=== PATIENT | female | born 1990 | race Hispanic/Latino ===

== ENCOUNTER 2021-11-30 12:52 | Emergency (ER) | payer OTHER ==
--- OUTSIDE RECORDS SUMMARY | 2021-11-30 13:02 | XMS REPORT | Continuity of Care Document ---
:1990 Author Organization [facility] t Address [address] [place] [address] Care Team Providers Name Role Phone Yovany Galvan Attending Clinician [phone] Tee WILKS Attending Clinician Unavailable Doctor Unassigned, Name Attending Clinician Unavailable Bright Zapata MD Attending Clinician Masoud RN Attending Clinician Unavailable Ultrasound Attending Clinician Unavailable Don JASSO Attending Clinician Abbe ADORNO, R Attending Clinician Silvano JASSO, F Attending Clinician Lab Attending Clinician Unavailable Faculty, Rmchp Mfm Attending Clinician Unavailable Garfield Elkins MD Attending Clinician Bright Zapata MD Admitting Clinician Payers Payer Name Policy Type Policy Number Effective Date Expiration Date S madelyn [facility] [id number] 2020 00:00:00 [facility] [id number] 2020 [facility] MEDICAID 00:00:00 [place]ICAID OF [place] [id number] 2020 00:00:00 MEDICAID PENDING PENDING 2020 00:00:00 Problems Condition Condition Condition Status Onset Resolution Last Treating Co mments Source Name Details Category Date Date Treatment Clinician Date Other Other Disease Active Univers general general 4-12 [place] of counseling [place] and advice and advice 00 Me dical for for Branch contracept contracept asmita asmita management management Routine Routine Disease Active Univers 3-22 [place] of [place] Anemia, Anemia, Disease Active Univers 3-01 it y of 00:00: [place] 00 [facility] Branch Disease Active Univers (spontaneo (spontaneo 2-27 it y of [place] vaginal [place] vaginal 00:[place] delivery) delivery[place] [address] [facility] Liveborn Liveborn Disease Active Unive rs infant by infant by 2-27 ity of vaginal vaginal 00:00: [place] delivery delivery 00 Medica l [place] 33 weeks 33 weeks Disease Active Unive rs gestation gestation 2-26 ity of of of 00:00: [place] [address] [facility] Obesity Obesity Disease Active Univers (BMI (BMI 2-26 ity of 30-39.9) 30-39.9) 00:00: [place] 00 [facility] Abnormal Abnormal Disease Active Overview: Un er[facility] maternal maternal 1-11 Passed ity of glucose glucose 00:00: 3hr gtt [place] tolerance, tolerance, 00 Me dical antepartum antepartum Br anch Anemia of Anemia of Disease Active Overview: Univers mother in mother in 06-10 Continue it y of , , 00:00: PO iron [place] antepartum antepartum 00 and vit c Medical Branch Supervisio Supervisio Disease Active U nivers n of n of 06-09 ity of high-risk high-risk 00:[place] [address] [facility] History of History of Disease Active U nivers 06-09 ity of induced induced 00:00: [place] hypertensi hypertensi 00 Me dical on on Branch Multiparit Multiparit Disease Active 2020-0 U nivers y y 06-09 ity of 00:00: [place] [facility] History of History of Disease Active 2019-0 U nivers pre-eclamp pre-eclamp 06-09 it y of domi domi 00:00: [place] [facility] History of History of Disease Active 2019-0 U nivers miscarriag miscarriag 06-09 it y of e e 00:00: [place] [facility] Tobacco Tobacco Disease Active Univers use in use in 06-09 [place] of 00:[place] Vaginal Vaginal Disease Active Univers delivery delivery -11 ity of 00:00: [place] [facility] Previous Previous Disease Active 2014-10 Unive rs 2-18 ity of complicate complicate 00:[place] d by d by 00 Medical - - Br anch induced induced hypertensi hypertensi on, on, antepartum antepartum , third , third trimester trimester High-risk High-risk Disease Active 2014-10 Uni vers , , 2-18 it y of third third 00:00: [place] trimester trimester 00 [facility] Branch Thrombophl Thrombophl Disease Active 2014-10 Overview : Univers ebitis, ebitis, 1-24 Will ity of superficia superficia 00:00: [place] l, l, 00 therapuet Medical antepartum antepartum ic Br anch , third , third treatment trimester trimester with Lovenox 40mg BID. Dopper Studies upon hospital admission Abnormal Abnormal Disease Active 2014-10 Unive rs weight weight 1-24 ity of loss loss 00:00: Medical Branch History of History of Disease Active 2014-10 U nivers superficia superficia -12 it y of l l 00:00: [place] thrombophl thrombophl 00 Me dical ebitis ebitis Branch History of History of Disease Active 2014-10 Overview : Univers 1-12 Due to ity of delivery, delivery, 00:00[place] PIH at 32 [place] currently currently 00 and 35wks M edical , , Bran ch third third trimester trimester High-risk High-risk Disease Active Overview: Univers 9-11 ICD10 ity of 00:00: Diagnosis [place] Term Medical [employer] Branch Utility Insufficie Insufficie Disease Active U nivers nt nt 9-11 ity of 00:00: [place] care, care, 00 Medical unspecifie unspecifie Br anch d d trimester trimester Allergies, Adverse Reactions, Alerts Allergy Allergy Status Severity Reaction(s) Onset Inactive Treating Comm ents Source Name Type Date Date Clinician No Known DA Active U 2018- [facility] 7[facility]28 [facility] s 00:00: e 00 Medical Center No Known DA Active U [facility] Allergie 3-13 [facility] s 00:00: e 00 [facility] No Known DA Active U 2014-0 [facility] Allergie 3-06 [facility] 00:00: e 00 Medical Center NO KNOWN Drug Active Univers ALLERGIE Class ity of S [facility] Social History Social Habit Start Date Stop Date Quantity Comments Source ASSERTION 2020-04-18 University of 00:00:00 [facility] Exposure to Not sure [facility] SARS-CoV-2 (event) [facility] Cigarettes smoked 2021-01-10 2021-01-10 Univers ity of current (pack per 00:00:00 00:00:00 ) - Reported Branch Cigarette 2021-01-10 2021-01-10 University of pack-years 00:00:00 00:00:00 [facility] Tobacco use and 2021-01-10 2021-01-10 Never used Universit y of exposure 00:00:00 00:00:00 [facility] Alcohol intake 2021-01-10 2021-01-10 Current University of 00:00:00 00:00:00 non-drinker of [facility] alcohol [place] (finding) Tobacco Comment 2020-06-09 2020-06-09 1/3 pack per day Uni versity of 00:00:00 00:00:00 [facility] History of tobacco 2020-05-09 Cigarette Smoker University of use 00:00:00 [facility] Sex [birth year] At [birth year] Universit y of 00:00:00 00:00:00 [facility] Smoking Status Start Date Stop Date Source Former smoker 2021-01-10 00:00:00 2021-01-10 00:00:00 [facility] [place] Medications Ordered Filled Start Stop Current Ordering Indication Dosage Frequency Signature Comments Components Source Medication Medication Date Date Medication? Clinician (SIG) Name Name medroxyPROG 2021- No [id number] 150mg Univers ESTERone 01-1014 ity of (DEPO-PROVE 15:30: 15:29 [place] RA) 00 :00 Medical injection Branch 150 mg medroxyPROG 2020-0 2021- No [id number] 150mg 150 mg, Univers ESTERone 01-1014 Intramuscu ity of (DEPO-PROVE 15:30: 15:29 lar, [place] RA) 00 :00 [id number], Medical injection 4 doses, Branch 150 mg First dose on Sun01/10/21 at 1030, Last dose on Sun09/19/21 at 1030, Routine medroxyPROG 2020-0 2021- No [id number] 150mg Univers ESTERone 01-10 ity of (DEPO-PROVE 15:30: 15:29 [place] RA) 00 :00 Medical injection Branch 150 mg medroxyPROG 2020-0 2021- No [id number] 150mg 150 mg, Univers ESTERone 01-10 Intramuscu ity of (DEPO-PROVE 15:30: 15:29 lar, [place] RA) 00 :00 [id number], Medical injection 4 doses, Branch 150 mg First dose on Sun01/10/21 at 1030, Last dose on Sun09/19/21 at 1030, Routine medroxyPROG 2020-2021- No [id number] 150mg Univers ESTERone 01-10 ity of (DEPO-PROVE 15:30: 15:29 [place] RA) 00 :00 Medical injection Branch 150 mg medroxyPROG 2020-0 2021- No [id number] 150mg Univers ESTERone 01-10 ity of (DEPO-PROVE 15:30: 15:29 [place] RA) 00 :00 Medical injection Branch 150 mg medroxyPROG 2020-0 2021- No [id number] 150mg Univers ESTERone -09 02-14 ity of (DEPO-PROVE 15:30: 15:29 [place] RA) 00 :00 Medical injection Branch 150 mg medroxyPROG 1-0 2021- No [id number] 150mg Univers ESTERone 01-10-14 ity of (DEPO-PROVE 15:30: 15:29 [place] RA) 00 :00 Medical injection Branch 150 mg ibuprofen 2021-0 Yes [id number] 600mg Take 1 Univers 600 mg 3-01 tablet by ity of tablet 00:00: mouth [place] 00 every 6 Medical (six) Branch hours as needed (Pain). Take with food or milk. ibuprofen 2021-0 Yes [id number] 600mg Take 1 Univers 600 mg 3-01 tablet by ity of tablet 00:00: mouth [place] 00 every 6 Medical (six) Branch hours as needed (Pain). Take with food or milk. ibuprofen 2021-0 Yes [id number] 600mg Take 1 Univers 600 mg 3-01 tablet by ity of tablet 00:00: mouth [place] 00 every 6 Medical (six) Branch hours as needed (Pain). Take with food or milk. ibuprofen 2021-0 Yes [id number] 600mg Take 1 Univers 600 mg 3-01 tablet by ity of tablet 00:00: mouth [place] 00 every 6 Medical (six) Branch hours as needed (Pain). Take with food or milk. ibuprofen 2021-0 Yes [id number] 600mg Take 1 Univers 600 mg 3-01 tablet by ity of tablet 00:00: mouth [place] 00 every 6 Medical (six) Branch hours as needed (Pain). Take with food or milk. ibuprofen 2021-0 Yes [id number] 600mg Take 1 Univers 600 mg 3-01 tablet by ity of tablet 00:00: mouth [place] 00 every 6 Medical (six) Branch hours as needed (Pain). Take with food or milk. ibuprofen 2021-0 Yes [id number] 600mg Take 1 Univers 600 mg 3-01 tablet by ity of tablet 00:00: mouth [place] 00 every 6 Medical (six) Branch hours as needed (Pain). Take with food or milk. ibuprofen 2021-0 Yes [id number] 600mg Take 1 Univers 600 mg 3-01 tablet by ity of tablet 00:00: mouth [place] 00 every 6 Medical (six) Branch hours as needed (Pain). Take with food or milk. ibuprofen 2021-0 Yes [id number] 600mg Take 1 Univers 600 mg 3-01 tablet by ity of tablet 00:00: mouth [place] 00 every 6 Medical (six) Branch hours as needed (Pain). Take with food or milk. ibuprofen 2021-0 Yes [id number] 600mg Take 1 Univers 600 mg 3-01 tablet by ity of tablet 00:00: mouth [place] 00 every 6 Medical (six) Branch hours as needed (Pain). Take with food or milk. rho(D) 0 Yes 300ug 300 mcg, Univer s immune 11-27 Intramuscu ity of globulin 16:00: lar, ONCE, [place] as (RHOGAM) 49 For 1 Medical syringe 300 dose, Branch mcg Conditiona l, Routine human 0 Yes .5mL 0.5 mL, Univers papillomav 11-27 Intramuscu ity of vac,9-santino(P 16:00: lar, [place] F) 47 ONCE-PRIOR Medical (GARDASIL-9 TO Branch ) syringe DISCHARGE, 0.5 mL 1 dose, Starting 11/27/20 at 1000, Until Discontinu ed, Routine, Give vaccine prior to discharge ibuprofen 0 Yes 600mg 600 mg, Univ ers (IBU) 11-27 Oral, ity of tablet 600 16:00: Q6HPRN, [place] mg 47 Starting Medical Sat Branch 11/27/20 at 1000, Until Discontinu ed, Routine, Pain (scale 4-6) acetaminoph 0 Yes 650mg 650 mg, Un erica en 11-27 Oral, ity of (TYLENOL) 16:00: Q6HPRN, [place] tablet 650 47 Starting Medic al mg Sat Branch 11/27/20 at 1000, Until Discontinu ed, Routine, Pain (scale 1-3) diphenhydrA 0 Yes 25mg 25 mg, Univ ers MINE 11-27 Oral, ity of (BENADRYL) 16:00: Q6HPRN, [place] tablet 25 47 Starting Medica l mg Sat Branch 11/27/20 at 1000, Until Discontinu ed, Routine, Sleep, Itching diphenhydrA 0 Yes 25mg 25 mg, IV U nivers MINE-0.9 % 11-27 Piggyback, ity of sod.chlr 16:00: Administer [place] as (BENADRYL) 47 over 30 Medica l 25 mg/50 mL Minutes, Bran ch piggyback Q6HPRN, 25 mg Starting 11/27/20 at 1000, Until Discontinu ed, Routine, Itching ondansetron 2020-0 Yes 4mg 4 mg, Slow Univers (ZOFRAN 11-27 IV Push, ity of (PF)) 16:00: Q8HPRN, [place] injection 4 47 Starting Medi davon mg Sat Branch 11/27/20 at 1000, Until Discontinu ed, Routine, Nausea and Vomiting (N/V) simethicone Yes 160mg 160 mg, Un erica (GAS RELIEF 11-27 Oral, ity of (SIMETHICON 16:00: PC+HSPRN, [place] E)) 47 Starting Medical chewable Sat Branch tablet 160 11/27/20 at mg 1000, Until Discontinu ed, Routine, Gas docusate Yes 240mg 240 mg, Unive rs calcium 11-27 Oral, ity of (SURFAK) 16:00: QDAILYPRN, [place] capsule 240 47 Starting Medi davon mg Sat Branch 11/27/20 at 1000, Until Discontinu ed, Routine, Constipati on magnesium Yes 30mL 30 mL, Univer s hydroxide 11-27 Oral, ity of (MILK OF 16:00: QDAILYPRN, [place] MAGNESIA) 47 Starting Medica l 400 mg/5 mL Sat Branch suspension 11/27/20 at 30 mL 1000, Until Discontinu ed, Routine, Constipati on benzocaine- Yes Topical, Un erica menthol 11-27 PRN, ity of (DERMOPLAST 16:00: Starting [place] ) 20-0.5 % 47 Sat Medical topical 11/27/20 at Branch spray 1000, Until Discontinu ed, Routine, Perineum discomfort penicillin 2020- No 510 5 Million U nivers g potassium 11-27 Units, IV it y of 5 Million 13:15: 14:38 Piggyback, [place] Units in 00 :00 ONCE, 1 Medical NaCl 0.9% dose, Sat Branc h (NS) 100 mL 11/27/20 at MINI-BAG 0730, 100 mL
Reas on for Anti-Infec tive: Documented Infection< br>Documen raffi Infection Site: Pelvic
Duration of Therapy: 7 days terbutaline 0 2021- No .25mg 0.25 mg, Univers (BRETHINE) 11-27 Subcutaneo it y of injection 11:40: 11:46 [place], ONCE, [place] 0.25 mg 00 :00 1 dose, Medical Sat Branch 11/27/20 at 0545, Routine lactated 2020- No 500mL at 999 Unive rs ringers IV 11-27 mL/hr, 500 it y of infusion 07:30: 12:45 mL, IV [place] 500 mL 00 :00 Infusion, Medical ONCE, 1 Branch dose, 11/27/20 at 0130, Routine butorphanol 2020- No 1mg 1 mg, Univ ers (STADOL) 11-27 Intravenou ity of injection 1 07:15: 07:58 s, ONCE, 1 [place] mg 00 :00 dose, Sat Medical 11/27/20 at Branch 0115, Routine sodium 2020- No 30mL 30 mL, Univers citrate-cit 11-27 Oral, ity of juan carlos acid 06:28: 12:45 PRE-PROCED [place] (BICITRA) 15 :00 URE ONCE, Medic al 500-334 1 dose, Branch mg/5 mL Starting solution 30 Sat mL 11/27/20 at 0028, Until Discontinu ed, Routine, Surgery/Pr ocedure lactated 2020- No 1000mL at 125 Univ ers ringers IV 11-27 mL/hr, ity of infusion 04:15: 16:00 1,000 mL, [place] 1,000 mL 00 :50 IV Medical Infusion, Branch CONTINUOUS , Starting 11/26/20 at 2215, Until 11/27/20 at 1000, Routine ascorbic 2019-10 Yes [id number] 500mg Take 1 U nivers acid, 1-16 tablet by ity of vitamin C, 00:00: mouth 3 [place] 500 mg 00 (three) Medical tablet times Branch daily. ferrous 2019-10 Yes [id number] 325mg Take 1 Un erica sulfate 325 1-16 tablet by ity of mg (65 mg 00:00: mouth 2 [place] iron) 00 (two) Medical tablet times Branch daily. ascorbic 2019-10 Yes [id number] 500mg Take 1 U nivers acid, 1-16 tablet by ity of vitamin C, 00:00: mouth 3 [place] 500 mg 00 (three) Medical tablet times Branch daily. ferrous 2019-10 Yes [id number] 325mg Take 1 Un erica sulfate 325 1-16 tablet by ity of mg (65 mg 00:00: mouth 2 [place] iron) 00 (two) Medical tablet times Branch daily. ascorbic 2019-10 Yes [id number] 500mg Take 1 U nivers acid, 1-16 tablet by ity of vitamin C, 00:00: mouth 3 [place] 500 mg 00 (three) Medical tablet times Branch daily. ferrous 2019-10 Yes [id number] 325mg Take 1 Un erica sulfate 325 1-16 tablet by ity of mg (65 mg 00:00: mouth 2 [place] iron) 00 (two) Medical tablet times Branch daily. ascorbic 2019-10 Yes [id number] 500mg Take 1 U nivers acid, 1-16 tablet by ity of vitamin C, 00:00: mouth 3 [place] 500 mg 00 (three) Medical tablet times Branch daily. ferrous 2019-10 Yes [id number] 325mg Take 1 Un erica sulfate 325 1-16 tablet by ity of mg (65 mg 00:00: mouth 2 [place] iron) 00 (two) Medical tablet times Branch daily. ascorbic 2019-10 Yes [id number] 500mg Take 1 U nivers acid, 1-16 tablet by ity of vitamin C, 00:00: mouth 3 [place] 500 mg 00 (three) Medical tablet times Branch daily. ferrous 2019-10 Yes [id number] 325mg Take 1 Un erica sulfate 325 1-16 tablet by ity of mg (65 mg 00:00: mouth 2 [place] iron) 00 (two) Medical tablet times Branch daily. ascorbic 2019-10 Yes [id number] 500mg Take 1 U nivers acid, 1-16 tablet by ity of vitamin C, 00:00: mouth 3 [place] 500 mg 00 (three) Medical tablet times Branch daily. ferrous 2019-10 Yes [id number] 325mg Take 1 Un erica sulfate 325 1-16 tablet by ity of mg (65 mg 00:00: mouth 2 [place] iron) 00 (two) Medical tablet times Branch daily. ascorbic 2019-10 Yes [id number] 500mg Take 1 U nivers acid, 1-16 tablet by ity of vitamin C, 00:00: mouth 3 [place] 500 mg 00 (three) Medical tablet times Branch daily. ferrous 2019-10 Yes [id number] 325mg Take 1 Un er[facility] sulfate 325 1-16 tablet by ity of mg (65 mg 00:00: mouth 2 [place] iron) 00 (two) Medical tablet times Branch daily. ascorbic 2019-10 Yes [id number] 500mg Take 1 U nivers acid, 1-16 tablet by ity of vitamin C, 00:00: mouth 3 [place] 500 mg 00 (three) Medical tablet times Branch daily. ferrous 2019-10 Yes [id number] 325mg Take 1 Un er[place] sulfate 325 1-16 tablet by ity of mg (65 mg 00:00: mouth 2 [place] iron) 00 (two) Medical tablet times Branch daily. ascorbic 2019-10 Yes [id number] 500mg Take 1 U nivers acid, 1-16 tablet by ity of vitamin C, 00:00: mouth 3 [place] 500 mg 00 (three) Medical tablet times Branch daily. ferrous 2019-10 Yes [id number] 325mg Take 1 Un er[place] sulfate 325 1-16 tablet by ity of mg (65 mg 00:00: mouth 2 [place] iron) 00 (two) Medical tablet times Branch daily. ascorbic 2019-10 Yes [id number] 500mg Take 1 U nivers acid, 1-16 tablet by ity of vitamin C, 00:00: mouth 3 [place] 500 mg 00 (three) Medical tablet times Branch daily. ferrous 2019-10 Yes [id number] 325mg Take 1 [facility] [place] sulfate 325 1-16 tablet by ity of mg (65 mg 00:00: mouth 2 [place] iron) 00 (two) Medical tablet times Branch daily. ascorbic 2019-10 Yes [id number] 500mg Take 1 U nivers acid, 1-16 tablet by ity of vitamin C, 00:00: mouth 3 [place] 500 mg 00 (three) Medical tablet times Branch daily. ferrous 2019-10 Yes [id number] 325mg Take 1 [place] er[place] sulfate 325 1-16 tablet by ity of mg (65 mg 00:00: mouth 2 [place] iron) 00 (two) Medical tablet times Branch daily. ascorbic 2019-10 Yes [id number] 500mg Take 1 U nivers acid, 1-16 tablet by ity of vitamin C, 00:00: mouth 3 [place] 500 mg 00 (three) Medical tablet times Branch daily. ferrous 2019-10 Yes [id number] 325mg Take 1 [facility] [place] sulfate 325 1-16 tablet by ity of mg (65 mg 00:00: mouth 2 [place] iron) 00 (two) Medical tablet times Branch daily. ascorbic 2020- Yes [id number] 500mg Take 1 U nivers acid, 1-16 tablet by ity of vitamin C, 00:00: mouth 3 [place] 500 mg 00 (three) Medical tablet times Branch daily. ferrous 2020- Yes [id number] 325mg Take 1 Un er[facility] sulfate 325 1-16 tablet by ity of mg (65 mg 00:00: mouth 2 [place] iron) 00 (two) Medical tablet times Branch daily. ascorbic 2019- Yes [id number] 500mg Take 1 U nivers acid, 1-16 tablet by ity of vitamin C, 00:00: mouth 3 [place] 500 mg 00 (three) Medical tablet times Branch daily. ferrous 2019-10 Yes [id number] 325mg Take 1 Un erica sulfate 325 1-16 tablet by ity of mg (65 mg 00:00: mouth 2 [place] iron) 00 (two) Medical tablet times Branch daily. ascorbic 2019-10 Yes [id number] 500mg Take 1 U nivers acid, 1-16 tablet by ity of vitamin C, 00:00: mouth 3 [place] 500 mg 00 (three) Medical tablet times Branch daily. ferrous 2019-10 Yes [id number] 325mg Take 1 Un er[facility] sulfate 325 1-16 tablet by ity of mg (65 mg 00:00: mouth 2 [place] iron) 00 (two) Medical tablet times Branch daily. ascorbic 2019- Yes [id number] 500mg Take 1 U nivers acid, 1-16 tablet by ity of vitamin C, 00:00: mouth 3 [place] 500 mg 00 (three) Medical tablet times Branch daily. ferrous 2019-10 Yes [id number] 325mg Take 1 Un [place] sulfate 325 1-16 tablet by ity of mg (65 mg 00:00: mouth 2 [place] iron) 00 (two) Medical tablet times Branch daily. ascorbic 2019- Yes [id number] 500mg Take 1 U nivers acid, 1-16 tablet by ity of vitamin C, 00:00: mouth 3 [place] 500 mg 00 (three) Medical tablet times Branch daily. ferrous 2019- Yes [id number] 325mg Take 1 Un erica sulfate 325 1-16 tablet by ity of mg (65 mg 00:00: mouth 2 [place] iron) 00 (two) Medical tablet times Branch daily. ascorbic 2019- Yes [id number] 500mg Take 1 U nivers acid, 1-16 tablet by ity of vitamin C, 00:00: mouth 3 [place] 500 mg 00 (three) Medical tablet times Branch daily. ferrous 2019- Yes [id number] 325mg Take 1 Un [place] sulfate 325 1-16 tablet by ity of mg (65 mg 00:00: mouth 2 [place] iron) 00 (two) Medical tablet times Branch daily. ascorbic 2019- Yes [id number] 500mg Take 1 U nivers acid, 1-16 tablet by ity of vitamin C, 00:00: mouth 3 [place] 500 mg 00 (three) Medical tablet times Branch daily. ferrous 2019- Yes [id number] 325mg Take 1 Un er[facility] sulfate 325 1-16 tablet by ity of mg (65 mg 00:00: mouth 2 [place] iron) 00 (two) Medical tablet times Branch daily. ascorbic 2019- Yes [id number] 500mg Take 1 U nivers acid, 1-16 tablet by ity of vitamin C, 00:00: mouth 3 [place] 500 mg 00 (three) Medical tablet times Branch daily. ferrous 2019-10 Yes [id number] 325mg Take 1 Un erica sulfate 325 1-16 tablet by ity of mg (65 mg 00:00: mouth 2 [place] iron) 00 (two) Medical tablet times Branch daily. ascorbic 2019-10 Yes [id number] 500mg Take 1 U nivers acid, 1-16 tablet by ity of vitamin C, 00:00: mouth 3 [place] 500 mg 00 (three) Medical tablet times Branch daily. ferrous 2019- Yes [id number] 325mg Take 1 Un [facility] sulfate 325 1-16 tablet by ity of mg (65 mg 00:00: mouth 2 [place] iron) 00 (two) Medical tablet times Branch daily. ascorbic 2019- Yes [id number] 500mg Take 1 U nivers acid, 1-16 tablet by ity of vitamin C, 00:00: mouth 3 [place] 500 mg 00 (three) Medical tablet times Branch daily. ferrous 2019- Yes [id number] 325mg Take 1 Un erica sulfate 325 1-16 tablet by ity of mg (65 mg 00:00: mouth 2 [place] iron) 00 (two) Medical tablet times Branch daily. ascorbic 2019- Yes [id number] 500mg Take 1 U nivers acid, 1-16 tablet by ity of vitamin C, 00:00: mouth 3 [place] 500 mg 00 (three) Medical tablet times Branch daily. ferrous 2019-10 Yes [id number] 325mg Take 1 Un erica sulfate 325 1-16 tablet by ity of mg (65 mg 00:00: mouth 2 [place] iron) 00 (two) Medical tablet times Branch daily. ascorbic 2019-10 Yes [id number] 500mg Take 1 U nivers acid, 1-16 tablet by ity of vitamin C, 00:00: mouth 3 [place] 500 mg 00 (three) Medical tablet times Branch daily. ferrous 2019-10 Yes [id number] 325mg Take 1 Un er[facility] sulfate 325 1-16 tablet by ity of mg (65 mg 00:00: mouth 2 [place] iron) 00 (two) Medical tablet times Branch daily. ascorbic 2019-10- No [id number] 500mg Take 1 Univers acid, 1-16 - tablet by ity of vitamin C, 00:00: 00:00 mouth 3 [place] 500 mg 00 :00 (three) Medical tablet times Branch daily. ferrous 2019-10- No [id number] 325mg Take 1 U nivers sulfate 325 1-16 - tablet by it y of mg (65 mg 00:00: 00:00 mouth 2 [place] iron) 00 :00 (two) Medical tablet times Branch daily. aspirin 2020-0 Yes [id number] 81mg Take 1 U nivers (ASPIRIN 9-21 9100 tablet by ity of LOW DOSE) 00:00: mouth [place] 81 mg EC 00 daily. Medical tablet Branch aspirin 2020-0 Yes [id number] 81mg Take 1 U nivers (ASPIRIN 9-21 9100 tablet by ity of LOW DOSE) 00:00: mouth [place] 81 mg EC 00 daily. Medical tablet Branch aspirin 2020-0 Yes [id number] 81mg Take 1 U nivers (ASPIRIN 9-21 9100 tablet by ity of LOW DOSE) 00:00: mouth [place] 81 mg EC 00 daily. Medical tablet Branch aspirin 2020-0 Yes [id number] 81mg Take 1 U nivers (ASPIRIN 9-21 9100 tablet by ity of LOW DOSE) 00:00: mouth [place] 81 mg EC 00 daily. Medical tablet Branch aspirin 2020-0 Yes [id number] 81mg Take 1 U nivers (ASPIRIN 9-21 9100 tablet by ity of LOW DOSE) 00:00: mouth [place] 81 mg EC 00 daily. Medical tablet Branch aspirin 2020-0 Yes [id number] 81mg Take 1 U nivers (ASPIRIN 9-21 9100 tablet by ity of LOW DOSE) 00:00: mouth [place] 81 mg EC 00 daily. Medical tablet Branch aspirin 2020-0 Yes [id number] 81mg Take 1 U nivers (ASPIRIN 9-21 9100 tablet by ity of LOW DOSE) 00:00: mouth [place] 81 mg EC 00 daily. Medical tablet Branch aspirin 2020-0 Yes [id number] 81mg Take 1 U nivers (ASPIRIN 9-21 9100 tablet by ity of LOW DOSE) 00:00: mouth [place] 81 mg EC 00 daily. Medical tablet Branch aspirin 2020-0 Yes [id number] 81mg Take 1 U nivers (ASPIRIN 9-21 9100 tablet by ity of LOW DOSE) 00:00: mouth [place] 81 mg EC 00 daily. Medical tablet Branch aspirin 2020-0 Yes [id number] 81mg Take 1 U nivers (ASPIRIN 9-21 9100 tablet by ity of LOW DOSE) 00:00: mouth [place] 81 mg EC 00 daily. Medical tablet Branch aspirin 2020-0 Yes [id number] 81mg Take 1 U nivers (ASPIRIN 9-21 9100 tablet by ity of LOW DOSE) 00:00: mouth [place] 81 mg EC 00 daily. Medical tablet Branch aspirin 2020-0 Yes [id number] 81mg Take 1 [facility] (ASPIRIN 9-21 9100 tablet by ity of LOW DOSE) 00:00: mouth [place] 81 mg EC 00 daily. Medical tablet Branch aspirin 2020-0 Yes [id number] 81mg Take 1 [facility] (ASPIRIN 9-21 9100 tablet by ity of LOW DOSE) 00:00: mouth [place] 81 mg EC 00 daily. Medical tablet Branch aspirin 2020-0 Yes [id number] 81mg Take 1 [facility] (ASPIRIN 9-21 9100 tablet by ity of LOW DOSE) 00:00: mouth [place] 81 mg EC 00 daily. Medical tablet Branch aspirin 2020-0 Yes [id number] 81mg Take 1 [facility] (ASPIRIN 9-21 9100 tablet by ity of LOW DOSE) 00:00: mouth [place] 81 mg EC 00 daily. Medical tablet Branch aspirin 2020-0 Yes [id number] 81mg Take 1 [facility] (ASPIRIN 9-21 9100 tablet by ity of LOW DOSE) 00:00: mouth [place] 81 mg EC 00 daily. Medical tablet Branch aspirin 2020-0 Yes [id number] 81mg Take 1 [facility] (ASPIRIN 9-21 9100 tablet by ity of LOW DOSE) 00:00: mouth [place] 81 mg EC 00 daily. Medical tablet Branch aspirin 2020-0 Yes [id number] 81mg Take 1 [facility] (ASPIRIN 9-21 9100 tablet by ity of LOW DOSE) 00:00: mouth [place] 81 mg EC 00 daily. Medical tablet Branch aspirin 2020-0 Yes [id number] 81mg Take 1 [facility] (ASPIRIN 9-21 9100 tablet by ity of LOW DOSE) 00:00: mouth [place] 81 mg EC 00 daily. Medical tablet Branch aspirin 2020-0 Yes [id number] 81mg Take 1 [facility] (ASPIRIN 9-21 9100 tablet by ity of LOW DOSE) 00:00: mouth [place] 81 mg EC 00 daily. Medical tablet Branch aspirin 2020-0 Yes [id number] 81mg Take 1 [facility] (ASPIRIN 9-21 9100 tablet by ity of LOW DOSE) 00:00: mouth [place] 81 mg EC 00 daily. Medical tablet Branch aspirin 2020-0 Yes [id number] 81mg Take 1 [facility] (ASPIRIN 9-21 9100 tablet by ity of LOW DOSE) 00:00: mouth [place] 81 mg EC 00 daily. Medical tablet Branch aspirin 2020-0 Yes [id number] 81mg Take 1 [facility] (ASPIRIN 9-21 9100 tablet by ity of LOW DOSE) 00:00: mouth [place] 81 mg EC 00 daily. Medical tablet Branch aspirin 2020-0 Yes [id number] 81mg Take 1 [facility] (ASPIRIN 9-21 9100 tablet by ity of LOW DOSE) 00:00: mouth [place] 81 mg EC 00 daily. Medical tablet Branch aspirin 2020-0 Yes [id number] 81mg Take 1 [facility] (ASPIRIN 9-21 9100 tablet by ity of LOW DOSE) 00:00: mouth [place] 81 mg EC 00 daily. Medical tablet Branch aspirin 2020-0 Yes [id number] 81mg Take 1 [facility] (ASPIRIN 9-21 9100 tablet by ity of LOW DOSE) 00:00: mouth [place] 81 mg EC 00 daily. Medical tablet Branch aspirin 2020-0 Yes [id number] 81mg Take 1 [facility] (ASPIRIN 9-21 9100 tablet by ity of LOW DOSE) 00:00: mouth [place] 81 mg EC 00 daily. Medical tablet Branch aspirin 2020-0 Yes [id number] 81mg Take 1 [facility] (ASPIRIN 9-21 9100 tablet by ity of LOW DOSE) 00:00: mouth [place] 81 mg EC 00 daily. Medical tablet Branch aspirin 2020-0 Yes [id number] 81mg Take 1 [facility] (ASPIRIN 9-21 9100 tablet by ity of LOW DOSE) 00:00: mouth [place] 81 mg EC 00 daily. Medical tablet Branch aspirin 2020-0 Yes [id number] 81mg Take 1 [facility] (ASPIRIN 9-21 9100 tablet by ity of LOW DOSE) 00:00: mouth [place] 81 mg EC 00 daily. Medical tablet Branch aspirin 2020-0 Yes [id number] 81mg Take 1 [facility] (ASPIRIN 9-21 9100 tablet by ity of LOW DOSE) 00:00: mouth [place] 81 mg EC 00 daily. Medical tablet Branch aspirin 2020-0 Yes [id number] 81mg Take 1 [facility] (ASPIRIN 9-21 9100 tablet by ity of LOW DOSE) 00:00: mouth [place] 81 mg EC 00 daily. Medical tablet Branch aspirin 2020-0 Yes [id number] 81mg Take 1 [facility] (ASPIRIN 9-21 9100 tablet by ity of LOW DOSE) 00:00: mouth [place] 81 mg EC 00 daily. Medical tablet Branch aspirin 2020-0 Yes [id number] 81mg Take 1 [facility] (ASPIRIN 9-21 9100 tablet by ity of LOW DOSE) 00:00: mouth [place] 81 mg EC 00 daily. Medical tablet Branch aspirin 2020-0 Yes [id number] 81mg Take 1 [facility] (ASPIRIN 9-21 9100 tablet by ity of LOW DOSE) 00:00: mouth [place] 81 mg EC 00 daily. Medical tablet Branch aspirin 2020-0 Yes [id number] 81mg Take 1 [facility] (ASPIRIN 9-21 9100 tablet by ity of LOW DOSE) 00:00: mouth [place] 81 mg EC 00 daily. Medical tablet Branch aspirin 2020-0 2021- No [id number] 81mg Take 1 [facility] (ASPIRIN 9-21 - 9100 tablet by ity o f LOW DOSE) 00:00: 00:00 mouth [place] 81 mg EC 00 :00 daily. Medical tablet Branch ferrous 2020-0 Yes [id number] 325mg Take 1 [facility] sulfate 325 9-10 tablet by it[facility] of mg (65 mg 00:00: mouth 2 [place] iron) 00 (two) Medical tablet times Branch daily. ascorbic 2020-0 Yes [id number] 500mg Take 1 [facility] acid, 9-10 tablet by [facility] of vitamin C, 00:00: mouth 3 [place] 500 mg 00 (three) Medical tablet times Branch daily. ferrous 2020-0 Yes [id number] 325mg Take 1 [facility] sulfate 325 9-10 tablet by [facility] of mg (65 mg 00:00: mouth 2 [place] iron) 00 (two) Medical tablet times Branch daily. ascorbic 2020-0 Yes [id number] 500mg Take 1 [facility] acid, 9-10 tablet by [facility] of vitamin C, 00:00: mouth 3 [place] 500 mg 00 (three) Medical tablet times Branch daily. ferrous 2020-0 Yes [id number] 325mg Take 1 [facility] sulfate 325 9-10 tablet by [facility] of mg (65 mg 00:00: mouth 2 [place] iron) 00 (two) Medical tablet times Branch daily. ascorbic 2020-0 Yes [id number] 500mg Take 1 [facility] acid, 9-10 tablet by [facility] of vitamin C, 00:00: mouth 3 [place] 500 mg 00 (three) Medical tablet times Branch daily. ferrous 2020-0 Yes [id number] 325mg Take 1 [facility] sulfate 325 9-10 tablet by [facility] of mg (65 mg 00:00: mouth 2 [place] iron) 00 (two) Medical tablet times Branch daily. ascorbic 2020-0 Yes [id number] 500mg Take 1 [facility] acid, 9-10 tablet by [facility] of vitamin C, 00:00: mouth 3 [place] 500 mg 00 (three) Medical tablet times Branch daily. ferrous 2020-0 Yes [id number] 325mg Take 1 [facility] sulfate 325 9-10 tablet by [facility] of mg (65 mg 00:00: mouth 2 [place] iron) 00 (two) Medical tablet times Branch daily. ascorbic 2020-0 Yes [id number] 500mg Take 1 [facility] acid, 9-10 tablet by [facility] of vitamin C, 00:00: mouth 3 [place] 500 mg 00 (three) Medical tablet times Branch daily. ferrous 2020-0 Yes [id number] 325mg Take 1 [facility] sulfate 325 9-10 tablet by [facility] of mg (65 mg 00:00: mouth 2 [place] iron) 00 (two) Medical tablet times Branch daily. ascorbic 2020-0 Yes [id number] 500mg Take 1 [facility] acid, 9-10 tablet by [facility] of vitamin C, 00:00: mouth 3 [place] 500 mg 00 (three) Medical tablet times Branch daily. ferrous 2020-0 Yes [id number] 325mg Take 1 [facility] sulfate 325 9-10 tablet by [facility] of mg (65 mg 00:00: mouth 2 [place] iron) 00 (two) Medical tablet times Branch daily. ascorbic 2020-0 Yes [id number] 500mg Take 1 [facility] acid, 9-10 tablet by [facility] of vitamin C, 00:00: mouth 3 [place] 500 mg 00 (three) Medical tablet times Branch daily. ferrous 2020-0 Yes [id number] 325mg Take 1 [facility] sulfate 325 9-10 tablet by [facility] of mg (65 mg 00:00: mouth 2 [place] iron) 00 (two) Medical tablet times Branch daily. ascorbic 2020-0 Yes [id number] 500mg Take 1 [facility] acid, 9-10 tablet by [facility] of vitamin C, 00:00: mouth 3 [place] 500 mg 00 (three) Medical tablet times Branch daily. ferrous 2020-0 Yes [id number] 325mg Take 1 [facility] sulfate 325 9-10 tablet by [facility] of mg (65 mg 00:00: mouth 2 [place] iron) 00 (two) Medical tablet times Branch daily. ascorbic 2020-0 Yes [id number] 500mg Take 1 [facility] acid, 9-10 tablet by [facility] of vitamin C, 00:00: mouth 3 [place] 500 mg 00 (three) Medical tablet times Branch daily. ferrous 2020-0 Yes [id number] 325mg Take 1 [facility] sulfate 325 9-10 tablet by it[facility] of mg (65 mg 00:00: mouth 2 [place] iron) 00 (two) Medical tablet times Branch daily. ascorbic 2020-0 Yes [id number] 500mg Take 1 [facility] acid, 9-10 tablet by [facility] of vitamin C, 00:00: mouth 3 [place] 500 mg 00 (three) Medical tablet times Branch daily. ferrous 2020-0 Yes [id number] 325mg Take 1 [facility] sulfate 325 9-10 tablet by it[facility] of mg (65 mg 00:00: mouth 2 [place] iron) 00 (two) Medical tablet times Branch daily. ascorbic 2020-0 Yes [id number] 500mg Take 1 [facility] acid, 9-10 tablet by [facility] of vitamin C, 00:00: mouth 3 [place] 500 mg 00 (three) Medical tablet times Branch daily. ferrous 2020-0 Yes [id number] 325mg Take 1 [facility] sulfate 325 9-10 tablet by [facility] of mg (65 mg 00:00: mouth 2 [place] iron) 00 (two) Medical tablet times Branch daily. ascorbic 2020-0 Yes [id number] 500mg Take 1 [facility] acid, 9-10 tablet by [facility] of vitamin C, 00:00: mouth 3 [place] 500 mg 00 (three) Medical tablet times Branch daily. ferrous 2020-0 Yes [id number] 325mg Take 1 [facility] sulfate 325 9-10 tablet by [facility] of mg (65 mg 00:00: mouth 2 [place] iron) 00 (two) Medical tablet times Branch daily. ascorbic 2020-0 Yes [id number] 500mg Take 1 [facility] acid, 9-10 tablet by [facility] of vitamin C, 00:00: mouth 3 [place] 500 mg 00 (three) Medical tablet times Branch daily. ferrous 2020-0 Yes [id number] 325mg Take 1 [facility] sulfate 325 9-10 tablet by [facility] of mg (65 mg 00:00: mouth 2 [place] iron) 00 (two) Medical tablet times Branch daily. ascorbic 2020-0 Yes [id number] 500mg Take 1 [facility] acid, 9-10 tablet by [facility] of vitamin C, 00:00: mouth 3 [place] 500 mg 00 (three) Medical tablet times Branch daily. ferrous 2020-0 Yes [id number] 325mg Take 1 [facility] sulfate 325 9-10 tablet by [facility] of mg (65 mg 00:00: mouth 2 [place] iron) 00 (two) Medical tablet times Branch daily. ascorbic 2020-0 Yes [id number] 500mg Take 1 [facility] acid, 9-10 tablet by [facility] of vitamin C, 00:00: mouth 3 [place] 500 mg 00 (three) Medical tablet times Branch daily. ferrous 2020-0 Yes [id number] 325mg Take 1 [facility] sulfate 325 9-10 tablet by ity of mg (65 mg 00:00: mouth 2 [place] iron) 00 (two) Medical tablet times Branch daily. ascorbic 2020-0 Yes [id number] 500mg Take 1 [facility] acid, 9-10 tablet by [facility] of vitamin C, 00:00: mouth 3 [place] 500 mg 00 (three) Medical tablet times Branch daily. ferrous 2020-0 Yes [id number] 325mg Take 1 [facility] sulfate 325 9-10 tablet by [facility] of mg (65 mg 00:00: mouth 2 [place] iron) 00 (two) Medical tablet times Branch daily. ascorbic 2020-0 Yes [id number] 500mg Take 1 [facility] acid, 9-10 tablet by [facility] of vitamin C, 00:00: mouth 3 [place] 500 mg 00 (three) Medical tablet times Branch daily. ferrous 2020-0 Yes [id number] 325mg Take 1 [facility] sulfate 325 9-10 tablet by [facility] of mg (65 mg 00:00: mouth 2 [place] iron) 00 (two) Medical tablet times Branch daily. ascorbic 2020-0 Yes [id number] 500mg Take 1 [facility] acid, 9-10 tablet by [facility] of vitamin C, 00:00: mouth 3 [place] 500 mg 00 (three) Medical tablet times Branch daily. ferrous 2020-0 Yes [id number] 325mg Take 1 [facility] sulfate 325 9-10 tablet by ity of mg (65 mg 00:00: mouth 2 [place] iron) 00 (two) Medical tablet times Branch daily. ascorbic 2020-0 Yes [id number] 500mg Take 1 [facility] acid, 9-10 tablet by [facility] of vitamin C, 00:00: mouth 3 [place] 500 mg 00 (three) Medical tablet times Branch daily. ferrous 2020-0 Yes [id number] 325mg Take 1 [facility] sulfate 325 9-10 tablet by ity of mg (65 mg 00:00: mouth 2 [place] iron) 00 (two) Medical tablet times Branch daily. ascorbic 2020-0 Yes [id number] 500mg Take 1 [facility] acid, 9-10 tablet by [facility] of vitamin C, 00:00: mouth 3 [place] 500 mg 00 (three) Medical tablet times Branch daily. ferrous 2020-0 Yes [id number] 325mg Take 1 [facility] sulfate 325 9-10 tablet by ity of mg (65 mg 00:00: mouth 2 [place] iron) 00 (two) Medical tablet times Branch daily. ascorbic 2020-0 Yes [id number] 500mg Take 1 [facility] acid, 9-10 tablet by [facility] of vitamin C, 00:00: mouth 3 [place] 500 mg 00 (three) Medical tablet times Branch daily. ferrous 2020-0 Yes [id number] 325mg Take 1 [facility] sulfate 325 9-10 tablet by ity of mg (65 mg 00:00: mouth 2 [place] iron) 00 (two) Medical tablet times Branch daily. ascorbic 2020-0 Yes [id number] 500mg Take 1 [facility] acid, 9-10 tablet by [facility] of vitamin C, 00:00: mouth 3 [place] 500 mg 00 (three) Medical tablet times Branch daily. ferrous 2020-0 Yes [id number] 325mg Take 1 [facility] sulfate 325 9-10 tablet by ity of mg (65 mg 00:00: mouth 2 [place] iron) 00 (two) Medical tablet times Branch daily. ascorbic 2020-0 Yes [id number] 500mg Take 1 [facility] acid, 9-10 tablet by [facility] of vitamin C, 00:00: mouth 3 [place] 500 mg 00 (three) Medical tablet times Branch daily. ferrous 2020-0 Yes [id number] 325mg Take 1 [facility] sulfate 325 9-10 tablet by ity of mg (65 mg 00:00: mouth 2 [place] iron) 00 (two) Medical tablet times Branch daily. ascorbic 2020-0 Yes [id number] 500mg Take 1 [facility] acid, 9-10 tablet by [facility] of vitamin C, 00:00: mouth 3 [place] 500 mg 00 (three) Medical tablet times Branch daily. ferrous 2020-0 Yes [id number] 325mg Take 1 [facility] sulfate 325 9-10 tablet by ity of mg (65 mg 00:00: mouth 2 [place] iron) 00 (two) Medical tablet times Branch daily. ascorbic 2020-0 Yes [id number] 500mg Take 1 [facility] acid, 9-10 tablet by [facility] of vitamin C, 00:00: mouth 3 [place] 500 mg 00 (three) Medical tablet times Branch daily. ferrous 2020-0 Yes [id number] 325mg Take 1 [facility] sulfate 325 9-10 tablet by ity of mg (65 mg 00:00: mouth 2 [place] iron) 00 (two) Medical tablet times Branch daily. ascorbic 2020-0 Yes [id number] 500mg Take 1 [facility] acid, 9-10 tablet by [facility] of vitamin C, 00:00: mouth 3 [place] 500 mg 00 (three) Medical tablet times Branch daily. ferrous 2020-0 Yes [id number] 325mg Take 1 [facility] sulfate 325 9-10 tablet by ity of mg (65 mg 00:00: mouth 2 [place] iron) 00 (two) Medical tablet times Branch daily. ascorbic 2020-0 Yes [id number] 500mg Take 1 [facility] acid, 9-10 tablet by [facility] of vitamin C, 00:00: mouth 3 [place] 500 mg 00 (three) Medical tablet times Branch daily. ferrous 2020-0 Yes [id number] 325mg Take 1 [facility] sulfate 325 9-10 tablet by ity of mg (65 mg 00:00: mouth 2 [place] iron) 00 (two) Medical tablet times Branch daily. ascorbic 2020-0 Yes [id number] 500mg Take 1 [facility] acid, 9-10 tablet by [facility] of vitamin C, 00:00: mouth 3 [place] 500 mg 00 (three) Medical tablet times Branch daily. ferrous 2020-0 Yes [id number] 325mg Take 1 [facility] sulfate 325 9-10 tablet by ity of mg (65 mg 00:00: mouth 2 [place] iron) 00 (two) Medical tablet times Branch daily. ascorbic 2020-0 Yes [id number] 500mg Take 1 [facility] acid, 9-10 tablet by [facility] of vitamin C, 00:00: mouth 3 [place] 500 mg 00 (three) Medical tablet times Branch daily. ferrous 2020-0 Yes [id number] 325mg Take 1 [facility] sulfate 325 9-10 tablet by ity of mg (65 mg 00:00: mouth 2 [place] iron) 00 (two) Medical tablet times Branch daily. ascorbic 2020-0 Yes [id number] 500mg Take 1 [facility] acid, 9-10 tablet by [facility] of vitamin C, 00:00: mouth 3 [place] 500 mg 00 (three) Medical tablet times Branch daily. ferrous 2020-0 Yes [id number] 325mg Take 1 [facility] sulfate 325 9-10 tablet by ity of mg (65 mg 00:00: mouth 2 [place] iron) 00 (two) Medical tablet times Branch daily. ascorbic 2020-0 Yes [id number] 500mg Take 1 [facility] acid, 9-10 tablet by [facility] of vitamin C, 00:00: mouth 3 [place] 500 mg 00 (three) Medical tablet times Branch daily. ferrous 2020-0 Yes [id number] 325mg Take 1 [facility] sulfate 325 9-10 tablet by ity of mg (65 mg 00:00: mouth 2 [place] iron) 00 (two) Medical tablet times Branch daily. ascorbic 2020-0 Yes [id number] 500mg Take 1 [facility] acid, 9-10 tablet by [facility] of vitamin C, 00:00: mouth 3 [place] 500 mg 00 (three) Medical tablet times Branch daily. ferrous 2020-0 Yes [id number] 325mg Take 1 [facility] sulfate 325 9-10 tablet by ity of mg (65 mg 00:00: mouth 2 [place] iron) 00 (two) Medical tablet times Branch daily. ascorbic 2020-0 Yes [id number] 500mg Take 1 [facility] acid, 9-10 tablet by [facility] of vitamin C, 00:00: mouth 3 [place] 500 mg 00 (three) Medical tablet times Branch daily. ferrous 2020-0 Yes [id number] 325mg Take 1 [facility] sulfate 325 9-10 tablet by ity of mg (65 mg 00:00: mouth 2 [place] iron) 00 (two) Medical tablet times Branch daily. ascorbic 2020-0 Yes [id number] 500mg Take 1 [facility] acid, 9-10 tablet by [facility] of vitamin C, 00:00: mouth 3 [place] 500 mg 00 (three) Medical tablet times Branch daily. ferrous 2020-0 Yes [id number] 325mg Take 1 [facility] sulfate 325 9-10 tablet by ity of mg (65 mg 00:00: mouth 2 [place] iron) 00 (two) Medical tablet times Branch daily. ascorbic 2020-0 Yes [id number] 500mg Take 1 [facility] acid, 9-10 tablet by [facility] of vitamin C, 00:00: mouth 3 [place] 500 mg 00 (three) Medical tablet times Branch daily. ferrous 2020-0 Yes [id number] 325mg Take 1 [facility] sulfate 325 9-10 tablet by ity of mg (65 mg 00:00: mouth 2 [place] iron) 00 (two) Medical tablet times Branch daily. ascorbic 2020-0 Yes [id number] 500mg Take 1 [facility] acid, 9-10 tablet by [facility] of vitamin C, 00:00: mouth 3 [place] 500 mg 00 (three) Medical tablet times Branch daily. ferrous 2020-0 Yes [id number] 325mg Take 1 [facility] sulfate 325 9-10 tablet by ity of mg (65 mg 00:00: mouth 2 [place] iron) 00 (two) Medical tablet times Branch daily. ascorbic 2020-0 Yes [id number] 500mg Take 1 [facility] acid, 9-10 tablet by [facility] of vitamin C, 00:00: mouth 3 [place] 500 mg 00 (three) Medical tablet times Branch daily. ferrous 2020-0 Yes [id number] 325mg Take 1 [facility] sulfate 325 9-10 tablet by ity of mg (65 mg 00:00: mouth 2 [place] iron) 00 (two) Medical tablet times Branch daily. ascorbic 2020-0 Yes [id number] 500mg Take 1 [facility] acid, 9-10 tablet by [facility] of vitamin C, 00:00: mouth 3 [place] 500 mg 00 (three) Medical tablet times Branch daily. ferrous 2020-0 Yes [id number] 325mg Take 1 [facility] sulfate 325 9-10 tablet by ity of mg (65 mg 00:00: mouth 2 [place] iron) 00 (two) Medical tablet times Branch daily. ascorbic 2020-0 Yes [id number] 500mg Take 1 [facility] acid, 9-10 tablet by [facility] of vitamin C, 00:00: mouth 3 [place] 500 mg 00 (three) Medical tablet times Branch daily. ferrous 2020-0 Yes [id number] 325mg Take 1 [facility] sulfate 325 9-10 tablet by ity of mg (65 mg 00:00: mouth 2 [place] iron) 00 (two) Medical tablet times Branch daily. ascorbic 2020-0 Yes [id number] 500mg Take 1 [facility] acid, 9-10 tablet by [facility] of vitamin C, 00:00: mouth 3 [place] 500 mg 00 (three) Medical tablet times Branch daily. ferrous 2020-0 Yes [id number] 325mg Take 1 [facility] sulfate 325 9-10 tablet by ity of mg (65 mg 00:00: mouth 2 [place] iron) 00 (two) Medical tablet times Branch daily. ascorbic 2020-0 Yes [id number] 500mg Take 1 [facility] acid, 9-10 tablet by [facility] of vitamin C, 00:00: mouth 3 [place] 500 mg 00 (three) Medical tablet times Branch daily. ferrous 2020-0 Yes [id number] 325mg Take 1 [facility] sulfate 325 9-10 tablet by ity of mg (65 mg 00:00: mouth 2 [place] iron) 00 (two) Medical tablet times Branch daily. ascorbic 2020-0 Yes [id number] 500mg Take 1 [facility] acid, 9-10 tablet by [facility] of vitamin C, 00:00: mouth 3 [place] 500 mg 00 (three) Medical tablet times Branch daily. ferrous 2020-0 Yes [id number] 325mg Take 1 [facility] sulfate 325 9-10 tablet by ity of mg (65 mg 00:00: mouth 2 [place] iron) 00 (two) Medical tablet times Branch daily. ascorbic 2020-0 Yes [id number] 500mg Take 1 [facility] acid, 9-10 tablet by [facility] of vitamin C, 00:00: mouth 3 [place] 500 mg 00 (three) Medical tablet times Branch daily. ferrous 2020-0 Yes [id number] 325mg Take 1 [facility] sulfate 325 9-10 tablet by ity of mg (65 mg 00:00: mouth 2 [place] iron) 00 (two) Medical tablet times Branch daily. ascorbic 2020-0 Yes [id number] 500mg Take 1 [facility] acid, 9-10 tablet by [facility]y of vitamin C, 00:00: mouth 3 [place] 500 mg 00 (three) Medical tablet times Branch daily. ferrous 2020-0 Yes [id number] 325mg Take 1 [facility] sulfate 325 9-10 tablet by ity of mg (65 mg 00:00: mouth 2 [place] iron) 00 (two) Medical tablet times Branch daily. ascorbic 2020-0 Yes [id number] 500mg Take 1 [facility] acid, 9-10 tablet by [facility] of vitamin C, 00:00: mouth 3 [place] 500 mg 00 (three) Medical tablet times Branch daily. ferrous 2020-0 Yes [id number] 325mg Take 1 [facility] sulfate 325 9-10 tablet by ity of mg (65 mg 00:00: mouth 2 [place] iron) 00 (two) Medical tablet times Branch daily. ascorbic 2020-0 Yes [id number] 500mg Take 1 [facility] acid, 9-10 tablet by [facility] of vitamin C, 00:00: mouth 3 [place] 500 mg 00 (three) Medical tablet times Branch daily. ferrous 2020-0 Yes [id number] 325mg Take 1 [facility] sulfate 325 9-10 tablet by ity of mg (65 mg 00:00: mouth 2 [place] iron) 00 (two) Medical tablet times Branch daily. ascorbic 2020-0 Yes [id number] 500mg Take 1 [facility] acid, 9-10 tablet by [facility] of vitamin C, 00:00: mouth 3 [place] 500 mg 00 (three) Medical tablet times Branch daily. ferrous 2020-0 Yes [id number] 325mg Take 1 [facility] sulfate 325 9-10 tablet by ity of mg (65 mg 00:00: mouth 2 [place] iron) 00 (two) Medical tablet times Branch daily. ascorbic 2020-0 Yes [id number] 500mg Take 1 [facility] acid, 9-10 tablet by [facility] of vitamin C, 00:00: mouth 3 [place] 500 mg 00 (three) Medical tablet times Branch daily. ferrous 2020-0 Yes [id number] 325mg Take 1 [facility] sulfate 325 9-10 tablet by ity of mg (65 mg 00:00: mouth 2 [place] iron) 00 (two) Medical tablet times Branch daily. ascorbic 2020-0 Yes [id number] 500mg Take 1 [facility] acid, 9-10 tablet by [facility] of vitamin C, 00:00: mouth 3 [place] 500 mg 00 (three) Medical tablet times Branch daily. ferrous 2020-0 Yes [id number] 325mg Take 1 [facility] sulfate 325 9-10 tablet by ity of mg (65 mg 00:00: mouth 2 [place] iron) 00 (two) Medical tablet times Branch daily. ascorbic 2020-0 Yes [id number] 500mg Take 1 [facility] acid, 9-10 tablet by [facility] of vitamin C, 00:00: mouth 3 [place] 500 mg 00 (three) Medical tablet times Branch daily. ibuprofen Yes 600mg Take 1 Tab [facility] (MOTRIN) 1-11 by mouth ity of 600 mg 00:00: every 6 [place] tablet 00 (six) Medical hours as Branch needed for Pain (scale 4-6) or Pain (scale 4-6) with oral narcotics. ibuprofen Yes 600mg Take 1 Tab [facility] (MOTRIN) 1-11 by mouth ity of 600 mg 00:00: every 6 [place] tablet 00 (six) Medical hours as Branch needed for Pain (scale 4-6) or Pain (scale 4-6) with oral narcotics. ibuprofen Yes 600mg Take 1 Tab [facility] (MOTRIN) 1-11 by mouth ity of 600 mg 00:00: every 6 [place] tablet 00 (six) Medical hours as Branch needed for Pain (scale 4-6) or Pain (scale 4-6) with oral narcotics. ibuprofen Yes 600mg Take 1 Tab [facility] (MOTRIN) 1-11 by mouth ity of 600 mg 00:00: every 6 [place] tablet 00 (six) Medical hours as Branch needed for Pain (scale 4-6) or Pain (scale 4-6) with oral narcotics. ibuprofen Yes 600mg Take 1 Tab [facility] (MOTRIN) 1-11 by mouth ity of 600 mg 00:00: every 6 [place] tablet 00 (six) Medical hours as Branch needed for Pain (scale 4-6) or Pain (scale 4-6) with oral narcotics. ibuprofen Yes 600mg Take 1 Tab [facility] (MOTRIN) 1-11 by mouth ity of 600 mg 00:00: every 6 [place] tablet 00 (six) Medical hours as Branch needed for Pain (scale 4-6) or Pain (scale 4-6) with oral narcotics. ibuprofen 2020- No 600mg Take 1 Tab [facility] (MOTRIN) 1-11 09-20 by mouth ity of 600 mg 00:00: 00:00 every 6 [place] tablet 00 :00 (six) Medical hours as Branch needed for Pain (scale 4-6) or Pain (scale 4-6) with oral narcotics. Yes 1{tbl} Take 1 Tab [facility] vitamin 1-10 by mouth ity of w/FA 00:00: daily. [place] (PRENATABS 00 Medical RX) tablet Branch docusate Yes 240mg Take 1 Cap [facility] calcium 1-10 by mouth ity of (SURFAK) 00:00: once daily Dayron as 240 mg 00 as needed Medical capsule for Branch Constipati on. ferrous 0 Yes 325mg Take 1 Tab [facility] sulfate 325 1-10 by mouth 2 it y of mg (65 mg 00:00: (two) [place] iron) 00 times Medical tablet daily. Branch Yes 1{tbl} Take 1 Tab [facility] vitamin 1-10 by mouth ity of w/FA 00:00: daily. [place] (PRENATABS 00 Medical RX) tablet Branch docusate Yes 240mg Take 1 Cap [facility] calcium 1-10 by mouth ity of (SURFAK) 00:00: once daily Adyron as 240 mg 00 as needed Medical capsule for Branch Constipati on. ferrous Yes 325mg Take 1 Tab [facility] sulfate 325 1-10 by mouth 2 it y of mg (65 mg 00:00: (two) [place] iron) 00 times Medical tablet daily. Branch Yes 1{tbl} Take 1 Tab [facility] vitamin 1-10 by mouth ity of w/FA 00:00: daily. [place] (PRENATABS 00 Medical RX) tablet Branch docusate Yes 240mg Take 1 Cap [facility] calcium 1-10 by mouth ity of (SURFAK) 00:00: once daily Dayron as 240 mg 00 as needed Medical capsule for Branch Constipati on. ferrous Yes 325mg Take 1 Tab [facility] sulfate 325 1-10 by mouth 2 it y of mg (65 mg 00:00: (two) [place] iron) 00 times Medical tablet daily. Branch Yes 1{tbl} Take 1 Tab [facility] vitamin 1-10 by mouth ity of w/FA 00:00: daily. [place] (PRENATABS 00 Medical RX) tablet Branch docusate Yes 240mg Take 1 Cap [facility] calcium 1-10 by mouth ity of (SURFAK) 00:00: once daily Dayron as 240 mg 00 as needed Medical capsule for Branch Constipati on. ferrous Yes 325mg Take 1 Tab [facility] sulfate 325 1-10 by mouth 2 it y of mg (65 mg 00:00: (two) [place] iron) 00 times Medical tablet daily. Branch Yes 1{tbl} Take 1 Tab [facility] vitamin 1-10 by mouth ity of w/FA 00:00: daily. [place] (PRENATABS 00 Medical RX) tablet Branch Yes 1{tbl} Take 1 Tab U nivers vitamin 1-10 by mouth ity of w/FA 00:00: daily. [place] (PRENATABS 00 Medical RX) tablet Branch docusate Yes 240mg Take 1 Cap [facility] calcium 1-10 by mouth ity of (SURFAK) 00:00: once daily [place] as 240 mg 00 as needed Medical capsule for Branch Constipati on. ferrous 2016-0 Yes 325mg Take 1 Tab Uni vers sulfate 325 1-10 by mouth 2 it y of mg (65 mg 00:00: (two) [place] iron) 00 times Medical tablet daily. Branch docusate 20160 Yes 240mg Take 1 Cap [facility] calcium 1-10 by mouth ity of (SURFAK) 00:00: once daily [place] as 240 mg 00 as needed Medical capsule for Branch Constipati on. ferrous 2016-0 Yes 325mg Take 1 Tab Uni vers sulfate 325 1-10 by mouth 2 it y of mg (65 mg 00:00: (two) [place] iron) 00 times Medical tablet daily. Branch Yes 1{tbl} Take 1 Tab U nivers vitamin 1-10 by mouth ity of w/FA 00:00: daily. [place] (PRENATABS 00 Medical RX) tablet Branch docusate Yes 240mg Take 1 Cap [facility] calcium 1-10 by mouth ity of (SURFAK) 00:00: once daily [place] as 240 mg 00 as needed Medical capsule for Branch Constipati on. ferrous 0 Yes 325mg Take 1 Tab Uni vers sulfate 325 1-10 by mouth 2 it y of mg (65 mg 00:00: (two) [place] iron) 00 times Medical tablet daily. Branch Yes 1{tbl} Take 1 Tab U nivers vitamin 1-10 by mouth ity of w/FA 00:00: daily. [place] (PRENATABS 00 Medical RX) tablet Branch docusate Yes 240mg Take 1 Cap [facility] calcium 1-10 by mouth ity of (SURFAK) 00:00: once daily [place] as 240 mg 00 as needed Medical capsule for Branch Constipati on. ferrous 0 Yes 325mg Take 1 Tab Uni vers sulfate 325 1-10 by mouth 2 it y of mg (65 mg 00:00: (two) [place] iron) 00 times Medical tablet daily. Branch Yes 1{tbl} Take 1 Tab U nivers vitamin 1-10 by mouth ity of w/FA 00:00: daily. [place] (PRENATABS 00 Medical RX) tablet Branch docusate Yes 240mg Take 1 Cap [facility] calcium 1-10 by mouth ity of (SURFAK) 00:00: once daily [place] as 240 mg 00 as needed Medical capsule for Branch Constipati on. Yes 1{tbl} Take 1 Tab U nivers vitamin 1-10 by mouth ity of w/FA 00:00: daily. [place] (PRENATABS 00 Medical RX) tablet Branch docusate Yes 240mg Take 1 Cap [facility] calcium 1-10 by mouth ity of (SURFAK) 00:00: once daily [place] as 240 mg 00 as needed Medical capsule for Branch Constipati on. Yes 1{tbl} Take 1 Tab U nivers vitamin 1-10 by mouth ity of w/FA 00:00: daily. [place] (PRENATABS 00 Medical RX) tablet Branch docusate Yes 240mg Take 1 Cap [facility] calcium 1-10 by mouth ity of (SURFAK) 00:00: once daily [place] as 240 mg 00 as needed Medical capsule for Branch Constipati on. Yes 1{tbl} Take 1 Tab U nivers vitamin 1-10 by mouth ity of w/FA 00:00: daily. [place] (PRENATABS 00 Medical RX) tablet Branch docusate Yes 240mg Take 1 [facility] calcium 1-10 by mouth ity of (SURFAK) 00:00: once daily [place] as 240 mg 00 as needed Medical capsule for Branch Constipati on. Yes 1{tbl} Take 1 Tab U nivers vitamin 1-10 by mouth ity of w/FA 00:00: daily. [place] (PRENATABS 00 Medical RX) tablet Branch docusate Yes 240mg Take 1 Cap [facility] calcium 1-10 by mouth ity of (SURFAK) 00:00: once daily [place] as 240 mg 00 as needed Medical capsule for Branch Constipati on. Yes 1{tbl} Take 1 Tab U nivers vitamin 1-10 by mouth ity of w/FA 00:00: daily. [place] (PRENATABS 00 Medical RX) tablet Branch docusate Yes 240mg Take 1 Cap [facility] calcium 1-10 by mouth ity of (SURFAK) 00:00: once daily [place] as 240 mg 00 as needed Medical capsule for Branch Constipati on. Yes 1{tbl} Take 1 Tab [facility] nivers vitamin 1-10 by mouth ity of w/FA 00:00: daily. [place] (PRENATABS 00 Medical RX) tablet Branch docusate Yes 240mg Take 1 Cap [facility] calcium 1-10 by mouth ity of (SURFAK) 00:00: once daily [place] as 240 mg 00 as needed Medical capsule for Branch Constipati on. Yes 1{tbl} Take 1 Tab U nivers vitamin 1-10 by mouth ity of w/FA 00:00: daily. [place] (PRENATABS 00 Medical RX) tablet Branch docusate Yes 240mg Take 1 [facility] calcium 1-10 by mouth ity of (SURFAK) 00:00: once daily [place] as 240 mg 00 as needed Medical capsule for Branch Constipati on. ferrous Yes 325mg Take 1 Tab Uni vers sulfate 325 1-10 by mouth 2 it y of mg (65 mg 00:00: (two) [place] iron) 00 times Medical tablet daily. Branch Yes 1{tbl} Take 1 Tab U nivers vitamin 1-10 by mouth ity of w/FA 00:00: daily. [place] (PRENATABS 00 Medical RX) tablet Branch docusate Yes 240mg Take 1 Cap [facility] calcium 1-10 by mouth ity of (SURFAK) 00:00: once daily [place] as 240 mg 00 as needed Medical capsule for Branch Constipati on. Yes 1{tbl} Take 1 Tab U nivers vitamin 1-10 by mouth ity of w/FA 00:00: daily. [place] (PRENATABS 00 Medical RX) tablet Branch docusate Yes 240mg Take 1 Cap [facility] calcium 1-10 by mouth ity of (SURFAK) 00:00: once daily [place] as 240 mg 00 as needed Medical capsule for Branch Constipati on. Yes 1{tbl} Take 1 Tab U nivers vitamin 1-10 by mouth ity of w/FA 00:00: daily. [place] (PRENATABS 00 Medical RX) tablet Branch docusate Yes 240mg Take 1 Cap [facility] calcium 1-10 by mouth ity of (SURFAK) 00:00: once daily [place] as 240 mg 00 as needed Medical capsule for Branch Constipati on. Yes 1{tbl} Take 1 Tab U nivers vitamin 1-10 by mouth ity of w/FA 00:00: daily. [place] (PRENATABS 00 Medical RX) tablet Branch docusate Yes 240mg Take 1 Cap [facility] calcium 1-10 by mouth ity of (SURFAK) 00:00: once daily [place] as 240 mg 00 as needed Medical capsule for Branch Constipati on. ferrous 20160 Yes 325mg Take 1 Tab Uni vers sulfate 325 1-10 by mouth 2 it y of mg (65 mg 00:00: (two) [place] iron) 00 times Medical tablet daily. Branch Yes 1{tbl} Take 1 Tab U nivers vitamin 1-10 by mouth ity of w/FA 00:00: daily. [place] (PRENATABS 00 Medical RX) tablet Branch docusate Yes 240mg Take 1 Cap [facility] calcium 1-10 by mouth ity of (SURFAK) 00:00: once daily [place] as 240 mg 00 as needed Medical capsule for Branch Constipati on. ferrous Yes 325mg Take 1 Tab Uni vers sulfate 325 1-10 by mouth 2 it y of mg (65 mg 00:00: (two) [place] iron) 00 times Medical tablet daily. Branch Yes 1{tbl} Take 1 Tab U nivers vitamin 1-10 by mouth ity of w/FA 00:00: daily. [place] (PRENATABS 00 Medical RX) tablet Branch docusate Yes 240mg Take 1 Cap [facility] calcium 1-10 by mouth ity of (SURFAK) 00:00: once daily [place] as 240 mg 00 as needed Medical capsule for Branch Constipati on. ferrous 0 Yes 325mg Take 1 Tab Uni vers sulfate 325 1-10 by mouth 2 it y of mg (65 mg 00:00: (two) [place] iron) 00 times Medical tablet daily. Branch Yes 1{tbl} Take 1 Tab U nivers vitamin 1-10 by mouth ity of w/FA 00:00: daily. [place] (PRENATABS 00 Medical RX) tablet Branch docusate Yes 240mg Take 1 Cap [facility] calcium 1-10 by mouth ity of (SURFAK) 00:00: once daily [place] as 240 mg 00 as needed Medical capsule for Branch Constipati on. ferrous 20160 Yes 325mg Take 1 Tab Uni vers sulfate 325 1-10 by mouth 2 it y of mg (65 mg 00:00: (two) [place] iron) 00 times Medical tablet daily. Branch Yes 1{tbl} Take 1 Tab U nivers vitamin 1-10 by mouth ity of w/FA 00:00: daily. [place] (PRENATABS 00 Medical RX) tablet Branch docusate Yes 240mg Take 1 Cap [facility] calcium 1-10 by mouth ity of (SURFAK) 00:00: once daily [place] as 240 mg 00 as needed Medical capsule for Branch Constipati on. ferrous 0 Yes 325mg Take 1 Tab Uni vers sulfate 325 1-10 by mouth 2 it y of mg (65 mg 00:00: (two) [place] iron) 00 times Medical tablet daily. Branch Yes 1{tbl} Take 1 Tab U nivers vitamin 1-10 by mouth ity of w/FA 00:00: daily. [place] (PRENATABS 00 Medical RX) tablet Branch docusate Yes 240mg Take 1 Cap [facility] calcium 1-10 by mouth ity of (SURFAK) 00:00: once daily [place] as 240 mg 00 as needed Medical capsule for Branch Constipati on. ferrous 0 Yes 325mg Take 1 Tab Uni vers sulfate 325 1-10 by mouth 2 it y of mg (65 mg 00:00: (two) [place] iron) 00 times Medical tablet daily. Branch Yes 1{tbl} Take 1 Tab U nivers vitamin 1-10 by mouth ity of w/FA 00:00: daily. [place] (PRENATABS 00 Medical RX) tablet Branch docusate Yes 240mg Take 1 Cap [facility] calcium 1-10 by mouth ity of (SURFAK) 00:00: once daily [place] as 240 mg 00 as needed Medical capsule for Branch Constipati on. ferrous 0 Yes 325mg Take 1 Tab Uni vers sulfate 325 1-10 by mouth 2 it y of mg (65 mg 00:00: (two) [place] iron) 00 times Medical tablet daily. Branch Yes 1{tbl} Take 1 Tab U nivers vitamin 1-10 by mouth ity of w/FA 00:00: daily. [place] (PRENATABS 00 Medical RX) tablet Branch docusate 2016-0 Yes 240mg Take 1 Cap [facility] calcium 1-10 by mouth ity of (SURFAK) 00:00: once daily [place] as 240 mg 00 as needed Medical capsule for Branch Constipati on. ferrous 2016-0 Yes 325mg Take 1 Tab Uni vers sulfate 325 1-10 by mouth 2 it y of mg (65 mg 00:00: (two) [place] iron) 00 times Medical tablet daily. Branch 2015-0 Yes 1{tbl} Take 1 Tab U nivers vitamin 1-10 by mouth ity of w/FA 00:00: daily. [place] (PRENATABS 00 Medical RX) tablet Branch docusate 0 Yes 240mg Take 1 Cap [facility] calcium 1-10 by mouth ity of (SURFAK) 00:00: once daily [place] as 240 mg 00 as needed Medical capsule for Branch Constipati on. ferrous 2015-0 Yes 325mg Take 1 Tab Uni vers sulfate 325 1-10 by mouth 2 it y of mg (65 mg 00:00: (two) [place] iron) 00 times Medical tablet daily. Branch 2015-0 Yes 1{tbl} Take 1 Tab U nivers vitamin 1-10 by mouth ity of w/FA 00:00: daily. [place] (PRENATABS 00 Medical RX) tablet Branch docusate 2015-0 Yes 240mg Take 1 Cap Un [facility] calcium 1-10 by mouth ity of (SURFAK) 00:00: once daily [place] as 240 mg 00 as needed Medical capsule for Branch Constipati on. ferrous 2015-0 Yes 325mg Take 1 Tab Uni vers sulfate 325 1-10 by mouth 2 it y of mg (65 mg 00:00: (two) [place] iron) 00 times Medical tablet daily. Branch 2015-0 Yes 1{tbl} Take 1 Tab U nivers vitamin 1-10 by mouth ity of w/FA 00:00: daily. [place] (PRENATABS 00 Medical RX) tablet Branch docusate 2015-0 Yes 240mg Take 1 Cap [facility] calcium 1-10 by mouth ity of (SURFAK) 00:00: once daily [place] as 240 mg 00 as needed Medical capsule for Branch Constipati on. ferrous 2016-0 Yes 325mg Take 1 Tab Uni vers sulfate 325 1-10 by mouth 2 it y of mg (65 mg 00:00: (two) [place] iron) 00 times Medical tablet daily. Branch Yes 1{tbl} Take 1 Tab U nivers vitamin 1-10 by mouth ity of w/FA 00:00: daily. [place] (PRENATABS 00 Medical RX) tablet Branch docusate Yes 240mg Take 1 Cap [facility] calcium 1-10 by mouth ity of (SURFAK) 00:00: once daily [place] as 240 mg 00 as needed Medical capsule for Branch Constipati on. ferrous Yes 325mg Take 1 Tab Uni vers sulfate 325 1-10 by mouth 2 it y of mg (65 mg 00:00: (two) [place] iron) 00 times Medical tablet daily. Branch Yes 1{tbl} Take 1 Tab U nivers vitamin 1-10 by mouth ity of w/FA 00:00: daily. [place] (PRENATABS 00 Medical RX) tablet Branch docusate Yes 240mg Take 1 Cap [facility] calcium 1-10 by mouth ity of (SURFAK) 00:00: once daily [place] as 240 mg 00 as needed Medical capsule for Branch Constipati on. ferrous Yes 325mg Take 1 Tab Uni vers sulfate 325 1-10 by mouth 2 it y of mg (65 mg 00:00: (two) [place] iron) 00 times Medical tablet daily. Branch Yes 1{tbl} Take 1 Tab U nivers vitamin 1-10 by mouth ity of w/FA 00:00: daily. [place] (PRENATABS 00 Medical RX) tablet Branch docusate Yes 240mg Take 1 Cap [facility] calcium 1-10 by mouth ity of (SURFAK) 00:00: once daily [place] as 240 mg 00 as needed Medical capsule for Branch Constipati on. ferrous 0 Yes 325mg Take 1 Tab Uni vers sulfate 325 1-10 by mouth 2 it y of mg (65 mg 00:00: (two) [place] iron) 00 times Medical tablet daily. Branch Yes 1{tbl} Take 1 Tab U nivers vitamin 1-10 by mouth ity of w/FA 00:00: daily. [place] (PRENATABS 00 Medical RX) tablet Branch docusate Yes 240mg Take 1 Cap [facility] calcium 1-10 by mouth ity of (SURFAK) 00:00: once daily [place] as 240 mg 00 as needed Medical capsule for Branch Constipati on. ferrous 2016-0 Yes 325mg Take 1 Tab Uni vers sulfate 325 1-10 by mouth 2 it y of mg (65 mg 00:00: (two) [place] iron) 00 times Medical tablet daily. Branch Yes 1{tbl} Take 1 Tab U nivers vitamin 1-10 by mouth ity of w/FA 00:00: daily. [place] (PRENATABS 00 Medical RX) tablet Branch docusate Yes 240mg Take 1 Cap [facility] calcium 1-10 by mouth ity of (SURFAK) 00:00: once daily [place] as 240 mg 00 as needed Medical capsule for Branch Constipati on. ferrous 0 Yes 325mg Take 1 Tab Uni vers sulfate 325 1-10 by mouth 2 it y of mg (65 mg 00:00: (two) [place] iron) 00 times Medical tablet daily. Branch Yes 1{tbl} Take 1 Tab U nivers vitamin 1-10 by mouth ity of w/FA 00:00: daily. [place] (PRENATABS 00 Medical RX) tablet Branch docusate Yes 240mg Take 1 Cap [facility] calcium 1-10 by mouth ity of (SURFAK) 00:00: once daily [place] as 240 mg 00 as needed Medical capsule for Branch Constipati on. ferrous 2015-0 Yes 325mg Take 1 Tab Uni vers sulfate 325 1-10 by mouth 2 it y of mg (65 mg 00:00: (two) [place] iron) 00 times Medical tablet daily. Branch Yes 1{tbl} Take 1 Tab U nivers vitamin 1-10 by mouth ity of w/FA 00:00: daily. [place] (PRENATABS 00 Medical RX) tablet Branch docusate Yes 240mg Take 1 Cap [facility] calcium 1-10 by mouth ity of (SURFAK) 00:00: once daily [place] as 240 mg 00 as needed Medical capsule for Branch Constipati on. ferrous 2015-0 Yes 325mg Take 1 Tab Uni vers sulfate 325 1-10 by mouth 2 it y of mg (65 mg 00:00: (two) [place] iron) 00 times Medical tablet daily. Branch Yes 1{tbl} Take 1 Tab U nivers vitamin 1-10 by mouth ity of w/FA 00:00: daily. [place] (PRENATABS 00 Medical RX) tablet Branch docusate Yes 240mg Take 1 Cap [facility] calcium 1-10 by mouth ity of (SURFAK) 00:00: once daily [place] as 240 mg 00 as needed Medical capsule for Branch Constipati on. ferrous Yes 325mg Take 1 Tab Uni vers sulfate 325 1-10 by mouth 2 it y of mg (65 mg 00:00: (two) [place] iron) 00 times Medical tablet daily. Branch Yes 1{tbl} Take 1 Tab U nivers vitamin 1-10 by mouth ity of w/FA 00:00: daily. [place] (PRENATABS 00 Medical RX) tablet Branch docusate Yes 240mg Take 1 Cap [facility] calcium 1-10 by mouth ity of (SURFAK) 00:00: once daily [place] as 240 mg 00 as needed Medical capsule for Branch Constipati on. ferrous Yes 325mg Take 1 Tab Uni vers sulfate 325 1-10 by mouth 2 it y of mg (65 mg 00:00: (two) [place] iron) 00 times Medical tablet daily. Branch Yes 1{tbl} Take 1 Tab U nivers vitamin 1-10 by mouth ity of w/FA 00:00: daily. [place] (PRENATABS 00 Medical RX) tablet Branch docusate Yes 240mg Take 1 Cap Un [facility] calcium 1-10 by mouth ity of (SURFAK) 00:00: once daily [place] as 240 mg 00 as needed Medical capsule for Branch Constipati on. ferrous 0 Yes 325mg Take 1 Tab Uni vers sulfate 325 1-10 by mouth 2 it y of mg (65 mg 00:00: (two) [place] iron) 00 times Medical tablet daily. Branch Yes 1{tbl} Take 1 Tab U nivers vitamin 1-10 by mouth ity of w/FA 00:00: daily. [place] (PRENATABS 00 Medical RX) tablet Branch docusate Yes 240mg Take 1 Cap [facility] calcium 1-10 by mouth ity of (SURFAK) 00:00: once daily [place] as 240 mg 00 as needed Medical capsule for Branch Constipati on. ferrous 0 Yes 325mg Take 1 Tab Uni vers sulfate 325 1-10 by mouth 2 it y of mg (65 mg 00:00: (two) [place] iron) 00 times Medical tablet daily. Branch Yes 1{tbl} Take 1 Tab U nivers vitamin 1-10 by mouth ity of w/FA 00:00: daily. [place] (PRENATABS 00 Medical RX) tablet Branch docusate Yes 240mg Take 1 Cap [facility] calcium 1-10 by mouth ity of (SURFAK) 00:00: once daily [place] as 240 mg 00 as needed Medical capsule for Branch Constipati on. ferrous Yes 325mg Take 1 Tab Uni vers sulfate 325 1-10 by mouth 2 it y of mg (65 mg 00:00: (two) [place] iron) 00 times Medical tablet daily. Branch Yes 1{tbl} Take 1 Tab U nivers vitamin 1-10 by mouth ity of w/FA 00:00: daily. [place] (PRENATABS 00 Medical RX) tablet Branch docusate Yes 240mg Take 1 Cap [facility] calcium 1-10 by mouth ity of (SURFAK) 00:00: once daily [place] as 240 mg 00 as needed Medical capsule for Branch Constipati on. ferrous Yes 325mg Take 1 Tab Uni vers sulfate 325 1-10 by mouth 2 it y of mg (65 mg 00:00: (two) [place] iron) 00 times Medical tablet daily. Branch Yes 1{tbl} Take 1 Tab U nivers vitamin 1-10 by mouth ity of w/FA 00:00: daily. [place] (PRENATABS 00 Medical RX) tablet Branch docusate Yes 240mg Take 1 Cap [facility] calcium 1-10 by mouth ity of (SURFAK) 00:00: once daily [place] as 240 mg 00 as needed Medical capsule for Branch Constipati on. ferrous Yes 325mg Take 1 Tab Uni vers sulfate 325 1-10 by mouth 2 it y of mg (65 mg 00:00: (two) [place] iron) 00 times Medical tablet daily. Branch Yes 1{tbl} Take 1 Tab U nivers vitamin 1-10 by mouth ity of w/FA 00:00: daily. [place] (PRENATABS 00 Medical RX) tablet Branch docusate 2016-0 Yes 240mg Take 1 Cap [facility] calcium 1-10 by mouth ity of (SURFAK) 00:00: once daily [place] as 240 mg 00 as needed Medical capsule for Branch Constipati on. ferrous 2016-0 Yes 325mg Take 1 Tab Uni vers sulfate 325 1-10 by mouth 2 it y of mg (65 mg 00:00: (two) [place] iron) 00 times Medical tablet daily. Branch Yes 1{tbl} Take 1 Tab U nivers vitamin 1-10 by mouth ity of w/FA 00:00: daily. [place] (PRENATABS 00 Medical RX) tablet Branch docusate Yes 240mg Take 1 Cap [facility] calcium 1-10 by mouth ity of (SURFAK) 00:00: once daily [place] as 240 mg 00 as needed Medical capsule for Branch Constipati on. ferrous 0 Yes 325mg Take 1 Tab Uni vers sulfate 325 1-10 by mouth 2 it y of mg (65 mg 00:00: (two) [place] iron) 00 times Medical tablet daily. Branch Yes 1{tbl} Take 1 Tab U nivers vitamin 1-10 by mouth ity of w/FA 00:00: daily. [place] (PRENATABS 00 Medical RX) tablet Branch docusate Yes 240mg Take 1 Cap [facility] calcium 1-10 by mouth ity of (SURFAK) 00:00: once daily [place] as 240 mg 00 as needed Medical capsule for Branch Constipati on. ferrous 0 Yes 325mg Take 1 Tab Uni vers sulfate 325 1-10 by mouth 2 it y of mg (65 mg 00:00: (two) [place] iron) 00 times Medical tablet daily. Branch 0 Yes 1{tbl} Take 1 Tab U nivers vitamin 1-10 by mouth ity of w/FA 00:00: daily. [place] (PRENATABS 00 Medical RX) tablet Branch docusate 0 Yes 240mg Take 1 Cap [facility] calcium 1-10 by mouth ity of (SURFAK) 00:00: once daily [place] as 240 mg 00 as needed Medical capsule for Branch Constipati on. ferrous 2015-0 Yes 325mg Take 1 Tab Uni vers sulfate 325 1-10 by mouth 2 it y of mg (65 mg 00:00: (two) [place] iron) 00 times Medical tablet daily. Branch Yes 1{tbl} Take 1 Tab U nivers vitamin 1-10 by mouth ity of w/FA 00:00: daily. [place] (PRENATABS 00 Medical RX) tablet Branch docusate Yes 240mg Take 1 Cap [facility] calcium 1-10 by mouth ity of (SURFAK) 00:00: once daily [place] as 240 mg 00 as needed Medical capsule for Branch Constipati on. ferrous Yes 325mg Take 1 Tab Uni vers sulfate 325 1-10 by mouth 2 it y of mg (65 mg 00:00: (two) [place] iron) 00 times Medical tablet daily. Branch Yes 1{tbl} Take 1 Tab U nivers vitamin 1-10 by mouth ity of w/FA 00:00: daily. [place] (PRENATABS 00 Medical RX) tablet Branch docusate Yes 240mg Take 1 Cap [facility] calcium 1-10 by mouth ity of (SURFAK) 00:00: once daily [place] as 240 mg 00 as needed Medical capsule for Branch Constipati on. ferrous Yes 325mg Take 1 Tab Uni vers sulfate 325 1-10 by mouth 2 it y of mg (65 mg 00:00: (two) [place] iron) 00 times Medical tablet daily. Branch Yes 1{tbl} Take 1 Tab U nivers vitamin 1-10 by mouth ity of w/FA 00:00: daily. [place] (PRENATABS 00 Medical RX) tablet Branch docusate Yes 240mg Take 1 Cap [facility] calcium 1-10 by mouth ity of (SURFAK) 00:00: once daily [place] as 240 mg 00 as needed Medical capsule for Branch Constipati on. ferrous 0 Yes 325mg Take 1 Tab Uni vers sulfate 325 1-10 by mouth 2 it y of mg (65 mg 00:00: (two) [place] iron) 00 times Medical tablet daily. Branch Yes 1{tbl} Take 1 Tab U nivers vitamin 1-10 by mouth ity of w/FA 00:00: daily. [place] (PRENATABS 00 Medical RX) tablet Branch docusate Yes 240mg Take 1 Cap [facility] calcium 1-10 by mouth ity of (SURFAK) 00:00: once daily [place] as 240 mg 00 as needed Medical capsule for Branch Constipati on. ferrous Yes 325mg Take 1 Tab Uni vers sulfate 325 1-10 by mouth 2 it y of mg (65 mg 00:00: (two) [place] iron) 00 times Medical tablet daily. Branch ferrous 2020- No 325mg Take 1 Tab Un [facility] sulfate 325 1-10 11-29 by mouth 2 i ty of mg (65 mg 00:00: 00:00 (two) [place] iron) 00 :00 times Medical tablet daily. Branch Immunizations Ordered Filled Immunization Date Status Comments [facility] e Immunization Name Name TD 2020-10-28 Completed [facility] 00:00[facility]00 [facility] TDAP 2020-10-28 Completed [facility] 00:00:00 [facility] TDAP 2020-10-28 Completed [facility] 00:00:00 [facility] TDAP 2020-10-28 Completed [facility] 00:00:00 [facility] TDAP 2020-10-28 Completed [facility] 00:00:00 [facility] TDAP 2020-10-28 Completed [facility] 00:00:00 [facility] TDAP 2020-10-28 Completed [facility] 00:00:00 [facility] TDAP 2020-10-28 Completed [facility] 00:00:00 [facility] TDAP 2020-10-28 Completed [facility] 00[facility]00:00 [facility] TDAP 2020-10-28 Completed [facility] 00:00:00 [facility] TDAP 2020-10-28 Completed [facility] 00:00:00 [facility] TDAP 2020-10-28 Completed [facility] 00:00:00 [facility] TDAP 2020-10-28 Completed [facility] 00:00:00 [facility] TDAP 2020-10-28 Completed [facility] 00:00:00 [facility] TDAP 2020-10-28 Completed [facility] 00:00:00 [facility] TDAP 2020-10-28 Completed [facility] 00:00:00 [facility] Influenza Virus 2020-07-16 Completed [facility] .5 mL 00:00:00 [facility] [place] [facility] 6+ MO [place] Influenza Virus 2020-07-16 Completed [facility] .5 mL 00:00:00 [facility] IM 6+ MO [place] Influenza Virus 2020-07-16 Completed [facility] Vacc[facility] .5 mL 00:00:00 [place] [facility] 6+ MO [facility] Influenza Virus 2020-07-16 Completed [facility] .5 mL 00:00:00 [place] [facility] IM 6+ MO Branch Influenza Virus 2020-07-16 Completed [facility] Vacc[facility] .5 mL 00:00:00 [place] [facility] IM 6+ MO Branch Influenza Virus 2020-07-16 Completed [facility] Vacc[facility] .5 mL 00:00:00 [place] [facility] IM 6+ MO Branch Influenza Virus 2020-07-16 Completed [facility] Vacc[facility] .5 mL 00:00:00 [place] [facility] IM 6+ MO Branch Influenza Virus 2020-07-16 Completed [facility] Vacc[facility] .5 mL 00:00:00 [place] [facility] IM 6+ MO Branch Influenza Virus 2020-07-16 Completed [facility] Vacc[facility] .5 mL 00:00:00 [place] [facility] IM 6+ MO Branch Influenza Virus 2020-07-16 Completed [facility] Vacc[facility] .5 mL 00:00:00 [place] [facility] IM 6+ MO Branch Influenza Virus 2020-07-16 Completed [facility] .5 mL 00:00:00 [place] [facility] IM 6+ MO Branch Influenza Virus 2020-07-16 Completed [facility] .5 mL 00:00:00 [place] [facility] IM 6+ MO Branch Influenza Virus 2020-07-16 Completed [facility] .5 mL 00:00:00 [place] [facility] IM 6+ MO Branch Influenza Virus 2020-07-16 Completed [facility] .5 mL 00:00:00 [place] [facility] IM 6+ MO Branch Influenza Virus 2020-07-16 Completed [facility] .5 mL 00:00:00 [place] [facility] IM 6+ MO Branch Influenza Virus 2020-07-16 Completed [facility] .5 mL 00:00:00 [place] [facility] IM 6+ MO Branch Influenza Virus 2020-07-16 Completed [facility] .5 mL 00:00:00 [place] [facility] IM 6+ MO Branch Influenza Virus 2020-07-16 Completed [facility] .5 mL 00:00:00 [place] [facility] IM 6+ MO Branch Influenza Virus 2020-07-16 Completed [facility] .5 mL 00:00:00 [place] [facility] IM 6+ MO Branch Influenza Virus 2020-07-16 Completed [facility] .5 mL 00:00:00 [place] [facility] IM 6+ MO Branch Influenza Virus 2020-07-16 Completed [facility] of [facility] .5 mL 00:00:00 [place] [facility] IM 6+ MO Branch Influenza Virus 2020-07-16 Completed [facility] .5 mL 00:00:00 [place] [facility] IM 6+ MO Branch Influenza Virus 2020-07-16 Completed [facility] .5 mL 00:00:00 [place] [facility] IM 6+ MO Branch Influenza Virus 2020-07-16 Completed [facility] of [facility] .5 mL 00:00:00 [place] [facility] IM 6+ MO Branch Influenza Virus 2020-07-16 Completed [facility] of [facility] .5 mL 00:00:00 [place] [facility] IM 6+ MO [facility] Influenza Virus 2020-07-16 Completed [facility] .5 mL 00:00:00 [facility] Influenza Virus 2020-07-16 Completed [facility] .5 mL 00:00:00 [facility] Influenza Virus 2020-07-16 Completed [facility] .5 mL 00:00:00 [facility] Influenza Virus 2020-07-16 Completed [facility] .5 mL 00:00:00 [facility] Influenza Virus 2020-07-16 Completed [facility] .5 mL 00:00:00 [facility] Influenza Virus 2020-07-16 Completed [facility] .5 mL 00:00:00 [facility] Influenza Virus 2020-07-16 Completed [facility] .5 mL 00:00:00 [facility] Influenza Virus 2020-07-16 Completed [facility] .5 mL 00:00:00 [facility] Influenza Virus 2020-07-16 Completed [facility] .5 mL 00:00:00 [facility] Influenza Virus 2020-07-16 Completed [facility] .5 mL 00:00:00 [facility] Influenza Virus 2020-07-16 Completed [facility] .5 mL 00:00:00 [facility] Influenza Virus 2020-07-16 Completed [facility] .5 mL 00:00:00 [facility] Influenza Virus 2020-07-16 Completed [facility] .5 mL 00:00:00 [facility] Influenza Virus 2020-07-16 Completed [facility] .5 mL 00:00:00 [facility] Influenza Virus 2020-07-16 Completed [facility] .5 mL 00:00:00 [facility] Influenza Virus 2020-07-16 Completed [facility] .5 mL 00:00:00 [facility] Influenza Virus 2020-07-16 Completed [facility] .5 mL 00:00:00 [facility] Influenza Virus 2020-07-16 Completed [facility] .5 mL 00:00:00 [facility] Influenza Virus 2020-07-16 Completed [facility] .5 mL 00:00:00 [facility] Influenza Virus 2020-07-16 Completed [facility] .5 mL 00:00:00 [facility] Influenza Virus 2015-07-28 Completed [facility] 3+ 00:00:00 [facility] TDAP 2015-07-28 Completed [facility] 00:00:00 [facility] Influenza Virus 2015-07-28 Completed [facility] 3+ 00:00:00 [facility] TDAP 2015-07-28 Completed [facility] 00:00:00 [facility] Influenza Virus 2015-07-28 Completed [facility] 3+ 00:00:00 [facility] TDAP 2015-07-28 Completed [facility] 00:00:00 [facility] Influenza Virus 2015-07-28 Completed [facility] 3+ 00:00:00 [facility] TDAP 2015-07-28 Completed [facility] 00:00:00 [facility] Influenza Virus 2015-07-28 Completed [facility] 3+ 00:00:00 [facility] TDAP 2015-07-28 Completed [facility] 00:00:00 [facility] Influenza Virus 2015-07-28 Completed [facility] 3+ 00:00:00 [facility] TDAP 2015-07-28 Completed [facility] 00:00:00 [facility] Influenza Virus 2015-07-28 Completed [facility] 3+ 00:00:00 [facility] TDAP 2015-07-28 Completed [facility] 00:00:00 [facility] Influenza Virus 2015-07-28 Completed [facility] 3+ 00:00:00 [facility] TDAP 2015-07-28 Completed [facility] 00:00:00 [facility] Influenza Virus 2015-07-28 Completed [facility] 3+ 00:00:00 [facility] TDAP 2015-07-28 Completed [facility] 00:00:00 [facility] Influenza Virus 2015-07-28 Completed [facility] 3+ 00:00:00 [facility] TDAP 2015-07-28 Completed [facility] 00:00:00 [facility] Influenza Virus 2015-07-28 Completed [facility] 3+ 00:00:00 [facility] TDAP 2015-07-28 Completed [facility] 00:00:00 [facility] Influenza Virus 2015-07-28 Completed [facility] 3+ 00:00:00 [facility] TDAP 2015-07-28 Completed [facility] 00:00:00 [facility] Influenza Virus 2015-07-28 Completed [facility] 3+ 00:00:00 [facility] TDAP 2015-07-28 Completed [facility] 00:00:00 [facility] Influenza Virus 2015-07-28 Completed [facility] 3+ 00:00:00 [facility] TDAP 2015-07-28 Completed [facility] 00:00:00 [facility] Influenza Virus 2015-07-28 Completed [facility] 3+ 00:00:00 [facility] TDAP 2015-07-28 Completed [facility] 00:00:00 [facility] Influenza Virus 2015-07-28 Completed [facility] 3+ 00:00:00 [facility] TDAP 2015-07-28 Completed [facility] 00:00:00 [facility] Influenza Virus 2015-07-28 Completed [facility] 3+ 00:00:00 [facility] TDAP 2015-07-28 Completed [facility] 00:00:00 [facility] Influenza Virus 2015-07-28 Completed [facility] 3+ 00:00:00 [facility] TDAP 2015-07-28 Completed [facility] 00:00:00 [facility] Influenza Virus 2015-07-28 Completed [facility] 3+ 00:00:00 [facility] TDAP 2015-07-28 Completed [facility] 00:00:00 [facility] Influenza Virus 2015-07-28 Completed [facility] 3+ 00:00:00 [facility] TDAP 2015-07-28 Completed [facility] 00:00:00 [facility] Influenza Virus 2015-07-28 Completed [facility] 3+ 00:00:00 [facility] TDAP 2015-07-28 Completed [facility] 00:00:00 [facility] Influenza Virus 2015-07-28 Completed [facility] 3+ 00:00:00 [facility] TDAP 2015-07-28 Completed [facility] 00:00:00 [facility] Influenza Virus 2015-07-28 Completed [facility] 3+ 00:00:00 [facility] TDAP 2015-07-28 Completed [facility] of 00:00:00 [facility] Influenza Virus 2015-07-28 Completed [facility] 3+ 00:00:00 [facility] TDAP 2015-07-28 Completed [facility] 00:00:00 [facility] Influenza Virus 2015-07-28 Completed [facility] 3+ 00:00:00 [facility] TDAP 2015-07-28 Completed [facility] 00:00:00 [facility] Influenza Virus 2015-07-28 Completed [facility] 3+ 00:00:00 [facility] TDAP 2015-07-28 Completed [facility] 00:00:00 [facility] Influenza Virus 2015-07-28 Completed [facility] 3+ 00:00:00 [facility] TDAP 2015-07-28 Completed [facility] 00:00:00 [facility] Influenza Virus 2015-07-28 Completed [facility] 3+ 00:00:00 [facility] TDAP 2015-07-28 Completed [facility] 00:00:00 [facility] Influenza Virus 2015-07-28 Completed [facility] 3+ 00:00:00 [facility] TDAP 2015-07-28 Completed [facility] 00:00:00 [facility] Influenza Virus 2015-07-28 Completed [facility] 3+ 00:00:00 [facility] TDAP 2015-07-28 Completed [facility] of 00:00: [facility] Influenza Virus 2015-07-28 Completed [facility] 3+ 00:00:00 [facility] TDAP 2015-07-28 Completed [facility] of 00:00:00 [facility] Influenza Virus 2015-07-28 Completed [facility] 3+ 00:00:00 [facility] TDAP 2015-07-28 Completed [facility] 00:00:00 [facility] Influenza Virus 2015-07-28 Completed [facility] 3+ 00:00:00 [facility] TDAP 2015-07-28 Completed [facility] of 00:00:00 [facility] Influenza Virus 2015-07-28 Completed [facility] 3+ 00:00:00 [facility] TDAP 2015-07-28 Completed [facility] of 00:00:00 [facility] Influenza Virus 2015-07-28 Completed [facility] 3+ 00:00:00 [facility] TDAP 2015-07-28 Completed [facility] of 00:00:00 [facility] Influenza Virus 2015-07-28 Completed [facility] 3+ 00:00:00 [facility] TDAP 2015-07-28 Completed [facility] of 00:00:00 [facility] Influenza Virus 2015-07-28 Completed [facility] 3+ 00:00:00 [facility] TDAP 2015-07-28 Completed [facility] of 00:00:00 [facility] Influenza Virus 2015-07-28 Completed [facility] 3+ 00:00:00 [facility] TDAP 2015-07-28 Completed [facility] 00:00:00 [facility] Influenza Virus 2015-07-28 Completed [facility] 3+ 00:00:00 [facility] TDAP 2015-07-28 Completed [facility] of 00:00:00 [facility] Influenza Virus 2015-07-28 Completed [facility] 3+ 00:00:00 [facility] TDAP 2015-07-28 Completed [facility] of 00:00:00 [facility] Influenza Virus 2015-07-28 Completed [facility] 3+ 00:00:00 [facility] TDAP 2015-07-28 Completed [facility] of 00:00:00 [facility] Influenza Virus 2015-07-28 Completed [facility] 3+ 00:00:00 [facility] TDAP 2015-07-28 Completed [facility] 00:00:00 [facility] Influenza Virus 2015-07-28 Completed [facility] 3+ 00:00:00 [facility] TDAP 2015-07-28 Completed [facility] 00:00:00 [facility] Influenza Virus 2015-07-28 Completed [facility] 3+ 00:00:00 [facility] TDAP 2015-07-28 Completed [facility] of 00:00:00 [facility] Influenza Virus 2015-07-28 Completed [facility] 3+ 00:00:00 [facility] TDAP 2015-07-28 Completed [facility] of 00:00:00 [facility] Influenza Virus 2015-07-28 Completed [facility] 3+ 00:00:00 [facility] TDAP 2015-07-28 Completed [facility] of 00:00:00 [facility] Influenza Virus 2015-07-28 Completed [facility] 3+ 00:00:00 [facility] TDAP 2015-07-28 Completed [facility] of 00:00:00 [facility] Influenza Virus 2015-07-28 Completed [facility] 3+ 00:00:00 [facility] TDAP 2015-07-28 Completed [facility] of 00:00:00 [facility] Influenza Virus 2015-07-28 Completed [facility] 3+ 00:00:00 [facility] TDAP 2015-07-28 Completed [facility] of 00:00:00 [facility] Influenza Virus 2015-07-28 Completed [facility] 3+ 00:00:00 [facility] TDAP 2015-07-28 Completed [facility] 00:00:00 [facility] Influenza Virus 2015-07-28 Completed [facility] 3+ 00:00:00 [facility] Influenza Virus 2015-07-28 Completed [facility] 3+ 00:00:00 [facility] TDAP 2015-07-28 Completed [facility] 00:00:00 [facility] TDAP 2015-07-28 Completed [facility] 00:00:00 [facility] TDAP 2014-03-28 Completed [facility] 00:00:00 [facility] TDAP 2014-03-28 Completed [facility] 00:00:00 [facility] TDAP 2014-03-28 Completed [facility] 00:00:00 [facility] TDAP 2014-03-28 Completed [facility] 00:00:00 [facility] TDAP 2014-03-28 Completed [facility] 00:00:00 [facility] TDAP 2014-03-28 Completed [facility] 00:00:00 [facility] TDAP 2014-03-28 Completed [facility] 00:00:00 [facility] TDAP 2014-03-28 Completed [facility] 00:00:00 [facility] TDAP 2014-03-28 Completed [facility] 00:00:00 [facility] TDAP 2014-03-28 Completed [facility] 00:00:00 [facility] TDAP 2014-03-28 Completed [facility] 00:00:00 [facility] TDAP 2014-03-28 Completed [facility] 00[facility]00:00 [facility] TDAP 2014-03-28 Completed [facility] 00:00:00 [facility] TDAP 2014-03-28 Completed [facility] 00:00:00 [facility] TDAP 2014-03-28 Completed [facility] 00:00:00 [facility] TDAP 2014-03-28 Completed [facility] 00:00:00 [facility] TDAP 2014-03-28 Completed [facility] 00:00:00 [facility] TDAP 2014-03-28 Completed [facility] 00:00:00 [facility] TDAP 2014-03-28 Completed [facility] 00:00:00 [facility] TDAP 2014-03-28 Completed [facility] 00:00:00 [facility] TDAP 2014-03-28 Completed [facility] 00:00:00 [facility] TDAP 2014-03-28 Completed [facility] 00:00:00 [facility] TDAP 2014-03-28 Completed [facility] 00:00:00 [facility] TDAP 2014-03-28 Completed [facility] 00:00:00 [facility] TDAP 2014-03-28 Completed [facility] 00:00:00 [facility] TDAP 2014-03-28 Completed [facility] 00:00:00 [facility] TDAP 2014-03-28 Completed [facility] 00:00:00 [facility] TDAP 2014-03-28 Completed [facility] 00:00:00 [facility] TDAP 2014-03-28 Completed [facility] 00:00:00 [facility] TDAP 2014-03-28 Completed [facility] 00:00:00 [facility] TDAP 2014-03-28 Completed [facility] 00:00:00 [facility] TDAP 2014-03-28 Completed [facility] 00:00:00 [facility] TDAP 2014-03-28 Completed [facility] 00:00:00 [facility] TDAP 2014-03-28 Completed [facility] 00:00:00 [facility] TDAP 2014-03-28 Completed [facility] 00:00:00 [facility] TDAP 2014-03-28 Completed [facility] 00:00:00 [facility] TDAP 2014-03-28 Completed [facility] 00:00:00 [facility] TDAP 2014-03-28 Completed [facility] 00:00:00 [facility] TDAP 2014-03-28 Completed [facility] 00:00:00 [facility] TDAP 2014-03-28 Completed [facility] 00:00:00 [facility] TDAP 2014-03-28 Completed [facility] 00:00:00 [facility] TDAP 2014-03-28 Completed [facility] 00:00:00 [facility] TDAP 2014-03-28 Completed [facility] 00:00:00 [facility] TDAP 2014-03-28 Completed [facility] 00:00:00 [facility] TDAP 2014-03-28 Completed [facility] 00:00:00 [facility] TDAP 2014-03-28 Completed [facility] 00:00:00 [facility] TDAP 2014-03-28 Completed [facility] 00:00:00 [facility] TDAP 2014-03-28 Completed [facility] 00:00:00 [facility] TDAP 2014-03-28 Completed [facility] 00:00:00 [facility] TDAP 2014-03-28 Completed [facility] 00:00:00 [facility] TDAP 2014-03-28 Completed [facility] 00:00:00 [facility] TDAP 2014-03-28 Completed [facility] of 00:00:00 [facility] Vital Signs Vital Name Observation Time Observation Value Comments Source Systolic blood 2021-01-10 15:05:00 116 mm[Hg] [facility]iver [facility] of pressure [facility] Diastolic blood 2021-01-10 15:05:00 76 mm[Hg] Unive rsity of pressure [facility] Heart rate 2021-01-10 15:05:00 71 /min [facility] Body temperature 2021-01-10 15:05:00 36.39 January [facility] Respiratory rate 2021-01-10 15:05:00 16 /min [facility] Body height 2021-01-10 15:05:00 149.9 cm [facility] Body weight 2021-01-10 15:05:00 69.003 kg [facility] BMI 2021-01-10 15:05:00 30.73 kg/m2 [facility] Systolic blood 2020-12-20 16:07:00 116 mm[Hg] [facility] of pressure [facility] Diastolic blood 2020-12-20 16:07:00 79 mm[Hg] Unive rsity of pressure [facility] Heart rate 2020-12-20 16:07:00 76 /min [facility] Body temperature 2020-12-20 16:07:00 36.5 January [facility] Respiratory rate 2020-12-20 16:07:00 16 /min [facility] Body height 2020-12-20 16:07:00 149.9 cm [facility] Body weight 2020-12-20 16:07:00 71.243 kg [facility] BMI 2020-12-20 16:07:00 31.72 kg/m2 [facility] Systolic blood 2020-11-29 15:00:00 129 mm[Hg] [facility] of pressure [facility] Diastolic blood 2020-11-29 15:00:00 88 mm[Hg] Unive rsity of pressure [facility] Heart rate 2020-11-29 15:00:00 75 /min [facility] Body temperature 2020-11-29 15:00:00 36.11 January [facility] Respiratory rate 2020-11-29 15:00:00 20 /min [facility] Oxygen saturation in 2020-11-29 15:00:00 98 /min [facility] of Arterial blood by [facility] Pulse oximetry [place] Body height 2020-11-27 03:00:00 149.9 cm [facility] Body weight 2020-11-27 03:00:00 74.844 kg [facility] BMI 2020-11-27 03:00:00 33.31 kg/m2 [facility] Systolic blood 2020-11-25 14:32:00 129 mm[Hg] Univer sity of pressure [facility] Diastolic blood 2020-11-25 14:32:00 77 mm[Hg] Unive rsity of pressure [facility] Heart rate 2020-11-25 14:32:00 97 /min [facility] Body temperature 2020-11-25 14:32:00 36.67 January [facility] ers[facility] of [facility] Respiratory rate 2020-11-25 14:32:00 16 /min [facility] Body height 2020-11-25 14:32:00 149.9 cm [facility] Body weight 2020-11-25 14:32:00 74.532 kg [facility] BMI 2020-11-25 14:32:00 33.19 kg/m2 [facility] Systolic blood 2020-11-11 15:45:00 120 mm[Hg] Univer [facility]ity of pressure [facility] Diastolic blood 2020-11-11 15:45:00 78 mm[Hg] Unive rsity of pressure [facility] Heart rate 2020-11-11 15:45:00 90 /min [facility] Body temperature 2020-11-11 15:45:00 36.33 January [facility] Respiratory rate 2020-11-11 15:45:00 16 /min [facility] Body height 2020-11-11 15:45:00 149.9 cm [facility] Body weight 2020-11-11 15:45:00 75.524 kg [facility] BMI 2020-11-11 15:45:00 33.63 kg/m2 [facility] Systolic blood 2020-10-28 13:58:00 127 mm[Hg] [facility] of pressure [facility] Diastolic blood 2020-10-28 13:58:00 80 mm[Hg] Unive rsity of pressure [facility] Heart rate 2020-10-28 13:58:00 107 /min [facility] Body temperature 2020-10-28 13:58:00 36.22 January [facility] Respiratory rate 2020-10-28 13:58:00 16 /min [facility] Body height 2020-10-28 13:58:00 149.9 cm [facility] Body weight 2020-10-28 13:58:00 73.029 kg [facility] BMI 2020-10-28 13:58:00 32.52 kg/m2 [facility] Systolic blood 2020-10-08 15:37:00 120 mm[Hg] [facility] of pressure [facility] Diastolic blood 2020-10-08 15:37:00 75 mm[Hg] Unive rsity of pressure [facility] Heart rate 2020-10-08 15:37:00 80 /min [facility] Body temperature 2020-10-08 15:37:00 36.61 January [facility] Respiratory rate 2020-10-08 15:37:00 16 /min [facility] Body height 2020-10-08 15:37:00 149.9 cm [facility] Body weight 2020-10-08 15:37:00 70.449 kg [facility] BMI 2020-10-08 15:37:00 31.37 kg/m2 [facility] Systolic blood 2020-09-10 15:18:00 117 mm[Hg] [facility] of pressure [facility] Diastolic blood 2020-09-10 15:18:00 74 mm[Hg] Unive rsity of pressure [facility] Heart rate 2020-09-10 15:18:00 103 /min [facility] Body temperature 2020-09-10 15:18:00 36.28 January [facility] Respiratory rate 2020-09-10 15:18:00 16 /min [facility] Body height 2020-09-10 15:18:00 149.9 cm [facility] Body weight 2020-09-10 15:18:00 67.614 kg [facility] BMI 2020-09-10 15:18:00 30.11 kg/m2 [facility] Systolic blood 2020-08-13 15:26:00 114 mm[Hg] [facility] of pressure [facility] Diastolic blood 2020-08-13 15:26:00 72 mm[Hg] Unive rsity of pressure [facility] Heart rate 2020-08-13 15:26:00 86 /min [facility] Body temperature 2020-08-13 15:26:00 36.94 January [facility] Respiratory rate 2020-08-13 15:26:00 16 /min [facility] Body height 2020-08-13 15:26:00 149.9 cm [facility] Body weight 2020-08-13 15:26:00 65.635 kg [facility] BMI 2020-08-13 15:26:00 29.23 kg/m2 [facility] Systolic blood 2020-07-16 21:12:00 116 mm[Hg] [facility] of pressure [facility] Diastolic blood 2020-07-16 21:12:00 74 mm[Hg] Unive rsity of pressure [facility] Heart rate 2020-07-16 21:12:00 75 /min [facility] Body temperature 2020-07-16 21:12:00 36.28 January [facility] Respiratory rate 2020-07-16 21:12:00 16 /min [facility] Body height 2020-07-16 21:12:00 149.9 cm [facility] Body weight 2020-07-16 21:12:00 63.05 kg [facility] BMI 2020-07-16 21:12:00 28.07 kg/m2 [facility] Systolic blood 2020-06-09 15:25:00 114 mm[Hg] [facility] of pressure [facility] Diastolic blood 2020-06-09 15:25:00 77 mm[Hg] Unive rsity of pressure [facility] Heart rate 2020-06-09 15:25:00 86 /min [facility] Body temperature 2020-06-09 15:25:00 36.33 January [facility] Respiratory rate 2020-06-09 15:25:00 16 /min [facility] Body height 2020-06-09 15:25:00 149.9 cm [facility] Body weight 2020-06-09 15:25:00 55.594 kg [facility] BMI 2020-06-09 15:25:00 24.75 kg/m2 [facility] Procedures Procedure Date / Time Performing Clinician Source Performed POCT TEST 2021-01-10 15:06:00 Yovany Wilks [facility] ASSIGNMENT OF BENEFITS 2021-01-10 14:55:00 Doctor Unassigned, [facility] EXTERNAL PROVIDER RECORDS 2020-12-05 06:01:00 Doctor Unassigned, [facility] CBC WITH DIFF 2020-11-28 11:36:00 Adelaide Villagran [facility] VENOUS CORD GAS 2020-11-27 15:10:00 Philipp Almaguer [facility] URINALYSIS 2020-11-27 08:33:00 [facility] 2020-11-27 08:33:00 Nikoleffejose alberto, [facility] HB ABO GROUPING 2020-11-27 05:22:00 [facility] RHO (D) IMMUNE GLOBULIN 2020-11-27 05:22:00 Adelaide [facility] CBC WITH DIFF 2020-11-27 05:21[facility]00 [facility]FACE 2020-11-27 05:21:00 Aleisha Barr [facility] HIV 1/2 AG-AB WITH REFLEX 2020-11-27 05:21:00 Degraffejose alberto, [facility] GALV ONLY - SYPHILIS 2020-11-27 05:21:00 Nikoleffejose alberto [facility] IGG/IGM [facility] GROUP B STREPTOCOCCUS BY 2020-11-27 04:14:00 Frances, [facility] PCR [facility] COVID-19 (ID NOW RAPID 2020-11-27 02:42:00 Arianna Zapata [facility] TESTING) [facility] LAB ONLY COVID 2020-11-27 02:42:00 Jodi [facility] [place] INTERPRETATION [facility] HOSPITAL ADMISSION 2020-11-26 06:01:00 Doctor Unassigned, [facility] POCT URINALYSIS 2020-11-25 14:33:00 Yovany Wilks [facility] POCT URINALYSIS 2020-11-11 15:48:00 Yovany Wilks [facility] TDAP VACCINE, >11 YRS, IM 2020-10-28 14:13:05 Yovany Wilks [facility] POCT URINALYSIS 2020-10-28 13:59:00 Yovany Wilks [facility] POCT URINALYSIS 2020-10-08 15:41:00 Yovany Wilks [facility] POCT URINALYSIS 2020-09-10 15:30:00 Yovany Wilks [facility] POCT URINALYSIS 2020-08-13 00:00:00 Yovany Wilks [facility] FLU VACC ([id number]), 6+ 2020-07-16 21:27:44 Yovany Wilks [facility] MONTHS, IM, [facility] PROTEIN QUANT U/24H 2020-07-16 21:21:00 [facility] 2020-07-16 00:00:00 Yovany Wilks [facility] POCT TEST 2020-06-09 15:19:00 Yovany Wilks [facility] POCT URINALYSIS W/O 2020-06-09 15:19:00 Yovayn Wilks versity [facility] SPECIFIC GRAV[facility] ASSIGNMENT OF BENEFITS 2020-06-09 14:24:13 Doctor Unassigned, [facility] [place] [facility] Encounters Start End Encounter Admission Attending Care Care Encounter Source Date/Time Date/Time Type Type Clinicians Facility Department ID 2021-07-31 Outpatient P [facility] OPHELIA [id number] Univers 01:47:15 ity of [facility] 2021-04-04 2021-04-04 Outpatient R [facility] [id number] Univers 09:00:00 09:00:00 [id number] ity of [facility] 2021-04-04 2021-04-04 Outpatient R [facility] [id number] Univers 09:00:00 09:00:00 ity [facility] 2021-01-11 2021-01-11 [facility] 1.2.840.114 [id number] Univers 00:00:00 00:00:00 Yovany Oliveira CORPORATE STRATEGY ANALYST 350.1.13.10 ity of [facility] 4.2.7.2.686 Dayron as MATERNAL [phone] Med ical & CHILD [address] [place] [address] 2021-01-10 2021-01-10 Office [facility] 1.2.344.032 [id number] Univers 09:58:42 10:41:46 Visit Yovany Oliveira CORPORATE STRATEGY ANALYST 350.1.13.10 ity of [facility] 4.2.7.2.686 Dayron as MATERNAL [phone] [facility] & CHILD [address] [place] [address] 2021-01-10 2021-01-10 [facility] [id number] Univers 09:45:00 09:45:00 YOVANY [id number] barryy o f [facility] 2021-01-10 2021-01-10 [facility] [id number] Univers 09:45:00 09:45:00 YOVANY reddyy o f [facility] 2021-01-10 2021-01-10 Orders Doctor RODRÍGUEZ 1.2.840.114 [id number] Univers 00:00:00 00:00:00 Only Unassigned, RICARDO 350.1.13.10 ity of [place] [facility] 4.2.7.2.686 Dayron as [phone] [facility] [address] 2020-12-20 2020-12-20 Routine Akinsipe, [facility] 1.2.868.649 [id number] Univers 10:33:07 11:36:30 Yovany Oliveira CORPORATE STRATEGY ANALYST 350.1.13.10 ity of Visit [facility] 4.2.7.2.686 Dayron as MATERNAL [phone] Med ical & CHILD [address] [place] [address] 2020-12-20 2020-12-20 Outpatient R [facility] [id number] Univers 10:30:00 10:30:00 YOVANY weeks o [facility] 2020-12-09 2020-12-09 Outpatient R [facility], [facility] [id number] Univers 09:30:00 09:30:00 YOVANY [id number] ity o [facility] 2020-12-09 2020-12-09 [facility] [id number] Univers 09:30:00 09:30:00 YOVANY weeks o [facility] 2020-12-05 2020-12-05 Orders Doctor ANNE 1.2.840.114 [id number] Univers 00:00:00 00:00:00 Only Unassigned, RICARDO 350.1.13.10 ity of [place] [facility] 4.2.7.2.686 Dayron as [phone] [facility] [address] 2020-11-26 2020-11-29 Hospital ANNE Zapata 1.2.840.114 [id number] Univers 20:27:00 15:15:00 Encounter Chasey RICARDO 350.1.13.10 ity of [facility] 4.2.7.2.686 [place] [phone] [facility] [address] Branch 2020-11-26 2020-11-26 Nurse Kitty Meredith 1.2.840.114 [id number] Univers 00:00:00 00:00:00 Triage RICARDO 350.1.13.10 it y of HOSPITAL 4.2.7.2.686 Dayron as [phone] [address] 2020-11-25 2020-11-25 Routine Akinsipe, [facility] 1.2.596.025 [id number] Univers 08:16:45 08:31:45 Yovany C CORPORATE STRATEGY ANALYST 350.1.13.10 ity of Visit REGIONAL 4.2.7.2.686 Dayron as MATERNAL [phone] [facility] CHILD [address] [place] [address] 2020-11-25 2020-11-25 Outpatient R AKINSIPE, [facility] [id number] Univers 08:15:00 08:15:00 YOVANY [id number] ity o [facility] 2020-11-25 2020-11-25 Outpatient R AKINS[place], [facility] [id number] Univers 08:15:00 08:15:00 YOVANY ity o [facility] 2020-11-11 2020-11-11 Routine Akinsipe, [facility] 1.2.393.384 [id number] Univers 09:33:26 10:00:23 Yovany C CORPORATE STRATEGY ANALYST 350.1.13.10 ity of Visit REGIONAL 4.2.7.2.686 Dayron as MATERNAL [phone] [address] 2020-11-11 2020-11-11 Outpatient R AKINSIPE, [facility] [id number] Univers 09:30:00 09:30:00 YOVANY [id number] ity o [facility] 2020-11-11 2020-11-11 Outpatient R AKINS[place], [facility] [id number] Univers 09:30:00 09:30:00 YOVANY ity o [facility] 2020-10-28 2020-10-28 Routine Akinsipe, [facility] 1.2.412.096 [id number] Univers 07:48:19 08:42:53 Yovany C CORPORATE STRATEGY ANALYST 350.1.13.10 ity of Visit REGIONAL 4.2.7.2.686 Dayron as MATERNAL [phone] Med ical & CHILD [address] [place] [address] 2020-10-28 2020-10-28 Outpatient R AKINSIPE, [facility] [id number] Univers 08:00:00 08:00:00 YOVANY [id number] ity o f [facility] 2020-10-28 2020-10-28 Outpatient R AKINSIPE, [facility] [id number] Univers 08:00:00 08:00:00 YOVANY ity o f [facility] 2020-10-22 2020-10-22 Outpatient R AKINSIPE, [facility] [id number] Univers 10:30:00 10:30:00 YOVANY [id number] ity o f [facility] 2020-10-22 2020-10-22 Outpatient R AKINSIPE, [facility] [id number] Univers 10:30:00 10:30:00 YOVANY ity o [facility] 2020-10-14 2020-10-14 Telephone [facility] 1.2.840.114 [id number] Univers 00:00:00 00:00:00 Yovany C CORPORATE STRATEGY ANALYST 350.1.13.10 ity of REGIONAL 4.2.7.2.686 Dayron as MATERNAL [phone] [facility] & [address] 2020-10-13 2020-10-13 Outpatient R [facility] [id number] Univers 08:30:00 08:30:00 [id number] ity of [facility] 2020-10-11 2020-10-11 Telephone [facility] 1.2.840.114 [id number] Univers 00:00:00 00:00:00 Yovany C CORPORATE STRATEGY ANALYST 350.1.13.10 ity of REGIONAL 4.2.7.2.686 Dayron as MATERNAL [phone] [facility] & [address] 2020-10-08 2020-10-08 Routine [facility] [id number] Univers 09:26:04 10:09:17 Yovany C CORPORATE STRATEGY ANALYST 350.1.13.10 ity of Visit REGIONAL 4.2.7.2.686 Dayron as MATERNAL [phone] Med ical & CHILD 107 [facility] 2020-10-08 2020-10-08 Outpatient R AKINSIPE, [facility] [id number] Univers 09:15:00 09:15:00 YOVANY [id number] itmere o [facility] 2020-10-08 2020-10-08 Outpatient R AKINSIPE, [facility] [id number] Univers 09:15:00 09:15:00 YOVANY weeks o [facility] 2020-09-10 2020-09-10 Routine Akinsipe, [facility] 1.2.686.904 [id number] Univers 09:05:32 09:51:31 Yovany Oliveira CORPORATE STRATEGY ANALYST 350.1.13.10 ity of Visit REGIONAL 4.2.7.2.686 Dayron as MATERNAL [phone] [facility] CHILD [address] [place] [address] 2020-09-10 2020-09-10 Outpatient R AKINSIPE, [facility] [id number] Univers 09:15:00 09:15:00 YOVANY [id number] ity o [facility] 2020-09-10 2020-09-10 Outpatient R AKINS[place], [facility] [id number] Univers 09:15:00 09:15:[address] [facility] 2020-09-10 2020-09-10 Abstract Akinsipe, [facility] 1.2.840.114 [id number] Univers 00:00:00 00:00:00 Yovany Oliveira CORPORATE STRATEGY ANALYST 350.1.13.10 ity of REGIONAL 4.2.7.2.686 Dayron as MATERNAL [phone] [facility] ical & CHILD [address] [place] [address] 2020-09-08 2020-09-08 Paper Cleaner Ultrasound, [facility] 1.2 .840.114 [id number] Univers 09:37:17 10:22:17 Visit Amara Ochoa CORPORATE STRATEGY ANALYST 350.1.13.10 ity of REGIONAL 4.2.7.2.686 Dayron as MATERNAL [phone] [facility] ical & CHILD 369 [facility] 2020-09-08 2020-09-08 Outpatient R [facility] [id number] Univers 09:15:00 09:15:00 [id number] ity of [facility] 2020-09-08 2020-09-08 Outpatient P [facility] [id number] Univers 09:15:00 09:15:00 ity of [facility] 2020-08-16 2020-08-16 Telephone Abbe [facility] 1.2.050.003 [id number] Univers 00:00:00 00:00:00 Ward R CORPORATE STRATEGY ANALYST 350.1.13.10 ity of REGIONAL 4.2.7.2.686 Dayron as MATERNAL [phone] Med ical & CHILD [address] [place] [address] 2020-08-13 2020-08-13 Routine [facility] 1.2.629.010 [id number] Univers 09:08:10 09:23:10 Yovany Oliveira CORPORATE STRATEGY ANALYST 350.1.13.10 ity of Visit REGIONAL 4.2.7.2.686 Dayron as MATERNAL [phone] Med ical & CHILD [address] [place] [address] 2020-08-13 2020-08-13 [facility] [id number] Univers 09:00:00 09:00:00 YOVANY [id number] ity o f [facility] 2020-08-13 2020-08-13 Outpatient R GARYYASSINE, [facility] [id number] Univers 09:00:00 09:00:00 YOVANY ity o f [facility] 2020-08-04 2020-08-04 Telephone [facility] 1.2.840.114 [id number] Univers 00:00:00 00:00:00 Yovany Oliveira CORPORATE STRATEGY ANALYST 350.1.13.10 ity of REGIONAL 4.2.7.2.686 Dayron as MATERNAL [phone] [facility] ical & CHILD [address] [place] [address] 2020-08-03 2020-08-03 Paper Cleaner Ultrasound, [facility] 1.2 .840.114 [id number] Univers 09:56:55 10:56:55 Visit Dong Schaefer CORPORATE STRATEGY ANALYST 350.1.13.10 ity of REGIONAL 4.2.7.2.686 Dayron as MATERNAL [phone] Med ical & CHILD 369 [facility] 2020-08-03 2020-08-03 Outpatient R [facility] [id number] Univers 09:45:00 09:45:00 ity of [facility] 2020-08-03 2020-08-03 Outpatient P [facility] [id number] Univers 09:45:00 09:45:00 ity of [facility] 2020-08-03 2020-08-03 Telephone [facility] 1.2.840.114 [id number] Univers 00:00:00 00:00:00 Yovany C CORPORATE STRATEGY ANALYST 350.1.13.10 ity of REGIONAL 4.2.7.2.686 Dayron as MATERNAL [phone] [facility] ical & CHILD [address] [place] [address] 2020-08-03 2020-08-03 Abstract [facility] 1.2.840.114 [id number] Univers 00:00:00 00:00:00 Yovany C CORPORATE STRATEGY ANALYST 350.1.13.10 ity of REGIONAL 4.2.7.2.686 Dayron as MATERNAL [phone] [facility] ical & CHILD [address] [place] [address] 2020-07-19 2020-07-19 Paper Cleaner Lab, [facility] 1.2.840. 114 [id number] Univers 10:33:25 10:56:57 Visit Yovany Wilks C CORPORATE STRATEGY ANALYST 350.1.13. 10 ity of REGIONAL 4.2.7.2.686 Dayron as MATERNAL [phone] [facility] [address] [place] [address] 2020-07-16 2020-07-19 Routine [facility] 1.2.321.295 [id number] Univers 16:04:34 10:50:13 Yovany C CORPORATE STRATEGY ANALYST 350.1.13.10 ity of Visit REGIONAL 4.2.7.2.686 Dayron as MATERNAL [phone] [facility] [address] [place] [address] 2020-07-19 2020-07-19 Outpatient R [facility] [id number] Univers 10:30:00 10:30:00 [id number] ity of [facility] 2020-07-19 2020-07-19 Outpatient R [facility] [id number] Univers 10:30:00 10:30:00 ity [facility] 2020-07-16 2020-07-16 Outpatient R AKINSIPE, [facility] [id number] Univers 16:00:00 16:00:00 YOVANY [id number] ity o f [facility] 2020-07-16 2020-07-16 Outpatient R AKINSIPE, [facility] [id number] Univers 16:00:00 16:00:00 YOVANY reddyy o f [facility] 2020-07-06 2020-07-06 Outpatient R AKINSIPE, [facility] [id number] Univers 13:30:00 13:30:00 YOVANY ity o f [facility] 2020-07-06 2020-07-06 Outpatient R AKINSIPE, [facility] [id number] Univers 13:30:00 13:30:00 YOVANY ity o f [facility] 2020-07-05 2020-07-05 Outpatient R AKINSIPE, [facility] [id number] Univers 15:00:00 15:00:00 YOVANY ity o f [facility] 2020-07-05 2020-07-05 Outpatient R AKINSIPE, [facility] [id number] Univers 15:00:00 15:00:00 YOVANY reddyy o [facility] 2020-07-02 2020-07-02 Outpatient P [facility] [id number] Univers 15:30:00 15:30:00 ity [facility] 2020-07-02 2020-07-02 Outpatient P [facility] [id number] Univers 15:30:00 15:30:00 ity [facility] 2020-07-01 2020-07-01 Outpatient P [facility] [id number] Univers 08:00:00 08:00:00 ity [facility] 2020-06-30 2020-06-30 Outpatient [facility] [id number] Univers 15:15:00 15:15:00 ity [facility] 2020-06-30 2020-06-30 Outpatient P [facility] [id number] Univers 15:15:00 15:15:00 ity [facility] 2020-06-21 2020-06-21 Outpatient [facility] [id number] Univers 09:00:00 09:00:00 [id number] ity of [facility] 2020-06-21 2020-06-21 Outpatient R [facility] [id number] Univers 09:00:00 09:00:00 ity of [facility] 2020-06-21 2020-06-21 Telemedici Faculty, Marlon [facility] 1.2.840.114 [id number] Univers 08:13:13 08:43:13 ne Visit Garfield HoustonAlbina merchant CORPORATE STRATEGY ANALYST 350.1 .13.10 ity of REGIONAL 4.2.7.2.686 Dayron as MATERNAL [phone] [facility] ical & CHILD [address] [place] [address] 2020-06-14 2020-06-14 Telephone [facility] 1.2.840.114 [id number] Univers 00:00:00 00:00:00 Yovany C CORPORATE STRATEGY ANALYST 350.1.13.10 ity of REGIONAL 4.2.7.2.686 Dayron as MATERNAL [phone] Med ical & CHILD [address] [place] [address] 2020-06-10 2020-06-10 Telephone [facility] 1.2.840.114 [id number] Univers 00:00:00 00:00:00 Yovany C CORPORATE STRATEGY ANALYST 350.1.13.10 ity of REGIONAL 4.2.7.2.686 Dayron as MATERNAL [phone] [facility] & CHILD [address] [place] [address] 2020-06-09 2020-06-09 Initial [facility] 1.2.774.433 [id number] Univers 10:11:08 11:24:06 Yovany C CORPORATE STRATEGY ANALYST 350.1.13.10 ity of Visit REGIONAL 4.2.7.2.686 Dayron as MATERNAL [phone] [facility] & CHILD [address] [place] [address] 2020-06-09 2020-06-09 Outpatient R LASHAUN [facility] [id number] Univers 10:00:00 10:00:00 YOVANY ity o f [facility] 2020-06-09 2020-06-09 Orders Doctor ANNE 1.2.840.114 [id number] Univers 00:00:00 00:00:00 Only Unassigned, RICARDO 350.1.13.10 ity of [place] [facility] 4.2.7.2.686 Dayron as [phone] [address] Results Test Description Test Time Test Comments Results Result Comments Source POCT TEST 2021-01-10 15:06:00 Test Item Value Reference Range Interpretation Comme nts POCT PREG (test code = 1605) Negative On board controls acceptable with C Line (test code = 3574) Yes POCT PREG LOT # (test code = 3575) POCT PREG TEST DATE (test code = 3576) [facility] [id number] 15:06:00 Test Item Value Reference Range Interpretation Comments POCT PREG (test code = 1605) Negative On board controls acceptable with C Yes Line (test code = 3574) POCT PREG LOT # (test code = 3575) POCT PREG TEST DATE (test code = 3576) [facility] Streptococcus by [id number] 18:00:00 Test Item Value Reference Range Interpretation Comments Group B Streptococcus by PCR (test Negative Negative code = 25007-4) Lab Interpretation (test code = Normal 80135-9) [facility] Center[facility]rine [id number] 14:40:00 Test Item Value Reference Range Interpretation Comments URINE CULTURE (test No aerobic growth (< code = 630-4) 1000 CFU/mL) [facility] B SURFACE [id number] 14:33:00 Test Item Value Reference Range Interpretation Comments HBsAg Semi-Quantitative (test code = Negative Negative 5195-3) [facility] with [id number] 11:52:00 Test Item Value Reference Range Interpretation Comments WBC (test code = See_Comment H [Automated 5090-2) message] The sy stem which generated this result transmitted reference range : 4.30 - 11.10 10*3/?L. The reference range was not used to interpret this result as normal/abnormal . RBC (test code = See_Comment L [Automated 989-8) message] The sy stem which generated this result transmitted reference range : 3.93 - 5.25 10*6/?L. The reference range was not used to interpret this result as normal/abnormal . HGB (test code = 7.3 g/dL 11.6-15 L 718-7) HCT (test code = 25.9 % 35.7-45.2 L 4544-3) MCV (test code = 68.5 fL 80.6-95.5 L 787-2) MCH (test code = 19.3 pg 25.9-32.8 L 785-6) MCHC (test code = 28.2 g/dL 31.6-35.1 L 786-4) RDW-SD (test code = 45.0 fL 39-49.9 27790-2) RDW-CV (test code = 18.6 % 12-15.5 H 788-0) PLT (test code = See_Comment H [Automated 777-3) message] The sy stem which generated this result transmitted reference range : 166 - 358 10*3/ ?L. The reference r yessi was not used to interpret this result as normal/abnormal . MPV (test code = 11.2 fL 9.5-12.9 28228-0) NRBC/100 WBC (test See_Comment [Automat ed code = 0167800813) message] The system which generated this result transmitted reference range : 0.0 - 10.0 /100 WBCs. The refer ence range was not u sed to interpret th is result as normal/abnormal . NRBC x10^3 (test code See_Comment [Auto mated = 1251625836) message] The s ystem which generated this result transmitted reference range : 10*3/?L. The reference range was not used to interpret this result as normal/abnormal . GRAN MAT (NEUT) % 70.4 % (test code = 770-8) IMM GRAN % (test code 0.80 % = 1714976105) LYMPH % (test code = 23.4 % 736-9) MONO % (test code = 4.6 % 5905-5) EOS % (test code = 0.5 % 713-8) BASO % (test code = 0.3 % 706-2) GRAN MAT x10^3(ANC) 8.42 10*3/uL 1.88-7.09 H (test code = 6083403142) IMM GRAN x10^3 (test 0.09 10*3/uL 0-0.06 H code = 0583090589) LYMPH x10^3 (test code 2.80 10*3/uL 1.32-3.29 = 731-0) MONO x10^3 (test code 0.55 10*3/uL 0.33-0.92 = 742-7) EOS x10^3 (test code = 0.06 10*3/uL 0.03-0.39 711-2) BASO x10^3 (test code 0.03 10*3/uL 0.01-0.07 = 704-7) Lab Interpretation Abnormal (test code = 02477-6) [facility] COVID [id number] 00:40:00COVID DMT InterpretationInterpretation/Recommendation: Molecular NAAT Tests for Active Infection with the SARS-CoV-2 Virus: The patient has currently tested negative for the SARS-CoV-2 virus that causes COVID-19 illness. This most likely indicates that the patient does not have an active infection with the SARS-CoV-2 virus. However, infection is not completely ruled out as the false negative rate for molecular NAAT testing using a nasopharyngeal sample can be up to 30%, mostly dependent on the timing of sample collection in relation to illness onset and any deficiencies in sampling techniques. Ifthe patient has symptoms concerning for COVID-19 illness, a repeat NAAT test (PCR, Rapid ID Now, etc.) should be performed, at which time the SARS-CoV-2 virus - if present - may have reached a detectable viral load (usually peaking by the end of the first week of symptoms). Tests for IgM and/or IgG Antibodies to the SARS-CoV-2 Virus: The patient has tested negative for SARS-CoV-2 IgG antibodies. In the context of a negative molecular NAAT test (PCR, Rapid ID Now, etc.), this most likely indicatesthat the patient has not been infected with the SARS-CoV-2 virus. If the patient develops COVID-19 illness in the future, testing for IgG antibodies approximately 3 weeks after illness onset will likely indicate whether the patient has produced antibodies to the SARS-CoV-2 virus. However, some patients may take longer to develop detectable antibodies, while some patients who were infected with SARS-CoV-2 may never develop antibodies. While IgG antibodies to SARS-CoV-2 may provide some degree of immunity, at this time the strength and duration of the antibody response is unknown. Interpretation Result Comments:These interpretation comments are based upon all COVID-19 testing the patient has had at [facility], including molecularNAAT testing (more commonly known as PCR testing and Rapid ID Now testing) and antibody testing. It does not take into account any testing that a patient has had outside of the [facility] medical record. [facility] LABORATORY SERVICESCOVID ZyjxyraFLTV-XrQ-6 Rapid ID NOW (no units) ? ? Date ? Value ? 11/26/2020 ? Not Detected ? CoV-2 IgG (no units) ? ? Date ? Value ? 06/09/2020 ? Negative ? ? ? [facility] LABORATORY SERVICESUnBaylor Scott [facility] CentennialRHO (D) IMMUNE [id number] 16:09:08 Test Item Value Reference Range Interpretation Comments RHIG CANDIDATE? No- see comment Patient i s not a (test code = candidate for R [facility]- 5055) Patient is Rh Positive.Perfor med at [facility] Laboratory Services - [facility] Blood [address] [place] [address] 28[address]Svtc Free: [phone] A No. [id number] [facility] CenterGALV ONLY - Syphilis [id number] 15:47:00 Test Item Value Reference Range Interpretation Comments Syphilis IgG/IgM (test Non-reactive Non-reactive code = 69679-2) BLANCO (test code = BLANCO) Non-reactive - No serologic evidence of T. pallidum infection. Cannot exclude incubating or early syphilis. Submit a second specimen in 2-4 weeks if syphilis is clinically suspected. Equivocal - Further testing to follow. Reactive - Further testing to follow. Lab Interpretation (test Normal code = 16039-7) [facility] [id number] 15:25:00 Test Item Value Reference Range Interpretation Comments VENOUS BASE EXCESS, mEq/L CORD (test code = 6740076717) VENOUS PH, CORD (test 7.25-7.45 code = 1889568589) VENOUS PC02, CORD See_Comment [Automate d message] The (test code = system which ge nerated 1247917412) this result tra nsmitted reference range : 27 - 49 mmHg. The refer ence range was not used to interpret this result as normal/abnormal . VENOUS PO2, CORD (test See_Comment [Aut omated message] The code = 6484451697) system [facility] [facility] generated this result tra nsmitted reference range : 17 - 41 mmHg. The refer ence range was not used to interpret this result as normal/abnormal . VENOUS BICARBONATE, See_Comment [Automa raffi message] The CORD (test code = system [facility] generated 8618766112) this result tra nsmitted reference range : 12 - 29 mEq/L. The refe rence range was not used to interpret this result as normal/abnormal . [facility] [id number] 15:24:00 Test Item Value Reference Range Interpretation Comments BASE EXCESS, CORD (test mEq/L code = 1624830931) AC PH, CORD (BEAKER) 7.18-7.38 L (test code = 1505081681) PC02, CORD (test code = See_Comment [Au tomated message] 0188829706) The system [employer] generated this result transmitted ref erence range: 32 - 66 mmHg. The reference r yessi was not used to interpret this result as normal/abnor mal. PO2, CORD (test code = See_Comment [Aut omated message] 6801389027) The system [employer] generated this result transmitted ref erence range: 10 - 30 mmHg. The reference r yessi was not used to interpret this result as normal/abnor mal. BICARBONATE, CORD (test See_Comment [Au tomated message] code = 1258132194) The syste [employer] which generated this result transmitted ref erence range: 17 - 27 mEq/L. The reference r yessi was not used to interpret this result as normal/abnor mal. Lab Interpretation (test Abnormal code = 90039-1) [facility] Center[facility]inalysis[facility]21-[facility] 09:10:00 Test Item Value Reference Range Interpretation Comments APPEARANCE (test code = Clear Clear 7967674575) COLOR (test code = Yellow Yellow 2809975020) PH (test code = 4.8-8.0 3598877586) SP GRAVITY (test code = 1.003-1.030 4943353983) GLU U QUAL (test code = Normal Normal 5565656392) BLOOD (test code = 3+ Negative A 4013761663) KETONES (test code = 20 mg/dL Negative A 0570481853) PROTEIN (test code = Negative Negative 2887-8) UROBILIN (test code = Normal Normal 7371623552) BILIRUBIN (test code = Negative Negative 6758099447) NITRITE (test code = Negative Negative 3071914501) LEUK SUSAN (test code = 25/uL Negative A 6488114412) RBC/HPF (test code = >182 See_Comment H [Autom ated message] 3611266794) The system [employer] generated this result transmitted ref erence range: 0 - 3 HP F. The reference range was not used to int erpret this result as normal/abnormal . WBC/HPF (test code = See_Comment H [Autom ated message] 9006637012) The system [employer] generated this result transmitted ref erence range: 0 - 5 HP F. The reference range was not used to int erpret this result as normal/abnormal . BACTERIA (test code = Negative Negative 2140935046) MUCOUS (test code = Slight Negative LPF A 3172866653) SQ EPITH (test code = See_Comment H [Auto mated message] 7442191621) The system [employer] generated this result transmitted ref erence range: <=2 HPF. The reference range was not used to int erpret this result as normal/abnormal . FADUMO EPITH (test code = HPF 1405715568) Lab Interpretation (test Abnormal code = 56546-2) [facility] CenterHIV [facility]/2 AG-AB with [id number] 07:38:00 Test Item Value Reference Range Interpretation Comments HIV Negative Negative Semi-quantitative (test code = 44625-2) BLANCO (test code = Non-reactive for HIV-1 BLANCO) antigen and HIV-1/HIV-2 antibodies. ?No laboratory evidence of HIV infection. ?Repeat in 2-4 weeks if acute HIV infection is suspected. [facility] CenterType and Screen - ONCE [id number] 07:05:16 Test Item Value Reference Range Interpretation Comments ABO & RH (test code O POSITIVE Performe d at [facility] = 20) Laboratory Serv [facility] [address] [facility] [place] [id number] Free: [phone] A No. [id number] IAT (test code = Negative Performed a t [facility] 1185) Laboratory [facility] [address] [facility] [place] [id number] Free: [phone] A No. [id number] [facility] CenterCBC with [id number] 06:54:00 Test Item Value Reference Range Interpretation Comments WBC (test code = See_Comment [Automated 1490-2) message] The sy stem which generated this result transmitted reference range : 4.30 - 11.10 10*3/?L. The reference range was not used to interpret this result as normal/abnormal . RBC (test code = See_Comment [Automated 059-8) message] The sy stem which generated this result transmitted reference range : 3.93 - 5.25 10*6/?L. The reference range was not used to interpret this result as normal/abnormal . HGB (test code = 8.7 g/dL 11.6-15 L 718-7) HCT (test code = 30.0 % 35.7-45.2 L 4544-3) MCV (test code = 67.1 fL 80.6-95.5 L 787-2) MCH (test code = 19.5 pg 25.9-32.8 L 785-6) MCHC (test code = 29.0 g/dL 31.6-35.1 L 786-4) RDW-SD (test code = 44.1 fL 39-49.9 86151-6) RDW-CV (test code = 18.6 % 12-15.5 H 788-0) PLT (test code = See_Comment H [Automated 777-3) message] The sy stem which generated this result transmitted reference range : 166 - 358 10*3/ ?L. The reference r yessi was not used to interpret this result as normal/abnormal . MPV (test code = 11.4 fL 9.5-12.9 07157-6) IPF % (test code = 3.9 % 1.3-7.7 Platelet count [id number]) measured by fluorescence method. NRBC/100 WBC (test See_Comment [Automat ed code = 0665545618) message] The system which generated this result transmitted reference range : 0.0 - 10.0 /100 WBCs. The refer ence range was not u sed to interpret th is result as normal/abnormal . NRBC x10^3 (test code <0.01 See_Comment [Auto mated = 3819371986) message] The s ystem which generated this result transmitted reference range : 10*3/?L. The reference range was not used to interpret this result as normal/abnormal . GRAN MAT (NEUT) % 86.6 % (test code = 770-8) IMM GRAN % (test code 1.10 % = 1637634753) LYMPH % (test code = 11.0 % 736-9) MONO % (test code = 1.1 % 5905-5) EOS % (test code = 0.1 % 713-8) BASO % (test code = 0.1 % 706-2) GRAN MAT x10^3(ANC) 9.39 10*3/uL 1.88-7.09 H (test code = 1071604934) IMM GRAN x10^3 (test 0.12 10*3/uL 0-0.06 H code = 4372901740) LYMPH x10^3 (test code 1.19 10*3/uL 1.32-3.29 L = 731-0) MONO x10^3 (test code 0.12 10*3/uL 0.33-0.92 L = 742-7) EOS x10^3 (test code = <0.03 0.03-0.39 L 711-2) BASO x10^3 (test code <0.03 0.01-0.07 = 704-7) Lab Interpretation Abnormal (test code = 75562-5) [facility] CenterCOVID-19 (ID NOW RAPID TESTING)2020-11-27 03:14:00 Test Item Value Reference Range Interpretation Comments SARS-CoV-2 Rapid ID NOW Not Detected Not Detected (test code = 99783-7) BLANCO (test code = BLANCO) ID NOW COVID-19 Assay is an isothermal nucleic acid amplification test intended for the qualitative detection of nucleic acid from SARS-CoV-2 viral RNA in nasopharyngeal (SENIOR SECURITY ANALYST) specimens. It is used under Emergency Use Authorization (EUA) by FDA. The limit of detection (LOD) of the assay is 125 Genome Equivalents/mL. A positive result is indicative of the presence of SARS-CoV-2 RNA. ?Clinical correlation with patient history and other diagnostic information is necessary to determine patient infection status. A negative (Not Detected) result does not preclude SARS-CoV-2 infection. In patients with clinical symptoms and other tests that are consistent with SARS-CoV-2 infection, negative results should be treated as presumptive negative and a new specimen should be tested with alternative PCR molecular test. Invalid: Please collect a new specimen for repeat patient testing if clinically indicated. Lab Interpretation Normal (test code = 45196-8) [facility] URINALYSIS W SPECIFIC [id number] 14:33:00 Test Item Value Reference Range Interpretation Comments POCT U SP GRAV (test code = 3255) . 1.005-1.025 POCT PH U (test code = 3254) . 5-8 POCT U LEUK EST (test code = 3263) . Negative - Negative POCT U NIT (test code = 3262) . Negative - Negative POCT U PROT (test code = 3259) Trace Negative - Negative POCT U GLU (test code = 3256) Neg Negative - Negative POCT U KETONE (test code = 3258) . Negative - Negative POCT U UROBILI (test code = 3260) . 0.2-1 POCT U BILI (test code = 3261) . Negative - Negative POCT U BLD (test code = 3257) . Negative - Negative POCT U COLOR (test code = 3266) POCT U APPEAR (test code = 3267) [facility] URINALYSIS W SPECIFIC [id number] 15:48:00 Test Item Value Reference Range Interpretation Comments POCT U SP GRAV (test code = 3255) . 1.005-1.025 POCT PH U (test code = 3254) . 5-8 POCT U LEUK EST (test code = 3263) . Negative - Negative POCT U NIT (test code = 3262) . Negative - Negative POCT U PROT (test code = 3259) Trace Negative - Negative POCT U GLU (test code = 3256) Neg Negative - Negative POCT U KETONE (test code = 3258) . Negative - Negative POCT U UROBILI (test code = 3260) . 0.2-1 POCT U BILI (test code = 3261) . Negative - Negative POCT U BLD (test code = 3257) . Negative - Negative POCT U COLOR (test code = 3266) POCT U APPEAR (test code = 3267) [facility] URINALYSIS W SPECIFIC [id number] 14:00:00 Test Item Value Reference Range Interpretation Comments POCT U SP GRAV (test code = 3255) . 1.005-1.025 POCT PH U (test code = 3254) . 5-8 POCT U LEUK EST (test code = 3263) . Negative - Negative POCT U NIT (test code = 3262) . Negative - Negative POCT U PROT (test code = 3259) trace Negative - Negative POCT U GLU (test code = 3256) neg Negative - Negative POCT U KETONE (test code = 3258) . Negative - Negative POCT U UROBILI (test code = 3260) . 0.2-1 POCT U BILI (test code = 3261) . Negative - Negative POCT U BLD (test code = 3257) . Negative - Negative POCT U COLOR (test code = 3266) POCT U APPEAR (test code = 3267) [facility] URINALYSIS W SPECIFIC [id number] 14:00:00 Test Item Value Reference Range Interpretation Comments POCT U SP GRAV (test code = 3255) . 1.005-1.025 POCT PH U (test code = 3254) . 5-8 POCT U LEUK EST (test code = 3263) . Negative - Negative POCT U NIT (test code = 3262) . Negative - Negative POCT U PROT (test code = 3259) trace Negative - Negative POCT U GLU (test code = 3256) neg Negative - Negative POCT U KETONE (test code = 3258) . Negative - Negative POCT U UROBILI (test code = 3260) . 0.2-1 POCT U BILI (test code = 3261) . Negative - Negative POCT U BLD (test code = 3257) . Negative - Negative POCT U COLOR (test code = 3266) POCT U APPEAR (test code = 3267) [facility] URINALYSIS W SPECIFIC [id number] 14:00:00 Test Item Value Reference Range Interpretation Comments POCT U SP GRAV (test code = 3255) . 1.005-1.025 POCT PH U (test code = 3254) . 5-8 POCT U LEUK EST (test code = 3263) . Negative - Negative POCT U NIT (test code = 3262) . Negative - Negative POCT U PROT (test code = 3259) trace Negative - Negative POCT U GLU (test code = 3256) neg Negative - Negative POCT U KETONE (test code = 3258) . Negative - Negative POCT U UROBILI (test code = 3260) . 0.2-1 POCT U BILI (test code = 3261) . Negative - Negative POCT U BLD (test code = 3257) . Negative - Negative POCT U COLOR (test code = 3266) POCT U APPEAR (test code = 3267) [facility] URINALYSIS W SPECIFIC [id number] 15:41:00 Test Item Value Reference Range Interpretation Comments POCT U SP GRAV (test code = 3255) . 1.005-1.025 POCT PH U (test code = 3254) . 5-8 POCT U LEUK EST (test code = 3263) . Negative - Negative POCT U NIT (test code = 3262) . Negative - Negative POCT U PROT (test code = 3259) Trace Negative - Negative POCT U GLU (test code = 3256) Neg Negative - Negative POCT U KETONE (test code = 3258) . Negative - Negative POCT U UROBILI (test code = 3260) . 0.2-1 POCT U BILI (test code = 3261) . Negative - Negative POCT U BLD (test code = 3257) . Negative - Negative POCT U COLOR (test code = 3266) POCT U APPEAR (test code = 3267) [facility] URINALYSIS W SPECIFIC [id number] 15:41:00 Test Item Value Reference Range Interpretation Comments POCT U SP GRAV (test code = 3255) . 1.005-1.025 POCT PH U (test code = 3254) . 5-8 POCT U LEUK EST (test code = 3263) . Negative - Negative POCT U NIT (test code = 3262) . Negative - Negative POCT U PROT (test code = 3259) Trace Negative - Negative POCT U GLU (test code = 3256) Neg Negative - Negative POCT U KETONE (test code = 3258) . Negative - Negative POCT U UROBILI (test code = 3260) . 0.2-1 POCT U BILI (test code = 3261) . Negative - Negative POCT U BLD (test code = 3257) . Negative - Negative POCT U COLOR (test code = 3266) POCT U APPEAR (test code = 3267) [facility] URINALYSIS W SPECIFIC [id number] 15:41:00 Test Item Value Reference Range Interpretation Comments POCT U SP GRAV (test code = 3255) . 1.005-1.025 POCT PH U (test code = 3254) . 5-8 POCT U LEUK EST (test code = 3263) . Negative - Negative POCT U NIT (test code = 3262) . Negative - Negative POCT U PROT (test code = 3259) Trace Negative - Negative POCT U GLU (test code = 3256) Neg Negative - Negative POCT U KETONE (test code = 3258) . Negative - Negative POCT U UROBILI (test code = 3260) . 0.2-1 POCT U BILI (test code = 3261) . Negative - Negative POCT U BLD (test code = 3257) . Negative - Negative POCT U COLOR (test code = 3266) POCT U APPEAR (test code = 3267) [facility] URINALYSIS W SPECIFIC [id number] 15:41:00 Test Item Value Reference Range Interpretation Comments POCT U SP GRAV (test code = 3255) . 1.005-1.025 POCT PH U (test code = 3254) . 5-8 POCT U LEUK EST (test code = 3263) . Negative - Negative POCT U NIT (test code = 3262) . Negative - Negative POCT U PROT (test code = 3259) Trace Negative - Negative POCT U GLU (test code = 3256) Neg Negative - Negative POCT U KETONE (test code = 3258) . Negative - Negative POCT U UROBILI (test code = 3260) . 0.2-1 POCT U BILI (test code = 3261) . Negative - Negative POCT U BLD (test code = 3257) . Negative - Negative POCT U COLOR (test code = 3266) POCT U APPEAR (test code = 3267) [facility] URINALYSIS W SPECIFIC [id number] 15:41:00 Test Item Value Reference Range Interpretation Comments POCT U SP GRAV (test code = 3255) . 1.005-1.025 POCT PH U (test code = 3254) . 5-8 POCT U LEUK EST (test code = 3263) . Negative - Negative POCT U NIT (test code = 3262) . Negative - Negative POCT U PROT (test code = 3259) Trace Negative - Negative POCT U GLU (test code = 3256) Neg Negative - Negative POCT U KETONE (test code = 3258) . Negative - Negative POCT U UROBILI (test code = 3260) . 0.2-1 POCT U BILI (test code = 3261) . Negative - Negative POCT U BLD (test code = 3257) . Negative - Negative POCT U COLOR (test code = 3266) POCT U APPEAR (test code = 3267) [facility] URINALYSIS W SPECIFIC [id number] 15:41:00 Test Item Value Reference Range Interpretation Comments POCT U SP GRAV (test code = 3255) . 1.005-1.025 POCT PH U (test code = 3254) . 5-8 POCT U LEUK EST (test code = 3263) . Negative - Negative POCT U NIT (test code = 3262) . Negative - Negative POCT U PROT (test code = 3259) Trace Negative - Negative POCT U GLU (test code = 3256) Neg Negative - Negative POCT U KETONE (test code = 3258) . Negative - Negative POCT U UROBILI (test code = 3260) . 0.2-1 POCT U BILI (test code = 3261) . Negative - Negative POCT U BLD (test code = 3257) . Negative - Negative POCT U COLOR (test code = 3266) POCT U APPEAR (test code = 3267) [facility] URINALYSIS W SPECIFIC [id number] 15:30:00 Test Item Value Reference Range Interpretation Comments POCT U SP GRAV (test code = 3255) . 1.005-1.025 POCT PH U (test code = 3254) . 5-8 POCT U LEUK EST (test code = 3263) . Negative - Negative POCT U NIT (test code = 3262) . Negative - Negative POCT U PROT (test code = 3259) Trace Negative - Negative POCT U GLU (test code = 3256) Neg Negative - Negative POCT U KETONE (test code = 3258) . Negative - Negative POCT U UROBILI (test code = 3260) . 0.2-1 POCT U BILI (test code = 3261) . Negative - Negative POCT U BLD (test code = 3257) . Negative - Negative POCT U COLOR (test code = 3266) POCT U APPEAR (test code = 3267) [facility] URINALYSIS W SPECIFIC [id number] 15:30:00 Test Item Value Reference Range Interpretation Comments POCT U SP GRAV (test code = 3255) . 1.005-1.025 POCT PH U (test code = 3254) . 5-8 POCT U LEUK EST (test code = 3263) . Negative - Negative POCT U NIT (test code = 3262) . Negative - Negative POCT U PROT (test code = 3259) Trace Negative - Negative POCT U GLU (test code = 3256) Neg Negative - Negative POCT U KETONE (test code = 3258) . Negative - Negative POCT U UROBILI (test code = 3260) . 0.2-1 POCT U BILI (test code = 3261) . Negative - Negative POCT U BLD (test code = 3257) . Negative - Negative POCT U COLOR (test code = 3266) POCT U APPEAR (test code = 3267) [facility] [id number] 15:27:00 Test Item Value Reference Range Interpretation Comments POCT U SP GRAV (test code = 3255) . 1.005-1.025 POCT PH U (test code = 3254) . 5-8 POCT U LEUK EST (test code = 3263) . Negative - Negative POCT U NIT (test code = 3262) . Negative - Negative POCT U PROT (test code = 3259) TRACE Negative - Negative POCT U GLU (test code = 3256) neg Negative - Negative POCT U KETONE (test code = 3258) . Negative - Negative POCT U UROBILI (test code = 3260) . 0.2-1 POCT U BILI (test code = 3261) . Negative - Negative POCT U BLD (test code = 3257) . Negative - Negative POCT U COLOR (test code = 3266) POCT U APPEAR (test code = 3267) [facility]IFIC [id number] 15:27:00 Test Item Value Reference Range Interpretation Comments POCT U SP GRAV (test code = 3255) . 1.005-1.025 POCT PH U (test code = 3254) . 5-8 POCT U LEUK EST (test code = 3263) . Negative - Negative POCT U NIT (test code = 3262) . Negative - Negative POCT U PROT (test code = 3259) TRACE Negative - Negative POCT U GLU (test code = 3256) neg Negative - Negative POCT U KETONE (test code = 3258) . Negative - Negative POCT U UROBILI (test code = 3260) . 0.2-1 POCT U BILI (test code = 3261) . Negative - Negative POCT U BLD (test code = 3257) . Negative - Negative POCT U COLOR (test code = 3266) POCT U APPEAR (test code = 3267) [facility]PR[facility] QUANT [id number] 04:29:00 Test Item Value Reference Range Interpretation Comments T. VOL U (test code = 1400 mL 6955051132) HR COLLECT (test code Hours = 3270434940) T. PROT U (test code 10 mg/dL = 2888-6) PRO U/24HR (test code See_Comment [Auto mated message] The = 1300633251) system which g enerated this result tra nsmitted reference range : <150 mg/24h. The ref erence range was not u sed to interpret this result as normal/abnormal . [facility] [id number] 04:10:00 Test Item Value Reference Range Interpretation Comments T. VOL U (test code = 1400 mL 7166965321) HR COLLECT (test code = Hours 7370897038) T. PROT U (test code = 11 mg/dL 2888-6) PRO U/24HR (test code = See_Comment H [Au tomated message] 2292621090) The system [employer] h generated this result transmitted ref erence range: <150 mg/ 24h. The reference r yessi was not used to interpret this result as normal/abnor mal. Lab Interpretation (test Abnormal code = 80585-7) [facility] URINALYSIS W SPECIFIC [id number] 21:14:00 Test Item Value Reference Range Interpretation Comments POCT U SP GRAV (test code = 3255) . 1.005-1.025 POCT PH U (test code = 3254) . 5-8 POCT U LEUK EST (test code = 3263) . Negative - Negative POCT U NIT (test code = 3262) . Negative - Negative POCT U PROT (test code = 3259) trace Negative - Negative POCT U GLU (test code = 3256) neg Negative - Negative POCT U KETONE (test code = 3258) . Negative - Negative POCT U UROBILI (test code = 3260) . 0.2-1 POCT U BILI (test code = 3261) . Negative - Negative POCT U BLD (test code = 3257) . Negative - Negative POCT U COLOR (test code = 3266) POCT U APPEAR (test code = 3267) [facility] URINALYSIS W SPECIFIC [id number] 21:14:00 Test Item Value Reference Range Interpretation Comments POCT U SP GRAV (test code = 3255) . 1.005-1.025 POCT PH U (test code = 3254) . 5-8 POCT U LEUK EST (test code = 3263) . Negative - Negative POCT U NIT (test code = 3262) . Negative - Negative POCT U PROT (test code = 3259) trace Negative - Negative POCT U GLU (test code = 3256) neg Negative - Negative POCT U KETONE (test code = 3258) . Negative - Negative POCT U UROBILI (test code = 3260) . 0.2-1 POCT U BILI (test code = 3261) . Negative - Negative POCT U BLD (test code = 3257) . Negative - Negative POCT U COLOR (test code = 3266) POCT U APPEAR (test code = 3267) [facility] [id number] 15:19:00 Test Item Value Reference Range Interpretation Comments POCT PREG (test code = 1605) Positive On board controls acceptable with C Yes Line (test code = 3574) POCT PREG LOT # (test code = 3575) POCT PREG TEST DATE (test code = 3576) [facility] URINALYSIS W/O SPECIFIC [id number] 15:19:00 Test Item Value Reference Range Interpretation Comments POCT PH U (test code = 3254) 5 mg/dl 5-8 POCT U LEUK EST (test code = Neg Negative - Negative 3263) POCT U NIT (test code = 3262) Neg Negative - Negative POCT U PROT (test code = 3259) Trace Negative - Negative POCT U GLU (test code = 3256) Neg Negative - Negative POCT U KETONE (test code = 3258) None Negative - Negative POCT U BLD (test code = 3257) Neg Negative - Negative [id number]07[facility]00 RUN DATE: 05/06/19 [facility] PAGE 1 RUN TIME: 907 Specimen Inquiry RUN USER: INTERFACE PATIENT: RAFAEL STAFFORD [facility] [id number] AGE/SX: 28/F ROOM: [facility] RE04/29/19REG DR: Johanna Sanders : 86 BED: A DIS: 05/02/19 STATUS: DIS IN TLOC: SPEC #: [id number] RECD: 04/30/19 STATUS: BRYAN ASHRAF #: [id number] MUNA: 04/29/19- SUBM DR: Johanna Sanders MD ENTERED: 04/30/19 SP TYPE: PLACENTA OTHR DR: ORDERED: GROSS PROCEDURES: GROSS (05/05/19-114) TISSUES: PLACENTA, NOS CLINICAL HISTORY COLLECTION DATE: 04/29/19 FINAL DIAGNOSIS Placenta, vaginal delivery: 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 The placenta measures 15.0 x 13.0 x up to 3.5 cm and has a trimmed weight of 385.6 grams. A segment of vogt trivascular umbilical cord inserts paracentrally. The segment measures 42 cm in length with diameter up to 1.0 cm. No knots are present in the cord. The membranes are chen-vogt to vogt-pink, thin, wrinkled and insert marginally. The surface isblue-chen with unremarkable appearing vasculature. The maternal surface is red-brown, spongy and appears to be intact. Sectioning through the placenta shows no focal lesions. Project Planner sections through the tissue shows no focal lesions. Project Planner portions of tissue are submitted for histologic evaluation (1A- 1C). GROSS PERFORMED AT [facility] CONTINUED ON NEXT PAGE RUN DATE: 05/06/19 [facility] PAGE 2 RUN TIME: 907 Specimen Inquiry RUN USER: INTERFACE S PEC #: [id number] PATIENT: RAFAEL STAFFORD Kenton #[id number] (Continued) MACROSCOPIC ([facility]) [facility] [address] [facility] [place] [address] ()[phone] MICROSCOPIC All of the stains, including any controls performed, stain appropriately. MICROSCOPIC PERFORMED AT [facility] [address] [place] [address] [phone] PERFORMING SITE Diagnosis performed at: [facility] [address] [facility] [place] [address] Signed SIGNATURE ON FILE Salvatore Pascal MD 05/06/19 0907 END OF REPORT COMPREHENSIVE METABOLIC [id number] 10:33:00 Test Item Value Reference Range Interpretation Comments SODIUM (test code = 142 mmol/L 136-145 N NA) POTASSIUM (test code = 4.1 mmol/L 3.5-5.1 N K) CHLORIDE (test code = 112.0 mmol/L 98-107 H CL) CARBON DIOXIDE (test 27.0 mmol/L 21-32 N code = CO2) ANION GAP (test code = 7.1 10-20 L GAP) GLUCOSE (test code = 65 mg/dL 74-106 L GLU) BLOOD UREA NITROGEN 7 mg/dL 7-18 N (test code = BUN) GLOMERULAR FILTRATION > 60 mL/min >=60 Estima raffi GFR by RATE (test code = GFR) using Modified MDRD formula.Chronic kidney disease is defined as [facility] kidney damageor GFR <60 mL/min/1.73 m2 for >3 months. CREATININE (test code 0.60 mg/dL 0.55-1.02 N Note change in = CREAT) reference range due to change in reagent. BUN/CREATININE RATIO 11.0 10-20 N (test code = BUN/CREA) TOTAL PROTEIN (test 5.2 gram/dL 6.4-8.2 L code = PROT) ALBUMIN (test code = 2.0 g/dL 3.4-5.0 L ALB) GLOBULIN (test code = 3.2 gram/dL 2.7-4.2 N GLOB) ALBUMIN/GLOBULIN RATIO 0.6 0.75-1.50 L (test code = A/G) CALCIUM (test code = 7.4 mg/dL 8.5-10.1 L CA) BILIRUBIN TOTAL (test 0.20 mg/dL 0.0-1.0 N code = BILT) SGOT/AST (test code = 25 IUnit/L 15-37 N AST) SGPT/ALT (test code = 21 IUnit/L 12-78 N ALT) ALKALINE PHOSPHATASE 215 IUnit/L 45-117 H Note change in TOTAL (test code = reference range due ALKP) to change in reagent. COMPREHENSIVE METABOLIC [id number] 10:27:00 Test Item Value Reference Range Interpretation Comments SODIUM (test code = NA) 142 mmol/L 136-145 N POTASSIUM (test code = K) 4.1 mmol/L 3.5-5.1 N CHLORIDE (test code = CL) 112.0 mmol/L 98-107 H CARBON DIOXIDE (test code = CO2) mmol/L 21-32 ANION GAP (test code = GAP) 10-20 GLUCOSE (test code = GLU) mg/dL 74-106 BLOOD UREA NITROGEN (test code = mg/dL 7-18 BUN) GLOMERULAR FILTRATION RATE (test mL/min >=60 code = GFR) CREATININE (test code = CREAT) mg/dL 0.55-1.02 BUN/CREATININE RATIO (test code 10-20 = BUN/CREA) TOTAL PROTEIN (test code = PROT) gram/dL 6.4-8.2 ALBUMIN (test code = ALB) g/dL 3.4-5.0 GLOBULIN (test code = GLOB) gram/dL 2.7-4.2 ALBUMIN/GLOBULIN RATIO (test 0.75-1.50 code = A/G) CALCIUM (test code = CA) mg/dL 8.5-10.1 BILIRUBIN TOTAL (test code = mg/dL 0.0-1.0 BILT) SGOT/AST (test code = AST) IUnit/L 15-37 SGPT/ALT (test code = ALT) IUnit/L 12-78 ALKALINE PHOSPHATASE TOTAL (test IUnit/L 45-117 code = ALKP) CBC W/AUTO [id number] 13:30:00 Test Item Value Reference Range Interpretation Comments WHITE BLOOD CELL (test 10.8 K/mm3 4.5-12.5 N code = WBC) RED BLOOD CELL (test code 3.87 mill/mm3 3.7-5.2 N = RBC) HEMOGLOBIN (test code = 7.6 gram/dL 11.5-15.5 L HGB) HEMATOCRIT (test code = 26.1 % 36.0-46.0 L HCT) MEAN CELL VOLUME (test 67.4 fL 80-98 L code = MCV) MEAN CELL HGB (test code 19.6 picogram 27.0-33.0 L = MCH) MEAN CELL HGB 29.1 gram/dL 33.0-36.0 L CONCETRATION (test code = MCHC) RED CELL DISTRIBUTION 18.1 % 11.6-16.2 H WIDTH (test code = RDW) RED CELL DISTRIBUTION 42.6 fL 37.0-51.0 N WIDTH SD (test code = RDW-SD) PLATELET COUNT (test code 282 K/mm3 150-450 N = PLT) MEAN PLATELET VOLUME 11.6 fL 6.7-11.0 H (test code = MPV) NEUTROPHIL % (test code = 80.5 % 39.0-69.0 H NT%) IMMATURE GRANULOCYTE % 0.4 % 0.0-5.0 N (test code = IG%) LYMPHOCYTE % (test code = 14.8 % 25.0-55.0 L LY%) MONOCYTE % (test code = 3.0 % 0.0-10.0 N MO%) EOSINOPHIL % (test code = 1.2 % 0.0-5.0 N EO%) BASOPHIL % (test code = 0.1 % 0.0-1.0 N BA%) NUCLEATED RBC % (test 0.0 % 0-0 N code = NRBC%) NEUTROPHIL # (test code = 8.72 K/mm3 1.8-7.7 H NT#) IMMATURE GRANULOCYTE # 0.04 x10 3/uL 0-0.03 H (test code = IG#) LYMPHOCYTE # (test code = 1.60 K/mm3 1.0-5.0 N LY#) MONOCYTE # (test code = 0.32 K/mm3 0-0.8 N MO#) EOSINOPHIL # (test code = 0.13 K/mm3 0.0-0.5 N EO#) BASOPHIL # (test code = 0.01 K/mm3 0.0-0.2 N BA#) NUCLEATED RBC # (test 0.00 K/mm3 0.0-0.1 N code = NRBC#) MANUAL DIFF REQUIRED NO, ONLY SCAN NEEDED (test code = MDIFF) SPECIMEN COMMENTS: day 1DIFFERENTIAL [id number] 13:30:00 Test Item Value Reference Range Interpretation Comments STAIN ACCEPTABILITY (test STAIN ACCEPTABLE code = STN ACCEPTABLE) POIKILOCYTOSIS (test code = 2+ POIK) ANISOCYTOSIS (test code = 1+ ANISO) MICROCYTOSIS (test code = 1+ MICR) ELLIPTOCYTES (test code = 1+ ELL) SUNDAY CELLS (test code = 1+ NONE SUNDAY) PLATELET ESTIMATE (test code ADEQUATE = PLTEST) PLATELET MORPHOLOGY (test NORMAL code = PLTMORPH) SPECIMEN COMMENTS: day 1COMPREHENSIVE METABOLIC [id number] 13:08:00 Test Item Value Reference Range Interpretation Comments SODIUM (test code = 138 mmol/L 136-145 N NA) POTASSIUM (test code = 3.1 mmol/L 3.5-5.1 L K) CHLORIDE (test code = 108.0 mmol/L 98-107 H CL) CARBON DIOXIDE (test 22.0 mmol/L 21-32 N code = CO2) ANION GAP (test code = 11.1 10-20 N GAP) GLUCOSE (test code = 108 mg/dL 74-106 H GLU) BLOOD UREA NITROGEN 6 mg/dL 7-18 L (test code = BUN) GLOMERULAR FILTRATION > 60 mL/min >=60 Estima raffi GFR by RATE (test code = GFR) using Modified MDRD formula.Chronic kidney disease is defined as [facility] er kidney damageor GFR <60 mL/min/1.73 m2 for >3 months. CREATININE (test code 0.50 mg/dL 0.55-1.02 L Note change in = CREAT) reference range due to change in reagent. BUN/CREATININE RATIO 11.7 10-20 N (test code = BUN/CREA) TOTAL PROTEIN (test 5.4 gram/dL 6.4-8.2 L code = PROT) ALBUMIN (test code = 2.0 g/dL 3.4-5.0 L ALB) GLOBULIN (test code = 3.4 gram/dL 2.7-4.2 N GLOB) ALBUMIN/GLOBULIN RATIO 0.6 0.75-1.50 L (test code = A/G) CALCIUM (test code = 6.2 mg/dL 8.5-10.1 LL Results called to CA) [id number] by YOUSUF 04/30 1308Critical results verifie d and read back b y Nurse? Y BILIRUBIN TOTAL (test 0.30 mg/dL 0.0-1.0 N code = BILT) SGOT/AST (test code = 33 IUnit/L 15-37 N AST) SGPT/ALT (test code = 23 IUnit/L 12-78 N ALT) ALKALINE PHOSPHATASE 220 IUnit/L 45-117 H Note change in TOTAL (test code = reference range due ALKP) to change in reagent. [id number] 13:08:00 Test Item Value Reference Range Interpretation Comments MAGNESIUM (test code = MAG) 6.6 mg/dL 1.8-2.4 H CBC W/AUTO [id number] 12:58:00 Test Item Value Reference Range Interpretation Comments WHITE BLOOD CELL (test 10.8 K/mm3 4.5-12.5 N code = WBC) RED BLOOD CELL (test code 3.87 mill/mm3 3.7-5.2 N = RBC) HEMOGLOBIN (test code = 7.6 gram/dL 11.5-15.5 L HGB) HEMATOCRIT (test code = 26.1 % 36.0-46.0 L HCT) MEAN CELL VOLUME (test 67.4 fL 80-98 L code = MCV) MEAN CELL HGB (test code 19.6 picogram 27.0-33.0 L = MCH) MEAN CELL HGB 29.1 gram/dL 33.0-36.0 L CONCETRATION (test code = MCHC) RED CELL DISTRIBUTION 18.1 % 11.6-16.2 H WIDTH (test code = RDW) RED CELL DISTRIBUTION 42.6 fL 37.0-51.0 N WIDTH SD (test code = RDW-SD) PLATELET COUNT (test code 282 K/mm3 150-450 N = PLT) MEAN PLATELET VOLUME 11.6 fL 6.7-11.0 H (test code = MPV) NEUTROPHIL % (test code = 80.5 % 39.0-69.0 H NT%) IMMATURE GRANULOCYTE % 0.4 % 0.0-5.0 N (test code = IG%) LYMPHOCYTE % (test code = 14.8 % 25.0-55.0 L LY%) MONOCYTE % (test code = 3.0 % 0.0-10.0 N MO%) EOSINOPHIL % (test code = 1.2 % 0.0-5.0 N EO%) BASOPHIL % (test code = 0.1 % 0.0-1.0 N BA%) NUCLEATED RBC % (test 0.0 % 0-0 N code = NRBC%) NEUTROPHIL # (test code = 8.72 K/mm3 1.8-7.7 H NT#) IMMATURE GRANULOCYTE # 0.04 x10 3/uL 0-0.03 H (test code = IG#) LYMPHOCYTE # (test code = 1.60 K/mm3 1.0-5.0 N LY#) MONOCYTE # (test code = 0.32 K/mm3 0-0.8 N MO#) EOSINOPHIL # (test code = 0.13 K/mm3 0.0-0.5 N EO#) BASOPHIL # (test code = 0.01 K/mm3 0.0-0.2 N BA#) NUCLEATED RBC # (test 0.00 K/mm3 0.0-0.1 N code = NRBC#) MANUAL DIFF REQUIRED NO, ONLY SCAN NEEDED (test code = MDIFF) SPECIMEN COMMENTS: day 1DIFFERENTIAL [id number] 12:58:00 Test Item Value Reference Range Interpretation Comments STAIN ACCEPTABILITY (test code = STN ACCEPTABLE) CABOT RINGS (test code = CAB) MORPHOLOGY COMMENT (test code = MOC) PLATELET ESTIMATE (test code = PLTEST) PLATELET MORPHOLOGY (test code = PLTMORPH) SPECIMEN COMMENTS: day 1CBC W/AUTO [id number] 12:58:00 Test Item Value Reference Range Interpretation Comments WHITE BLOOD CELL (test 10.8 K/mm3 4.5-12.5 N code = WBC) RED BLOOD CELL (test code 3.87 mill/mm3 3.7-5.2 N = RBC) HEMOGLOBIN (test code = 7.6 gram/dL 11.5-15.5 L HGB) HEMATOCRIT (test code = 26.1 % 36.0-46.0 L HCT) MEAN CELL VOLUME (test 67.4 fL 80-98 L code = MCV) MEAN CELL HGB (test code 19.6 picogram 27.0-33.0 L = MCH) MEAN CELL HGB 29.1 gram/dL 33.0-36.0 L CONCETRATION (test code = MCHC) RED CELL DISTRIBUTION 18.1 % 11.6-16.2 H WIDTH (test code = RDW) RED CELL DISTRIBUTION 42.6 fL 37.0-51.0 N WIDTH SD (test code = RDW-SD) PLATELET COUNT (test code 282 K/mm3 150-450 N = PLT) MEAN PLATELET VOLUME 11.6 fL 6.7-11.0 H (test code = MPV) NEUTROPHIL % (test code = 80.5 % 39.0-69.0 H NT%) IMMATURE GRANULOCYTE % 0.4 % 0.0-5.0 N (test code = IG%) LYMPHOCYTE % (test code = 14.8 % 25.0-55.0 L LY%) MONOCYTE % (test code = 3.0 % 0.0-10.0 N MO%) EOSINOPHIL % (test code = 1.2 % 0.0-5.0 N EO%) BASOPHIL % (test code = 0.1 % 0.0-1.0 N BA%) NUCLEATED RBC % (test 0.0 % 0-0 N code = NRBC%) NEUTROPHIL # (test code = 8.72 K/mm3 1.8-7.7 H NT#) IMMATURE GRANULOCYTE # 0.04 x10 3/uL 0-0.03 H (test code = IG#) LYMPHOCYTE # (test code = 1.60 K/mm3 1.0-5.0 N LY#) MONOCYTE # (test code = 0.32 K/mm3 0-0.8 N MO#) EOSINOPHIL # (test code = 0.13 K/mm3 0.0-0.5 N EO#) BASOPHIL # (test code = 0.01 K/mm3 0.0-0.2 N BA#) NUCLEATED RBC # (test 0.00 K/mm3 0.0-0.1 N code = NRBC#) MANUAL DIFF REQUIRED NO, ONLY SCAN NEEDED (test code = MDIFF) SPECIMEN COMMENTS: day 1DIFFERENTIAL [id number] 12:58:00 Test Item Value Reference Range Interpretation Comments STAIN ACCEPTABILITY (test code = STN ACCEPTABLE) MORPHOLOGY COMMENT (test code = MOC) PLATELET ESTIMATE (test code = PLTEST) PLATELET MORPHOLOGY (test code = PLTMORPH) SPECIMEN COMMENTS: day 1CBC W/AUTO [id number] 12:58:00 Test Item Value Reference Range Interpretation Comments WHITE BLOOD CELL (test 10.8 K/mm3 4.5-12.5 N code = WBC) RED BLOOD CELL (test code 3.87 mill/mm3 3.7-5.2 N = RBC) HEMOGLOBIN (test code = 7.6 gram/dL 11.5-15.5 L HGB) HEMATOCRIT (test code = 26.1 % 36.0-46.0 L HCT) MEAN CELL VOLUME (test 67.4 fL 80-98 L code = MCV) MEAN CELL HGB (test code 19.6 picogram 27.0-33.0 L = MCH) MEAN CELL HGB 29.1 gram/dL 33.0-36.0 L CONCETRATION (test code = MCHC) RED CELL DISTRIBUTION 18.1 % 11.6-16.2 H WIDTH (test code = RDW) RED CELL DISTRIBUTION 42.6 fL 37.0-51.0 N WIDTH SD (test code = RDW-SD) PLATELET COUNT (test code 282 K/mm3 150-450 N = PLT) MEAN PLATELET VOLUME 11.6 fL 6.7-11.0 H (test code = MPV) NEUTROPHIL % (test code = 80.5 % 39.0-69.0 H NT%) IMMATURE GRANULOCYTE % 0.4 % 0.0-5.0 N (test code = IG%) LYMPHOCYTE % (test code = 14.8 % 25.0-55.0 L LY%) MONOCYTE % (test code = 3.0 % 0.0-10.0 N MO%) EOSINOPHIL % (test code = 1.2 % 0.0-5.0 N EO%) BASOPHIL % (test code = 0.1 % 0.0-1.0 N BA%) NUCLEATED RBC % (test 0.0 % 0-0 N code = NRBC%) NEUTROPHIL # (test code = 8.72 K/mm3 1.8-7.7 H NT#) IMMATURE GRANULOCYTE # 0.04 x10 3/uL 0-0.03 H (test code = IG#) LYMPHOCYTE # (test code = 1.60 K/mm3 1.0-5.0 N LY#) MONOCYTE # (test code = 0.32 K/mm3 0-0.8 N MO#) EOSINOPHIL # (test code = 0.13 K/mm3 0.0-0.5 N EO#) BASOPHIL # (test code = 0.01 K/mm3 0.0-0.2 N BA#) NUCLEATED RBC # (test 0.00 K/mm3 0.0-0.1 N code = NRBC#) MANUAL DIFF REQUIRED NO, ONLY SCAN NEEDED (test code = MDIFF) SPECIMEN COMMENTS: day 1DIFFERENTIAL [id number] 12:58:00 Test Item Value Reference Range Interpretation Comments STAIN ACCEPTABILITY (test code = STN ACCEPTABLE) MORPHOLOGY COMMENT (test code = MOC) PLATELET ESTIMATE (test code = PLTEST) PLATELET MORPHOLOGY (test code = PLTMORPH) SPECIMEN COMMENTS: day 1CBC W/AUTO [id number] 12:58:00 Test Item Value Reference Range Interpretation Comments WHITE BLOOD CELL (test 10.8 K/mm3 4.5-12.5 N code = WBC) RED BLOOD CELL (test code 3.87 mill/mm3 3.7-5.2 N = RBC) HEMOGLOBIN (test code = 7.6 gram/dL 11.5-15.5 L HGB) HEMATOCRIT (test code = 26.1 % 36.0-46.0 L HCT) MEAN CELL VOLUME (test 67.4 fL 80-98 L code = MCV) MEAN CELL HGB (test code 19.6 picogram 27.0-33.0 L = MCH) MEAN CELL HGB 29.1 gram/dL 33.0-36.0 L CONCETRATION (test code = MCHC) RED CELL DISTRIBUTION 18.1 % 11.6-16.2 H WIDTH (test code = RDW) RED CELL DISTRIBUTION 42.6 fL 37.0-51.0 N WIDTH SD (test code = RDW-SD) PLATELET COUNT (test code 282 K/mm3 150-450 N = PLT) MEAN PLATELET VOLUME 11.6 fL 6.7-11.0 H (test code = MPV) NEUTROPHIL % (test code = 80.5 % 39.0-69.0 H NT%) IMMATURE GRANULOCYTE % 0.4 % 0.0-5.0 N (test code = IG%) LYMPHOCYTE % (test code = 14.8 % 25.0-55.0 L LY%) MONOCYTE % (test code = 3.0 % 0.0-10.0 N MO%) EOSINOPHIL % (test code = 1.2 % 0.0-5.0 N EO%) BASOPHIL % (test code = 0.1 % 0.0-1.0 N BA%) NUCLEATED RBC % (test 0.0 % 0-0 N code = NRBC%) NEUTROPHIL # (test code = 8.72 K/mm3 1.8-7.7 H NT#) IMMATURE GRANULOCYTE # 0.04 x10 3/uL 0-0.03 H (test code = IG#) LYMPHOCYTE # (test code = 1.60 K/mm3 1.0-5.0 N LY#) MONOCYTE # (test code = 0.32 K/mm3 0-0.8 N MO#) EOSINOPHIL # (test code = 0.13 K/mm3 0.0-0.5 N EO#) BASOPHIL # (test code = 0.01 K/mm3 0.0-0.2 N BA#) NUCLEATED RBC # (test 0.00 K/mm3 0.0-0.1 N code = NRBC#) MANUAL DIFF REQUIRED NO, ONLY SCAN NEEDED (test code = MDIFF) SPECIMEN COMMENTS: day 1DIFFERENTIAL [id number] 12:58:00 Test Item Value Reference Range Interpretation Comments STAIN ACCEPTABILITY (test code = STN ACCEPTABLE) CABOT RINGS (test code = CAB) MORPHOLOGY COMMENT (test code = MOC) PLATELET ESTIMATE (test code = PLTEST) PLATELET MORPHOLOGY (test code = PLTMORPH) SPECIMEN COMMENTS: day 1COMPREHENSIVE METABOLIC [id number] 12:50:00 Test Item Value Reference Range Interpretation Comments SODIUM (test code = NA) 138 mmol/L 136-145 N POTASSIUM (test code = K) 3.1 mmol/L 3.5-5.1 L CHLORIDE (test code = CL) 108.0 mmol/L 98-107 H CARBON DIOXIDE (test code = CO2) mmol/L 21-32 ANION GAP (test code = GAP) 10-20 GLUCOSE (test code = GLU) mg/dL 74-106 BLOOD UREA NITROGEN (test code = mg/dL 7-18 BUN) GLOMERULAR FILTRATION RATE (test mL/min >=60 code = GFR) CREATININE (test code = CREAT) mg/dL 0.55-1.02 BUN/CREATININE RATIO (test code 10-20 = BUN/CREA) TOTAL PROTEIN (test code = PROT) gram/dL 6.4-8.2 ALBUMIN (test code = ALB) g/dL 3.4-5.0 GLOBULIN (test code = GLOB) gram/dL 2.7-4.2 ALBUMIN/GLOBULIN RATIO (test 0.75-1.50 code = A/G) CALCIUM (test code = CA) mg/dL 8.5-10.1 BILIRUBIN TOTAL (test code = mg/dL 0.0-1.0 BILT) SGOT/AST (test code = AST) IUnit/L 15-37 SGPT/ALT (test code = ALT) IUnit/L 12-78 ALKALINE PHOSPHATASE TOTAL (test IUnit/L 45-117 code = ALKP) [id number] 12:50:00 Test Item Value Reference Range Interpretation Comments MAGNESIUM (test code = MAG) mg/dL 1.8-2.4 [id number] 22:22:00 Test Item Value Reference Range Interpretation Comments MAGNESIUM (test code = MAG) 5.6 mg/dL 1.8-2.4 H HIV 1 2 COMBO AG/AB [id number] 14:02:00 Test Item Value Reference Range Interpretation Comments HIV 1 2 COMBO AB/AG NON NONREACTIVE NONREACTIV E HIV AG/AB SCREEN REACTIVE P24 ANTIGEN (test code = NONREACTIVE [id number]) NONREACTIVE HIV 1&2 ANTIBODY NONREACTIVE THE HIV-1 P24 TEST HELPS DISTINGUISH ACU TE HIV-1INFECTIONF ROM ESTABLISHED HIV -1 INFECTION WHEN THE SPECIMEN ISPOSI TIVE FOR HIV-1 P24 A NTIGEN. HIV-1 P24 ANTIG EN IS HIGHEST IN THE FIRST FEW WEEKS AFTERINFECTION DRUGS OF ABUSE SCREEN [id number] 13:55:00 Test Item Value Reference Range Interpretation Comments UA PH DIPSTICK (test 6.0 5.0-8.0 code = NICOLASA) URN COCAINE (test NEGATIVE <300 ng/mL code = COCAURN) URN CANNABINOIDS POSITIVE <50 ng/mL A This test p rovides only a (test code = preliminary ramone t result. CANNABURN) A morespecific alternate chemical method must be used in order t oobtain a confirmed yuliya tical result. Gas chromatography/ mass spectrometry (G C/MS) is thepreferred co nfirmatory method. Other chemical confirmationmet hods are available. Cli nical consideration a nd professional ju dgment should be appli ed to any drug of abusete st result, particularly wh en preliminary pos itive resultsare used.Unconfirme d screening resul ts must not be used fornon-medical purposes (e.g., employme nt testing, legalt esting). URN AMPHETAMINE (test POSITIVE <1000 ng/mL A This t est provides only a code = AMPHETURN) preliminar y test result. A morespecific alternate chemical method must be used in order t oobtain a confirmed yuliya tical result. Gas chromatography/ mass spectrometry (G C/MS) is thepreferred co nfirmatory method. Other chemical confirmationmet hods are available. Cli nical consideration a nd professional ju dgment should be appli ed to any drug of abusete st result, particularly wh en preliminary pos itive resultsare used.Unconfirme d screening resul ts must not be used fornon-medical purposes (e.g., employme nt testing, legalt esting). URN BARBITURATE (test NEGATIVE <200 ng/mL code = BARBITURN) URN BENZODIAZEPINE NEGATIVE <200 ng/mL (test code = BENZOURN) URN OPIATES (test NEGATIVE <300 ng/mL code = OPIATURN) URN PHENCYCLIDINE NEGATIVE <25 ng/mL (PCP) (test code = PHENCURN) URN METHADONE (test NEGATIVE <300 ng/mL code = METHAURN) CBC W/AUTO [id number] 13:51:00 Test Item Value Reference Range Interpretation Comments WHITE BLOOD CELL (test 10.1 K/mm3 4.5-12.5 N code = WBC) RED BLOOD CELL (test code 4.30 mill/mm3 3.7-5.2 N = RBC) HEMOGLOBIN (test code = 8.7 gram/dL 11.5-15.5 L HGB) HEMATOCRIT (test code = 29.8 % 36.0-46.0 L HCT) MEAN CELL VOLUME (test 69.3 fL 80-98 L code = MCV) MEAN CELL HGB (test code 20.2 picogram 27.0-33.0 L = MCH) MEAN CELL HGB 29.2 gram/dL 33.0-36.0 L CONCETRATION (test code = MCHC) RED CELL DISTRIBUTION 18.4 % 11.6-16.2 H WIDTH (test code = RDW) RED CELL DISTRIBUTION 43.3 fL 37.0-51.0 N WIDTH SD (test code = RDW-SD) PLATELET COUNT (test code 331 K/mm3 150-450 N = PLT) MEAN PLATELET VOLUME 11.2 fL 6.7-11.0 H (test code = MPV) NEUTROPHIL % (test code = 60.8 % 39.0-69.0 N NT%) IMMATURE GRANULOCYTE % 0.6 % 0.0-5.0 N (test code = IG%) LYMPHOCYTE % (test code = 32.5 % 25.0-55.0 N LY%) MONOCYTE % (test code = 4.0 % 0.0-10.0 N MO%) EOSINOPHIL % (test code = 1.7 % 0.0-5.0 N EO%) BASOPHIL % (test code = 0.4 % 0.0-1.0 N BA%) NUCLEATED RBC % (test 0.0 % 0-0 N code = NRBC%) NEUTROPHIL # (test code = 6.15 K/mm3 1.8-7.7 N NT#) IMMATURE GRANULOCYTE # 0.06 x10 3/uL 0-0.03 H (test code = IG#) LYMPHOCYTE # (test code = 3.28 K/mm3 1.0-5.0 N LY#) MONOCYTE # (test code = 0.40 K/mm3 0-0.8 N MO#) EOSINOPHIL # (test code = 0.17 K/mm3 0.0-0.5 N EO#) BASOPHIL # (test code = 0.04 K/mm3 0.0-0.2 N BA#) NUCLEATED RBC # (test 0.00 K/mm3 0.0-0.1 N code = NRBC#) MANUAL DIFF REQUIRED NO, ONLY SCAN NEEDED (test code = MDIFF) DIFFERENTIAL [id number] 13:51:00 Test Item Value Reference Range Interpretation Comments STAIN ACCEPTABILITY (test STAIN ACCEPTABLE code = STN ACCEPTABLE) POIKILOCYTOSIS (test code = 3+ POIK) ANISOCYTOSIS (test code = 2+ ANISO) MICROCYTOSIS (test code = 2+ MICR) TEAR DROP CELLS (test code = 1+ TEAR) ELLIPTOCYTES (test code = 1+ ELL) CRENATED CELLS (test code = 1+ CREN) PLATELET ESTIMATE (test code ADEQUATE = PLTEST) PLATELET MORPHOLOGY (test NORMAL code = PLTMORPH) CBC W/AUTO [id number] 13:32:00 Test Item Value Reference Range Interpretation Comments WHITE BLOOD CELL (test 10.1 K/mm3 4.5-12.5 N code = WBC) RED BLOOD CELL (test code 4.30 mill/mm3 3.7-5.2 N = RBC) HEMOGLOBIN (test code = 8.7 gram/dL 11.5-15.5 L HGB) HEMATOCRIT (test code = 29.8 % 36.0-46.0 L HCT) MEAN CELL VOLUME (test 69.3 fL 80-98 L code = MCV) MEAN CELL HGB (test code 20.2 picogram 27.0-33.0 L = MCH) MEAN CELL HGB 29.2 gram/dL 33.0-36.0 L CONCETRATION (test code = MCHC) RED CELL DISTRIBUTION 18.4 % 11.6-16.2 H WIDTH (test code = RDW) RED CELL DISTRIBUTION 43.3 fL 37.0-51.0 N WIDTH SD (test code = RDW-SD) PLATELET COUNT (test code 331 K/mm3 150-450 N = PLT) MEAN PLATELET VOLUME 11.2 fL 6.7-11.0 H (test code = MPV) NEUTROPHIL % (test code = 60.8 % 39.0-69.0 N NT%) IMMATURE GRANULOCYTE % 0.6 % 0.0-5.0 N (test code = IG%) LYMPHOCYTE % (test code = 32.5 % 25.0-55.0 N LY%) MONOCYTE % (test code = 4.0 % 0.0-10.0 N MO%) EOSINOPHIL % (test code = 1.7 % 0.0-5.0 N EO%) BASOPHIL % (test code = 0.4 % 0.0-1.0 N BA%) NUCLEATED RBC % (test 0.0 % 0-0 N code = NRBC%) NEUTROPHIL # (test code = 6.15 K/mm3 1.8-7.7 N NT#) IMMATURE GRANULOCYTE # 0.06 x10 3/uL 0-0.03 H (test code = IG#) LYMPHOCYTE # (test code = 3.28 K/mm3 1.0-5.0 N LY#) MONOCYTE # (test code = 0.40 K/mm3 0-0.8 N MO#) EOSINOPHIL # (test code = 0.17 K/mm3 0.0-0.5 N EO#) BASOPHIL # (test code = 0.04 K/mm3 0.0-0.2 N BA#) NUCLEATED RBC # (test 0.00 K/mm3 0.0-0.1 N code = NRBC#) MANUAL DIFF REQUIRED NO, ONLY SCAN NEEDED (test code = MDIFF) DIFFERENTIAL [id number] 13:32:00 Test Item Value Reference Range Interpretation Comments STAIN ACCEPTABILITY (test STAIN ACCEPTABLE code = STN ACCEPTABLE) POIKILOCYTOSIS (test code = 3+ POIK) ANISOCYTOSIS (test code = 2+ ANISO) MICROCYTOSIS (test code = 2+ MICR) TEAR DROP CELLS (test code = 1+ TEAR) ELLIPTOCYTES (test code = 1+ ELL) CRENATED CELLS (test code = 1+ CREN) MORPHOLOGY COMMENT (test code = MOC) PLATELET ESTIMATE (test code ADEQUATE = PLTEST) PLATELET MORPHOLOGY (test NORMAL code = PLTMORPH) CBC W/AUTO [id number] 13:31:00 Test Item Value Reference Range Interpretation Comments WHITE BLOOD CELL (test 10.1 K/mm3 4.5-12.5 N code = WBC) RED BLOOD CELL (test code 4.30 mill/mm3 3.7-5.2 N = RBC) HEMOGLOBIN (test code = 8.7 gram/dL 11.5-15.5 L HGB) HEMATOCRIT (test code = 29.8 % 36.0-46.0 L HCT) MEAN CELL VOLUME (test 69.3 fL 80-98 L code = MCV) MEAN CELL HGB (test code 20.2 picogram 27.0-33.0 L = MCH) MEAN CELL HGB 29.2 gram/dL 33.0-36.0 L CONCETRATION (test code = MCHC) RED CELL DISTRIBUTION 18.4 % 11.6-16.2 H WIDTH (test code = RDW) RED CELL DISTRIBUTION 43.3 fL 37.0-51.0 N WIDTH SD (test code = RDW-SD) PLATELET COUNT (test code 331 K/mm3 150-450 N = PLT) MEAN PLATELET VOLUME 11.2 fL 6.7-11.0 H (test code = MPV) NEUTROPHIL % (test code = 60.8 % 39.0-69.0 N NT%) IMMATURE GRANULOCYTE % 0.6 % 0.0-5.0 N (test code = IG%) LYMPHOCYTE % (test code = 32.5 % 25.0-55.0 N LY%) MONOCYTE % (test code = 4.0 % 0.0-10.0 N MO%) EOSINOPHIL % (test code = 1.7 % 0.0-5.0 N EO%) BASOPHIL % (test code = 0.4 % 0.0-1.0 N BA%) NUCLEATED RBC % (test 0.0 % 0-0 N code = NRBC%) NEUTROPHIL # (test code = 6.15 K/mm3 1.8-7.7 N NT#) IMMATURE GRANULOCYTE # 0.06 x10 3/uL 0-0.03 H (test code = IG#) LYMPHOCYTE # (test code = 3.28 K/mm3 1.0-5.0 N LY#) MONOCYTE # (test code = 0.40 K/mm3 0-0.8 N MO#) EOSINOPHIL # (test code = 0.17 K/mm3 0.0-0.5 N EO#) BASOPHIL # (test code = 0.04 K/mm3 0.0-0.2 N BA#) NUCLEATED RBC # (test 0.00 K/mm3 0.0-0.1 N code = NRBC#) MANUAL DIFF REQUIRED NO, ONLY SCAN NEEDED (test code = MDIFF) DIFFERENTIAL [id number] 13:31:00 Test Item Value Reference Range Interpretation Comments STAIN ACCEPTABILITY (test code = STN ACCEPTABLE) CABOT RINGS (test code = CAB) MORPHOLOGY COMMENT (test code = MOC) PLATELET ESTIMATE (test code = PLTEST) PLATELET MORPHOLOGY (test code = PLTMORPH) CBC W/AUTO [id number] 13:31:00 Test Item Value Reference Range Interpretation Comments WHITE BLOOD CELL (test 10.1 K/mm3 4.5-12.5 N code = WBC) RED BLOOD CELL (test code 4.30 mill/mm3 3.7-5.2 N = RBC) HEMOGLOBIN (test code = 8.7 gram/dL 11.5-15.5 L HGB) HEMATOCRIT (test code = 29.8 % 36.0-46.0 L HCT) MEAN CELL VOLUME (test 69.3 fL 80-98 L code = MCV) MEAN CELL HGB (test code 20.2 picogram 27.0-33.0 L = MCH) MEAN CELL HGB 29.2 gram/dL 33.0-36.0 L CONCETRATION (test code = MCHC) RED CELL DISTRIBUTION 18.4 % 11.6-16.2 H WIDTH (test code = RDW) RED CELL DISTRIBUTION 43.3 fL 37.0-51.0 N WIDTH SD (test code = RDW-SD) PLATELET COUNT (test code 331 K/mm3 150-450 N = PLT) MEAN PLATELET VOLUME 11.2 fL 6.7-11.0 H (test code = MPV) NEUTROPHIL % (test code = 60.8 % 39.0-69.0 N NT%) IMMATURE GRANULOCYTE % 0.6 % 0.0-5.0 N (test code = IG%) LYMPHOCYTE % (test code = 32.5 % 25.0-55.0 N LY%) MONOCYTE % (test code = 4.0 % 0.0-10.0 N MO%) EOSINOPHIL % (test code = 1.7 % 0.0-5.0 N EO%) BASOPHIL % (test code = 0.4 % 0.0-1.0 N BA%) NUCLEATED RBC % (test 0.0 % 0-0 N code = NRBC%) NEUTROPHIL # (test code = 6.15 K/mm3 1.8-7.7 N NT#) IMMATURE GRANULOCYTE # 0.06 x10 3/uL 0-0.03 H (test code = IG#) LYMPHOCYTE # (test code = 3.28 K/mm3 1.0-5.0 N LY#) MONOCYTE # (test code = 0.40 K/mm3 0-0.8 N MO#) EOSINOPHIL # (test code = 0.17 K/mm3 0.0-0.5 N EO#) BASOPHIL # (test code = 0.04 K/mm3 0.0-0.2 N BA#) NUCLEATED RBC # (test 0.00 K/mm3 0.0-0.1 N code = NRBC#) MANUAL DIFF REQUIRED NO, ONLY SCAN NEEDED (test code = MDIFF) DIFFERENTIAL [id number] 13:31:00 Test Item Value Reference Range Interpretation Comments STAIN ACCEPTABILITY (test code = STN ACCEPTABLE) CABOT RINGS (test code = CAB) MORPHOLOGY COMMENT (test code = MOC) PLATELET ESTIMATE (test code = PLTEST) PLATELET MORPHOLOGY (test code = PLTMORPH) CBC W/AUTO [id number] 13:31:00 Test Item Value Reference Range Interpretation Comments WHITE BLOOD CELL (test 10.1 K/mm3 4.5-12.5 N code = WBC) RED BLOOD CELL (test code 4.30 mill/mm3 3.7-5.2 N = RBC) HEMOGLOBIN (test code = 8.7 gram/dL 11.5-15.5 L HGB) HEMATOCRIT (test code = 29.8 % 36.0-46.0 L HCT) MEAN CELL VOLUME (test 69.3 fL 80-98 L code = MCV) MEAN CELL HGB (test code 20.2 picogram 27.0-33.0 L = MCH) MEAN CELL HGB 29.2 gram/dL 33.0-36.0 L CONCETRATION (test code = MCHC) RED CELL DISTRIBUTION 18.4 % 11.6-16.2 H WIDTH (test code = RDW) RED CELL DISTRIBUTION 43.3 fL 37.0-51.0 N WIDTH SD (test code = RDW-SD) PLATELET COUNT (test code 331 K/mm3 150-450 N = PLT) MEAN PLATELET VOLUME 11.2 fL 6.7-11.0 H (test code = MPV) NEUTROPHIL % (test code = 60.8 % 39.0-69.0 N NT%) IMMATURE GRANULOCYTE % 0.6 % 0.0-5.0 N (test code = IG%) LYMPHOCYTE % (test code = 32.5 % 25.0-55.0 N LY%) MONOCYTE % (test code = 4.0 % 0.0-10.0 N MO%) EOSINOPHIL % (test code = 1.7 % 0.0-5.0 N EO%) BASOPHIL % (test code = 0.4 % 0.0-1.0 N BA%) NUCLEATED RBC % (test 0.0 % 0-0 N code = NRBC%) NEUTROPHIL # (test code = 6.15 K/mm3 1.8-7.7 N NT#) IMMATURE GRANULOCYTE # 0.06 x10 3/uL 0-0.03 H (test code = IG#) LYMPHOCYTE # (test code = 3.28 K/mm3 1.0-5.0 N LY#) MONOCYTE # (test code = 0.40 K/mm3 0-0.8 N MO#) EOSINOPHIL # (test code = 0.17 K/mm3 0.0-0.5 N EO#) BASOPHIL # (test code = 0.04 K/mm3 0.0-0.2 N BA#) NUCLEATED RBC # (test 0.00 K/mm3 0.0-0.1 N code = NRBC#) MANUAL DIFF REQUIRED NO, ONLY SCAN NEEDED (test code = MDIFF) DIFFERENTIAL [id number] 13:31:00 Test Item Value Reference Range Interpretation Comments STAIN ACCEPTABILITY (test code = STN ACCEPTABLE) MORPHOLOGY COMMENT (test code = MOC) PLATELET ESTIMATE (test code = PLTEST) PLATELET MORPHOLOGY (test code = PLTMORPH) CBC W/AUTO [id number] 13:31:00 Test Item Value Reference Range Interpretation Comments WHITE BLOOD CELL (test 10.1 K/mm3 4.5-12.5 N code = WBC) RED BLOOD CELL (test code 4.30 mill/mm3 3.7-5.2 N = RBC) HEMOGLOBIN (test code = 8.7 gram/dL 11.5-15.5 L HGB) HEMATOCRIT (test code = 29.8 % 36.0-46.0 L HCT) MEAN CELL VOLUME (test 69.3 fL 80-98 L code = MCV) MEAN CELL HGB (test code 20.2 picogram 27.0-33.0 L = MCH) MEAN CELL HGB 29.2 gram/dL 33.0-36.0 L CONCETRATION (test code = MCHC) RED CELL DISTRIBUTION 18.4 % 11.6-16.2 H WIDTH (test code = RDW) RED CELL DISTRIBUTION 43.3 fL 37.0-51.0 N WIDTH SD (test code = RDW-SD) PLATELET COUNT (test code 331 K/mm3 150-450 N = PLT) MEAN PLATELET VOLUME 11.2 fL 6.7-11.0 H (test code = MPV) NEUTROPHIL % (test code = 60.8 % 39.0-69.0 N NT%) IMMATURE GRANULOCYTE % 0.6 % 0.0-5.0 N (test code = IG%) LYMPHOCYTE % (test code = 32.5 % 25.0-55.0 N LY%) MONOCYTE % (test code = 4.0 % 0.0-10.0 N MO%) EOSINOPHIL % (test code = 1.7 % 0.0-5.0 N EO%) BASOPHIL % (test code = 0.4 % 0.0-1.0 N BA%) NUCLEATED RBC % (test 0.0 % 0-0 N code = NRBC%) NEUTROPHIL # (test code = 6.15 K/mm3 1.8-7.7 N NT#) IMMATURE GRANULOCYTE # 0.06 x10 3/uL 0-0.03 H (test code = IG#) LYMPHOCYTE # (test code = 3.28 K/mm3 1.0-5.0 N LY#) MONOCYTE # (test code = 0.40 K/mm3 0-0.8 N MO#) EOSINOPHIL # (test code = 0.17 K/mm3 0.0-0.5 N EO#) BASOPHIL # (test code = 0.04 K/mm3 0.0-0.2 N BA#) NUCLEATED RBC # (test 0.00 K/mm3 0.0-0.1 N code = NRBC#) MANUAL DIFF REQUIRED NO, ONLY SCAN NEEDED (test code = MDIFF) DIFFERENTIAL [id number] 13:31:00 Test Item Value Reference Range Interpretation Comments STAIN ACCEPTABILITY (test code = STN ACCEPTABLE) CABOT RINGS (test code = CAB) MORPHOLOGY COMMENT (test code = MOC) PLATELET ESTIMATE (test code = PLTEST) PLATELET MORPHOLOGY (test code = PLTMORPH) DRUGS OF ABUSE SCREEN [id number] 13:10:00 Test Item Value Reference Range Interpretation Comments UA PH DIPSTICK (test 5.0-8.0 code = NICOLASA) URN COCAINE (test NEGATIVE <300 ng/mL code = COCAURN) URN CANNABINOIDS POSITIVE <50 ng/mL A This test p rovides only a (test code = preliminary ramone t result. CANNABURN) A morespecific alternate chemical method must be used in order t oobtain a confirmed yuliya tical result. Gas chromatography/ mass spectrometry (G C/MS) is thepreferred co nfirmatory method. Other chemical confirmationmet hods are available. Cli nical consideration a nd professional ju dgment should be appli ed to any drug of abusete st result, particularly wh en preliminary pos itive resultsare used.Unconfirme d screening resul ts must not be used fornon-medical purposes (e.g., employme nt testing, legalt esting). URN AMPHETAMINE (test POSITIVE <1000 ng/mL A This t est provides only a code = AMPHETURN) preliminar y test result. A morespecific alternate chemical method must be used in order t oobtain a confirmed yuliya tical result. Gas chromatography/ mass spectrometry (G C/MS) is thepreferred co nfirmatory method. Other chemical confirmationmet hods are available. Cli nical consideration a nd professional ju dgment should be appli ed to any drug of abusete st result, particularly wh en preliminary pos itive resultsare used.Unconfirme d screening resul ts must not be used fornon-medical purposes (e.g., employme nt testing, legalt esting). URN BARBITURATE (test NEGATIVE <200 ng/mL code = BARBITURN) URN BENZODIAZEPINE NEGATIVE <200 ng/mL (test code = BENZOURN) URN OPIATES (test NEGATIVE <300 ng/mL code = OPIATURN) URN PHENCYCLIDINE NEGATIVE <25 ng/mL (PCP) (test code = PHENCURN) URN METHADONE (test NEGATIVE <300 ng/mL code = METHAURN) AG HEPAT B [id number] 13:05:00 Test Item Value Reference Range Interpretation Comments AG HEPAT B SURF (test code Nonreactive Index Nonreactive = HBSAG) AB RUBELLA [id number] 13:05:00 Test Item Value Reference Range Interpretation Comments AB RUBELLA IGG Positive <5.0=Neg IU/ML (test code = IUnit/mL INTERPRETATION OF RUBGAB) SERUM RUBELLA-I GG AB --------- ------- ---< 5.0 N EGATIVE - NO RUBELLA IG G ANTIBODY DETECTED5.0-9.9 EQUIVOCAL>= 10 .0 POSITIVE - R UBELLA IGG ANTIBODY DE TECTED AB [id number] 13:05:00 Test Item Value Reference Range Interpretation Comments AB TREPONEMA (test code = Nonreactive Index NonReactive TREPAB) URINALYSIS [id number] 12:57:00 Test Item Value Reference Range Interpretation Comments UA COLOR (test code = COLU) YELLOW YELLOW UA APPEARANCE (test code = Cloudy CLEAR A APPU) UA GLUCOSE DIPSTICK (test NEGATIVE mg/dL NEGATIVE code = DGLUU) UA BILIRUBIN DIPSTICK (test NEGATIVE mg/dL NEGATIVE code = BILU) UA KETONE DIPSTICK (test code NEGATIVE mg/dL NEGATIVE = KETU) UA SPECIFIC GRAVITY (test 1.032 1.001-1.035 code = SGU) UA BLOOD DIPSTICK (test code >1.0 mg/dL NEGATIVE = RADHA) UA PH DIPSTICK (test code = 6.0 5.0-8.0 NICOLASA) UA PROTEIN DIPSTICK (test 300 (3+) mg/dL NEGATIVE A code = PROU) UA UROBILINIOGEN DIPSTICK 3.0 (1+) mg/dL NEGATIVE A (test code = URO) UA NITRITE DIPSTICK (test NEGATIVE NEGATIVE code = CIRILO) UA LEUKOCYTE ESTERASE W NEGATIVE Apollo/uL NEGATIVE REFLEX (test code = LEUUR) UA WBC (test code = WBCU) 0-5 per HPF 0-5 UA RBC (test code = RBCU) >200 #/HPF 0-5 UA EPITHELIAL CELLS (test FEW per HPF FEW code = EPIU) UA BACTERIA (test code = FEW #/HPF NONE A BACU) UA HYALINE CAST (test code = 11-20 #/LPF 0-5 A HYALU) UA MUCUS (test code = MUCU) MODERATE #/LPF FEW A Urine Source? CatheterCOMPREHENSIVE METABOLIC [id number] 12:27:00 Test Item Value Reference Range Interpretation Comments SODIUM (test code = 139 mmol/L 136-145 N NA) POTASSIUM (test code = 3.4 mmol/L 3.5-5.1 L K) CHLORIDE (test code = 111.0 mmol/L 98-107 H CL) CARBON DIOXIDE (test 15.0 mmol/L 21-32 L code = CO2) ANION GAP (test code = 16.4 10-20 N GAP) GLUCOSE (test code = 96 mg/dL 74-106 N GLU) BLOOD UREA NITROGEN 12 mg/dL 7-18 N (test code = BUN) GLOMERULAR FILTRATION > 60 mL/min >=60 Estima raffi GFR by RATE (test code = GFR) using Modified MDRD formula.Chronic kidney disease is defined as [facility] kidney damageor GFR <60 mL/min/1.73 m2 for >3 months. CREATININE (test code 0.90 mg/dL 0.55-1.02 N Note change in = CREAT) reference range due to change in reagent. BUN/CREATININE RATIO 13.5 10-20 N (test code = BUN/CREA) TOTAL PROTEIN (test 7.3 gram/dL 6.4-8.2 N code = PROT) ALBUMIN (test code = 2.7 g/dL 3.4-5.0 L ALB) GLOBULIN (test code = 4.6 gram/dL 2.7-4.2 H GLOB) ALBUMIN/GLOBULIN RATIO 0.6 0.75-1.50 L (test code = A/G) CALCIUM (test code = 9.1 mg/dL 8.5-10.1 N CA) BILIRUBIN TOTAL (test 0.50 mg/dL 0.0-1.0 N code = BILT) SGOT/AST (test code = 53 IUnit/L 15-37 H AST) SGPT/ALT (test code = 31 IUnit/L 12-78 N ALT) ALKALINE PHOSPHATASE 327 IUnit/L 45-117 H Note change in TOTAL (test code = reference range due ALKP) to change in reagent. COMPREHENSIVE METABOLIC [id number] 12:22:00 Test Item Value Reference Range Interpretation Comments SODIUM (test code = NA) 139 mmol/L 136-145 N POTASSIUM (test code = K) 3.4 mmol/L 3.5-5.1 L CHLORIDE (test code = CL) 111.0 mmol/L 98-107 H CARBON DIOXIDE (test code = CO2) mmol/L 21-32 ANION GAP (test code = GAP) 10-20 GLUCOSE (test code = GLU) mg/dL 74-106 BLOOD UREA NITROGEN (test code = mg/dL 7-18 BUN) GLOMERULAR FILTRATION RATE (test mL/min >=60 code = GFR) CREATININE (test code = CREAT) mg/dL 0.55-1.02 BUN/CREATININE RATIO (test code 10-20 = BUN/CREA) TOTAL PROTEIN (test code = PROT) gram/dL 6.4-8.2 ALBUMIN (test code = ALB) g/dL 3.4-5.0 GLOBULIN (test code = GLOB) gram/dL 2.7-4.2 ALBUMIN/GLOBULIN RATIO (test 0.75-1.50 code = A/G) CALCIUM (test code = CA) mg/dL 8.5-10.1 BILIRUBIN TOTAL (test code = mg/dL 0.0-1.0 BILT) SGOT/AST (test code = AST) IUnit/L 15-37 SGPT/ALT (test code = ALT) IUnit/L 12-78 ALKALINE PHOSPHATASE TOTAL (test IUnit/L 45-117 code = ALKP) CBC W/AUTO [id number] 12:17:00 Test Item Value Reference Range Interpretation Comments WHITE BLOOD CELL (test code = 10.1 K/mm3 4.5-12.5 N WBC) RED BLOOD CELL (test code = 4.30 mill/mm3 3.7-5.2 N RBC) HEMOGLOBIN (test code = HGB) 8.7 gram/dL 11.5-15.5 L HEMATOCRIT (test code = HCT) 29.8 % 36.0-46.0 L MEAN CELL VOLUME (test code = 69.3 fL 80-98 L MCV) MEAN CELL HGB (test code = MCH) 20.2 picogram 27.0-33.0 L MEAN CELL HGB CONCETRATION 29.2 gram/dL 33.0-36.0 L (test code = MCHC) RED CELL DISTRIBUTION WIDTH 18.4 % 11.6-16.2 H (test code = RDW) RED CELL DISTRIBUTION WIDTH SD 43.3 fL 37.0-51.0 N (test code = RDW-SD) PLATELET COUNT (test code = 331 K/mm3 150-450 N PLT) MEAN PLATELET VOLUME (test code 11.2 fL 6.7-11.0 H = MPV) NEUTROPHIL % (test code = NT%) 60.8 % 39.0-69.0 N IMMATURE GRANULOCYTE % (test 0.6 % 0.0-5.0 N code = IG%) LYMPHOCYTE % (test code = LY%) 32.5 % 25.0-55.0 N MONOCYTE % (test code = MO%) 4.0 % 0.0-10.0 N EOSINOPHIL % (test code = EO%) 1.7 % 0.0-5.0 N BASOPHIL % (test code = BA%) 0.4 % 0.0-1.0 N NUCLEATED RBC % (test code = 0.0 % 0-0 N NRBC%) NEUTROPHIL # (test code = NT#) 6.15 K/mm3 1.8-7.7 N IMMATURE GRANULOCYTE # (test 0.06 x10 3/uL 0-0.03 H code = IG#) LYMPHOCYTE # (test code = LY#) 3.28 K/mm3 1.0-5.0 N MONOCYTE # (test code = MO#) 0.40 K/mm3 0-0.8 N EOSINOPHIL # (test code = EO#) 0.17 K/mm3 0.0-0.5 N BASOPHIL # (test code = BA#) 0.04 K/mm3 0.0-0.2 N NUCLEATED RBC # (test code = 0.00 K/mm3 0.0-0.1 N NRBC#) DRUGS OF ABUSE SCREEN [id number] 14:29:00 Test Item Value Reference Range Interpretation Comments UA PH DIPSTICK (test 5.5 5.0-8.0 code = NICOLASA) URN COCAINE (test NEGATIVE <300 ng/mL code = COCAURN) URN CANNABINOIDS POSITIVE <50 ng/mL A This test p rovides only a (test code = preliminary ramone t result. CANNABURN) A morespecific alternate chemical method must be used in order t oobtain a confirmed yuliya tical result. Gas chromatography/ mass spectrometry (G C/MS) is thepreferred co nfirmatory method. Other chemical confirmationmet hods are available. Cli nical consideration a nd professional ju dgment should be appli ed to any drug of abusete st result, particularly wh en preliminary pos itive resultsare used.Unconfirme d screening resul ts must not be used fornon-medical purposes (e.g., employme nt testing, legalt esting). URN AMPHETAMINE (test POSITIVE <1000 ng/mL A This t est provides only a code = AMPHETURN) preliminar y test result. A morespecific alternate chemical method must be used in order t oobtain a confirmed yuliya tical result. Gas chromatography/ mass spectrometry (G C/MS) is thepreferred co nfirmatory method. Other chemical confirmationmet hods are available. Cli nical consideration a nd professional ju dgment should be appli ed to any drug of abusete st result, particularly wh en preliminary pos itive resultsare used.Unconfirme d screening resul ts must not be used fornon-medical purposes (e.g., employme nt testing, legalt esting). URN BARBITURATE (test NEGATIVE <200 ng/mL code = BARBITURN) URN BENZODIAZEPINE NEGATIVE <200 ng/mL (test code = BENZOURN) URN OPIATES (test NEGATIVE <300 ng/mL code = OPIATURN) URN PHENCYCLIDINE NEGATIVE <25 ng/mL (PCP) (test code = PHENCURN) URN METHADONE (test NEGATIVE <300 ng/mL code = METHAURN) URINALYSIS [id number] 14:15:00 Test Item Value Reference Range Interpretation Comments UA COLOR (test code = YELLOW YELLOW COLU) UA APPEARANCE (test code CLEAR CLEAR = APPU) UA GLUCOSE DIPSTICK (test NEGATIVE mg/dL NEGATIVE code = DGLUU) UA BILIRUBIN DIPSTICK NEGATIVE mg/dL NEGATIVE (test code = BILU) UA KETONE DIPSTICK (test NEGATIVE mg/dL NEGATIVE code = KETU) UA SPECIFIC GRAVITY (test 1.005 1.001-1.035 code = SGU) UA BLOOD DIPSTICK (test 0.06 mg/dL (1+) NEGATIVE A code = RADHA) mg/dL UA PH DIPSTICK (test code 5.5 5.0-8.0 = NICOLASA) UA PROTEIN DIPSTICK (test NEGATIVE mg/dL NEGATIVE code = PROU) UA UROBILINIOGEN DIPSTICK 2.0 (1+) mg/dL NEGATIVE A (test code = URO) UA NITRITE DIPSTICK (test NEGATIVE NEGATIVE code = CIRILO) UA LEUKOCYTE ESTERASE W 75 Apollo/uL (1+) NEGATIVE A REFLEX (test code = Apollo/uL LEUUR) UA WBC (test code = WBCU) 0-5 per HPF 0-5 UA RBC (test code = RBCU) 0-2 #/HPF 0-5 UA EPITHELIAL CELLS (test FEW per HPF FEW code = EPIU) UA BACTERIA (test code = FEW #/HPF NONE A BACU) UA MUCUS (test code = FEW #/LPF FEW MUCU) Urine Source? Clean CatchDRUGS OF ABUSE SCREEN [id number] 14:07:00 Test Item Value Reference Range Interpretation Comments UA PH DIPSTICK (test code = NICOLASA) 5.5 5.0-8.0 URN COCAINE (test code = COCAURN) <300 ng/mL URN CANNABINOIDS (test code = <50 ng/mL CANNABURN) URN AMPHETAMINE (test code = AMPHETURN) <1000 ng/mL URN BARBITURATE (test code = BARBITURN) <200 ng/mL URN BENZODIAZEPINE (test code = <200 ng/mL BENZOURN) URN OPIATES (test code = OPIATURN) <300 ng/mL URN PHENCYCLIDINE (PCP) (test code = <25 ng/mL PHENCURN) URN METHADONE (test code = METHAURN) <300 ng/mL URINALYSIS [id number] 14:05:00 Test Item Value Reference Range Interpretation Comments UA COLOR (test code = YELLOW YELLOW COLU) UA APPEARANCE (test code CLEAR CLEAR = APPU) UA GLUCOSE DIPSTICK (test NEGATIVE mg/dL NEGATIVE code = DGLUU) UA BILIRUBIN DIPSTICK NEGATIVE mg/dL NEGATIVE (test code = BILU) UA KETONE DIPSTICK (test NEGATIVE mg/dL NEGATIVE code = KETU) UA SPECIFIC GRAVITY (test 1.005 1.001-1.035 code = SGU) UA BLOOD DIPSTICK (test 0.06 mg/dL (1+) NEGATIVE A code = RADHA) mg/dL UA PH DIPSTICK (test code 5.5 5.0-8.0 = NICOLASA) UA PROTEIN DIPSTICK (test NEGATIVE mg/dL NEGATIVE code = PROU) UA UROBILINIOGEN DIPSTICK 2.0 (1+) mg/dL NEGATIVE A (test code = URO) UA NITRITE DIPSTICK (test NEGATIVE NEGATIVE code = CIRILO) UA LEUKOCYTE ESTERASE W 75 Apollo/uL (1+) NEGATIVE A REFLEX (test code = Apollo/uL LEUUR) UA WBC (test code = WBCU) per HPF 0-5 UA RBC (test code = RBCU) per HPF 0-5 UA EPITHELIAL CELLS (test per HPF Few code = EPIU) UA BACTERIA (test code = per HPF NONE BACU) Urine Source? Clean Catch- US PREG AFTER [id number] 20:34:00 Name: RAFAEL STAFFORD [facility] : 1990 Age/S: 28 / F [address] [facility] Unit #: [id number] Loc: [place] [address] Phys: Anselmo Barber NP Acct: [id number] Dis Date: Status: REG ER PHONE #: [phone] Exam Date: 12/11/2018 1809 FAX #: [phone] Reason: PELVIC PAIN EXAMS: CPTCODE: [id number] US PREG AFTER [id number] EXAM: Pregna ncy ultrasound after first trimester; INFORMATION: Pelvic pain; TECHNIQUE AND FINDINGS: Transabdominal grayscale imaging was combined with color Doppler sonography and spectral analysis. There is a single, viable intrauterine with a sonographic gestational age of 19 weeks and 1 day. This is based on a biparietal diameter of 4.3 cm, head circumference of 16.3 cm, an abdominal circumference of 14.3 cm and a femur length of 2.8 cm. The estimated weight is 279 g. The fetus is in breech position. The heart rate is 159 beats per minutes. Posterior placenta; Adequate amount of amniotic fluid; STEFFEN is 15.9 cm. The ovaries are of normal size and shape and with normal flow pattern on Doppler exam. The right ovary measures 2.5 x 1.4 x 1.4 cm. The left ovary measures 2.5x 1.2 x 1.9 cm. It contains a 1.2 cm cyst. IMPRESSION: 1. Single, viable intrauterine with a gestational age of 19 weeks and 1 day. 2. ANNEMARIE by ultrasound is 05/06/2019. 3. Small left ovarian cyst. 4. Fetus in breech position. at 2033 Reported and signed by: Aldo Mccauley M.D. CC:Anselmo Barber NP Technologist: Beatriz Dowell RDMS [facility] Date/Time: 12/11/2018 (2033) Bon Orig Print D/T: S: 12/11/2018 (2036) Probe: PAGE 1 Signed ReportURINALYSIS [id number] 19:40:00 Test Item Value Reference Range Interpretation Comments UA COLOR (test code = COLU) YELLOW YELLOW UA APPEARANCE (test code = SLIGHTLY CLOUDY CLEAR A APPU) UA GLUCOSE DIPSTICK (test NEGATIVE mg/dL NEGATIVE code = DGLUU) UA BILIRUBIN DIPSTICK (test NEGATIVE mg/dL NEGATIVE code = BILU) UA KETONE DIPSTICK (test code Negative mg/dL NEGATIVE = KETU) UA SPECIFIC GRAVITY (test 1.024 1.001-1.035 code = SGU) UA BLOOD DIPSTICK (test code Negative NEGATIVE = RADHA) UA PH DIPSTICK (test code = 5.0 5.0-8.0 NICOLASA) UA PROTEIN DIPSTICK (test Negative mg/dL NEGATIVE code = PROU) UA UROBILINIOGEN DIPSTICK NEGATIVE mg/dL NEGATIVE (test code = URO) UA NITRITE DIPSTICK (test NEGATIVE NEGATIVE code = CIRILO) UA LEUKOCYTE ESTERASE W NEGATIVE NEGATIVE REFLEX (test code = LEUUR) UA WBC (test code = WBCU) 0-5 #/HPF 0-5 UA RBC (test code = RBCU) 0-2 #/HPF 0-5 UA EPITHELIAL CELLS (test FEW per HPF FEW code = EPIU) UA BACTERIA (test code = FEW #/HPF NONE A BACU) UA MUCUS (test code = MUCU) FEW #/LPF FEW Urine Source? Clean CatchDRUGS OF ABUSE SCREEN [id number] 19:40:00 Test Item Value Reference Range Interpretation Comments URN COCAINE (test NEGATIVE <300 ng/mL code = COCAURN) URN CANNABINOIDS POSITIVE <50 ng/mL A This test p rovides only a (test code = preliminary ramone t result. CANNABURN) A morespecific alternate chemical method must be used in order t oobtain a confirmed yuliya tical result. Gas chromatography/ mass spectrometry (G C/MS) is thepreferred co nfirmatory method. Other chemical confirmationmet hods are available. Cli nical consideration a nd professional ju dgment should be appli ed to any drug of abusete st result, particularly wh en preliminary pos itive resultsare used.Unconfirme d screening resul ts must not be used fornon-medical purposes (e.g., employme nt testing, legalt esting). URN AMPHETAMINE (test NEGATIVE <1000 ng/mL code = AMPHETURN) URN BARBITURATE (test NEGATIVE <200 ng/mL code = BARBITURN) URN BENZODIAZEPINE NEGATIVE <200 ng/mL (test code = BENZOURN) URN OPIATES (test NEGATIVE <300 ng/mL code = OPIATURN) URN PHENCYCLIDINE NEGATIVE <25 ng/mL (PCP) (test code = PHENCURN) URN METHADONE (test NEGATIVE <300 ng/mL code = METHAURN) Urine Source? Clean CatchURINALYSIS [id number] 18:38:00 Test Item Value Reference Range Interpretation Comments UA COLOR (test code = COLU) YELLOW YELLOW UA APPEARANCE (test code = SLIGHTLY CLOUDY CLEAR A APPU) UA GLUCOSE DIPSTICK (test NEGATIVE mg/dL NEGATIVE code = DGLUU) UA BILIRUBIN DIPSTICK (test NEGATIVE mg/dL NEGATIVE code = BILU) UA KETONE DIPSTICK (test code Negative mg/dL NEGATIVE = KETU) UA SPECIFIC GRAVITY (test 1.024 1.001-1.035 code = SGU) UA BLOOD DIPSTICK (test code Negative NEGATIVE = RADHA) UA PH DIPSTICK (test code = 5.0 5.0-8.0 NICOLASA) UA PROTEIN DIPSTICK (test Negative mg/dL NEGATIVE code = PROU) UA UROBILINIOGEN DIPSTICK NEGATIVE mg/dL NEGATIVE (test code = URO) UA NITRITE DIPSTICK (test NEGATIVE NEGATIVE code = CIRILO) UA LEUKOCYTE ESTERASE W NEGATIVE NEGATIVE REFLEX (test code = LEUUR) UA WBC (test code = WBCU) 0-5 #/HPF 0-5 UA RBC (test code = RBCU) 0-2 #/HPF 0-5 UA EPITHELIAL CELLS (test FEW per HPF FEW code = EPIU) UA BACTERIA (test code = FEW #/HPF NONE A BACU) UA MUCUS (test code = MUCU) FEW #/LPF FEW Urine Source? Clean CatchDRUGS OF ABUSE SCREEN [id number] 18:38:00 Test Item Value Reference Range Interpretation Comments URN COCAINE (test code = COCAURN) <300 ng/mL URN CANNABINOIDS (test code = <50 ng/mL CANNABURN) URN AMPHETAMINE (test code = AMPHETURN) <1000 ng/mL URN BARBITURATE (test code = BARBITURN) <200 ng/mL URN BENZODIAZEPINE (test code = <200 ng/mL BENZOURN) URN OPIATES (test code = OPIATURN) <300 ng/mL URN PHENCYCLIDINE (PCP) (test code = <25 ng/mL PHENCURN) URN METHADONE (test code = METHAURN) <300 ng/mL Urine Source? Clean CatchURINALYSIS [id number] 18:35:00 Test Item Value Reference Range Interpretation Comments UA COLOR (test code = COLU) YELLOW YELLOW UA APPEARANCE (test code = SLIGHTLY CLOUDY CLEAR A APPU) UA GLUCOSE DIPSTICK (test NEGATIVE mg/dL NEGATIVE code = DGLUU) UA BILIRUBIN DIPSTICK (test NEGATIVE mg/dL NEGATIVE code = BILU) UA KETONE DIPSTICK (test code Negative mg/dL NEGATIVE = KETU) UA SPECIFIC GRAVITY (test 1.024 1.001-1.035 code = SGU) UA BLOOD DIPSTICK (test code Negative NEGATIVE = RADHA) UA PH DIPSTICK (test code = 5.0 5.0-8.0 NICOLASA) UA PROTEIN DIPSTICK (test Negative mg/dL NEGATIVE code = PROU) UA UROBILINIOGEN DIPSTICK NEGATIVE mg/dL NEGATIVE (test code = URO) UA NITRITE DIPSTICK (test NEGATIVE NEGATIVE code = CIRILO) UA LEUKOCYTE ESTERASE W NEGATIVE NEGATIVE REFLEX (test code = LEUUR) UA WBC (test code = WBCU) per HPF 0-5 Urine Source? Clean CatchDRUGS OF ABUSE SCREEN [id number] 18:35:00 Test Item Value Reference Range Interpretation Comments URN COCAINE (test code = COCAURN) <300 ng/mL URN CANNABINOIDS (test code = <50 ng/mL CANNABURN) URN AMPHETAMINE (test code = AMPHETURN) <1000 ng/mL URN BARBITURATE (test code = BARBITURN) <200 ng/mL URN BENZODIAZEPINE (test code = <200 ng/mL BENZOURN) URN OPIATES (test code = OPIATURN) <300 ng/mL URN PHENCYCLIDINE (PCP) (test code = <25 ng/mL PHENCURN) URN METHADONE (test code = METHAURN) <300 ng/mL Urine Source? Clean Catch
--- NOTE | 2021-11-30 14:11 | ER ---
Nurse's Notes [facility] Name: Fifi Grimm Age: 31 yrs Sex: Female : 1990 Arrival Date: 11/30/2021 Time: 12:56 Bed 11 Private MD: Diagnosis: Otitis media, unspecified, left ear Presentation: 11/30 13:10 Chief complaint: Patient states: left ear pain for 1 month that has gotten worse in the jg9 last week 04/09, feels like there is fluid in there and when I lay down it really hurts. Coronavirus screen: Vaccine status: Patient reports receiving the 2nd dose of the covid vaccine. Ebola Screen: Patient negative for fever greater than or equal to 101.5 degrees Fahrenheit, and additional compatible Ebola Virus Disease symptoms Patient denies exposure to infectious person. Patient denies travel to an Ebola-affected area in the 21 days before illness onset. Initial Sepsis Screen: Does the patient have a suspected source of infection? No. Patient's initial sepsis screen is negative. Risk Assessment: Do you want to hurt yourself or someone else? Patient reports no desire to harm self or others. 13:10 Method Of Arrival: Ambulatory [facility] [place] 13:10 Acuity: WOO 5 [facility] [place] 13:21 Initial Sepsis Screen: Does the patient meet any 2 criteria? No. Patient's initial 9 sepsis screen is negative. 13:21 Onset of symptoms is unknown. 9 Triage Assessment: 13:20 General: Appears in no apparent distress. Behavior is calm. Pain: Complains of pain in g9 left ear. EENT: No deficits noted. 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 - Social history:: Smoking status: Patient reports the use of cigarette tobacco products, denies chronic smoking, but will smoke occasionally. Screenin:20 Abuse screen: Denies threats or abuse. Denies injuries from another. Nutritional j9 screening: No deficits noted. Tuberculosis screening: No symptoms or risk factors identified. Fall Risk None identified. Assessment: 13:47 Reassessment: No changes from previously documented assessment. jg9 Vital Signs: 13:10 BP 146 / 72; Pulse 66; Resp 18 S; Temp 98.1; Pulse Ox 95% on R/A; Weight 70.31 kg (R); jg9 Height 4 ft. 11 in. (149.86 cm) (R); 14:09 BP 144 / 77; Pulse 65; Resp 14 S; Pulse Ox 100% on R/A; jg9 13:10 Body Mass Index 31.31 (70.31 kg, 149.86 cm) jg9 ED Course: 12:56 Patient arrived in ED. mr 13:12 James Armstrong NP is PHCP. pm1 13:12 Roland Fisher MD is Attending Physician. pm1 13:19 Triage completed. jg9 13:20 Noemi Buenrostro RN is Primary Nurse. jl7 13:20 Arm band placed on right wrist. jg9 13:47 Patient has correct armband on for positive identification. jg9 14:00 Patient requests pain medication. jg9 14:18 No provider procedures requiring assistance completed. jg9 14:19 Patient did not have IV access during this emergency room visit. jg9 Administered Medications: 14:12 Drug: [place] (HYDROcodone-acetaminophen) 5 mg-325 mg 1 tabs {Note: RASS-0.} Route: PO; jg9 14:19 Follow up: Response: No adverse reaction; Medication administered at discharge. jg9 Outcome: 14:11 Discharge ordered by . pm1 14:18 Discharged to home ambulatory, with family. jg9 14:18 Condition: stable 14:18 Discharge instructions given to patient, Instructed on discharge instructions, follow up and referral plans. Demonstrated understanding of instructions, follow-up care, medications, Prescriptions given X 3. 14:19 Patient left the ED. jg9 Signatures: Ritika Holguin mr James Armstrong, COUNSELOR EDUCATION PROFESSOR COUNSELOR EDUCATION PROFESSOR pm1 Noemi Buenrostro, RN RN jl7 Heydi Hernandez RN RN jg9
--- NOTE | 2021-11-30 14:11 | EDPHYS ---
Physician Documentation [facility] Name: Fifi Grimm Age: 31 yrs Sex: Female : 1990 Arrival Date: 11/30/2021 Time: 12:56 Bed 11 Private MD: ED Physician Roland Fisher HPI: 11/30 14:07 This 31 yrs old Female presents to ER via Ambulatory with complaints of Ear pm1 Pain. 14:07 The patient presents with pain. The complaints affect the left ear. Onset: The pm1 symptoms/episode began/occurred 4 week(s) ago, and became worse 1 week(s) ago. Modifying factors: The symptoms are alleviated by nothing, the symptoms are aggravated by blowing nose. Associated signs and symptoms: Pertinent positives: nasal congestion, Pertinent negatives: fever, sore throat, dental pain. Severity of symptoms: in the emergency department the symptoms are worse. The patient has not experienced similar symptoms in the past. The patient has not recently seen a physician. 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 - Social history:: Smoking status: Patient reports the use of cigarette tobacco products, denies chronic smoking, but will smoke occasionally. ROS: 14:07 Constitutional: Negative for fever, chills, and weight loss. pm1 14:07 Cardiovascular: Negative for chest pain, palpitations, and edema, Respiratory: Negative for shortness of breath, cough, wheezing, and pleuritic chest pain, Abdomen/GI: Negative for abdominal pain, nausea, vomiting, diarrhea, and constipation, MS/Extremity: Negative for injury and deformity, Skin: Negative for injury, rash, and discoloration, Neuro: Negative for headache, weakness, numbness, tingling, and seizure. 14:07 ENT: Positive for ear pain, nasal discharge, Negative for drainage from ear(s). 14:07 All other systems are negative. Exam: 14:07 Constitutional: This is a well developed, well nourished patient who is awake, alert, pm1 and in no acute distress. Head/Face: Normocephalic, atraumatic. 14:07 Skin: Warm, dry with normal turgor. Normal color with no rashes, no lesions, and no evidence of cellulitis. MS/ Extremity: Pulses equal, no cyanosis. Neurovascular intact. Full, normal range of motion. 14:07 ENT: External ear(s): no acute changes, Ear canal(s): no acute changes, TM's: bulging, on the left, erythema, that is mild, on the left, Examination of the other ear shows no obvious abnormality. 14:07 Cardiovascular: Exam negative for acute changes, Rate: normal, Rhythm: regular, Pulses: no pulse deficits are appreciated. 14:07 Respiratory: Exam negative for acute changes, respiratory distress, shortness of breath. 14:07 Neuro: Exam negative for acute changes, Orientation: is normal, Mentation: is normal, Motor: is normal, moves all fours. Vital Signs: 13:10 BP 146 / 72; Pulse 66; Resp 18 S; Temp 98.1; Pulse Ox 95% on R/A; Weight 70.31 kg (R); jg9 Height 4 ft. 11 in. (149.86 cm) (R); 14:09 BP 144 / 77; Pulse 65; Resp 14 S; Pulse Ox 100% on R/A; jg9 13:10 Body Mass Index 31.31 (70.31 kg, 149.86 cm) jg9 MDM: 13:26 Patient medically screened. pm1 14:07 Data reviewed: vital signs. Data interpreted: Pulse oximetry: on room air is 95 %. pm1 Interpretation: normal. Counseling: I had a detailed discussion with the patient and/or guardian regarding: the historical points, exam findings, and any diagnostic results supporting the discharge/admit diagnosis, the need for outpatient follow up, to return to the emergency department if symptoms worsen or persist or if there are any questions or concerns that arise at home. 14:13 ED course: [place] reviewed. pm1 Administered Medications: 14:12 Drug: [place] (HYDROcodone-acetaminophen) 5 mg-325 mg 1 tabs {Note: RASS-0.} Route: PO; jg9 14:19 Follow up: Response: No adverse reaction; Medication administered at discharge. jg9 Disposition Summary: 11/30/21 14:11 Discharge Ordered Location: Home pm1 Problem: new pm1 Symptoms: have improved pm1 Condition: Stable pm1 Diagnosis - Otitis media, unspecified, left ear pm1 Followup: pm1 - With: Emergency Department - When: As needed - Reason: Worsening of condition Followup: pm1 - With: Private Physician - When: 2 - 3 days - Reason: Recheck today's complaints, Continuance of care, Re-evaluation by your physician Discharge Instructions: - Discharge Summary Sheet pm1 - Otitis Media, Adult pm1 Forms: - Medication Reconciliation Form pm1 - Thank You Letter pm1 - Antibiotic Education pm1 - Prescription Opioid Use pm1 Prescriptions: - Amoxicillin 500 mg Oral Capsule - take 1 capsule by ORAL route every 8 hours for 10 days; 30 tablet; Refills: 0, pm1 Product Selection Permitted - Zyrtec-D 5-120 mg Oral Tablet Sustained Release 12 hr - take 1 tablet by ORAL route every 12 hours As needed; 20 tablet; Refills: 0, pm1 Product Selection Permitted - Tramadol 50 mg Oral Tablet - take 1 tablet by ORAL route every 8 hours As needed as needed; 12 tablet; pm1 Refills: 0, Product Selection Permitted Signatures: James Armstrong NP CUSHION MAKER HAND pm1 Heydi Hernandez, RN RN jg9
[2021-11-30] MEDS ORDERED: HYDROCODONE/APAP 5/325 MG TAB ONE (14:13)
[2021-11-30 14:32] VITALS: TEMP 98.1
[2021-11-30 14:33] VITALS: BP 144/77; O2SAT 100
== END 2021-11-30 14:19 | disposition home or self-care (01) ==
LOC: ER 12:52
DX: H66.92 Otitis media, unspecified, left ear (principal); F17.210 Nicotine dependence, cigarettes, uncomplicated
CPT/HCPCS: 99283

== ENCOUNTER 2023-07-22 18:59 | Emergency (ER) | payer OTHER, SELFPAY ==
--- OUTSIDE RECORDS SUMMARY | 2023-07-22 19:05 | XMS REPORT | Continuity of Care Document ---
:1990 Author Organization [facility] t Address [address] [place] [address] Care Team Providers Name Role Phone YOVANY WILKS Primary Care Physician Unavailable JOHN MARQUEZ Attending Clinician Unavailable JOHN MARQUEZ Attending Clinician Unavailable YOVANY WILKS Attending Clinician Unavailable Lashaun Yovany ARRIOLA Attending Clinician [phone] ANNE JOSHUA Attending Clinician Unavailable FRANCHESCA HUERTAS Attending Clinician Unavailable ARNOLDO RAJPUT Attending Clinician Unavailable Nolvia Elkins MD, Arnoldo Attending Clinician [phone] Jani Stoner DO Attending Clinician Justice Wong MD Attending Clinician Provider, Marlon-Kobi Tempamela Attending Clinician Unavailable Franchesca Huertas CNM Attending Clinician Ward Weiss Attending Clinician WARD CODY Attending Clinician Unavailable Doctor Unassigned, [place] Attending Clinician Unavailable JJ AU Attending Clinician Unavailable JJ AU Attending Clinician Unavailable Ultrasound, Ang-Mfm Attending Clinician Unavailable Arianna Villeda MD Attending Clinician [phone] ARIANNA VILLEDA Attending Clinician Unavailable JJ FLORENCE Attending Clinician Unavailable Lab, [facility] Attending Clinician Unavailable Naman ADORNO, Jj Fung Attending Clinician 1, [facility] Us Room Attending Clinician Unavailable Faculty, Marlon Quinnchpamela Collazo Attending Clinician Unavailable Lab, [facility] Attending Clinician Unavailable Masoud RN, Kitty Attending Clinician Unavailable Don JASSO, Amara Attending Clinician Dong Schaefer MD Attending Clinician ARNOLDO RAJPUT Admitting Clinician Unavailable Nolvia Elkins MD, Arnoldo Admitting Clinician [phone] Arianna Villeda MD Admitting Clinician [phone] Payers Payer Name Policy Type Policy Number Effective Date Expiration Date S madelyn [facility] [id number] 2020 00:00:00 [facility] [id number] 2020 CHOICE MEDICAID 00:00:00 MEDICAID OF [place] [id number] 2020 00:00:00 MEDICAID PENDING PENDING 2020 00:00:00 Problems Condition Condition Condition Status Onset Resolution Last Treating Co mments Source Name Details Category Date Date Treatment Clinician Date Routine Routine Disease Active 2021-10 Univers 2-23 it y of follow-up follow-up 00:00: Cassie nettles Medical Branch Tubal Tubal Disease Active 2021-10 Univers ligation ligation - ity of status status 00:00: [place] 00 Medical Branch Elevated Elevated Disease Active 2021-10 Unive rs blood blood - ity of pressure pressure 00:00: [place] affecting affecting 00 Medi davon Bran ch in third in third trimester, trimester, antepartum antepartum Vaginal Vaginal Disease Active Univers irritation irritation 9-28 it y of 00:00: [place] 00 Medical Branch BMI BMI Disease Active 2021-0 Univers 30.0-30.9, 30.0-30.9, 9-16 it y of adult adult 00:00: [place] 00 Medical Branch BMI BMI Disease Active 2021-0 Univers 29.0-29.9, 29.0-29.9, 7-21 it y of adult adult 00:00: [place] 00 Medical Branch BMI BMI Disease Active 2021- Univers 29.0-29.9, 29.0-29.9, 7-21 it y of adult adult 00:00: [place] 00 Medical Branch Anemia of Anemia of Disease Active Uni vers mother in mother in 01-25 ity of , , 00:[place] antepartum antepartum 00 Me dical Branch Supervisio Supervisio Disease Active U nivers n of n of 01-24 ity of high-risk high-risk 00:[place] 00 [place] Branch History of History of Disease Active Overview : Univers - Formattin ity o f delivery delivery 00:00: g of this [place] 00 note Medical might be Branch different from the original. Baby 1 and 2 due to PIHBaby 5 SROM pt reports at about 33 weeks see chart review desires 17p History of History of Disease Active U nivers - ity of induced induced 00:00: [place] hypertensi hypertensi 00 Me dical on on Branch History of History of Disease Active U nivers pre-eclamp pre-eclamp - it y of domi domi 00:00: [place] 00 Medical Branch History of History of Disease Active Overview : Univers 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 During 1st pregnacy reports was on lovenox Multiparit Multiparit Disease Active U nivers y y 4- ity of 00:00: [place] 00 Medical Branch Obesity in Obesity in Disease Active U nivers 2-26 ity of 00:00: [place] 00 Medical Branch Obesity Obesity Disease Active Univers (BMI (BMI 2-26 ity of 30-39.9) 30-39.9) 00:00: [place] 00 [facility] Tobacco Tobacco Disease Active Overview: Univ ers use use 06-09 Formattin ity of disorder disorder 00:00: g of this [place] 00 note Medical might be Branch different from the original. Reports quit While ago Tobacco Tobacco Disease Active Overview: Univ ers use in use in 06-09 Formattin ity of 00:00: g of this [place] 00 note Medical might be Branch different from the original. Reports quit While ago History of History of Disease Active 2014-10 U nivers superficia superficia 1-12 it y of l l 00:00: [place] thrombophl thrombophl 00 Me dical ebitis ebitis Branch Insufficie Insufficie Disease Active U nivers nt nt 9-11 ity of 00:00: [place] care in care in 00 Medical second second Branch trimester trimester Allergies, Adverse Reactions, Alerts Allergy Allergy Status Severity Reaction(s) Onset Inactive Treating Comm ents Source Name Type Date Date Clinician No Known DA Active [facility] 7-28 [place] 00:[facility]: e 00 [facility] No Known DA Active U [facility] Allergie 3-13 [place] 00:00: e 00 [facility] No Known DA Active U [facility] Allergie 3-06 [place] 00:00: e 00 [facility] NO KNOWN Drug Active Univers ALLERGIE Class ity of S [facility] Social History Social Habit Start Date Stop Date Quantity Comments Source ASSERTION 2021-12-24 University of 00:00:00 [facility] Exposure to 2022-09-12 2022-09-22 Not sure [facility] SARS-CoV-2 (event) 00:00:00 09:28:00 [facility] Alcohol intake 2022-08-30 2022-08-30 0 /d University of 00:00:00 00:00:00 [facility] Cigarettes smoked 2022-05-01 2022-05-01 Univers ity of current (pack per 00:00:00 00:00:00 Yes[place] ) - Reported Branch Cigarette 2022-05-01 2022-05-01 University of pack-years 00:00:00 00:00:00 [facility] Tobacco use and 2022-05-01 2022-05-01 Smokeless Universit y of exposure 00:00:00 00:00:00 tobacco non-user [facility] Tobacco Comment 2022-05-01 2022-05-01 1/3 pack per day Uni versity of 00:00:00 00:00:00 [facility] History of tobacco 2020-05-09 Cigarette Smoker University of use 00:00:00 [facility] Sex [birth year] At [birth year] Universit y of 00:00:00 00:00:00 [facility] Smoking Status Start Date Stop Date Source Ex-smoker 2022-05-01 00:00:00 2022-05-01 00:00:00 [facility] [place] [facility] Medications Ordered Filled Start Stop Current Ordering Indication Dosage Frequency Signature Comments Components Source Medication Medication Date Date Medication? Clinician (SIG) Name Name NIFEdipine 2021-10- No [id number] 30mg Take 1 Univers ER 30 mg 11-03 tablet by ity o f tablet 00:00: 05:59 mouth in [place] 00 :00 [facility] for 30 days. NIFEdipine 2021-10- No [id number] 30mg Take 1 Univers ER 30 mg 11-03 tablet by ity o f tablet 00:00: 05:59 mouth in [place] 00 :00 the [facility] for 30 days. benzocaine- 2021-10 Yes 1{lozen 1 Lozenge, Univers menthoL 2-02 ge} Oral, ity of (CEPACOL 14:52: Q4HPRN, [place] SORE THROAT 40 Starting Medi davon (ALEXIA-MEN)) on Fri Branch lozenge 1 09/01/22 at Lozenge 0852, Until Discontinu ed, Routine, Sore throat dextrometho 2021-10 Yes 5mL 5 mL, Unive rs rphan-guaif 2-02 Oral, ity of enesin 14:52: Q6HPRN, [place] (ROBITUSSIN 23 Starting Medi davon DM) 10-100 on Sun Branch mg/5 mL 09/01/22 at solution 5 0852, mL Until Discontinu ed, Routine, Cough proCHLORper 2021-10- No 10mg 10 mg, Uni vers azine 2- 12-02 Oral, ONCE ity of (COMPAZINE) 03:53: 04:05 NOW, 1 [place] tablet 10 00 :00 dose, On Medica l mg [place]i Branch 08/31/22 at 2200, Routine docusate 2021-10 Yes [id number] 200mg Take 2 U nivers 100 mg 2-02 capsules ity of capsule 00:00: by mouth [place] 00 once daily Medical as needed Branch for Constipati on. ibuprofen 2021-10 Yes [id number] 600mg Take 1 Univers 600 mg 2-02 tablet by ity of tablet 00:00: mouth [place] 00 every 6 Medical (six) Branch hours as needed (Pain). Take with food or milk. ferrous 2021-10 Yes [id number] 325mg Take 1 Un erica sulfate 325 2-02 tablet by ity of mg (65 mg 00:00: mouth [place] iron) 00 every Medical tablet other day. Branch docusate 2021-10 Yes [id number] 200mg Take 2 U nivers 100 mg 2-02 capsules ity of capsule 00:00: by mouth [place] 00 once daily Medical as needed Branch for Constipati on. ibuprofen 2021-10 Yes [id number] 600mg Take 1 Univers 600 mg 2-02 tablet by ity of tablet 00:00: mouth [place] 00 every 6 Medical (six) Branch hours as needed (Pain). Take with food or milk. ferrous 2021-10 Yes [id number] 325mg Take 1 Un erica sulfate 325 2-02 tablet by ity of mg (65 mg 00:00: mouth [place] iron) 00 every Medical tablet other day. Branch foLIC acid 2021-10- No [id number] 1mg Take 1 Univers 1 mg tablet 11-02- tablet by it y of 00:00: 05:59 mouth in [place] 00 :00 the Medical morning Branch for 90 days. foLIC acid 2021-10- No [id number] 1mg Take 1 Univers 1 mg tablet 11-02- tablet by it y of 00:00: 05:59 mouth in [place] 00 :00 the Medical morning Branch for 90 days. NIFEdipine 2021-10 Yes 30mg 30 mg, Unive rs ER tablet 11-01 Oral, ity of 30 mg 18:45: DAILY, [place] 00 First dose Medical on [facility] 08/31/22 at 1245, Until Discontinu ed, Routine polyethylen 2021-10 Yes 17g 17 g, Unive rs e glycol 2 Oral, ity of 3350 powder 15:00: DAILY, [place] 17 g 00 First dose Medical on [facility] 08/31/22 at 0900, Until Discontinu ed, Routine hydroCHLORO 2021-10- No 50mg 50 mg, Uni vers thiazide 208-31 Oral, ity of (ESIDRIX) 14:00: 18:37 DAILY, [place] tablet 50 00 :50 First dose Medi davon mg on [facility] 08/31/22 at 0800, Until Discontinu ed, Routine rho(D) 2021-10 Yes 300ug 300 mcg, Univer s immune 11-01 Intramuscu ity of globulin 09:00: lar, ONCE, [place] (RHOGAM) 20 For 1 Medical syringe 300 dose, Branch mcg Conditiona l, Routine diphenhydrA 2021-10 Yes 25mg 25 mg, Univ ers MINE 11-01 Oral, ity of (BENADRYL) 09:00: Q6HPRN, [place] tablet 25 15 Starting Medica l mg on [facility] 08/31/22 at 0300, Until Discontinu ed, Routine, Sleep, Itching ondansetron 2021-10 Yes 4mg 4 mg, Slow Univers (ZOFRAN 2 IV Push, ity of (PF)) 09:00: Q8HPRN, [place] injection 4 15 Starting Medi davon mg on [facility] 08/31/22 at 0300, Until Discontinu ed, Routine, Nausea and Vomiting (N/V) simethicone 2021-10 Yes 160mg 160 mg, Un erica (GAS RELIEF 11-01 Oral, ity of (SIMETHICON 09:00: PC+HSPRN, [place] E)) 15 Starting Medical chewable on [facility] tablet 160 08/31/22 at mg 0300, Until Discontinu ed, Routine, Gas docusate 2021-10 Yes 200mg 200 mg, Unive rs (COLACE) 2 Oral, ity of capsule 200 09:00: QDAILYPRN, [place] mg 15 Starting Medical on [facility] 08/31/22 at 0300, Until Discontinu ed, Routine, Constipati on magnesium 2021-10 Yes 30mL 30 mL, Univer s hydroxide 2-01 Oral, ity of (MILK OF 09:00: QDAILYPRN, [place] MAGNESIA) 15 Starting Medica l 400 mg/5 mL on [place] Branch suspension 08/31/22 at 30 mL 0300, Until Discontinu ed, Routine, Constipati on benzocaine- 2021-10 Yes Topical, Un erica menthol 2-01 PRN, ity of (DERMOPLAST 09:00: [place] ) 20-0.5 % 15 on Sun Medical topical 08/31/22 at Branch spray 0300, Until Discontinu ed, Routine, Perineum discomfort simethicone 2021-10 Yes 80mg 80 mg, Univ ers (GAS RELIEF -30 Oral, ity of (SIMETHICON 19:00: PC+HS, [place] E)) 00 First dose Medical chewable on Sun tablet 80 08/30/22 mg at 1300, Until Discontinu ed, Routine ibuprofen 2021-10 Yes 600mg 600 mg, Univ ers (IBU) 1-30 Oral, ity of tablet 600 10:52: Q6HPRN, [place] mg 33 Starting Medical on Sun Branch 08/30/22 at 0452, Until Discontinu ed, Routine, Pain (scale 4-6) acetaminoph 2021-10 Yes 650mg 650 mg, Un erica en 1-30 Oral, ity of (TYLENOL) 10:52: Q6HPRN, [place] tablet 650 33 Starting Medic al mg on Sun Branch 08/30/22 at 0452, Until Discontinu ed, Routine, Pain (scale 1-3) ondansetron 2021-10- No 4mg 4 mg, Slow Univers (ZOFRAN 10-30 IV Push, ity of (PF)) 09:45: 08:52 ONCE, On [place] injection 4 00 :00 [facility] Medical mg 08/30/22 Branch at 0345, For 1 dose
Do ses of ondansetro n 16 mg and above need to be administer ed via IV piggyback. For Dose >=24mg ECG monitoring is advisable.
terbutaline 2021-10- No .25mg 0.25 mg, Univers (BRETHINE) 10-30 Intravenou it y of injection 03:30: 02:08 s, ONCE, 1 [place] 0.25 mg 00 :00 dose, On Medical e Branch 08/29/22 at 2130, Routine acetaminoph 2021-10- No 650mg 650 mg, U nivers en 10-30 Oral, ity of (TYLENOL) 02:28: 02:38 ONCE, 1 [place] tablet 650 00 :00 dose, On Medic al mg e Branch 08/29/22 at 2030, Routine guaiFENesin 2021-10- No 200mg 200 mg, U nivers 100 mg/5 mL 10-30 Oral, ity of solution 00:22: 00:46 ONCE, 1 [place] 200 mg 00 :00 dose, On Medical [facility] Branch 08/29/22 at 1830, Routine ropivacaine 2021-10 Yes Epidural, U nivers 0.2 % 10-29 CONTINUOUS ity of (NAROPIN 23:40: PRN, [place] ()) 00 Starting Medical epidural on Tue Branch infusion 08/29/22 at 1740, Until Discontinu ed, Routine, Intra-op ropivacaine 2021-10- No Epidural, Univers 0.2 % 10-29 CONTINUOUS ity of (NAROPIN 23:40: 13:09 PRN, [place] ()) 00 :39 Starting Medical epidural on Tue Branch infusion 08/29/22 at 1740, Until Discontinu ed, Routine, Intra-op lidocaine-e 2021-10 Yes Epidural, U nivers pinephrine 10-29 ONCE INTRA ity of (XYLOCAINE 23:31: PROCEDURE, [place] W/EPINEPHRI 00 Starting Medi davon NE) 1.5 on e Branch %-1:200,000 08/29/22 injection at 1731, Until Discontinu ed, Routine, Intra-op lidocaine-e 2021-10- No Epidural, Univers pinephrine 10-29 ONCE INTRA it y of (XYLOCAINE 23:31: 13:09 PROCEDURE, [place] W/EPINEPHRI 00 :39 Starting Medi davon NE) 1.5 on e Branch %-1:200,000 08/29/22 injection at 1731, Until Discontinu ed, Routine, Intra-op lactated 2021-10- No 500mL at 999 Unive rs ringers IV 10-29 mL/hr, 500 it y of infusion 23:15: 23:50 mL, IV [place] 500 mL 00 :59 Infusion, Medical ONCE, 1 Branch dose, On Sun08/29/22 at 1715, Routine oxytocin 2021-10- No 2mU/min at 2-40 Un erica (PITOCIN) 10-29 12-01 mL/hr, IV ity of 30 units in 22:39: 09:00 Infusion, [place] NS 500 mL 25 :18 TITRATE, Medica l IV infusion Starting Bran ch on Sun08/29/22 at 1639, Until Mandi 08/31/22 at 0300, KAREN sodium 2021-10- No 30mL 30 mL, Univers citrate-cit 10-29 Oral, ity of juan carlos acid 22:24: 23:22 PRE-PROCED [place] (BICITRA) 35 :00 URE ONCE, Medic al 500-334 1 dose, Branch mg/5 mL Starting solution 30 on Sun mL 08/29/22 at 1624, Until Sun08/29/22 at 1722, Routine, Surgery/Pr ocedure metoclopram 2021-10- No 10mg 10 mg, Uni vers dee HCl 10-29 Oral, ONCE ity o f (REGLAN) 22:15: 21:54 NOW, 1 [place] tablet 10 00 :00 dose, On Medica l mg Branch 08/29/22 at 1615, Routine diphenhydrA 2021-10- No 25mg 25 mg, Uni vers MINE 10-29 Oral, ONCE ity of (BENADRYL) 21:18: 21:54 NOW, 1 [place] tablet 25 00 :00 dose, On Medica l mg [facility] Branch 08/29/22 at 1530, Routine labetaloL 2021-10- No 20mg 20 mg, Unive rs (NORMODYNE) 10-29 Slow IV ity of injection 20:15: 22:28 Push, [place] 20 mg 00 :00 ONCE, 1 Medical dose, On Branch Sun08/29/22 at 1415, Routine D5W 0.45% 2021-10- No 1000mL at 75 Univ ers NaCl 10-29 mL/hr, ity of (1/2NS) IV 19:30: 09:00 1,000 mL, [place] infusion 00 :18 IV Medical 1,000 mL Infusion, Branch CONTINUOUS , Starting on Sun08/29/22 at 1330, Until Mandi 08/31/22 at 0300, KAREN magnesium 2021-10- No 2g/h 2 g/hr (50 U nivers sulfate in 10-29 mL/hr), IV it y of water for 19:30: 09:00 Infusion, [place] injection 00 :18 CONTINUOUS Medi davon 20 gram/500 , Starting Br anch mL (4 %) IV on Sun infusion 08/29/22 at 1330, Until Mandi 08/31/22 at 0300, KAREN terconazole Yes [id number] 1{appli Insert 1 Univers 0.8 % 29 cator} Applicator ity of vaginal 00:00: into [place] cream 00 vagina at Medical bedtime. Branch terconazole Yes [id number] 1{appli Insert 1 Univers 0.8 % 9-29 cator} Applicator ity of vaginal 00:00: into [place] cream 00 vagina at Medical bedtime. Branch terconazole Yes [id number] 1{appli Insert 1 Univers 0.8 % 9-29 cator} Applicator ity of vaginal 00:00: into [place] cream 00 vagina at Medical bedtime. Branch terconazole Yes [id number] 1{appli Insert 1 Univers 0.8 % 9-29 cator} Applicator ity of vaginal 00:00: into [place] cream 00 vagina at Medical bedtime. Branch terconazole 2021- No [id number] 1{appli Insert 1 Univers 0.8 % 9-29 10-11 cator} Applicator ity o f vaginal 00:00: 00:00 into [place] cream 00 :00 vagina at Medical bedtime. Branch terconazole 2021- No [id number] 1{appli Insert 1 Univers 0.8 % 9-29 10-11 cator} Applicator ity o f vaginal 00:00: 00:00 into [place] cream 00 :00 vagina at Medical bedtime. Branch aspirin 2-0 Yes [id number] 81mg Take 1 U nivers (ASPIRIN 6-22 9100 tablet by ity of LOW DOSE) 00:00: mouth [place] 81 mg EC 00 daily. Medical tablet Branch calcium 2-0 Yes [id number] 500mg Take 1 Un erica carbonate 6-22 tablet by ity o f 500 mg-2.5 00:00: mouth 2 [place] mcg (100 00 (two) Medical unit) times Branch chewable daily. tablet aspirin 2022-0 Yes [id number] 81mg Take 1 U nivers (ASPIRIN 6-22 9100 tablet by ity of LOW DOSE) 00:00: mouth [place] 81 mg EC 00 daily. Medical tablet Branch calcium 2-0 Yes [id number] 500mg Take 1 Un erica carbonate 6-22 tablet by ity o f 500 mg-2.5 00:00: mouth 2 [place] mcg (100 00 (two) Medical unit) times Branch chewable daily. tablet aspirin 2-0 Yes [id number] 81mg Take 1 U nivers (ASPIRIN 6-22 9100 tablet by ity of LOW DOSE) 00:00: mouth [place] 81 mg EC 00 daily. Medical tablet Branch calcium 2-0 Yes [id number] 500mg Take 1 Un erica carbonate 6-22 tablet by ity o f 500 mg-2.5 00:00: mouth 2 [place] mcg (100 00 (two) Medical unit) times Branch chewable daily. tablet aspirin 2022-0 Yes [id number] 81mg Take 1 U nivers (ASPIRIN 6-22 9100 tablet by ity of LOW DOSE) 00:00: mouth [place] 81 mg EC 00 daily. Medical tablet Branch calcium 2-0 Yes [id number] 500mg Take 1 Un erica carbonate 6-22 tablet by ity o f 500 mg-2.5 00:00: mouth 2 [place] mcg (100 00 (two) Medical unit) times Branch chewable daily. tablet aspirin 2022-0 Yes [id number] 81mg Take 1 U nivers (ASPIRIN 6-22 9100 tablet by ity of LOW DOSE) 00:00: mouth [place] 81 mg EC 00 daily. Medical tablet Branch calcium 2022-0 Yes [id number] 500mg Take 1 Un erica carbonate 6-22 tablet by ity o f 500 mg-2.5 00:00: mouth 2 [place] mcg (100 00 (two) Medical unit) times Branch chewable daily. tablet aspirin 2-0 Yes [id number] 81mg Take 1 U nivers (ASPIRIN 6-22 9100 tablet by ity of LOW DOSE) 00:00: mouth [place] 81 mg EC 00 daily. Medical tablet Branch calcium 2021-0 Yes [id number] 500mg Take 1 Un erica carbonate 6-22 tablet by ity o f 500 mg-2.5 00:00: mouth 2 [place] mcg (100 00 (two) Medical unit) times Branch chewable daily. tablet aspirin 2021-0 Yes [id number] 81mg Take 1 U nivers (ASPIRIN 6-22 9100 tablet by ity of LOW DOSE) 00:00: mouth [place] 81 mg EC 00 daily. Medical tablet Branch calcium 2021-0 Yes [id number] 500mg Take 1 Un erica carbonate 6-22 tablet by ity o f 500 mg-2.5 00:00: mouth 2 [place] mcg (100 00 (two) Medical unit) times Branch chewable daily. tablet aspirin 2021-0 Yes [id number] 81mg Take 1 U nivers (ASPIRIN 6-22 9100 tablet by ity of LOW DOSE) 00:00: mouth [place] 81 mg EC 00 daily. Medical tablet Branch calcium 2021-0 Yes [id number] 500mg Take 1 Un erica carbonate 6-22 tablet by ity o f 500 mg-2.5 00:00: mouth 2 [place] mcg (100 00 (two) Medical unit) times Branch chewable daily. tablet aspirin 2-0 Yes [id number] 81mg Take 1 U nivers (ASPIRIN 6-22 9100 tablet by ity of LOW DOSE) 00:00: mouth [place] 81 mg EC 00 daily. Medical tablet Branch calcium 2021-0 Yes [id number] 500mg Take 1 Un erica carbonate 6-22 tablet by ity o f 500 mg-2.5 00:00: mouth 2 [place] mcg (100 00 (two) Medical unit) times Branch chewable daily. tablet aspirin 2-0 Yes [id number] 81mg Take 1 U nivers (ASPIRIN 6-22 9100 tablet by ity of LOW DOSE) 00:00: mouth [place] 81 mg EC 00 daily. Medical tablet Branch calcium 2021-0 Yes [id number] 500mg Take 1 Un erica carbonate 6-22 tablet by ity o f 500 mg-2.5 00:00: mouth 2 [place] mcg (100 00 (two) Medical unit) times Branch chewable daily. tablet aspirin 2-0 Yes [id number] 81mg Take 1 U nivers (ASPIRIN 6-22 9100 tablet by ity of LOW DOSE) 00:00: mouth [place] 81 mg EC 00 daily. Medical tablet Branch calcium 2021-0 Yes [id number] 500mg Take 1 Un erica carbonate 6-22 tablet by ity o f 500 mg-2.5 00:00: mouth 2 [place] mcg (100 00 (two) Medical unit) times Branch chewable daily. tablet aspirin 2-0 Yes [id number] 81mg Take 1 U nivers (ASPIRIN 6-22 9100 tablet by ity of LOW DOSE) 00:00: mouth [place] 81 mg EC 00 daily. Medical tablet Branch calcium 2021-0 Yes [id number] 500mg Take 1 Un erica carbonate 6-22 tablet by ity o f 500 mg-2.5 00:00: mouth 2 [place] mcg (100 00 (two) Medical unit) times Branch chewable daily. tablet aspirin 2-0 Yes [id number] 81mg Take 1 U nivers (ASPIRIN 6-22 9100 tablet by ity of LOW DOSE) 00:00: mouth [place] 81 mg EC 00 daily. Medical tablet Branch calcium 2021-0 Yes [id number] 500mg Take 1 Un erica carbonate 6-22 tablet by ity o f 500 mg-2.5 00:00: mouth 2 [place] mcg (100 00 (two) Medical unit) times Branch chewable daily. tablet aspirin 2-0 Yes [id number] 81mg Take 1 U nivers (ASPIRIN 6-22 9100 tablet by ity of LOW DOSE) 00:00: mouth [place] 81 mg EC 00 daily. Medical tablet Branch calcium 2-0 Yes [id number] 500mg Take 1 Un erica carbonate 6-22 tablet by ity o f 500 mg-2.5 00:00: mouth 2 [place] mcg (100 00 (two) Medical unit) times Branch chewable daily. tablet aspirin 2-0 Yes [id number] 81mg Take 1 U nivers (ASPIRIN 6-22 9100 tablet by ity of LOW DOSE) 00:00: mouth [place] 81 mg EC 00 daily. Medical tablet Branch calcium 2-0 Yes [id number] 500mg Take 1 Un erica carbonate 6-22 tablet by ity o f 500 mg-2.5 00:00: mouth 2 [place] mcg (100 00 (two) Medical unit) times Branch chewable daily. tablet aspirin 2-0 Yes [id number] 81mg Take 1 U nivers (ASPIRIN 6-22 9100 tablet by ity of LOW DOSE) 00:00: mouth [place] 81 mg EC 00 daily. Medical tablet Branch calcium 2021-0 Yes [id number] 500mg Take 1 Un erica carbonate 6-22 tablet by ity o f 500 mg-2.5 00:00: mouth 2 [place] mcg (100 00 (two) Medical unit) times Branch chewable daily. tablet aspirin 2-0 Yes [id number] 81mg Take 1 U nivers (ASPIRIN 6-22 9100 tablet by ity of LOW DOSE) 00:00: mouth [place] 81 mg EC 00 daily. Medical tablet Branch calcium 2021-0 Yes [id number] 500mg Take 1 Un erica carbonate 6-22 tablet by ity o f 500 mg-2.5 00:00: mouth 2 [place] mcg (100 00 (two) Medical unit) times Branch chewable daily. tablet aspirin 2-0 Yes [id number] 81mg Take 1 U nivers (ASPIRIN 6-22 9100 tablet by ity of LOW DOSE) 00:00: mouth [place] 81 mg EC 00 daily. Medical tablet Branch calcium 2021-0 Yes [id number] 500mg Take 1 Un erica carbonate 6-22 tablet by ity o f 500 mg-2.5 00:00: mouth 2 [place] mcg (100 00 (two) Medical unit) times Branch chewable daily. tablet ferrous 2-0 Yes [id number] 325mg Take 1 Un erica sulfate 325 4-27 tablet by ity of mg (65 mg 00:00: mouth 2 [place] iron) 00 (two) Medical tablet times Branch daily. ascorbic 2022-0 Yes [id number] 500mg Take 1 U nivers acid, 4-27 tablet by ity of vitamin C, 00:00: mouth 3 [place] 500 mg 00 (three) Medical tablet times Branch daily. ferrous Yes [id number] 325mg Take 1 Un erica sulfate 325 4-27 tablet by ity of mg (65 mg 00:00: mouth 2 [place] iron) 00 (two) Medical tablet times Branch daily. ascorbic Yes [id number] 500mg Take 1 U nivers acid, 4-27 tablet by it[place] of vitamin [place], 00:[place] 3 [place] 500 mg 00 (three) Medical tablet times Branch daily. ferrous Yes [id number] 325mg Take 1 Un erica sulfate 325 4-27 tablet by ity of mg (65 mg 00:00: mouth 2 [place] iron) 00 (two) Medical tablet times Branch daily. ascorbic Yes [id number] 500mg Take 1 U nivers acid, 4-27 tablet by ity of vitamin C, 00:00: mouth 3 [place] 500 mg 00 (three) Medical tablet times Branch daily. ferrous Yes [id number] 325mg Take 1 Un erica sulfate 325 4-27 tablet by ity of mg (65 mg 00:00: mouth 2 [place] iron) 00 (two) Medical tablet times Branch daily. ascorbic Yes [id number] 500mg Take 1 U nivers acid, 4-27 tablet by ity of vitamin C, 00:00: mouth 3 [place] 500 mg 00 (three) Medical tablet times Branch daily. ferrous Yes [id number] 325mg Take 1 Un erica sulfate 325 4-27 tablet by ity of mg (65 mg 00:00: mouth 2 [place] iron) 00 (two) Medical tablet times Branch daily. ascorbic Yes [id number] 500mg Take 1 U nivers acid, 4-27 tablet by ity of vitamin C, 00:00: mouth 3 [place] 500 mg 00 (three) Medical tablet times Branch daily. ferrous 0 Yes [id number] 325mg Take 1 Un erica sulfate 325 4-27 tablet by ity of mg (65 mg 00:00: mouth 2 [place] iron) 00 (two) Medical tablet times Branch daily. ascorbic Yes [id number] 500mg Take 1 U nivers acid, 4-27 tablet by ity of vitamin C, 00:00: mouth 3 [place] 500 mg 00 (three) Medical tablet times Branch daily. ferrous Yes [id number] 325mg Take 1 Un erica sulfate 325 4-27 tablet by ity of mg (65 mg 00:00: mouth 2 [place] iron) 00 (two) Medical tablet times Branch daily. ascorbic Yes [id number] 500mg Take 1 U nivers acid, 4-27 tablet by ity of vitamin C, 00:00: mouth 3 [place] 500 mg 00 (three) Medical tablet times Branch daily. ferrous Yes [id number] 325mg Take 1 Un erica sulfate 325 4-27 tablet by ity of mg (65 mg 00:00: mouth 2 [place] iron) 00 (two) Medical tablet times Branch daily. ascorbic Yes [id number] 500mg Take 1 U nivers acid, 4-27 tablet by ity of vitamin C, 00:00: mouth 3 [place] 500 mg 00 (three) Medical tablet times Branch daily. ferrous Yes [id number] 325mg Take 1 Un erica sulfate 325 4-27 tablet by ity of mg (65 mg 00:00: mouth 2 [place] iron) 00 (two) Medical tablet times Branch daily. ascorbic Yes [id number] 500mg Take 1 U nivers acid, 4-27 tablet by ity of vitamin C, 00:00: mouth 3 [place] 500 mg 00 (three) Medical tablet times Branch daily. ferrous Yes [id number] 325mg Take 1 Un erica sulfate 325 4-27 tablet by ity of mg (65 mg 00:00: mouth 2 [place] iron) 00 (two) Medical tablet times Branch daily. ascorbic Yes [id number] 500mg Take 1 U nivers acid, 4-27 tablet by ity of vitamin C, 00:00: mouth 3 [place] 500 mg 00 (three) Medical tablet times Branch daily. ferrous Yes [id number] 325mg Take 1 Un erica sulfate 325 4-27 tablet by ity of mg (65 mg 00:00: mouth 2 [place] iron) 00 (two) Medical tablet times Branch daily. ascorbic Yes [id number] 500mg Take 1 U nivers acid, 4-27 tablet by ity of vitamin C, 00:00: mouth 3 [place] 500 mg 00 (three) Medical tablet times Branch daily. ferrous Yes [id number] 325mg Take 1 Un erica sulfate 325 4-27 tablet by ity of mg (65 mg 00:00: mouth 2 [place] iron) 00 (two) Medical tablet times Branch daily. ascorbic Yes [id number] 500mg Take 1 U nivers acid, 4-27 tablet by ity of vitamin C, 00:00: mouth 3 [place] 500 mg 00 (three) Medical tablet times Branch daily. ferrous Yes [id number] 325mg Take 1 Un erica sulfate 325 4-27 tablet by ity of mg (65 mg 00:00: mouth 2 [place] iron) 00 (two) Medical tablet times Branch daily. ascorbic Yes [id number] 500mg Take 1 U nivers acid, 4-27 tablet by ity of vitamin C, 00:00: mouth 3 [place] 500 mg 00 (three) Medical tablet times Branch daily. ferrous Yes [id number] 325mg Take 1 Un erica sulfate 325 4-27 tablet by ity of mg (65 mg 00:00: mouth 2 [place] iron) 00 (two) Medical tablet times Branch daily. ascorbic Yes [id number] 500mg Take 1 U nivers acid, 4-27 tablet by ity of vitamin C, 00:00: mouth 3 [place] 500 mg 00 (three) Medical tablet times Branch daily. ferrous Yes [id number] 325mg Take 1 Un erica sulfate 325 4-27 tablet by ity of mg (65 mg 00:00: mouth 2 [place] iron) 00 (two) Medical tablet times Branch daily. ascorbic 0 Yes [id number] 500mg Take 1 U nivers acid, 4-27 tablet by ity of vitamin C, 00:00: mouth 3 [place] 500 mg 00 (three) Medical tablet times Branch daily. ferrous Yes [id number] 325mg Take 1 Un erica sulfate 325 4-27 tablet by ity of mg (65 mg 00:00: mouth 2 [place] iron) 00 (two) Medical tablet times Branch daily. ascorbic Yes [id number] 500mg Take 1 U nivers acid, 4-27 tablet by ity of vitamin C, 00:00: mouth 3 [place] 500 mg 00 (three) Medical tablet times [place] daily. ferrous 2021- No [id number] 325mg Take 1 U nivers sulfate 325 01-25 tablet by it y of mg (65 mg 00:00: 00:00 mouth 2 [place] iron) 00 :00 (two) Medical tablet times [place] daily. ascorbic 2021- No [id number] 500mg Take 1 Univers acid, 01-25 tablet by ity of vitamin C, 00:00: 00:00 mouth 3 [place] 500 mg 00 :00 (three) Medical tablet times [place] daily. Vital Signs Vital Name Observation Time Observation Value Comments Source Body temperature 2022-09-22 15:29:00 36.5 January [facility] Respiratory rate 2022-09-22 15:29:00 17 /min [facility] Body height 2022-09-22 15:29:00 149.9 cm [facility] Body weight 2022-09-22 15:29:00 67.541 kg [facility] BMI 2022-09-22 15:29:00 30.07 kg/m2 [facility] Systolic blood 2022-09-01 17:14:00 143 mm[facility]Hg[facility]astolic blood 2022-09-01 17:14:00 83 mm[Hg] Unive [facility] Heart rate 2022-09-01 17:14:00 94 /min [facility] Body temperature 2022-09-01 17:14:00 36.94 January [facility] Respiratory rate 2022-09-01 17:14:00 20 /min [facility] Oxygen saturation in 2022-09-01 17:14:00 98 /min [facility] Arterial blood by [facility] Pulse oximetry Branch Systolic blood 2022-08-29 14:57:00 131 mm[Hg] Univer sity [facility] Diastolic blood 2022-08-29 14:57:00 81 mm[Hg] Unive [facility] Heart rate 2022-08-29 14:57:00 66 /min [facility] Body temperature 2022-08-29 14:57:00 36.61 January [facility] Respiratory rate 2022-08-29 14:57:00 17 /min [facility] Body height 2022-08-29 14:57:00 149.9 cm [facility] Body weight 2022-08-29 14:57:00 81.647 kg [facility] [place] [facility] BMI 2022-08-29 14:57:00 36.36 kg/m2 [facility] [place] [facility] Systolic blood 2022-08-11 16:15:00 119 mm[Hg] Univer sity of [facility] Diastolic blood 2022-08-11 16:15:00 84 mm[Hg] Unive rsity of pressure [place] [facility] Heart rate 2022-08-11 16:15:00 92 /min [facility] [place] [facility] Body temperature 2022-08-11 16:15:00 36.44 January [facility] Respiratory rate 2022-08-11 16:15:00 18 /min [facility] Body height 2022-08-11 16:15:00 149.9 cm [facility] [place] [facility] Body weight 2022-08-11 16:15:00 73.256 kg [facility] [place] [facility] BMI 2022-08-11 16:15:00 32.62 kg/m2 [facility] Systolic blood 2022-07-28 16:08:00 122 mm[Hg] Univer sity of [facility] Diastolic blood 2022-07-28 16:08:00 75 mm[Hg] Unive rsity of pressure [place] [facility] Heart rate 2022-07-28 16:08:00 98 /min [facility] [place] [facility] Body temperature 2022-07-28 16:08:00 36.39 January [facility] [place] [facility] Respiratory rate 2022-07-28 16:08:00 18 /min [facility] [place] [facility] Body height 2022-07-28 16:08:00 149.9 cm [facility] [place] [facility] Body weight 2022-07-28 16:08:00 72.802 kg [facility] [place] [facility] BMI 2022-07-28 16:08:00 32.42 kg/m2 Universi ty of [facility] Systolic blood 2022-07-11 14:03:00 118 mm[Hg] Univer sity of pressure [facility] Diastolic blood 2022-07-11 14:03:00 81 mm[Hg] Unive rsity of pressure [facility] Heart rate 2022-07-11 14:03:00 93 /min Universi ty of [facility] Body temperature 2022-07-11 14:03:00 36.11 January [facility] Respiratory rate 2022-07-11 14:03:00 16 /min [facility] Body height 2022-07-11 14:03:00 149.9 cm Universi ty of [facility] Body weight 2022-07-11 14:03:00 70.625 kg Universi ty of [facility] BMI 2022-07-11 14:03:00 31.45 kg/m2 Universi [facility] Oxygen saturation in 2022-07-11 14:03:00 99 /min [facility] Arterial blood by [facility] Pulse oximetry Branch Systolic blood 2022-06-28 13:29:00 124 mm[Hg] Univer sity of pressure [facility] Diastolic blood 2022-06-28 13:29:00 86 mm[Hg] Unive rsity of pressure [facility] Heart rate 2022-06-28 13:29:00 98 /min Universi ty of [facility] Body temperature 2022-06-28 13:29:00 35.61 January [facility] Res[facility] rate 2022-06-28 13:29:00 18 /min [facility] Body weight 2022-06-28 13:29:00 68.992 kg Universi ty [facility] BMI 2022-06-28 13:29:00 30.72 [facility] Procedure Date / Time Performing Clinician Source Performed CBC WITH DIFF 2022-08-31 09:44:00 Aleisha Barr [facility] MAGNESIUM 2022-08-31 03:24:00 J Carlos Menjivar [facility] VENOUS CORD GAS 2022-08-30 09:33:00 Nava Camilo Gruver o f [facility] CENTRAL NEURAXIAL BLOCK 2022-08-29 23:40:31 Yoanna Gallardo [facility] US LOWER EXTREMITY VEIN 2022-08-29 23:11:00 Denita Odell [facility] WITH COMPRESSION Medical Branch BILATERAL (ONLY FOR RULE OUT DVT) URINALYSIS 2022-08-29 23:09:00 [facility] URINE CULTURE 2022-08-29 23:09:00 [facility] GALV ONLY - INFLUENZA A B 2022-08-29 20:58:00 Essence Lariosshua [facility] RSV PCR [facility] SGOT (ASPARTATE AMINO 2022-08-29 19:41:00 [facility] TRANSFER) [facility] CREATININE 2022-08-29 19:41:00 [facility] ALANINE AMINO 2022-08-29 19:41:00 [facility] TRANSFERASE(SGPT Medical Branch LACTATE DEHYDROGENASE 2022-08-29 19:41:00 [facility] URIC ACID 2022-08-29 19:41:00 [facility] CBC WITH DIFF 2022-08-29 19:41:00 [facility] 2022-08-29 19:41:00 [facility] HEPATITIS B SURFACE 2022-08-29 19:41:00 [facility] ANTIGEN [facility] PROTEIN CREAT RATIO URINE 2022-08-29 19:41:00 Nava Camilo [facility] RANDOM [facility] HIV 1/2 AG-AB WITH REFLEX 2022-08-29 19:41:00 Nava Camilo [facility] GALV ONLY - SYPHILIS 2022-08-29 19:41:00 [place] [facility] IGG/IGM [facility] COVID-19 (ID NOW RAPID 2022-08-29 19:41:00 Kiana Rajput [facility] TESTING) [facility] LAB ONLY COVID 2022-08-29 19:41:00 Nolvia Elkins [facility] INTERPRETATION [facility] HB ABO GROUPING 2022-08-29 19:29:00 [facility] o f [facility] RHO (D) IMMUNE GLOBULIN 2022-08-29 19:29:00 Aleisha Barr [facility] POCT URINALYSIS 2022-08-29 00:00:00 Yovany Wilks [facility] POCT URINALYSIS 2022-08-11 16:15:00 Yovany Wilks [facility] POCT URINALYSIS 2022-07-28 16:09:00 Yovany Wilks [facility] FLU VACC (), 6 2022-07-11 14:47:18 Ward Cody [facility] MO-62 YRS, .5ML, IM, QUAD Medica l Branch (FLUCELVAX) POCT URINALYSIS 2022-07-11 00:00:00 Yovany Wilks [facility] POCT URINALYSIS 2022-06-28 13:42:00 Yovany Wilks [facility] TDAP VACCINE, >11 YRS, IM 2022-06-28 13:38:54 Ward Cody [facility] STERILIZATION CONSENT 2022-06-28 05:01:00 Doctor Unassigned, [facility] FORM [place] [facility] Encounters Start End Encounter Admission Attending Care Care Encounter Source Date/Time Date/Time Type Type Clinicians Facility Department ID 2021-07-31 Outpatient P RUST OPHELIA [id number] Univers 01:47:15 [facility] 2023-01-16 2023-01-16 Outpatient R JOHN MARQUEZ [facility] [id number] Univers 12:15:00 12:15:00 JOHN MARQUEZ [facility] 2022-12-27 2022-12-27 Outpatient R JOHN MARQUEZ [facility] [id number] Univers 07:45:00 07:45:00 JOHN MARQUEZ ity [facility] 2022-10-18 2022-10-18 Outpatient R AKINSIPE, [facility] [id number] Univers 10:00:00 10:00:00 YOVANY ity o f [facility] 2022-09-22 2022-09-22 Outpatient R AKINSIPE, [facility] [id number] Univers 09:00:00 09:57:38 YOVANY ity o f [facility] 2022-09-22 2022-09-22 Routine Akinsipe, RUST 1.2.017.740 [id number] Univers 09:00:00 09:57:38 Yovany Oliveira EDM OPERATOR 350.1.13.10 ity of [facility] 4.2.7.2.686 [place] as MATERNAL [id number] Med ical & CHILD [address] [place] [address] 2022-09-06 2022-09-06 Outpatient Ethan HUERTAS [facility] [id number] Univers 09:45:00 09:45:00 FRANCHESCA ity [facility] 2022-08-29 2022-09-01 Inpatient P NOLVIA RUST OPHELIA [id number] Univers 12:27:00 14:12:00 MAGALIS it y of S, [facility] 2022-08-29 2022-09-01 [facility] Nolvia ANNE 1.2.840.114 [id number] Univers 12:27:00 14:12:00 Encounter Magalis SILVA 350.1.13.10 ity of [facility] 4.2.7.2.686 [place] as [id number] [facility] 135 Branch 2022-08-29 2022-08-30 Anesthesia Jani Stoner 1.2.84 0.114 [id number] Univers 16:31:00 07:09:00 Event Justice Wong 350.1.13.10 ity [facility] 4.2.7.2.686 [place] as [id number] [facility] 132 Branch 2022-08-29 2022-08-29 Outpatient Ethan HUERTAS [facility] [id number] Univers 08:45:00 09:17:42 FRANCHESCA mere [facility] 2022-08-29 2022-08-29 Routine Provider, Ang-Rmchp Temp RUST 1 .2.840.114 [id number] Univers 08:45:00 09:17:42 Rinkubigg Franchesca Zheng EDM OPERATOR 350.1.13. 10 ity of Visit REGIONAL 4.2.7.2.686 [place] as MATERNAL [id number] [facility] & [address] 2022-08-15 2022-08-15 Outpatient R ALEKSANDAR, [facility] [id number] Univers 08:45:00 08:45:00 [facility] 2022-08-11 2022-08-11 Outpatient R LASHAUN, [facility] [id number] Univers 10:00:00 10:33:40 YOVANY weeks o [facility] 2022-08-11 2022-08-11 Routine Yovany Wilks RUST 1.2.8 40.114 [id number] Univers 10:00:00 10:33:40 Ward Cody EDM OPERATOR 350.1.13.1 0 ity of Visit REGIONAL 4.2.7.2.686 [place] as MATERNAL [id number] [address] 2022-07-28 2022-07-28 Outpatient R LASHAUN, [facility] [id number] Univers 10:45:00 11:18:01 YOVANY weeks o [facility] 2022-07-28 2022-07-28 Routine Lashaun, RUST 1.2.926.216 [id number] Univers 10:45:00 11:00:00 Yovany Oliveira EDM OPERATOR 350.1.13.10 ity of Visit REGIONAL 4.2.7.2.686 [place] as MATERNAL [id number] [facility] & [address] 2022-07-25 2022-07-25 Outpatient Ethan CODY [facility] [id number] Univers 10:45:00 10:45:00 WARD reddyy o [facility] 2022-07-112022-07-11 Routine [facility] 1.2.840.114 [id number] Univers 08:45:00 09:00:00 Roshunda R EDM OPERATOR 350.1.13.10 ity of Visit REGIONAL 4.2.7.2.686 [place] as MATERNAL [id number] [facility] & CHILD [address] [place] [address] 2022-07-11 2022-07-11 [facility] [id number] Univers 08:45:00 08:45:00 ROSHUNDA ity o f [facility] 2022-06-29 2022-06-29 Telephone [facility] 1.2.419.996 [id number] Univers 00:00:00 00:00:00 Roshunda R EDM OPERATOR 350.1.13.10 ity of REGIONAL 4.2.7.2.686 [place] as MATERNAL [id number] [address] 2022-06-28 2022-06-28 [facility] [id number] Univers 08:45:00 09:23:26 ROSHUNDA ity o f [facility] 2022-06-28 2022-06-28 Routine [facility] 1.2.840.114 [id number] Univers 08:45:00 09:23:26 Roshunda R EDM OPERATOR 350.1.13.10 ity of Visit REGIONAL 4.2.7.2.686 [place] as MATERNAL [id number] [address] 2022-06-28 2022-06-28 Orders Doctor ANNE 1.2.840.114 [id number] Univers 00:00:00 00:00:00 Only Unassigned, RICARDO 350.1.13.10 ity of [place] [facility] 4.2.7.2.686 [place] as [id number] [address] 2022-06-19 2022-06-19 [facility] 1.2.910.505 [id number] Univers 00:00:00 00:00:00 Roshunda R EDM OPERATOR 350.1.13.10 ity of REGIONAL 4.2.7.2.686 [place] as MATERNAL [id number] [facility] & CHILD [address] [place] [address] 2022-06-16 2022-06-16 Outpatient R ESCOBAR [facility] [id number] Univers 08:00:00 08:29:29 ROSHUNDA ity o f [facility] 2022-06-16 2022-06-16 Routine EscobarRUST 1.2.840.114 [id number] Univers 08:00:00 08:29:29 Roshunda R EDM OPERATOR 350.1.13.10 ity of Visit REGIONAL 4.2.7.2.686 [place] as MATERNAL [id number] [address] 2022-06-08 2022-06-08 Outpatient R ROE JJ [facility] [id number] Univers 10:30:00 10:30:00 JJ AU [facility] 2022-05-29 2022-05-29 Outpatient R AKINSIPE, [facility] [id number] Univers 14:00:00 14:00:00 YOVANY ity o [facility] 2022-05-29 2022-05-29 Outpatient R AKINSIPE, [facility] [id number] Univers 14:00:00 14:00:00 YOVANY ity o f [facility] 2022-05-29 2022-05-29 Outpatient R AKINSIPE, [facility] [id number] Univers 14:00:00 14:00:00 YOVANY ity o f [facility] 2022-05-18 2022-05-18 Outpatient R AKINSIPE, [facility] [id number] Univers 14:45:00 14:45:00 YOVANY ity o f [facility] 2022-05-01 2022-05-01 Routine MohamudyassineRUST 1.2.310.939 [id number] Univers 15:30:00 15:30:00 Yovany C EDM OPERATOR 350.1.13.10 ity of Visit REGIONAL 4.2.7.2.686 [place] as MATERNAL [id number] [facility] & CHILD [address] [place] [address] 2022-05-01 2022-05-01 Outpatient R LASHAUN, [facility] [id number] Univers 15:30:00 14:35:03 YOVANY weeks o [facility] 2022-05-01 2022-05-01 Outpatient R LASHAUN, [facility] [id number] Univers 15:30:00 14:35:03 YOVANY ity o [facility] 2022-05-01 2022-05-01 Silk Opener [facility] 1.2 .840.114 [id number] Univers 13:00:00 13:51:32 Visit Arianna Villeda Bright EDM OPERATOR 350.1. 13.10 ity of REGIONAL 4.2.7.2.686 [place] as MATERNAL [id number] Med ical & CHILD [address] [facility] [place] [place] 2022-05-01 2022-05-01 Outpatient P RONAL [facility] [id number] Univers 13:00:00 13:51:32 CHASEMere ity [facility] 2022-05-01 2022-05-01 Abstract JorgeyassineRUST 1.2.840.114 [id number] Univers 00:00:00 00:00:00 Yovany Oliveira EDM OPERATOR 350.1.13.10 ity of REGIONAL 4.2.7.2.686 [place] as MATERNAL [id number] Med ical & CHILD [address] [facility] [place] [place] 2022-04-21 2022-04-21 Outpatient R ESCOBAR [facility] [id number] Univers 10:30:00 10:30:00 ROSHUNDA ity o [facility] 2022-04-20 2022-04-20 Outpatient R ESCOBAR [facility] [id number] Univers 14:15:00 15:10:07 ROSHUNDA ity o [facility] 2022-04-20 2022-04-20 Routine EscobarRUST 1.2.840.114 [id number] Univers 14:15:00 15:10:07 Roshunda R EDM OPERATOR 350.1.13.10 ity of Visit REGIONAL 4.2.7.2.686 [place] as MATERNAL [id number] Med ical & CHILD [address] [facility] 2022-04-14 2022-04-14 Outpatient R AKINSIPE, [facility] [id number] Univers 09:45:00 09:45:00 YOVANY ity o f [facility] 2022-03-22 2022-03-22 Outpatient R AKINSIPE, [facility] [id number] Univers 08:30:00 08:54:59 YOVANY ity o f [facility] 2022-03-22 2022-03-22 Routine Akinsipe, RUST 1.2.727.062 [id number] Univers 08:30:00 08:54:59 Yovany C EDM OPERATOR 350.1.13.10 ity of Visit REGIONAL 4.2.7.2.686 [place] as MATERNAL [id number] [facility] & CHILD [address] [place] [address] 2022-03-09 2022-03-09 Abstract MohamudyassineRUST 1.2.840.114 [id number] Univers 00:00:00 00:00:00 Yovany C EDM OPERATOR 350.1.13.10 ity of REGIONAL 4.2.7.2.686 [place] as MATERNAL [id number] [facility] & CHILD [address] [place] [address] 2022-03-06 2022-03-06 Outpatient P [facility] [id number] Univers 11:00:00 11:00:00 ity [facility] 2022-03-06 2022-03-06 Outpatient P NAMAN [facility] [id number] Univers 11:00:00 11:00:00 JJ weeks [facility] 2022-03-06 2022-03-06 Silk Opener Lab, [facility] 1.2.840. 114 [id number] Univers 11:00:00 11:00:00 Visit Jj Florence EDM OPERATOR 350.1.13.10 ity of REGIONAL 4.2.7.2.686 [place] as MATERNAL [id number] [facility] ical & CHILD [address] [place] [address] 2022-03-06 2022-03-06 Silk Opener 1, [facility] Room RUST 1.2. 840.114 [id number] Univers 10:00:00 10:45:00 Visit NamanJj Kenton EDM OPERATOR 350.1.13.10 ity of [facility] 4.2.7.2.686 [place] as MATERNAL [id number] [facility] & CHILD [address] [facility] 2022-03-06 2022-03-06 Outpatient P [facility] [id number] Univers 10:00:00 10:00:00 ity [facility] 2022-02-21 2022-02-21 Outpatient R LASHAUN [facility] [id number] Univers 09:00:00 09:00:00 YOVANY duron f [facility] 2022-01-30 2022-01-30 Telemedici Faculty, Marlon [facility] 1.2.840.114 [id number] [facility] 11:30:00 12:00:00 ne Visit IraAdrian sernamere Novoa EDM OPERATOR 350.1 .13.10 ity of [facility] 4.2.7.2.686 [place] as MATERNAL [id number] [facility] & [address] 2022-01-30 2022-01-30 Outpatient R RONAL [facility] [id number] Univers 11:30:00 11:30:00 ARIANNA [facility] 2022-01-26 2022-01-26 [facility] 1.2.840. 114 [id number] Univers 13:00:00 13:16:28 Visit Yovany Wilks EDM OPERATOR 350.1.13. 10 ity of [facility] 4.2.7.2.686 [place] as MATERNAL [id number] [facility] & CHILD [address] [place] [address] 2022-01-26 2022-01-26 Outpatient R LASHAUN [facility] [id number] Univers 13:00:00 13:00:00 YOVANY culp [facility] 2022-01-25 2022-01-25 Telephone LashaunRUST 1.2.840.114 [id number] Univers 00:00:00 00:00:00 Yovany Oliveira EDM OPERATOR 350.1.13.10 ity of [facility] 4.2.7.2.686 Dayron as MATERNAL [phone] [facility] & CHILD [address] [place] [address] 2022-01-24 2022-01-24 [facility] [id number] Univers 08:30:00 10:06:18 YOVANY ity o f [facility] 2022-01-24 2022-01-24 Initial LashaunRUST 1.2.332.615 [id number] Univers 08:30:00 10:06:18 Yovany C EDM OPERATOR 350.1.13.10 ity of Visit [facility] 4.2.7.2.686 Dayron as MATERNAL [phone] [facility] & CHILD [address] [place] [address] 2022-01-24 2022-01-24 Orders Doctor ANNE 1.2.840.114 [id number] Univers 00:00:00 00:00:00 Only Unassigned, RICARDO 350.1.13.10 ity of [place] [facility] 4.2.7.2.686 Dayron as [phone] [address] 2021-04-04 2021-04-04 Outpatient R [facility] [id number] Univers 09:00:00 09:00:00 ity of [facility] 2021-01-11 2021-01-11 Telephone LashaunRUST 1.2.840.114 [id number] Univers 00:00:00 00:00:00 Yovany C EDM OPERATOR 350.1.13.10 ity of [facility] 4.2.7.2.686 Dayron as MATERNAL [phone] [facility] & CHILD [address] [place] [address] 2021-01-10 2021-01-10 Office MohamudyassineRUST 1.2.189.212 [id number] Univers 09:58:42 10:41:46 Visit Yovany C EDM OPERATOR 350.1.13.10 ity of [facility] 4.2.7.2.686 Dayron as MATERNAL [phone] [facility] & CHILD [address] [place] [address] 2021-01-10 2021-01-10 [facility] [id number] Univers 09:45:00 09:45:00 YOVANY ity o f [facility] 2021-01-10 2021-01-10 Orders Doctor ANNE 1.2.840.114 [id number] Univers 00:00:00 00:00:00 Only Unassigned, RICARDO 350.1.13.10 ity of [place] [facility] 4.2.7.2.686 Dayron as [phone] [facility] [address] 2020-12-20 2020-12-20 Routine Akinsipe, RUST 1.2.264.538 [id number] Univers 10:33:07 11:36:30 Yovany C EDM OPERATOR 350.1.13.10 ity of Visit [facility] 4.2.7.2.686 Dayron as MATERNAL [phone] [facility] & CHILD [address] [place] [address] 2020-12-20 2020-12-20 [facility] [id number] Univers 10:30:00 10:30:00 YOVANY ity o f [facility] 2020-12-09 2020-12-09 Outpatient R AKINSIPE, [facility] [id number] Univers 09:30:00 09:30:00 YOVANY ity o f [facility] 2020-12-05 2020-12-05 Orders Doctor ANNE 1.2.840.114 [id number] Univers 00:00:00 00:00:00 Only Unassigned, RICARDO 350.1.13.10 ity of [place] [facility] 4.2.7.2.686 Dayron as [phone] [facility] [address] 2020-11-26 2020-11-29 Hospital ANNE Villeda 1.2.840.114 [id number] Univers 20:27:00 15:15:00 Encounter Chasey RICARDO 350.1.13.10 ity of [facility] 4.2.7.2.686 [place] [phone] [facility] [address] 2020-11-26 2020-11-26 Nurse Kitty Meredith 1.2.840.114 [id number] Univers 00:00:00 00:00:00 Triage RICARDO 350.1.13.10 it y of HOSPITAL 4.2.7.2.686 Dayron as [id number] [address] 2020-11-25 2020-11-25 Routine Akinsipe, RUST 1.2.419.992 [id number] Univers 08:16:45 08:31:45 Yovany C EDM OPERATOR 350.1.13.10 ity of Visit REGIONAL 4.2.7.2.686 Dayron as MATERNAL [id number] [facility] & CHILD [address] [place] [address] 2020-11-25 2020-11-25 Outpatient R AKINSIPE, [facility] [id number] Univers 08:15:00 08:15:00 YOVANY ity o [facility] 2020-11-11 2020-11-11 [facility] 1.2.034.252 [id number] Univers 09:33:26 10:00:23 Yovany C EDM OPERATOR 350.1.13.10 ity of Visit [facility] 4.2.7.2.686 Dayron as MATERNAL [phone] [address] 2020-11-11 2020-11-11 Outpatient R AKINSIPE, [facility] [id number] Univers 09:30:00 09:30:00 YOVANY ity o [facility] 2020-10-28 2020-10-28 Routine Akinsipe, [facility] 1.2.344.436 [id number] Univers 07:48:19 08:42:53 Yovany C EDM OPERATOR 350.1.13.10 ity of Visit REGIONAL 4.2.7.2.686 Dayron as MATERNAL [phone] [facility] & CHILD [address] [place] [address] 2020-10-28 2020-10-28 Outpatient R AKINSIPE, [facility] [id number] Univers 08:00:00 08:00:00 YOVANY ity o [facility] 2020-10-22 2020-10-22 Outpatient R AKINSIPE, [facility] [id number] Univers 10:30:00 10:30:00 YOVANY ity o [facility] 2020-10-14 2020-10-14 Telephone Akinsipe, RUST 1.2.840.114 [id number] Univers 00:00:00 00:00:00 Yovany C EDM OPERATOR 350.1.13.10 ity of [facility] 4.2.7.2.686 Dayron as MATERNAL [phone] [facility] & CHILD [address] [place] [address] 2020-10-11 2020-10-11 Telephone [facility] 1.2.840.114 [id number] Univers 00:00:00 00:00:00 Yovany C EDM OPERATOR 350.1.13.10 ity of [facility] 4.2.7.2.686 Dayron as MATERNAL [phone] [facility] & CHILD [address] [place] [address] 2020-10-08 2020-10-08 Routine [facility] 1.2.292.623 [id number] Univers 09:26:04 10:09:17 Yovany C EDM OPERATOR 350.1.13.10 ity of Visit REGIONAL 4.2.7.2.686 Dayron as MATERNAL [phone] [facility] & CHILD [address] [place] [address] 2020-10-08 2020-10-08 [facility] [id number] Univers 09:15:00 09:15:00 YOVANY ity o f [facility] 2020-09-10 2020-09-10 Routine [facility] 1.2.381.746 [id number] Univers 09:05:32 09:51:31 Yovany C EDM OPERATOR 350.1.13.10 ity of Visit [facility] 4.2.7.2.686 Dayron as MATERNAL [phone] [facility] & CHILD [address] [place] [address] 2020-09-10 2020-09-10 [facility] [id number] Univers 09:15:00 09:15:00 YOVANY ity o f [facility] 2020-09-10 2020-09-10 Abstract [facility] 1.2.840.114 [id number] Univers 00:00:00 00:00:00 Yovany C EDM OPERATOR 350.1.13.10 ity of [facility] 4.2.7.2.686 Dayron as MATERNAL [phone] [facility] & CHILD [address] [place] [address] 2020-09-08 2020-09-08 Silk Opener Ultrasound, Apolinaryesenia [facility] 1.2 .840.114 [id number] Univers 09:37:17 10:22:17 Visit Amara Ochoa EDM OPERATOR 350.1.13.10 ity of [facility] 4.2.7.2.686 Dayron as MATERNAL [phone] [facility] & CHILD [address] [facility] [place] [place] 2020-09-08 2020-09-08 Outpatient P [facility] [id number] Univers 09:15:00 09:15:00 ity of [facility] 2020-08-16 2020-08-16 Telephone EscobarRUST 1.2.359.603 [id number] Univers 00:00:00 00:00:00 Ward R EDM OPERATOR 350.1.13.10 ity of [facility] 4.2.7.2.686 Dayron as MATERNAL [phone] [facility] & CHILD [address] [place] [address] 2020-08-13 2020-08-13 Routine [facility] 1.2.741.858 [id number] Univers 09:08:10 09:23:10 Yovany C EDM OPERATOR 350.1.13.10 ity of Visit [facility] 4.2.7.2.686 Dayron as MATERNAL [phone] [facility] & CHILD [address] [place] [address] 2020-08-13 2020-08-13 Outpatient R [facility] [id number] Univers 09:00:00 09:00:00 YOVANY ity o f [facility] 2020-08-04 2020-08-04 Telephone [facility] 1.2.840.114 [id number] Univers 00:00:00 00:00:00 Yovany C EDM OPERATOR 350.1.13.10 ity of [facility] 4.2.7.2.686 Dayron as MATERNAL [phone] [facility] & CHILD [address] [place] [address] 2020-08-03 2020-08-03 Silk [facility]er [facility] 1.2 .840.114 [id number] Univers 09:56:55 10:56:55 Visit Dong Schaefer EDM OPERATOR 350.1.13.10 ity of [facility] 4.2.7.2.686 Dayron as MATERNAL [phone] [facility] & CHILD [address] [facility] [place] [place] 2020-08-03 2020-08-03 Outpatient P [facility] [id number] Univers 09:45:00 09:45:00 ity of [facility] 2020-08-03 2020-08-03 Telephone [facility] 1.2.840.114 [id number] Univers 00:00:00 00:00:00 Yovany C EDM OPERATOR 350.1.13.10 ity of [facility] 4.2.7.2.686 Dayron as MATERNAL [phone] [facility] & CHILD [address] [place] [address] 2020-08-03 2020-08-03 Abstract [facility] 1.2.840.114 [id number] Univers 00:00:00 00:00:00 Yovany C EDM OPERATOR 350.1.13.10 ity of [facility] 4.2.7.2.686 Dayron as MATERNAL [phone] [facility] & CHILD [address] [place] [address] 2020-07-19 2020-07-19 Silk Opener Lab, [facility] 1.2.840. 114 [id number] Univers 10:33:25 10:56:57 Visit Yovany Wilks EDM OPERATOR 350.1.13. 10 ity of [facility] 4.2.7.2.686 Dayron as MATERNAL [id number] [facility] & CHILD [address] [place] [address] 2020-07-16 2020-07-19 Routine [facility] 1.2.413.972 [id number] Univers 16:04:34 10:50:13 Yovany C EDM OPERATOR 350.1.13.10 ity of Visit REG[facility] 4.2.7.2.686 Dayron as MATERNAL [id number] [facility] & CHILD [address] [place] [address] 2020-07-19 2020-07-19 Outpatient R [facility] [id number] Univers 10:30:00 10:30:00 ity of [facility] 2020-07-16 2020-07-16 Outpatient R LASHAUN, [facility] [id number] Univers 16:00:00 16:00:00 YOVANY ity o f [facility] 2020-07-06 2020-07-06 Outpatient R LASHAUN, [facility] [id number] Univers 13:30:00 13:30:00 YOVANY ity o f [facility] 2020-07-05 2020-07-05 Outpatient R LASHAUN, [facility] [id number] Univers 15:00:00 15:00:00 YOVANY ity o f [facility] 2020-07-02 2020-07-02 Outpatient P [facility] [id number] Univers 15:30:00 15:30:00 ity of [facility] 2020-06-30 2020-06-30 Outpatient P [facility] [id number] Univers 15:15:00 15:15:00 ity of [facility] 2020-06-21 2020-06-21 Outpatient R [facility] [id number] Univers 09:00:00 09:00:00 ity [facility] 2020-06-21 2020-06-21 Telemedici Faculty, [facility] 1.2.840.114 [id number] Univers 08:13:13 08:43:13 ne Visit Arnoldo Rajput EDM OPERATOR 350.1 .13.10 ity of [facility] 4.2.7.2.686 Dayron as MATERNAL [phone] [facility] [address] [place] [address] 2020-06-14 2020-06-14 Telephone [facility] 1.2.840.114 [id number] Univers 00:00:00 00:00:00 Yovany C EDM OPERATOR 350.1.13.10 ity of [facility] 4.2.7.2.686 Dayron as MATERNAL [phone] [facility] & CHILD [address] [place] [address] 2020-06-10 2020-06-10 Telephone [facility] 1.2.840.114 [id number] Univers 00:00:00 00:00:00 Yovany C EDM OPERATOR 350.1.13.10 ity of [facility] 4.2.7.2.686 Dayron as MATERNAL [phone] [facility] [address] [place] [address] 2020-06-09 2020-06-09 Initial [facility] 1.2.415.920 [id number] Univers 10:11:08 11:24:06 Yovany Oliveira EDM OPERATOR 350.1.13.10 ity of Visit [facility] 4.2.7.2.686 Dayron as MATERNAL [phone] [facility] & CHILD [address] [place] [address] 2020-06-09 2020-06-09 [facility] [id number] Univers 10:00:00 10:00:00 YOVANY reddyy o f [facility] 2020-06-09 2020-06-09 Orders Doctor ANNE 1.2.840.114 [id number] Univers 00:00:00 00:00:00 Only Unassigned, RICARDO 350.1.13.10 ity of [place] [address].2.7.2.686 Dayron as [phone] [address] Results Test Description Test Time Test Comments Results Result Comments Source RHO (D) IMMUNE GLOBULIN 2022-08-31 09:23:22 Test Item Value Reference Range Interpretation Comme nts RHIG CANDIDATE? (test code = No- see comment Patient is not a candidate for RhIg- 5055) Patient is Rh P ositive.Performed at [facility] Blood [address] [place] [address]Pied Free: [phone] A No. [id number] [facility] ONLY - SYPHILIS [id number] 16:49:39 Test Item Value Reference Range Interpretation Comments Syphilis IgG/IgM (test Non-reactive Non-reactive code = 67452-6) BLANCO (test code = BLANCO) Non-reactive - No serologic evidence of T. pallidum infection. Cannot exclude incubating or early syphilis. Submit a second specimen in 2-4 weeks if syphilis is clinically suspected. Equivocal - Further testing to follow. Reactive - Further testing to follow. Lab Interpretation (test Normal code = 19878-3) [facility] CenterVENOUS CORD [id number] 09:48:03 Test Item Value Reference Range Interpretation Comments VENOUS BASE EXCESS, mEq/L CORD (test code = 7070528579) VENOUS PH, CORD (test 7.25-7.45 code = 6915022535) VENOUS PC02, CORD See_Comment [Automate d message] The (test code = system which ge nerated 1452591507) this result tra nsmitted reference range : 27 - 49 mmHg. The refer ence range was not used to interpret this result as normal/abnormal . VENOUS PO2, CORD (test See_Comment [Aut omated message] The code = 4580927859) system wh ich generated this result tra nsmitted reference range : 17 - 41 mmHg. The refer ence range was not used to interpret this result as normal/abnormal . VENOUS BICARBONATE, See_Comment QUES [Au tomated message] CORD (test code = The system which generated 5171326941) this result tra nsmitted reference range : 12 - 29 mEq/L. The refe rence range was not used to interpret this result as normal/abnormal . [facility] CenterARTERIAL CORD [id number] 09:47:43 Test Item Value Reference Range Interpretation Comments BASE EXCESS, CORD mEq/L QUES (test code = 7562541768) AC PH, CORD (BEAKER) 7.18-7.38 (test code = 3489059798) PC02, CORD (test code See_Comment [Auto mated message] The = 3812862830) system which g enerated this result transmit raffi reference range : 32 - 66 mmHg. The refer ence range was not used to interpret this result as normal/abnormal . PO2, CORD (test code See_Comment [Autom ated message] The = 7890800996) system which g enerated this result transmit raffi reference range : 10 - 30 mmHg. The refer ence range was not used to interpret this result as normal/abnormal . BICARBONATE, CORD See_Comment [Automate d message] The (test code = system which ge nerated this 4481849082) result transmit raffi reference range : 17 - 27 mEq/L. The refe rence range was not used to interpret this result as normal/abnormal . [facility] CenterHIV 1/2 AG-AB WITH [id number] 23:38:33 Test Item Value Reference Range Interpretation Comments HIV Negative Negative Semi-quantitative (test code = 62657-5) BLANCO (test code = Non-reactive for HIV-1 BLANCO) antigen and HIV-1/HIV-2 antibodies. ?No laboratory evidence of HIV infection. ?Repeat in 2-4 weeks if acute HIV infection is suspected. [facility] CenterHepatitis B Surface [id number] 20:57:17 Test Item Value Reference Range Interpretation Comments HBsAg Semi-Quantitative (test code = Negative Negative 5195-3) [facility] CenterType and Screen - ONCE [id number] 20:35:19 Test Item Value Reference Range Interpretation Comments ABO & RH (test code O POSITIVE Performe d at [facility] = 20) [facility] Blood [facility]3 [address] [facility] s [address]Fjnp Free: [phone] A No. [id number] IAT (test code = Negative Performed a t [facility] 1185) [facility] Blood [facility]3 [address] [facility] s [address]Flzq Free: [phone] A No. [id number] [facility] CenterCBC with [id number] 20:28:52 Test Item Value Reference Range Interpretation Comments WBC (test code = See_Comment H [Automated 6690-2) message] The sy stem which generated this result transmitted reference range : 4.30 - 11.10 10*3/?L. The reference range was not used to interpret this result as normal/abnormal . RBC (test code = See_Comment [Automated 489-8) message] The sy stem which generated this result transmitted reference range : 3.93 - 5.25 10*6/?L. The reference range was not used to interpret this result as normal/abnormal . HGB (test code = 7.2 g/dL 11.6-15.0 L 718-7) HCT (test code = 26.1 % 35.7-45.2 L 4544-3) MCV (test code = 65.3 fL 80.6-95.5 L 787-2) MCH (test code = 18.0 pg 25.9-32.8 L 785-6) MCHC (test code = 27.6 g/dL 31.6-35.1 L 786-4) RDW-SD (test code = 45.3 fL 39.0-49.9 25870-5) RDW-CV (test code = 19.9 % 12.0-15.5 H 788-0) PLT (test code = See_Comment H [Automated 777-3) message] The sy stem which generated this result transmitted reference range : 166 - 358 10*3/ ?L. The reference r yessi was not used to interpret this result as normal/abnormal . MPV (test code = 10.7 fL 9.5-12.9 08861-8) IPF % (test code = 5.4 % 1.3-7.7 Platelet count 6100752021) measured by fluorescence method. NRBC/100 WBC (test See_Comment [Automat ed code = 8306692459) message] The system which generated this result transmitted reference range : 0.0 - 10.0 /100 WBCs. The refer ence range was not u sed to interpret th is result as normal/abnormal . NRBC x10^3 (test code See_Comment [Auto mated = 0007665066) message] The s ystem which generated this result transmitted reference range : 10*3/?L. The reference range was not used to interpret this result as normal/abnormal . GRAN MAT (NEUT) % 78.6 % (test code = 770-8) IMM GRAN % (test code 1.00 % = 5505390826) LYMPH % (test code = 14.9 % 736-9) MONO % (test code = 4.0 % 5905-5) EOS % (test code = 1.3 % 713-8) BASO % (test code = 0.2 % 706-2) GRAN MAT x10^3(ANC) 9.89 10*3/uL 1.88-7.09 H (test code = 5566621233) IMM GRAN x10^3 (test 0.13 10*3/uL 0.00-0.06 H code = 5581714161) LYMPH x10^3 (test code 1.88 10*3/uL 1.32-3.29 = 731-0) MONO x10^3 (test code 0.50 10*3/uL 0.33-0.92 = 742-7) EOS x10^3 (test code = 0.17 10*3/uL 0.03-0.39 711-2) BASO x10^3 (test code 0.03 10*3/uL 0.01-0.07 = 704-7) Lab Interpretation Abnormal (test code = 18470-9) [facility] CenterUric Acid [id number] 20:23:31 Test Item Value Reference Range Interpretation Comments URIC ACID (test code = 2129979672) 5.2 mg/dL 2.9-6.0 Lab Interpretation (test code = Normal 10869-0) [facility] CenterSerum [id number] 20:23:31 Test Item Value Reference Range Interpretation Comments CREATININE (test code 0.56 mg/dL 0.50-1.04 = 7874382189) eGFR (test code = mL/min/1.73m2 0061634583) BLANCO (test code = BLANCO) Association of Glomerular Filtration Rate (GFR) and Staging of Kidney Disease* + + +- +| GFR (mL/min/1.73 m2) ?| With Kidney Damage ?| ?Without Kidney Damage+ ------+ ----+ ------+| ?>90 ?| ?Stage one ?| ? Normal ?+ -+ + -+| ?60-89 ?| ?Stage two ?| ? Decreased GFR ? + + +- +| ?30-59 ?| ?Stage three ?| ? Stage three ? + + +- +| ?15-29 ?| ?Stage four ? | ? Stage four ?+ -+ + -+| ?<15 (or dialysis) ? ?| ?Stage five ? | ? Stage five ?+ -+ + -+ *Each stage assumes the associated GFR level has been in effect for at least three months. ?Stages 1 to 5, with or without kidney disease, indicate chronic kidney disease. Notes: Determination of stages one and two (with eGFR >59mL/min/1.73 m2) requires estimation of kidney damage for at least three months as defined by structural or functional abnormalities of the kidney, manifested by either:Pathological abnormalities or Markers of kidney damage (including abnormalities in the composition of the blood or urine or abnormalities in imaging tests). [facility] (Asparate Amino Transfer)2022-08-29 20:23:31 Test Item Value Reference Range Interpretation Comments AST(SGOT) (test code = 6229988656) 24 U/L 13-40 Lab Interpretation (test code = Normal 17971-5) [facility] CenterAlanine Amino Transferase (SGPT)2022-08-29 20:23:31 Test Item Value Reference Range Interpretation Comments ALTv (test code = 1742-6) 13 U/L 5-35 Lab Interpretation (test code = Normal 29483-1) [facility] CenterLactate [id number] 20:22:30 Test Item Value Reference Range Interpretation Comments LDH (test code = 1170405920) 184 U/L 120-246 Lab Interpretation (test code = Normal 90896-3) [facility] URINALYSIS W SPECIFIC [id number] 14:56:00 Test Item Value Reference Range Interpretation Comments POCT U SP GRAV (test code = 3255) . 1.005-1.025 POCT PH U (test code = 3254) . 5-8 POCT U LEUK EST (test code = 3263) . Negative - Negative POCT U NIT (test code = 3262) . Negative - Negative POCT U PROT (test code = 3259) 2+ Negative - Negative POCT U GLU (test code = 3256) normal Negative - Negative POCT U KETONE (test code = 3258) . Negative - Negative POCT U UROBILI (test code = 3260) . 0.2-1 POCT U BILI (test code = 3261) . Negative - Negative POCT U BLD (test code = 3257) . Negative - Negative POCT U COLOR (test code = 3266) . POCT U APPEAR (test code = 3267) . [facility] URINALYSIS W SPECIFIC [id number] 14:56:00 Test Item Value Reference Range Interpretation Comments POCT U SP GRAV (test code = 3255) . 1.005-1.025 POCT PH U (test code = 3254) . 5-8 POCT U LEUK EST (test code = 3263) . Negative - Negative POCT U NIT (test code = 3262) . Negative - Negative POCT U PROT (test code = 3259) 2+ Negative - Negative POCT U GLU (test code = 3256) normal Negative - Negative POCT U KETONE (test code = 3258) . Negative - Negative POCT U UROBILI (test code = 3260) . 0.2-1 POCT U BILI (test code = 3261) . Negative - Negative POCT U BLD (test code = 3257) . Negative - Negative POCT U COLOR (test code = 3266) . POCT U APPEAR (test code = 3267) . [facility] URINALYSIS W SPECIFIC [id number] 16:15:00 Test Item Value Reference Range Interpretation Comments [...] POCT U APPEAR (test code = 3267) [facility] URINALYSIS W SPECIFIC [id number] 16:15:00 Test Item Value Reference Range Interpretation Comments [...] POCT U APPEAR (test code = 3267) [facility] URINALYSIS W SPECIFIC [id number] 16:09:00 Test Item Value Reference Range Interpretation Comments [...] POCT U COLOR (test code = 3266) . POCT U APPEAR (test code = 3267) . [facility] URINALYSIS W SPECIFIC [id number] 14:10:00 Test Item Value Reference Range Interpretation Comments [...] POCT U GLU (test code = 3256) normal Negative - Negative POCT U KETONE (test code = 3258) . Negative - Negative POCT U UROBILI (test code = 3260) . 0.2-1 POCT U BILI (test code = 3261) . Negative - Negative POCT U BLD (test code = 3257) . Negative - Negative POCT U COLOR (test code = 3266) lauren POCT U APPEAR (test code = 3267) clear [facility] URINALYSIS W SPECIFIC [id number] 14:10:00 Test Item Value Reference Range Interpretation Comments [...] POCT U GLU (test code = 3256) normal Negative - Negative POCT U KETONE (test code = 3258) . Negative - Negative POCT U UROBILI (test code = 3260) . 0.2-1 POCT U BILI (test code = 3261) . Negative - Negative POCT U BLD (test code = 3257) . Negative - Negative POCT U COLOR (test code = 3266) lauren POCT U APPEAR (test code = 3267) clear [facility] URINALYSIS W SPECIFIC [id number] 13:42:00 Test Item Value Reference Range Interpretation Comments POCT U SP GRAV (test code = * 1.005-1.025 3255) POCT PH U (test code = 3254) 5 mg/dl 5-8 POCT U LEUK EST (test code = negative Negative - Negative 3263) POCT U NIT (test code = 3262) negative Negative - Negative POCT U PROT (test code = 3259) trace Negative - Negative POCT U GLU (test code = 3256) negative Negative - Negative POCT U KETONE (test code = 3258) negative Negative - Negative POCT U UROBILI (test code = * 0.2-1 3260) POCT U BILI (test code = 3261) * Negative - Negative POCT U BLD (test code = 3257) negative Negative - Negative POCT U COLOR (test code = 3266) POCT U APPEAR (test code = 3267) [facility] 09:07:00 RUN DATE: 05/06/19 [facility] PAGE 1 RUN TIME: 907 Specimen Inquiry RUN USER: INTERFACE ANTONIETTA ENT: RAFAEL STAFFORD Kenton LOC: [facility] U #: [id number] AGE/SX: ROOM: 2004 RE04/29/19REG DR: Johanna Sanders : 86 BED: A DIS: 05/02/19 STATUS: DIS IN TLOC: SPEC #: [id number] RECD: 04/30/19 STATUS: BRYAN RELee Ann #: [id number] MUNA: 04/29/19- [facility] DR: Johanna Sanders MD ENTERED: 04/30/19 SP TYPE: PLACENTA OTHR DR: ORDERED: GROSS PROCEDURES: GROSS (05/05/19-1147) TISSUES: PLACENTA, NOS CLINICAL HISTORY COLLECTION DATE: 04/29/19 FINAL DIAGNOSIS Placenta, vaginal delivery: TERM APPEARING PLACENTA WITH SUBCHORIONIC AND PERIVILLOUS FIBRINOID DEPOSITION NO VILLITIS OR INFARCTIONIDENTIFIED TRIVASCULAR UMBILICAL CORD FREE OF INFLAMMATION MEMBRANES FREE OF INFLAMMATION NEGATIVE FOR MALIGNANCY RRB/sm D 12588 MACROSCOPIC The specimen is received without fixative in a container labeled with the patient's name, and identified as "placenta". 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 The placenta measures 15.0 x 13.0 x up to 3.5 cm and has a trimmed weight of 385.6 grams. A segment of vogt trivascular umbilical cord inserts paracentrally. The s egment measures 42 cm in length with diameter up to 1.0 cm. No knots are present in the cord. The membranes are chen-vogt to vogt-pink, thin, wrinkled and insert marginally. The surface is blue-chen with unremarkable appearing vasculature. The maternal surface is red-brown, spongy and appears to be intact. Sectioning through the placenta shows no focal lesions. [facility] sections through the tissue shows no focal lesions. [facility] portions of tissue are submitted for histologic evaluation (1A-1C). GROSS PERFORMED AT [facility] CONTINUED ON NEXT PAGE RUN DATE: 05/06/19 [facility] PAGE 2 RUN TIME: 907 Specimen Inquiry RUN USER: INTERFACE SPEC #: [id number] PATIENT: RAFAEL STAFFORD Kenton #[id number] (Continued) MACROSCOPIC (Continued) [facility] [address], [place] [address] (p)[phone] MICROSCOPIC All of the stains, including any controls performed, stain appropriately. MICROSCOPIC PERFORMED AT [facility] [address] [place] [address] [phone])[phone] PERFORMING SITE Diagnosis performed at: [facility] [address] [place] [address] Signed SIGNATURE ON FILE Salvatore Pascal MD 05/06/19 0907 END OF REPORT COMPREHENSIVE METABOLIC [id number] 10:33:00 Test Item Value Reference Range Interpretation [...] ALKP) to change in reagent. COMPREHENSIVE METABOLIC [id number] 10:27:00 Test Item Value Reference Range Interpretation [...] IUnit/L 45-117 code = ALKP) CBC W/AUTO [id number] 13:30:00 Test Item Value Reference Range Interpretation [...] code = MDIFF) SPECIMEN COMMENTS: day 1DIFFERENTIAL [id number] 13:30:00 Test Item Value Reference Range Interpretation [...] = PLTMORPH) SPECIMEN COMMENTS: day 1COMPREHENSIVE METABOLIC [id number] 13:08:00 Test Item Value Reference Range Interpretation [...] mg/dL 8.5-10.1 LL Results called to CA) [id number] by YOUSUF 04/30 1308Critical results verifie d and read back b y Nurse? Y BILIRUBIN TOTAL (test 0.30 mg/dL 0.0-1.0 N code = BILT) SGOT/AST (test code = 33 IUnit/L 15-37 N AST) SGPT/ALT (test code = 23 IUnit/L 12-78 N ALT) ALKALINE PHOSPHATASE 220 IUnit/L 45-117 H Note change in TOTAL (test code = reference range due ALKP) to change in reagent. [id number] 13:08:00 Test Item Value Reference Range Interpretation Comments MAGNESIUM (test code = MAG) 6.6 mg/dL 1.8-2.4 H CBC W/AUTO [id number] 12:58:00 Test Item Value Reference Range Interpretation [...] code = MDIFF) SPECIMEN COMMENTS: day 1DIFFERENTIAL [id number] 12:58:00 Test Item Value Reference Range Interpretation Comments STAIN ACCEPTABILITY (test code = STN ACCEPTABLE) CABOT RINGS (test code = CAB) MORPHOLOGY COMMENT (test code = MOC) PLATELET ESTIMATE (test code = PLTEST) PLATELET MORPHOLOGY (test code = PLTMORPH) SPECIMEN COMMENTS: day 1CBC W/AUTO [id number] 12:58:00 Test Item Value Reference Range Interpretation [...] code = MDIFF) SPECIMEN COMMENTS: day 1DIFFERENTIAL [id number] 12:58:00 Test Item Value Reference Range Interpretation Comments STAIN ACCEPTABILITY (test code = STN ACCEPTABLE) MORPHOLOGY COMMENT (test code = MOC) PLATELET ESTIMATE (test code = PLTEST) PLATELET MORPHOLOGY (test code = PLTMORPH) SPECIMEN COMMENTS: day 1CBC W/AUTO [id number] 12:58:00 Test Item Value Reference Range Interpretation [...] code = MDIFF) SPECIMEN COMMENTS: day 1DIFFERENTIAL [id number] 12:58:00 Test Item Value Reference Range Interpretation Comments STAIN ACCEPTABILITY (test code = STN ACCEPTABLE) MORPHOLOGY COMMENT (test code = MOC) PLATELET ESTIMATE (test code = PLTEST) PLATELET MORPHOLOGY (test code = PLTMORPH) SPECIMEN COMMENTS: day 1CBC W/AUTO [id number] 12:58:00 Test Item Value Reference Range Interpretation [...] code = MDIFF) SPECIMEN COMMENTS: day 1DIFFERENTIAL [id number] 12:58:00 Test Item Value Reference Range Interpretation Comments STAIN ACCEPTABILITY (test code = STN ACCEPTABLE) CABOT RINGS (test code = CAB) MORPHOLOGY COMMENT (test code = MOC) PLATELET ESTIMATE (test code = PLTEST) PLATELET MORPHOLOGY (test code = PLTMORPH) SPECIMEN COMMENTS: day 1COMPREHENSIVE METABOLIC [id number] 12:50:00 Test Item Value Reference Range Interpretation [...] TOTAL (test IUnit/L 45-117 code = ALKP) [id number] 12:50:00 Test Item Value Reference Range Interpretation Comments MAGNESIUM (test code = MAG) mg/dL 1.8-2.4 [id number] 22:22:00 Test Item Value Reference Range Interpretation Comments MAGNESIUM (test code = MAG) 5.6 mg/dL 1.8-2.4 H HIV 1 2 COMBO AG/AB [id number] 14:02:00 Test Item Value Reference Range Interpretation Comments HIV 1 2 COMBO AB/AG NON NONREACTIVE NONREACTIVE H IV P24 AG/AB SCREEN REACTIVE ANTIGEN NONREAC TIVE (test code = NONREACTIVE HIV 1&2 [id number]) ANTIBODY NONREA CTIVE THE HIV-1 P24 T EST HELPS DISTINGUI SH ACUTE HIV-1INFECTIONF ROM ESTABLISHED HIV -1 INFECTION WHEN THE SPECIMEN ISPOSI TIVE FOR HIV-1 P24 A NTIGEN. HIV-1 P24 ANTIG EN IS HIGHEST IN THE FIRST FEW WEEKS AFTERINFECTION DRUGS OF ABUSE SCREEN [id number] 13:55:00 Test Item Value Reference Range Interpretation [...] C/MS) is thepreferred co nfirmatory method. Other c hemical confirmationmet hods are available. Clin ical consideration a nd professional ju dgment should [...] C/MS) is thepreferred co nfirmatory method. Other c hemical confirmationmet hods are available. Clin ical consideration a nd professional ju dgment should [...] <300 ng/mL code = METHAURN) CBC W/AUTO [id number] 13:51:00 Test Item Value Reference Range Interpretation [...] SCAN NEEDED (test code = MDIFF) DIFFERENTIAL [id number] 13:51:00 Test Item Value Reference Range Interpretation [...] (test NORMAL code = PLTMORPH) CBC W/AUTO [id number] 13:32:00 Test Item Value Reference Range Interpretation [...] SCAN NEEDED (test code = MDIFF) DIFFERENTIAL [id number] 13:32:00 Test Item Value Reference Range Interpretation [...] (test NORMAL code = PLTMORPH) CBC W/AUTO [id number] 13:31:00 Test Item Value Reference Range Interpretation [...] SCAN NEEDED (test code = MDIFF) DIFFERENTIAL [id number] 13:31:00 Test Item Value Reference Range Interpretation Comments STAIN ACCEPTABILITY (test code = STN ACCEPTABLE) CABOT RINGS (test code = CAB) MORPHOLOGY COMMENT (test code = MOC) PLATELET ESTIMATE (test code = PLTEST) PLATELET MORPHOLOGY (test code = PLTMORPH) CBC W/AUTO [id number] 13:31:00 Test Item Value Reference Range Interpretation [...] SCAN NEEDED (test code = MDIFF) DIFFERENTIAL [id number] 13:31:00 Test Item Value Reference Range Interpretation Comments STAIN ACCEPTABILITY (test code = STN ACCEPTABLE) CABOT RINGS (test code = CAB) MORPHOLOGY COMMENT (test code = MOC) PLATELET ESTIMATE (test code = PLTEST) PLATELET MORPHOLOGY (test code = PLTMORPH) CBC W/AUTO [id number] 13:31:00 Test Item Value Reference Range Interpretation [...] SCAN NEEDED (test code = MDIFF) DIFFERENTIAL [id number] 13:31:00 Test Item Value Reference Range Interpretation Comments STAIN ACCEPTABILITY (test code = STN ACCEPTABLE) MORPHOLOGY COMMENT (test code = MOC) PLATELET ESTIMATE (test code = PLTEST) PLATELET MORPHOLOGY (test code = PLTMORPH) CBC W/AUTO [id number] 13:31:00 Test Item Value Reference Range Interpretation [...] SCAN NEEDED (test code = MDIFF) DIFFERENTIAL [id number] 13:31:00 Test Item Value Reference Range Interpretation Comments STAIN ACCEPTABILITY (test code = STN ACCEPTABLE) CABOT RINGS (test code = CAB) MORPHOLOGY COMMENT (test code = MOC) PLATELET ESTIMATE (test code = PLTEST) PLATELET MORPHOLOGY (test code = PLTMORPH) DRUGS OF ABUSE SCREEN [id number] 13:10:00 Test Item Value Reference Range Interpretation [...] C/MS) is thepreferred co nfirmatory method. Other c hemical confirmationmet hods are available. Clin ical consideration a nd professional ju dgment should [...] C/MS) is thepreferred co nfirmatory method. Other c hemical confirmationmet hods are available. Clin ical consideration a nd professional ju dgment should [...] ng/mL code = METHAURN) AG HEPAT B [id number] 13:05:00 Test Item Value Reference Range Interpretation Comments AG HEPAT B SURF (test code Nonreactive Index Nonreactive = HBSAG) AB RUBELLA [id number] 13:05:00 Test Item Value Reference Range Interpretation Comments AB RUBELLA IGG Positive <5.0=Neg IU/ML INTERP RETATION (test code = IUnit/mL OF SERUM RUBELL A-IGG RUBGAB) AB --------- ------- ---< 5.0 NEGATIVE - NO RUBELLA IGG ANT IBODY DETECTED5.0-9.9 EQUIVOCAL>= 10. 0 POSITIVE - RUBE LLA IGG ANTIBODY DETECT ED AB [id number] 13:05:00 Test Item Value Reference Range Interpretation Comments AB TREPONEMA (test code = Nonreactive Index NonReactive TREPAB) URINALYSIS [id number] 12:57:00 Test Item Value Reference Range Interpretation [...] #/LPF FEW A Urine Source? CatheterCOMPREHENSIVE METABOLIC [id number] 12:27:00 Test Item Value Reference Range Interpretation [...] MDRD formula.Chronic kidney disease is defined as [facility] er kidney damageor GFR <60 mL/min/1.73 m2 [...] ALKP) to change in reagent. COMPREHENSIVE METABOLIC [id number] 12:22:00 Test Item Value Reference Range Interpretation [...] IUnit/L 45-117 code = ALKP) CBC W/AUTO [id number] 12:17:00 Test Item Value Reference Range Interpretation [...] 0.0-0.1 N NRBC#) DRUGS OF ABUSE SCREEN [id number] 14:29:00 Test Item Value Reference Range Interpretation [...] C/MS) is thepreferred co nfirmatory method. Other c hemical confirmationmet hods are available. Clin ical consideration a nd professional ju dgment should [...] C/MS) is thepreferred co nfirmatory method. Other c hemical confirmationmet hods are available. Clin ical consideration a nd professional ju dgment should [...] NEGATIVE <300 ng/mL code = METHAURN) URINALYSIS [id number] 14:15:00 Test Item Value Reference Range Interpretation [...] Urine Source? Clean CatchDRUGS OF ABUSE SCREEN [id number] 14:07:00 Test Item Value Reference Range Interpretation [...] (test code = METHAURN) <300 ng/mL URINALYSIS [id number] 14:05:00 Test Item Value Reference Range Interpretation [...] Urine Source? Clean Catch- US PREG AFTER [id number] 20:34:00 Name: RAFAEL STAFFORD [facility] : 1990 Age/S: 28 / F [address] Unit #: [id number] Loc: [place] [address] Phys: Anselmo Barber NP Acct: [id number] Dis Date: Status: REG ANDERHONE #: [phone] Exam Date: 12/11/20181803 FAX #: [phone] Reason: PELVIC PAIN EXAMS: CPT CODE: [id number] US PREG AFTER TRI [id number] EXAM: ultrasound after first trimester; INFORMA TION: Pelvic pain; TECHNIQUE AND FINDINGS: Transabdominal grayscale [...] STEFFEN is 15.9 cm. The ovaries are ofnormal size and shape and with normal flow pattern on Doppler exam. The right ovary measures 2.5 x 1.4 x 1.4 cm. The left ovary measures 2.5 x 1.2 x 1.9 cm. It contains a 1.2 cm cyst. IMPRESSION: 1. Single, viable intrauterine with a gestational age of 19 weeks and 1 day. 2. ANNEMARIE by ultrasound is 05/06/2019. 3. Small left ovarian cyst. 4. Fetus in breech position. at 2033 Reported and signed by: Aldo Mccauley M.D. CC: Anselmo Barber NP Technologist: Beatriz Dowell RDMS [facility] Date/Time: 12/11/2018 (2033)Bon Orig Print D/T: S: 12/11/2018 (2036) Probe: PAGE 1 Signed ReportURINALYSIS [id number] 19:40:00 Test Item Value Reference Range Interpretation [...] Urine Source? Clean CatchDRUGS OF ABUSE SCREEN [id number] 19:40:00 Test Item Value Reference Range Interpretation [...] C/MS) is thepreferred co nfirmatory method. Other c hemical confirmationmet hods are available. Clin ical consideration a nd professional ju dgment should [...] code = METHAURN) Urine Source? Clean CatchURINALYSIS [id number] 18:38:00 Test Item Value Reference Range Interpretation [...] Urine Source? Clean CatchDRUGS OF ABUSE SCREEN [id number] 18:38:00 Test Item Value Reference Range Interpretation [...] METHAURN) <300 ng/mL Urine Source? Clean CatchURINALYSIS [id number] 18:35:00 Test Item Value Reference Range Interpretation [...] Urine Source? Clean CatchDRUGS OF ABUSE SCREEN [id number] 18:35:00 Test Item Value Reference Range Interpretation [...]
[2023-07-22] MEDS ORDERED: FAMOTIDINE 20 MG/2 ML VIAL IV ONE (19:56)
[2023-07-22] MEDS ORDERED: NA CHLORIDE 0.9% 1,000 ML ONE (19:56)
[2023-07-22] MEDS ORDERED: MORPHINE 4 MG/ML SYR ONE (19:56)
[2023-07-22 20:01] LABS: Absolute Lymphocytes (CBC) 2.5 K/uL (0.7-4.9); Hematocrit 27.3 % (36.0-45.0); Lymphocytes % 34.9 % (15.3-44.8); MPV 8.9 fL (7.6-11.3); Platelets 329 thou/uL (152-406); RBC Red Blood Cell Count 4.08 M/uL (3.86-4.86)
[2023-07-22 20:06] LABS: Urine Bilirubin NEGATIVE (Negative); Urine Clarity Clear (Clear); Urine Color Light-Yellow (Yellow); Urine Glucose NEGATIVE (Negative)
[2023-07-22 20:07] LABS: Urine Bacteria None Seen /HPF (<20); Urine Blood Negative (Negative); Urine Mucus Slight /HPF (None Seen); Urine Protein TRACE (Negative); Urine RBC <5 /HPF (None Seen); Urine Urobilinogen 1+ (Normal); Urine pH 5.5 (5.0-7.0)
[2023-07-22 20:18] LABS: Albumin 3.1 g/dL (3.4-5.0); Bilirubin Total 0.2 mg/dL (0.2-1.0); Potassium 3.8 mEq/L (3.5-5.1); Protein, Total 6.7 g/dL (6.4-8.2)
[2023-07-22 20:24] LABS: Platelet Estimate ADEQ; White Blood Cell Scan OK (OK)
[2023-07-22 20:25] LABS: Blood Morphology Comment NOT SEEN (NOT SEEN)
--- NOTE | 2023-07-22 21:20 | RAD REPORT ---
EXAM DESCRIPTION: CTAbdomen Pelvis W Contrast - 07/22/2023 9:04 pm CLINICAL HISTORY: ABD PAIN COMPARISON: No comparisons TECHNIQUE: CT of the abdomen and pelvis was performed. All CT scans are performed using dose optimization technique as appropriate and may include automated exposure control or mA/KV adjustment according to patient size. FINDINGS: Lower chest: No acute abnormality. Liver: No acute abnormality or suspicious lesions. Biliary: No biliary ductal dilatation. Stomach: No significant focal abnormality. Duodenum: No significant focal abnormality. Pancreas: No significant abnormality. Spleen: No significant abnormality. Adrenal: No suspicious lesions. Kidney/ureter: No hydronephrosis. No renal calculi. Retroperitoneum: No retroperitoneal adenopathy. Vascular: No aneurysm. Bowel: No bowel obstruction. Fluid-filled distal small bowel with multiple air-fluid levels noted.. T here is also fluid distension of the ascending colon. Peritoneum: Trace pelvic free fluid. Moderate fat containing umbilical hernia. Some of the fat within the hernia does some mild stranding. Bladder: Grossly unremarkable. Reproductive: No adnexal masses. Question arcuate uterus. Bones: No acute fracture. Other: n/a IMPRESSION: Fluid-filled distal small bowel and proximal colon likely reflecting the presence of a m ild enterocolitis. No bowel obstruction. Normal appendix. Fat containing periumbilical hernia with some edema of the herniated fat which could indicate incarce ration or strangulation in the appropriate clinical setting.
--- NOTE | 2023-07-22 22:16 | ER ---
Nurse's Notes [facility] Name: Fifi Grimm Age: 33 yrs Sex: Female : 1990 Arrival Date: 07/22/2023 Time: 18:59 Bed 5 Private MD: Diagnosis: Nausea with vomiting, unspecified;Diarrhea, unspecified;Abdominal pain, Generalized Presentation: 07/22 19:12 Chief complaint: Patient states: she started having left sided abdominal pain yesterday ap3 with nausea and diarrhea. patient also reports blood in stool that started today. patient states that her pain is currently a 9/10 on the pain scale. Coronavirus screen: At this time, the client does not indicate any symptoms associated with coronavirus-19. Ebola Screen: No symptoms or risks identified at this time. Initial Sepsis Screen: Does the patient meet any 2 criteria? No. Patient's initial sepsis screen is negative. Does the patient have a suspected source of infection? Yes: Acute abdominal pain. Risk Assessment: Do you want to hurt yourself or someone else? Patient reports no desire to harm self or others. Onset of symptoms was July 21, 2023. 19:12 Method Of Arrival: Ambulatory ap3 19:12 Acuity: WOO 3 ap3 Triage Assessment: 19:14 General: Appears uncomfortable, Behavior is calm, cooperative, appropriate for age. ap3 Pain: Complains of pain in left upper quadrant and left lower quadrant Pain currently is 9 out of 10 on a pain scale. Pain began 1 day ago. Alleviated by heat application, Aggravated by increased activity. Neuro: Level of Consciousness is awake, alert, obeys commands, Oriented to person, place, time, situation. Cardiovascular: Patient's skin is warm and dry. Respiratory: Airway is patent Respiratory effort is even, unlabored, Respiratory pattern is regular, symmetrical. GI: Reports lower abdominal pain, upper abdominal pain, diarrhea, rectal bleeding, nausea, vomiting. 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 - Social history:: Smoking status: Patient denies any tobacco usage or history of. Screenin:14 Abuse screen: Denies threats or abuse. Nutritional screening: No deficits noted. ap3 Tuberculosis screening: No symptoms or risk factors identified. 19:55 [facility] ED Fall Risk Assessment (Adult) History of falling in the last 3 months, cp4 including since admission No falls in past 3 months (0 pts) Confusion or Disorientation No (0 pts) Intoxicated or Sedated No (0 pts) Impaired Gait No (0 pts) Mobility Assist Device Used No (0 pt) Altered Elimination No (0 pt) Score/Fall Risk Level 0 - 2 = Low Risk Oriented to surroundings, Maintained a safe environment, Educated pt \T\ family on fall prevention, incl call for assistance when getting out of bed, Hourly rounding (assess needs \T\ fall precautionary measures) done. Assessment: 19:55 General: Appears in no apparent distress. Behavior is calm, cooperative, appropriate cp4 for age. Pain: Complains of pain in left lower quadrant Pain currently is 9 out of 10 on a pain scale. GI: Bowel sounds present X 4 quads. Abd is soft and non tender X 4 quads. 22:24 Reassessment: Pt noted with vomiting episode and MD notified. Verbal order of zofran nw1 and PO challenge made. 22:40 Reassessment: Pt states nausea is not resolved. Will return to assess nausea in 10 mn. nw1 23:00 General: Pt given water and crackers for PO challenge. No further emesis noted or la4 reported by patient. Ok to DC to home per plan of care w/ medications. Dr. Villela notified of outcome of PO challenge.. Vital Signs: 19:12 BP 135 / 99; Pulse 65; Resp 18; Temp 98.8; Pulse Ox 100% ; Weight 63.5 kg; Height 4 ft. ap3 11 in. ; Pain 9/10; 22:25 BP 134 / 81; Pulse 71; Pulse Ox 100% ; nw1 22:56 BP 134 / 88; Pulse 62; Resp 20; Pulse Ox 100% on R/A; la4 23:11 BP 137 / 89; Pulse 65; Resp 18; Temp 97.8; Pulse Ox 98% on R/A; la4 19:12 Body Mass Index 28.28 (63.50 kg, 149.86 cm) ap3 19:12 Pain Scale: Adult ap3 Vitals: 22:56 Cardiac Rhythm Assessment Regular Sinus ida. Cardiac Rhythm Assessment. la4 23:11 Cardiac Rhythm Assessment Regular Sinus ida. la4 Pamela Coma Score: 22:56 Eye Response: spontaneous(4). Motor Response: obeys commands(6). Verbal Response: la4 oriented(5). Total: 15. 23:11 Eye Response: spontaneous(4). Motor Response: obeys commands(6). Verbal Response: la4 oriented(5). Total: 15. ED Course: 19:04 Patient arrived in ED. ts1 19:09 Cedric Villela DO is Attending Physician. ms3 19:13 Triage completed. ap3 19:15 Arm band placed on left wrist. ap3 19:29 Maggie Mclean is Primary Nurse. cp4 19:54 CBC with Diff Sent. cp4 19:54 CMP Sent. cp4 19:54 Lipase Sent. cp4 19:54 Test, Urine Sent. cp4 19:54 Urinalysis w/ reflexes Sent. cp4 19:55 Bed in low position. Call light in reach. Side rails up X 1. cp4 19:55 No provider procedures requiring assistance completed. Inserted saline lock: 20 gauge cp4 in right antecubital area, using aseptic technique. Blood collected. 21:06 CT Abd/Pelvis - IV Contrast Only In Process Unspecified. EDMS 22:16 Eleuterio Martinez DO is Referral Physician. ms3 23:13 Provided Education on: discharge instructions and need for follow up. la4 23:13 intact, bleeding controlled, No redness/swelling at site. Pressure dressing applied. la4 Administered Medications: 19:53 Drug: Famotidine IVP 20 mg IVP once; dilute with 10 mL 0.9% NaCl; give over 2 minutes cp4 Route: IVP; Site: right antecubital; 19:54 Drug: NS 0.9% IV 1000 ml IV at 1 bolus Per protocol; 1000 mL bolus Route: IV; Rate: 1 cp4 bolus; Site: right antecubital; 19:54 Drug: morphine IVP or IV 4 mg IVP once over 4 mins Route: IVP; Infused Over: 4 mins; cp4 Site: right antecubital; 22:23 Drug: Ondansetron PO 4 mg PO once Route: PO; nw1 22:48 Follow up: Response: No adverse reaction; Nausea unchanged nw1 22:58 Follow up: Response: Nausea is decreased la4 Medication: 19:55 VIS not applicable for this client. cp4 Outcome: 22:16 Discharge ordered by . ms3 23:12 Discharged to home ambulatory, with friend, malachi 23:12 Condition: improved 23:12 Discharge instructions given to patient, Instructed on discharge instructions, follow up and referral plans. no drinking with medication, medication usage, Demonstrated understanding of instructions, follow-up care, medications, Prescriptions given X 2, 23:14 Patient left the ED. la4 Signatures: Dispatcher [employer] EDMS Sammi Cohen RN RN ap3 Cedric Villela, DO ms3 Eloisa Salgado, JORDAN PAS ts1 Maggie Mclean cp4 Marek Wood RN RN la4 Shweta Modi RN RN nw1
--- NOTE | 2023-07-22 22:16 | EDPHYS ---
Physician Documentation [facility] Name: Fifi Grimm Age: 33 yrs Sex: Female : 1990 Arrival Date: 07/22/2023 Time: 18:59 Bed 5 Private MD: ED Physician Cedric Villela HPI: 07/22 20:19 This 33 yrs old Female presents to ER via Ambulatory with complaints of ms3 Abdominal Pain, Back Pain, Nausea/Vomiting. 20:19 33-year-old female with no past medical history presents to the emergency department ms3 for nausea, vomiting, diarrhea, back pain that began yesterday. Patient states at 5 PM she noted blood in her stool. Patient states she is having generalized abdominal pain that she rates an 8/10. Patient states applying heat to her abdomen helps her discomfort. Patient states caring her son makes the pain worse. Patient endorses chills. Patient denies fevers, chest pain, shortness of breath. 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 - Social history:: Smoking status: Patient denies any tobacco usage or history of. ROS: 20:19 Constitutional: Negative for fever, and chills. Neck: Negative for injury, pain, and ms3 swelling, Cardiovascular: Negative for chest pain, and palpitations. Respiratory: Negative for shortness of breath, cough, wheezing, and pleuritic chest pain, 20:19 MS/Extremity: Negative for injury and deformity, Skin: Negative for injury, rash, and discoloration, 20:19 Abdomen/GI: Positive for abdominal pain, nausea, vomiting, and diarrhea, 20:19 All other systems are negative, Exam: 20:19 Constitutional: This is a well developed, well nourished patient who is awake, alert, ms3 and in no acute distress. Head/Face: Normocephalic, atraumatic. Neck: Trachea midline, no cervical lymphadenopathy. Supple, full range of motion without nuchal rigidity, or vertebral point tenderness. No Meningismus. Chest/axilla: Normal chest wall appearance and motion. Nontender with no deformity. Cardiovascular: Regular rate and rhythm with a normal S1 and S2. No gallops, murmurs, or rubs. Normal PMI, no JVD. No pulse deficits. Respiratory: Lungs have equal breath sounds bilaterally, clear to auscultation and percussion. No rales, rhonchi or wheezes noted. No increased work of breathing, no retractions or nasal flaring. 20:19 Skin: Warm, dry with normal turgor. Normal color with no rashes, no lesions, and no evidence of cellulitis. MS/ Extremity: Pulses equal, no cyanosis. Neurovascular intact. Full, normal range of motion. 20:19 Abdomen/GI: Inspection: abdomen appears normal, Bowel sounds: normal, Palpation: mild abdominal tenderness, in the umbilical area, 20:19 Abdomen/GI: Rectal exam: rectal tone normal, Stool: brown, the exam is chaperoned by ms3 the nurse, Vital Signs: 19:12 BP 135 / 99; Pulse 65; Resp 18; Temp 98.8; Pulse Ox 100% ; Weight 63.5 kg; Height 4 ft. ap3 11 in. ; Pain 9/10; 22:25 BP 134 / 81; Pulse 71; Pulse Ox 100% ; nw1 22:56 BP 134 / 88; Pulse 62; Resp 20; Pulse Ox 100% on R/A; la4 23:11 BP 137 / 89; Pulse 65; Resp 18; Temp 97.8; Pulse Ox 98% on R/A; la4 19:12 Body Mass Index 28.28 (63.50 kg, 149.86 cm) ap3 19:12 Pain Scale: Adult ap3 Pamela Coma Score: 22:56 Eye Response: spontaneous(4). Motor Response: obeys commands(6). Verbal Response: la4 oriented(5). Total: 15. 23:11 Eye Response: spontaneous(4). Motor Response: obeys commands(6). Verbal Response: la4 oriented(5). Total: 15. MDM: 19:21 Patient medically screened. ms3 20:23 Differential diagnosis: appendicitis, diverticulitis, non-specific abd pain. ms3 21:02 Independent interpretation of the following test(s) in the Emergency Department CT ms3 Scan: My interpretation is CT abdomen/pelvis images reviewed by me shows bowel obstruction. 22:30 Data reviewed: vital signs, nurses notes, and as a result, I will discharge patient. I ms3 considered the following discharge prescriptions or medication management in the emergency department Medications were administered in the Emergency Department. See MAR. Care significantly affected by the following Social Determinants of Health: Poor access to healthcare and/or lack of insurance. Counseling: I had a detailed discussion with the patient and/or guardian regarding the historical points, exam findings, and any diagnostic results supporting the discharge/admit diagnosis, lab results, radiology results, the need for outpatient follow up, to return to the emergency department if symptoms worsen or persist or if there are any questions or concerns that arise at home. Special discussion: I discussed with the patient/guardian in detail that at this point there is no indication for admission to the hospital. It is understood, however, that if the symptoms persist or worsen the patient needs to return immediately for re-evaluation. ED course: Discussed CT final read, labs with patient. Patient to follow-up with primary care physician in 2 to 3 days. Patient understands and agrees with plan. All questions were answered. Return precautions discussed include worsening symptoms, or any other concerns. On reevaluation patient is alert and orient x4, no apparent distress, nontoxic-appearing, ambulatory in the emergency department, speaking full sentences, abdominal exam benign. 07/22 19:22 Order name: CBC with Diff; Complete Time: 20:37 ms3 07/22 19:22 Order name: CMP; Complete Time: 20:37 ms3 07/22 19:22 Order name: Lipase; Complete Time: 20:37 ms3 07/22 19:22 Order name: Test, Urine; Complete Time: 20:37 ms3 07/22 19:22 Order name: Urinalysis w/ reflexes; Complete Time: 20:37 ms3 07/22 20:07 Order name: CBC Smear Scan; Complete Time: 20:37 EDMS 07/22 19:22 Order name: CT Abd/Pelvis - IV Contrast Only; Complete Time: 21:22 ms3 07/22 19:22 Order name: IV Saline Lock; Complete Time: 19:54 ms3 07/22 19:22 Order name: Labs collected and sent; Complete Time: 19:54 ms3 07/22 22:21 Order name: PO challenge; Complete Time: 23:00 la4 Administered Medications: 19:53 Drug: Famotidine IVP 20 mg IVP once; dilute with 10 mL 0.9% NaCl; give over 2 minutes cp4 Route: IVP; Site: right antecubital; 19:54 Drug: NS 0.9% IV 1000 ml IV at 1 bolus Per protocol; 1000 mL bolus Route: IV; Rate: 1 cp4 bolus; Site: right antecubital; 19:54 Drug: morphine IVP or IV 4 mg IVP once over 4 mins Route: IVP; Infused Over: 4 mins; cp4 Site: right antecubital; 22:23 Drug: Ondansetron PO 4 mg PO once Route: PO; nw1 22:48 Follow up: Response: No adverse reaction; Nausea unchanged nw1 22:58 Follow up: Response: Nausea is decreased la4 Disposition Summary: 07/22/23 22:16 Discharge Ordered Notes: Location: Home ms3 Condition: Stable ms3 Diagnosis - Nausea with vomiting, unspecified ms3 - Diarrhea, unspecified ms3 - Abdominal pain, Generalized ms3 Followup: ms3 - With: Eleuterio Martinez DO - When: 2 - 3 days - Reason: Recheck today's complaints Discharge Instructions: - Discharge Summary Sheet ms3 - Abdominal Pain, Adult ms3 - Diarrhea, Adult ms3 - Nausea and Vomiting, Adult ms3 Forms: - Medication Reconciliation Form ms3 - Thank You Letter ms3 - Antibiotic Education ms3 - Prescription Opioid Use ms3 - Patient Portal Instructions ms3 - Leadership Thank You Letter ms3 Prescriptions: - ondansetron 4 mg Oral Tablet,disintegrating - take 1 tablet ORAL route every 8 hours; 15 tablet; Refills: 0, Product ms3 Selection Permitted - Pepcid 20 mg Oral Tablet - take 1 tablet ORAL route every 12 hours for 5 days; 10 tablet; Refills: 0, ms3 Product Selection Permitted Signatures: Dispatcher [employer] Sammi Prieto RN RN basia3 Cedric Villela DO DO ms3 Maggie Mclean cp4 Marek Wood RN RN la4 Shweta Modi RN RN nw1 Corrections: (The following items were deleted from the chart) 20:22 20:19 Abdomen/GI: Rectal exam: rectal tone normal, Stool: brown, ms3 ms3
[2023-07-22] MEDS ORDERED: ONDANSETRON 4 MG (ODT) TAB ONE (22:35)
== END 2023-07-22 23:14 | disposition home or self-care (01) ==
LOC: ER 18:59
DX: R10.84 Generalized abdominal pain (principal); R11.2 Nausea with vomiting, unspecified; R19.7 Diarrhea, unspecified
CPT/HCPCS: 36415; 74177; 80053; 81001; 81025; 83690; 85025; 96374; 96375; 99284; J7030; Q0162; Q9967

== ENCOUNTER 2023-07-28 08:29 | Observation (INO) | payer SELFPAY ==
--- OUTSIDE RECORDS SUMMARY | 2023-07-28 08:36 | XMS REPORT | Continuity of Care Document ---
:1990 Author Organization [facility] t Address [address] [place] [address]. [address] [place] [address] Care Team Providers Name Role Phone YOVANY WILKS Primary Care Physician Unavailable JOHN MARQUEZ Attending Clinician Unavailable JOHN MARQUEZ Attending Clinician Unavailable YOVANY WILKS Attending Clinician Unavailable Lashaun Yovany ARRIOLA Attending Clinician [phone] TRES, ANNE Attending Clinician Unavailable FRANCHESCA HUERTAS Attending Clinician Unavailable ARNOLDO RAJPUT Attending Clinician Unavailable Nolvia Elkins MD, Arnoldo Attending Clinician [phone] Jani Stoner DO Attending Clinician Justice Wong MD Attending Clinician Provider, Marlon-Rmdomingo Temp Attending Clinician Unavailable Franchesca Huertas CNM Attending Clinician Ward Wiess Attending Clinician WARD CODY Attending Clinician Unavailable Doctor Unassigned, [place] Attending Clinician Unavailable JJ AU Attending Clinician Unavailable JJ AU Attending Clinician Unavailable Ultrasound, Ang-Mfm Attending Clinician Unavailable Arianna Villeda MD Attending Clinician [phone] ARIANNA VILLEDA Attending Clinician Unavailable JJ FLORENCE Attending Clinician Unavailable Lab, Pea-Rmchp Attending Clinician Unavailable Naman ADORNO, Jj Fung Attending Clinician 1, [facility] Us Room Attending Clinician Unavailable Faculty, Marlon Quinnchpamela Mfyesenia Attending Clinician Unavailable Lab, Ang-Rmchp Attending Clinician Unavailable Masoud VARNER, Kitty Attending Clinician Unavailable Don JASSO, Amara Attending Clinician Dong Schaefer MD Attending Clinician ARNOLDO RAJPUT Admitting Clinician Unavailable Nolvia Elkins MD, Arnoldo Admitting Clinician [phone] Ronal JASSO, Arianna Novoa Admitting Clinician [phone] Payers Payer Name Policy Type Policy Number Effective Date Expiration Date S madelyn [facility] [id number] 2020 00:00:00 FOR[facility]LY [facility] [id number] 2020 CHOICE MEDICAID 00:00:00 [place]ICAID OF [place] [id number] 2020 00:00:00 MEDICAID PENDING PENDING 2020 00:00:00 Problems Condition Condition Condition Status Onset Resolution Last Treating Co mments Source Name Details Category Date Date Treatment Clinician Date Routine Routine Disease Active 2021-10 Univers 2-23 it y of follow-up follow-up 00:00: Cassie nettles 00 Medical Branch Tubal Tubal Disease Active 2021-10 Univers ligation ligation 10-29 ity of status status 00:00: [place] 00 Medical Branch Elevated Elevated Disease Active 2021-10 Unive rs blood blood 10-29 ity of pressure pressure 00:00: [place] affecting affecting 00 Medi davon Bran ch in third in third trimester, trimester, antepartum antepartum Vaginal Vaginal Disease Active Univers irritation irritation 9-28 it y of 00:00: [place] 00 Medical Branch BMI BMI Disease Active 2021-0 Univers 30.0-30.9, 30.0-30.9, 9-16 it y of adult adult 00:00: [place] 00 Medical Branch BMI BMI Disease Active 2021-0 Univers 29.0-29.9, 29.0-29.9, 7-21 it y of adult adult 00:00: [place] 00 Medical Branch BMI BMI Disease Active 2021- Univers 29.0-29.9, 29.0-29.9, 7-21 it y of adult adult 00:00: [place] 00 Medical Branch Anemia of Anemia of [...] nivers - ity of induced induced 00:00: [place] hypertensi hypertensi 00 De dical on on Branch History of History of Disease Active U nivers pre-eclamp pre-eclamp - it y of domi domi 00:00: [place] 00 Medical Branch History of History of [...] Active U nivers 2-26 ity of 00:00: [place] 00 [facility] Obesity Obesity Disease Active Univers (BMI (BMI 2-26 ity of 30-39.9) 30-39.9) 00:00: [place] 00 [facility] Tobacco Tobacco Disease Active Overview: Univ ers [...] 1-12 it y of l l 00:00: [place] thrombophl thrombophl 00 Me dical ebitis ebitis Branch Insufficie Insufficie Disease Active U nivers nt nt 9-11 ity of 00:00: [place] care in care in 00 Medical second second Branch trimester trimester Allergies, Adverse Reactions, Alerts Allergy Allergy Status Severity Reaction(s) Onset Inactive Treating Comm ents Source Name Type Date Date Clinician No Known DA Active [facility] 7[facility]28 [place] 00:[facility] e 00 [facility] No Known DA Active U [facility] 3-13 [place] 00:[facility]: e 00 [facility] No Known DA Active U [facility]ie 3-06 [place] 00:00: e 00 [facility] NO KNOWN Drug Active [facility] ALLERGIE Class ity of S [facility] Social History Social Habit Start Date Stop Date Quantity Comments Source ASSERTION 2021-12-24 [facility] 00:00:00 [facility] Exposure to 2022-09-12 2022-09-22 Not sure [facility] SARS-CoV-2 (event) 00:00:00 09:28:00 [facility] Alcohol intake 2022-08-30 2022-08-30 0 /d University 00:00:00 00:00:00 [facility] Cigarettes smoked 2022-05-01 2022-05-01 Univers ity of current (pack per 00:00:00 00:00:00 ) - Reported Branch Cigarette 2022-05-01 2022-05-01 University of pack-years 00:00:00 00:00:00 [facility] Tobacco use and 2022-05-01 2022-05-01 Smokeless Universit y of exposure 00:00:00 00:00:00 tobacco non-user [facility] Tobacco Comment 2022-05-01 2022-05-01 1/3 pack per day Uni versity of 00:00:00 00:00:00 [facility] History of tobacco 2020-05-09 Cigarette Smoker University of use 00:00:00 [facility] Sex [birth year] Universit y of 00:00:00 00:00:00 [facility] Smoking Status Start Date Stop Date Source Ex-smoker 2022-05-01 00:00:00 2022-05-01 00:00:00 [facility] Medications Ordered Filled Start Stop Current Ordering Indication Dosage Frequency Signature Comments Components Source Medication Medication Date Date Medication? Clinician (SIG) Name Name NIFEdipine 2021-10- No [id number] 30mg Take 1 Univers ER 30 mg 11-03 tablet by ity o f tablet 00:00: 05:59 mouth in [place] 00 :00 the [facility] for 30 days. NIFEdipine 2021-10- No [id number] 30mg Take 1 Univers ER 30 mg 11-03 tablet by ity o f tablet 00:00: 05:59 mouth in [place] 00 :00 the [facility] for 30 days. benzocaine- 2021-10 Yes 1{lozen 1 Lozenge, Univers menthoL 2 ge} Oral, ity of (CEPACOL 14:52: Q4HPRN, [place] SORE THROAT 40 Starting Medi davon (ALEXIA-MEN)) on Fri Branch lozenge 1 09/01/22 at Lozenge 0852, Until Discontinu ed, Routine, Sore throat dextrometho 2021-10 Yes 5mL 5 mL, Unive rs rphan-guaif 2 Oral, ity of enesin 14:52: Q6HPRNFort [place], [place] (ROBITUSSIN 23 Starting Medi davon DM) 10-100 on Sun Branch mg/5 mL 09/01/22 at solution 5 0852, mL Until Discontinu ed, Routine, Cough proCHLORper 2021-10- No 10mg 10 mg, Uni vers azine -11 12- Oral, ONCE ity of (COMPAZINE) 03:53: 04:05 NOW, 1 [place] as tablet 10 00 :00 dose, On Medica l mg [place] Branch 08/31/22 at 2200, Routine docusate 2021-10 Yes [id number] 200mg Take 2 U nivers 100 mg 2-02 capsules ity of capsule 00:00: by mouth [place] 00 once daily Medical as needed Branch for Constipati on. ibuprofen 2021-10 Yes [id number] 600mg Take 1 Univers 600 mg 2-02 tablet by ity of tablet 00:00: mouth [place] 00 every 6 Medical (six) Branch hours as needed (Pain). Take with food or milk. ferrous 2021-10 Yes [id number] 325mg Take 1 Un erica sulfate 325 2-02 tablet by ity of mg (65 mg 00:00: mouth [place] iron) 00 every Medical tablet other day. Branch docusate 2021-10 Yes [id number] 200mg Take 2 U nivers 100 mg 2-02 capsules ity of capsule 00:00: by mouth [place] 00 once daily Medical as needed Branch for Constipati on. ibuprofen 2021-10 Yes [id number] 600mg Take 1 Univers 600 mg 2-02 tablet by ity of tablet 00:00: mouth [place] 00 every 6 Medical (six) Branch hours as needed (Pain). Take with food or milk. ferrous 2021-10 Yes [id number] 325mg Take 1 Un erica sulfate 325 2-02 tablet by ity of mg (65 mg 00:00: mouth [place] iron) 00 every Medical tablet other day. Branch foLIC acid 2021-10- No [id number] 1mg Take 1 Univers 1 mg tablet 11-02- tablet by it y of 00:00: 05:59 mouth in [place] 00 :00 the Medical morning Branch for 90 days. foLIC acid 2021-10- No [id number] 1mg Take 1 Univers 1 mg tablet 11-02- tablet by it y of 00:00: 05:59 mouth in [place] 00 :00 the Medical morning Branch for 90 days. NIFEdipine 2021-10 Yes 30mg 30 mg, Unive rs ER tablet 2- Oral, ity of 30 mg 18:45: DAILY, [place] 00 First dose Medical on [facility] 08/31/22 at 1245, Until Discontinu ed, Routine polyethylen 2021-10 Yes 17g 17 g, Unive rs e glycol 11-01 Oral, ity of 3350 powder 15:00: DAILY, [place] 17 g 00 First dose Medical on [facility] 08/31/22 at 0900, Until Discontinu ed, Routine hydroCHLORO 2021-10- No 50mg 50 mg, Uni vers thiazide 11-01 Oral, ity of (ESIDRIX) 14:00: 18:37 DAILY, [place] tablet 50 00 :50 First dose Medi davon mg on [facility] 08/31/22 at 0800, Until Discontinu ed, Routine [...] 25 15 Starting Medica l mg on [facility] 08/31/22 at 0300, Until Discontinu ed, Routine, Sleep, Itching ondansetron 2021-10 Yes 4mg 4 mg, Slow Univers (ZOFRAN 2 IV Push, ity of (PF)) 09:00: Q8HPRN, [place] injection 4 15 Starting Medi davon mg on [facility] 08/31/22 at 0300, Until Discontinu ed, Routine, Nausea and Vomiting (N/V) simethicone 2021-10 Yes 160mg 160 mg, Un erica (GAS RELIEF 11-01 Oral, ity of (SIMETHICON 09:00: PC+HSPRN, [place] E)) 15 Starting Medical chewable on [facility] tablet 160 08/31/22 at mg 0300, Until Discontinu ed, Routine, Gas docusate 2021-10 Yes 200mg 200 mg, Unive rs (COLACE) 2 Oral, ity of capsule 200 09:00: QDAILYPRN, [place] mg 15 Starting Medical on [facility] 08/31/22 at 0300, Until Discontinu ed, Routine, [...] [place] 20-0.5 % 15 on [facility] Medical topical 08/31/22 at Branch spray 0300, Until Discontinu ed, Routine, Perineum discomfort simethicone 2021-10 Yes 80mg 80 mg, Univ ers (GAS RELIEF 1-30 Oral, ity of (SIMETHICON 19:00: PC+HS, [place] [...] Discontinu ed, Routine, Pain (scale 1-3) ondansetron 2021-10 No 4mg 4 mg, Slow Univers (ZOFRAN 10-30 IV Push, ity of (PF)) 09:45: 08:52 ONCE, On [place] injection 4 00 :00 [facility] Medical mg 08/30/22 Branch at 0345, For 1 dose
Do ses of ondansetro n 16 mg and above need to be administer ed via IV piggyback. For Dose >=24mg ECG monitoring is advisable.
terbutaline 2022-1 2022- No .25mg 0.25 mg, Univers (BRETHINE) 10-30 Intravenou it y of injection 03:30: 02:08 s, ONCE, 1 [place] 0.25 mg 00 :00 dose, On Medical [facility] Branch 08/29/22 at 2130, Routine acetaminoph 2021-10- No 650mg 650 mg, U nivers en 10-30 Oral, ity of (TYLENOL) 02:28: 02:38 ONCE, 1 [place] tablet 650 00 :00 dose, On Medic al mg [facility] Branch 08/29/22 at 2030, Routine guaiFENesin 2021-10- No 200mg 200 mg, U nivers 100 mg/5 mL 10-30 Oral, ity of solution 00:22: 00:46 ONCE, 1 [place] 200 mg 00 :00 dose, On Medical [facility] 08/29/22 at 1830, Routine ropivacaine 2021-10 Yes Epidural, U nivers 0.2 % 10-29 CONTINUOUS ity of (NAROPIN 23:40: PRN, [place] ()) 00 Starting Medical epidural on e Branch infusion 08/29/22 at 1740, Until Discontinu ed, Routine, Intra-op ropivacaine 2021-10- No Epidural, Univers 0.2 % 10-29 CONTINUOUS ity of (NAROPIN 23:40: 13:09 PRN, [place] ()) 00 :39 Starting Medical epidural on e Branch infusion 08/29/22 at 1740, Until Discontinu ed, Routine, Intra-op lidocaine-e 2021-10 Yes Epidural, U nivers pinephrine 10-29 ONCE INTRA ity of (XYLOCAINE 23:31: PROCEDURE, [place] W/EPINEPHRI 00 Starting Medi davon NE) 1.5 on [facility] Branch %-1:200,000 08/29/22 injection at 1731, Until [...] 00 :00 dose, On Medica l mg [facility] Branch 08/29/22 at 1615, Routine diphenhydrA 2021-10- No 25mg 25 mg, Uni vers MINE 10-29 Oral, ONCE ity of (BENADRYL) 21:18: 21:54 NOW, 1 [place] tablet 25 00 :00 dose, On Medica l mg [facility] Branch 08/29/22 at 1530, Routine labetaloL 2021-10- [...] Until Mandi 08/31/22 at 0300, KAREN terconazole 0 Yes [id number] 1{appli Insert 1 Univers 0.8 % -29 cator} Applicator ity of vaginal 00:00: into [place] cream 00 vagina at Medical bedtime. Branch terconazole Yes [id number] 1{appli Insert 1 Univers 0.8 % 9-29 cator} Applicator ity of vaginal 00:00: into [place] cream 00 vagina at Medical bedtime. Branch terconazole Yes [id number] 1{appli Insert 1 Univers 0.8 % 9-29 cator} Applicator ity of vaginal 00:00: into [place] cream 00 vagina at Medical bedtime. Branch terconazole Yes [id number] 1{appli Insert 1 Univers 0.8 % 9-29 cator} Applicator ity of vaginal 00:00: into [place] cream 00 vagina at Medical bedtime. Branch terconazole 2021- No [id number] 1{appli Insert 1 Univers 0.8 % 9-29 10-11 cator} Applicator ity o f vaginal 00:00: 00:00 into [place] cream 00 :00 vagina at Medical bedtime. Branch terconazole 2021- No [id number] 1{appli Insert 1 Univers 0.8 % 9-29 10-11 cator} Applicator ity o f vaginal 00:00: 00:00 into [place] cream 00 :00 vagina at Medical bedtime. Branch aspirin 2-0 Yes [id number] 81mg Take 1 U nivers (ASPIRIN 6-22 9100 tablet by ity of LOW DOSE) 00:00: mouth [place] 81 mg EC 00 daily. Medical tablet Branch calcium 2021-0 Yes [id number] 500mg Take 1 Un erica carbonate 6-22 tablet by ity o f 500 mg-2.5 00:00: mouth 2 [place] mcg (100 00 (two) Medical unit) times Branch chewable daily. tablet aspirin 2-0 Yes [id number] 81mg Take 1 U nivers (ASPIRIN 6-22 9100 tablet by ity of LOW DOSE) 00:00: mouth [place] 81 mg EC 00 daily. Medical tablet Branch calcium 2021-0 Yes [id number] 500mg Take 1 Un erica carbonate 6-22 tablet by ity o f 500 mg-2.5 00:00: mouth 2 [place] mcg (100 00 (two) Medical unit) times Branch chewable daily. tablet aspirin 2-0 Yes [id number] 81mg Take 1 U nivers (ASPIRIN 6-22 9100 tablet by ity of LOW DOSE) 00:00: mouth [place] 81 mg EC 00 daily. Medical tablet Branch calcium 2021-0 Yes [id number] 500mg Take 1 Un erica carbonate 6-22 tablet by ity o f 500 mg-2.5 00:00: mouth 2 [place] mcg (100 00 (two) Medical unit) times Branch chewable daily. tablet aspirin 2-0 Yes [id number] 81mg Take 1 U nivers (ASPIRIN 6-22 9100 tablet by ity of LOW DOSE) 00:00: mouth [place] 81 mg EC 00 daily. Medical tablet Branch calcium 2-0 Yes [id number] 500mg Take 1 Un erica carbonate 6-22 tablet by ity o f 500 mg-2.5 00:00: mouth 2 [place] mcg (100 00 (two) Medical unit) times Branch chewable daily. tablet aspirin 2-0 Yes [id number] 81mg Take 1 U nivers (ASPIRIN 6-22 9100 tablet by ity of LOW DOSE) 00:00: mouth [place] 81 mg EC 00 daily. Medical tablet Branch calcium 2021-0 Yes [id number] 500mg Take 1 Un erica carbonate 6-22 tablet by ity o f 500 mg-2.5 00:00: mouth 2 [place] mcg (100 00 (two) Medical unit) times Branch chewable daily. tablet aspirin 2-0 Yes [id number] 81mg Take 1 U nivers (ASPIRIN 6-22 9100 tablet by ity of LOW DOSE) 00:00: mouth [place] 81 mg EC 00 daily. Medical tablet Branch calcium 2021-0 Yes [id number] 500mg Take 1 Un erica carbonate 6-22 tablet by ity o f 500 mg-2.5 00:00: mouth 2 [place] mcg (100 00 (two) Medical unit) times Branch chewable daily. tablet aspirin 2021-0 Yes [id number] 81mg Take 1 U nivers (ASPIRIN 6-22 9100 tablet by ity of LOW DOSE) 00:00: mouth [place] 81 mg EC 00 daily. Medical tablet Branch calcium 2021-0 Yes [id number] 500mg Take 1 Un eirca carbonate 6-22 tablet by ity o f 500 mg-2.5 00:00: mouth 2 [place] mcg (100 00 (two) Medical unit) times Branch chewable daily. tablet aspirin 2021-0 Yes [id number] 81mg Take 1 U nivers (ASPIRIN 6-22 9100 tablet by ity of LOW DOSE) 00:00: mouth [place] 81 mg EC 00 daily. Medical tablet Branch calcium 2021-0 Yes [id number] 500mg Take 1 Un erica carbonate 6-22 tablet by ity o f 500 mg-2.5 00:00: mouth 2 [place] mcg (100 00 (two) Medical unit) times Branch chewable daily. tablet aspirin 2-0 Yes [id number] 81mg Take 1 U nivers (ASPIRIN 6-22 9100 tablet by ity of LOW DOSE) 00:00: mouth [place] 81 mg EC 00 daily. Medical tablet Branch calcium 2021-0 Yes [id number] 500mg Take 1 Un erica carbonate 6-22 tablet by ity o f 500 mg-2.5 00:00: mouth 2 [place] mcg (100 00 (two) Medical unit) times Branch chewable daily. tablet aspirin 2-0 Yes [id number] 81mg Take 1 U nivers (ASPIRIN 6-22 9100 tablet by ity of LOW DOSE) 00:00: mouth [place] 81 mg EC 00 daily. Medical tablet Branch calcium 2-0 Yes [id number] 500mg Take 1 Un erica carbonate 6-22 tablet by ity o f 500 mg-2.5 00:00: mouth 2 [place] mcg (100 00 (two) Medical unit) times Branch chewable daily. tablet aspirin 2-0 Yes [id number] 81mg Take 1 U nivers (ASPIRIN 6-22 9100 tablet by ity of LOW DOSE) 00:00: mouth [place] 81 mg EC 00 daily. Medical tablet Branch calcium 2-0 Yes [id number] 500mg Take 1 Un erica carbonate 6-22 tablet by ity o f 500 mg-2.5 00:00: mouth 2 [place] mcg (100 00 (two) Medical unit) times Branch chewable daily. tablet aspirin 2-0 Yes [id number] 81mg Take 1 U nivers (ASPIRIN 6-22 9100 tablet by ity of LOW DOSE) 00:00: mouth [place] 81 mg EC 00 daily. Medical tablet Branch calcium 2-0 Yes [id number] 500mg Take 1 Un erica carbonate 6-22 tablet by ity o f 500 mg-2.5 00:00: mouth 2 [place] mcg (100 00 (two) Medical unit) times Branch chewable daily. tablet aspirin 2-0 Yes [id number] 81mg Take 1 U nivers (ASPIRIN 6-22 9100 tablet by ity of LOW DOSE) 00:00: mouth [place] 81 mg EC 00 daily. Medical tablet Branch calcium 2-0 Yes [id number] 500mg Take 1 Un erica carbonate 6-22 tablet by ity o f 500 mg-2.5 00:00: mouth 2 [place] mcg (100 00 (two) Medical unit) times Branch chewable daily. tablet aspirin 2-0 Yes [id number] 81mg Take 1 U nivers (ASPIRIN 6-22 9100 tablet by ity of LOW DOSE) 00:00: mouth [place] 81 mg EC 00 daily. Medical tablet Branch calcium 2-0 Yes [id number] 500mg Take 1 Un erica carbonate 6-22 tablet by ity o f 500 mg-2.5 00:00: mouth 2 [place] mcg (100 00 (two) Medical unit) times Branch chewable daily. tablet aspirin 2-0 Yes [id number] 81mg Take 1 U nivers (ASPIRIN 6-22 9100 tablet by ity of LOW DOSE) 00:00: mouth [place] 81 mg EC 00 daily. Medical tablet Branch calcium 2021-0 Yes [id number] 500mg Take 1 Un erica carbonate 6-22 tablet by ity o f 500 mg-2.5 00:00: mouth 2 [place] mcg (100 00 (two) Medical unit) times Branch chewable daily. tablet aspirin 2-0 Yes [id number] 81mg Take 1 U nivers (ASPIRIN 6-22 9100 tablet by ity of LOW DOSE) 00:00: mouth [place] 81 mg EC 00 daily. Medical tablet Branch calcium 2021-0 Yes [id number] 500mg Take 1 Un erica carbonate 6-22 tablet by ity o f 500 mg-2.5 00:00: mouth 2 [place] mcg (100 00 (two) Medical unit) times Branch chewable daily. tablet aspirin 2021-0 Yes [id number] 81mg Take 1 U nivers (ASPIRIN 6-22 9100 tablet by ity of LOW DOSE) 00:00: mouth [place] 81 mg EC 00 daily. Medical tablet Branch calcium 2021-0 Yes [id number] 500mg Take 1 Un erica carbonate 6-22 tablet by ity o f 500 mg-2.5 00:00: mouth 2 [place] mcg (100 00 (two) Medical unit) times Branch chewable daily. tablet aspirin 2-0 Yes [id number] 81mg Take 1 U nivers (ASPIRIN 6-22 9100 tablet by ity of LOW DOSE) 00:00: mouth [place] 81 mg EC 00 daily. Medical tablet Branch calcium 2021-0 Yes [id number] 500mg Take 1 Un erica carbonate 6-22 tablet by ity o f 500 mg-2.5 00:00: mouth 2 [place] mcg (100 00 (two) Medical unit) times Branch chewable daily. tablet ferrous 2-0 Yes [id number] 325mg Take 1 Un erica sulfate 325 4-27 tablet by ity of mg (65 mg 00:00: mouth 2 [place] iron) 00 (two) Medical tablet times Branch daily. ascorbic 2022-0 Yes [id number] 500mg Take 1 U nivers acid, 4-27 tablet by ity of vitamin C, 00:00: mouth 3 [place] 500 mg 00 (three) Medical tablet times Branch daily. ferrous Yes [id number] 325mg Take 1 Un erica sulfate 325 4-27 tablet by ity of mg (65 mg 00:00: mouth 2 [place] iron) 00 (two) Medical tablet times Branch daily. ascorbic Yes [id number] 500mg Take 1 U nivers acid, 4-27 tablet by ity of vitamin C, 00:00: mouth 3 [place] 500 mg 00 (three) Medical tablet times Branch daily. ferrous Yes [id number] 325mg Take 1 Un erica sulfate 325 4-27 tablet by ity of mg (65 mg 00:00: mouth 2 [place] iron) 00 (two) Medical tablet times Branch daily. ascorbic Yes [id number] 500mg Take 1 U nivers acid, 4-27 tablet by ity of vitamin C, 00:00: mouth 3 [place] 500 mg 00 (three) Medical tablet times Branch daily. ferrous Yes [id number] 325mg Take 1 Un erica sulfate 325 4-27 tablet by ity of mg (65 mg 00:00: mouth 2 [place] iron) 00 (two) Medical tablet times Branch daily. ascorbic Yes [id number] 500mg Take 1 U nivers acid, 4-27 tablet by ity of vitamin C, 00:00: mouth 3 [place] 500 mg 00 (three) Medical tablet times Branch daily. ferrous Yes [id number] 325mg Take 1 Un erica sulfate 325 4-27 tablet by ity of mg (65 mg 00:00: mouth 2 [place] iron) 00 (two) Medical tablet times Branch daily. ascorbic Yes [id number] 500mg Take 1 U nivers acid, 4-27 tablet by ity of vitamin C, 00:00: mouth 3 [place] 500 mg 00 (three) Medical tablet times Branch daily. ferrous 2021-0 Yes [id number] 325mg Take 1 Un erica sulfate 325 4-27 tablet by ity of mg (65 mg 00:00: mouth 2 [place] iron) 00 (two) Medical tablet times Branch daily. ascorbic Yes [id number] 500mg Take 1 U nivers acid, 4-27 tablet by ity of vitamin C, 00:00: mouth 3 [place] 500 mg 00 (three) Medical tablet times Branch daily. ferrous Yes [id number] 325mg Take 1 Un erica sulfate 325 4-27 tablet by ity of mg (65 mg 00:00: mouth 2 [place] iron) 00 (two) Medical tablet times Branch daily. ascorbic Yes [id number] 500mg Take 1 U nivers acid, 4-27 tablet by ity of vitamin C, 00:00: mouth 3 [place] 500 mg 00 (three) Medical tablet times Branch daily. ferrous Yes [id number] 325mg Take 1 Un erica sulfate 325 4-27 tablet by ity of mg (65 mg 00:00: mouth 2 [place] iron) 00 (two) Medical tablet times Branch daily. ascorbic Yes [id number] 500mg Take 1 U nivers acid, 4-27 tablet by ity of vitamin C, 00:00: mouth 3 [place] 500 mg 00 (three) Medical tablet times Branch daily. ferrous Yes [id number] 325mg Take 1 Un erica sulfate 325 4-27 tablet by ity of mg (65 mg 00:00: mouth 2 [place] iron) 00 (two) Medical tablet times Branch daily. ascorbic Yes [id number] 500mg Take 1 U nivers acid, 4-27 tablet by ity of vitamin C, 00:00: mouth 3 [place] 500 mg 00 (three) Medical tablet times Branch daily. ferrous Yes [id number] 325mg Take 1 Un erica sulfate 325 4-27 tablet by ity of mg (65 mg 00:00: mouth 2 [place] iron) 00 (two) Medical tablet times Branch daily. ascorbic Yes [id number] 500mg Take 1 U nivers acid, 4-27 tablet by ity of vitamin C, 00:00: mouth 3 [place] 500 mg 00 (three) Medical tablet times Branch daily. ferrous 0 Yes [id number] 325mg Take 1 Un erica sulfate 325 4-27 tablet by ity of mg (65 mg 00:00: mouth 2 [place] iron) 00 (two) Medical tablet times Branch daily. ascorbic Yes [id number] 500mg Take 1 U nivers acid, 4-27 tablet by ity of vitamin C, 00:00: mouth 3 [place] 500 mg 00 (three) Medical tablet times Branch daily. ferrous Yes [id number] 325mg Take 1 Un erica sulfate 325 4-27 tablet by ity of mg (65 mg 00:00: mouth 2 [place] iron) 00 (two) Medical tablet times Branch daily. ascorbic Yes [id number] 500mg Take 1 U nivers acid, 4-27 tablet by ity of vitamin C, 00:00: mouth 3 [place] 500 mg 00 (three) Medical tablet times Branch daily. ferrous Yes [id number] 325mg Take 1 Un erica sulfate 325 4-27 tablet by ity of mg (65 mg 00:00: mouth 2 [place] iron) 00 (two) Medical tablet times Branch daily. ascorbic Yes [id number] 500mg Take 1 U nivers acid, 4-27 tablet by ity of vitamin C, 00:00: mouth 3 [place] 500 mg 00 (three) Medical tablet times Branch daily. ferrous Yes [id number] 325mg Take 1 Un erica sulfate 325 4-27 tablet by ity of mg (65 mg 00:00: mouth 2 [place] iron) 00 (two) Medical tablet times Branch daily. ascorbic Yes [id number] 500mg Take 1 U nivers acid, 4-27 tablet by ity of vitamin C, 00:00: mouth 3 [place] 500 mg 00 (three) Medical tablet times Branch daily. ferrous Yes [id number] 325mg Take 1 Un erica sulfate 325 4-27 tablet by ity of mg (65 mg 00:00: mouth 2 [place] iron) 00 (two) Medical tablet times Branch daily. ascorbic Yes [id number] 500mg Take 1 U nivers acid, 4-27 tablet by ity of vitamin C, 00:00: mouth 3 [place] 500 mg 00 (three) Medical tablet times Branch daily. ferrous Yes [id number] 325mg Take 1 Un erica sulfate 325 4-27 tablet by ity of mg (65 mg 00:00: mouth 2 [place] iron) 00 (two) Medical tablet times Branch daily. ascorbic Yes [id number] 500mg Take 1 U nivers acid, 4-27 tablet by ity of vitamin C, 00:00: mouth 3 [place] 500 mg 00 (three) Medical tablet times [place] daily. ferrous 2021- No [id number] 325mg Take 1 U nivers sulfate 325 01-25 tablet by it y of mg (65 mg 00:00: 00:00 mouth 2 [place] iron) 00 :00 (two) Medical tablet times [place] daily. ascorbic 2021- No [id number] 500mg Take 1 Univers acid, 01-25 tablet by ity of vitamin C, 00:00: 00:00 mouth 3 [place] 500 mg 00 :00 (three) Medical tablet times [place] daily. Vital Signs Vital Name Observation Time Observation Value Comments Source Body temperature 2022-09-22 15:29:00 36.5 January [facility] Respiratory rate 2022-09-22 15:29:00 17 /min [facility] Body height 2022-09-22 15:29:00 149.9 cm [facility] Body weight 2022-09-22 15:29:00 67.541 kg [facility] BMI 2022-09-22 15:29:00 30.07 kg/m2 [facility] Systolic blood 2022-09-01 17:14:00 143 mm[facility]Hg[facility] 2022-09-01 17:14:00 83 mm[Hg] Unive [facility] Heart rate 2022-09-01 17:14:00 94 /min [facility] Body temperature 2022-09-01 17:14:00 36.94 January [facility] Respiratory rate 2022-09-01 17:14:00 20 /min [facility] Oxygen saturation in 2022-09-01 17:14:00 98 /min [facility] Arterial blood by [facility] Pulse oximetry Branch Systolic blood 2022-08-29 14:57:00 131 mm[Hg] Univer sity of [facility] Diastolic blood 2022-08-29 14:57:00 81 mm[Hg] [facility] 2022-08-29 14:57:00 66 /min [facility] Body temperature 2022-08-29 14:57:00 36.61 January [facility] Respiratory rate 2022-08-29 14:57:00 17 /min [facility] Body height 2022-08-29 14:57:00 149.9 cm [facility] Body weight 2022-08-29 14:57:00 81.647 kg [facility] BMI 2022-08-29 14:57:00 36.36 kg/m2 [facility] Systolic blood 2022-08-11 16:15:00 119 mm[Hg] Univer sity of [facility] Diastolic blood 2022-08-11 16:15:00 84 mm[Hg] Unive rsity of [facility] Heart rate 2022-08-11 16:15:00 92 /min [facility] Body temperature 2022-08-11 16:15:00 36.44 January [facility] Respiratory rate 2022-08-11 16:15:00 18 /min [facility] Body height 2022-08-11 16:15:00 149.9 cm [facility] Body weight 2022-08-11 16:15:00 73.256 kg [facility] BMI 2022-08-11 16:15:00 32.62 kg/m2 [facility] Systolic blood 2022-07-28 16:08:00 122 mm[Hg] Univer sity of [facility] Diastolic blood 2022-07-28 16:08:00 75 mm[Hg] Unive rsity of [facility] Heart rate 2022-07-28 16:08:00 98 /min [facility] Body temperature 2022-07-28 16:08:00 36.39 January [facility] Respiratory rate 2022-07-28 16:08:00 18 /min [facility] Body height 2022-07-28 16:08:00 149.9 cm [facility] Body weight 2022-07-28 16:08:00 72.802 kg [facility] BMI 2022-07-28 16:08:00 32.42 kg/m2 Universi ty of [facility] Systolic blood 2022-07-11 14:03:00 118 mm[Hg] Univer sity of pressure [facility] Diastolic blood 2022-07-11 14:03:00 81 mm[Hg] Unive rsity of pressure [facility] Heart rate 2022-07-11 14:03:00 93 /min Universi ty of [facility] Body temperature 2022-07-11 14:03:00 36.11 January [facility] Respiratory rate 2022-07-11 14:03:00 16 /min Univ ersity of [facility] Body height 2022-07-11 14:03:00 149.9 cm Universi ty of [facility] Body weight 2022-07-11 14:03:00 70.625 kg Universi ty of [facility] BMI 2022-07-11 14:03:00 31.45 kg/m2 Universi ty [facility] Oxygen saturation in 2022-07-11 14:03:00 99 /min [facility] Arterial blood by [facility] Pulse oximetry Branch Systolic blood 2022-06-28 13:29:00 124 mm[Hg] Univer sity of pressure [facility] Diastolic blood 2022-06-28 13:29:00 86 mm[Hg] Unive rsity of [facility] Heart rate 2022-06-28 13:29:00 98 /min Universi ty of [facility] Body temperature 2022-06-28 13:29:00 35.61 January [facility] Respiratory rate 2022-06-28 13:29:00 18 /min [facility] ersity of [facility] Body weight 2022-06-28 13:29:00 68.992 kg Universi ty of [facility] BMI 2022-06-28 13:29:00 30.72 kg/m2 Universi ty [facility] Procedures Procedure Date / Time Performing Clinician Source Performed CBC WITH DIFF 2022-08-31 09:44:00 Aleisha Barr [facility] MAGNESIUM 2022-08-31 03:24:00 J Carlos Menjivar [facility] VENOUS CORD GAS 2022-08-30 09:33:00 [facility] 2022-08-29 23:40:31 Yoanna Gallardo [facility] US LOWER EXTREMITY VEIN 2022-08-29 23:11:00 Denita Odell [facility] WITH COMPRESSION Medical Branch BILATERAL (ONLY FOR RULE OUT DVT) URINALYSIS 2022-08-29 23:09[facility]00 [facility] 2022-08-29 23:09:00 [facility] GAL[facility] ONLY - INFLUENZA A B 2022-08-29 20:58:00 Essence Lariosshua [facility] RSV PCR Medical Branch SGOT (ASPARTATE AMINO 2022-08-29 19:41:00 [facility] TRANSFER) Medical Branch CREATININE 2022-08-29 19:41:00 [facility] ALANINE AMINO 2022-08-29 19:41:00 [facility] TRANSFERASE(SGPT Medical Branch LACTATE DEHYDROGENASE 2022-08-29 19:41:00 [facility] URIC ACID 2022-08-29 19:41:00 [facility] CBC WITH DIFF 2022-08-29 19:41:00 Denita Odell [facility] URINALYSIS 2022-08-29 19:41:00 [facility] HEPATITIS B SURFACE 2022-08-29 19:41:00 [facility] ANTIGEN [facility] Branch PROTEIN CREAT RATIO URINE 2022-08-29 19:41:00 Nava Camilo Un [facility] RANDOM [facility] HIV 1/2 AG-AB WITH REFLEX 2022-08-29 19:41:00 [facility] ONLY - SYPHILIS 2022-08-29 19:41:00 Brooklyn Camilojenny [facility] IGG/IGM Medical Branch COVID-19 (ID NOW RAPID 2022-08-29 19:41:00 Kiana Rajput [facility] TESTING) [facility] LAB ONLY COVID 2022-08-29 19:41:00 Nolvia Elkins, [facility] INTERPRETATION Montemayor [facility] HB ABO GROUPING 2022-08-29 19:29:00 [facility] o f [facility] RHO (D) IMMUNE GLOBULIN 2022-08-29 19:29:00 Aleisha Barr [facility] POCT URINALYSIS 2022-08-29 00:00:00 Yovany Wilks [facility] POCT URINALYSIS 2022-08-11 16:15:00 Yovany Wilks [facility] POCT URINALYSIS 2022-07-28 16:09:00 Yovany Wilks [facility] FLU VACC ([id number]), 6 2022-07-11 14:47:18 Ward Cody [facility] MO-62 YRS, .5ML, IM, QUAD Medica l Branch (FLUCELVAX) POCT URINALYSIS 2022-07-11 00:00:00 Yovany Wilks [facility] POCT URINALYSIS 2022-06-28 13:42:00 Yovany Wilks [facility] TDAP VACCINE, >11 YRS, IM 2022-06-28 13:38:54 Ward Cody [facility] STERILIZATION CONSENT 2022-06-28 05:01:00 Doctor Unassigned, [facility] FORM [place] Medical Branch Encounters Start End Encounter Admission Attending Care Care Encounter Source Date/Time Date/Time Type Type Clinicians Facility Department ID 2021-07-31 Outpatient P [facility] OPHELIA [id number] Univers 01:47:15 [facility] 2023-01-16 2023-01-16 Outpatient R JOHN MARQUEZ [facility] [id number] Univers 12:15:00 12:15:00 JOHN MARQUEZ [facility] 2022-12-27 2022-12-27 Outpatient R JOHN MARQUEZ [facility] [id number] Univers 07:45:00 07:45:00 JOHN MARQUEZ ity [facility] 2022-10-18 2022-10-18 Outpatient R AKINSIPE, [facility] [id number] Univers 10:00:00 10:00:00 YOVANY ity o f [facility] 2022-09-22 2022-09-22 Outpatient R AKINSIPE, [facility] [id number] Univers 09:00:00 09:57:38 YOVANY ity o f [facility] 2022-09-22 2022-09-22 Routine Akinsipe, [facility] [id number] Univers 09:00:00 09:57:38 Yovany Oliveira WORKFORCE DEVELOPMENT ASSISTANT 350.1.13.10 ity of [facility] 4.2.7.2.686 [place] as MATERNAL [phone] Med ical & CHILD [address] [place] [address] 2022-09-06 2022-09-06 Outpatient Ethan HUERTAS [facility] [id number] Univers 09:45:00 09:45:00 FRANCHESCA ity [facility] 2022-08-29 2022-09-01 Inpatient P NOLVIA [facility] OPHELIA [id number] Univers 12:27:00 14:12:00 MAGALIS it y of S, [facility] 2022-08-29 2022-09-01 Hospital Nolvia ANNE 1.2.840.114 [id number] Univers 12:27:00 14:12:00 Encounter Magalis SILVA 350.1.13.10 ity of [facility] 4.2.7.2.686 [place] as [id number] [facility] 135 Branch 2022-08-29 2022-08-30 Anesthesia Jani Stoner 1.2.84 0.114 [id number] Univers 16:31:00 07:09:00 Event Justice Wong 350.1.13.10 ity [facility] 4.2.7.2.686 Day[place] as [id number] [facility] 132 Branch 2022-08-29 2022-08-29 Outpatient Ethan HUERTAS [facility] [id number] Univers 08:45:00 09:17:42 FRANCHESCA [facility] 2022-08-29 2022-08-29 Routine Provider, Marlon-Rmchp Bartolop [facility] 1 .2.840.114 [id number] Univers 08:45:00 09:17:42 Blanche Huertasziggy Zheng WORKFORCE DEVELOPMENT ASSISTANT 350.1.13. 10 ity of Visit REGIONAL 4.2.7.2.686 [place] as MATERNAL [id number] [facility] & [address] 2022-08-15 2022-08-15 Out[facility] [id number] Univers 08:45:00 08:45:00 [facility] 2022-08-11 2022-08-11 Outpatient R LASHAUN, [facility] [id number] Univers 10:00:00 10:33:40 YOVANY weeks o [facility] 2022-08-11 2022-08-11 Routine Akinguerrero, Yovany Oliveira [facility] 1.2.8 40.114 [id number] Univers 10:00:00 10:33:40 Ward Cody WORKFORCE DEVELOPMENT ASSISTANT 350.1.13.1 0 ity of Visit REGIONAL 4.2.7.2.686 [place] as MATERNAL [id number] [address] 2022-07-28 2022-07-28 Outpatient R LASHAUN, [facility] [id number] Univers 10:45:00 11:18:01 YOVANY weeks o f [facility] 2022-07-28 2022-07-28 Routine Akinsiyassine, [facility] 1.2.772.216 [id number] Univers 10:45:00 11:00:00 Yovany C WORKFORCE DEVELOPMENT ASSISTANT 350.1.13.10 ity of Visit REGIONAL 4.2.7.2.686 [place] as MATERNAL [id number] [facility] & [address] 2022-07-25 2022-07-25 Outpatient R ESCOBAR [facility] [id number] Univers 10:45:00 10:45:00 ROSKINGA ity o f [facility] 2022-07-11 2022-07-11 Routine [facility] 1.2.840.114 [id number] Univers 08:45:00 09:00:00 Roshunda R WORKFORCE DEVELOPMENT ASSISTANT 350.1.13.10 ity of Visit REGIONAL 4.2.7.2.686 [place] as MATERNAL [id number] [facility] [address] [place] [address] 2022-07-11 2022-07-11 Outpatient [facility] [id number] Univers 08:45:00 08:45:00 ROSHUNDA ity o f [facility] 2022-06-29 2022-06-29 Telephone [facility] 1.2.772.364 [id number] Univers 00:00:00 00:00:00 Roshunda R WORKFORCE DEVELOPMENT ASSISTANT 350.1.13.10 ity of REGIONAL 4.2.7.2.686 [place] as MATERNAL [id number] [address] 2022-06-28 2022-06-28 Outpatient [facility] [id number] Univers 08:45:00 09:23:26 ROSHUNDA ity o f [facility] 2022-06-28 2022-06-28 Routine [facility] 1.2.840.114 [id number] Univers 08:45:00 09:23:26 Roshunda R WORKFORCE DEVELOPMENT ASSISTANT 350.1.13.10 ity of Visit REGIONAL 4.2.7.2.686 [place] as MATERNAL [id number] [facility] & CHILD [address] [place] [address] 2022-06-28 2022-06-28 Orders Doctor ANNE 1.2.840.114 [id number] Univers 00:00:00 00:00:00 Only Unassigned, RICARDO 350.1.13.10 ity of [place] [facility] 4.2.7.2.686 Dayron as [id number] [address] 2022-06-19 2022-06-19 Telephone [facility] 1.2.303.485 [id number] Univers 00:00:00 00:00:00 Roshunda R WORKFORCE DEVELOPMENT ASSISTANT 350.1.13.10 ity of REGIONAL 4.2.7.2.686 [place] as MATERNAL [id number] [facility] & [address] 2022-06-16 2022-06-16 Outpatient R ESCOBAR [facility] [id number] Univers 08:00:00 08:29:29 ROSHUNDA ity o f [facility] 2022-06-16 2022-06-16 [facility] 1.2.840.114 [id number] Univers 08:00:00 08:29:29 Roshunda R WORKFORCE DEVELOPMENT ASSISTANT 350.1.13.10 ity of Visit REGIONAL 4.2.7.2.686 [place] as MATERNAL [id number] [address] 2022-06-08 2022-06-08 Outpatient R ROE JJ [facility] [id number] Univers 10:30:00 10:30:00 JJ AU [facility] 2022-05-29 2022-05-29 Outpatient R AKINSIPE, [facility] [id number] Univers 14:00:00 14:00:00 YOVANY ity o [facility] 2022-05-29 2022-05-29 Outpatient R AKINSIPE, [facility] [id number] Univers 14:00:00 14:00:00 YOVANY ity o f [facility] 2022-05-29 2022-05-29 Outpatient R AKINSIPE, [facility] [id number] Univers 14:00:00 14:00:00 YOVANY ity o f [facility] 2022-05-18 2022-05-18 Outpatient R AKINSIPE, [facility] [id number] Univers 14:45:00 14:45:00 YOVANY ity o [facility] 2022-05-01 2022-05-01 Routine [facility] 1.2.148.723 [id number] Univers 15:30:00 15:30:00 Yovany C WORKFORCE DEVELOPMENT ASSISTANT 350.1.13.10 ity of Visit REGIONAL 4.2.7.2.686 Dayron as MATERNAL [id number] [facility] & CHILD [address] [place] [address] 2022-05-01 2022-05-01 Outpatient R LASHAUN, [facility] [id number] Univers 15:30:00 14:35:03 YOVANY ity o [facility] 2022-05-01 2022-05-01 Outpatient R JORGEPE, [facility] [id number] Univers 15:30:00 14:35:03 YOVANY ity o [facility] 2022-05-01 2022-05-01 Target Worker Ultrasound[facility] 1.2 .840.114 [id number] Univers 13:00:00 13:51:32 Visit Arianna Villeda Bright WORKFORCE DEVELOPMENT ASSISTANT 350.1. 13.10 ity of REGIONAL 4.2.7.2.686 Dayron as MATERNAL [phone] Med ical & CHILD [address] [facility] 2022-05-01 2022-05-01 Outpatient P RONAL [facility] [id number] Univers 13:00:00 13:51:32 CHASEY ity [facility] 2022-05-01 2022-05-01 Abstract Jorgeyassine, [facility] 1.2.840.114 [id number] Univers 00:00:00 00:00:00 Yovany Oliveira WORKFORCE DEVELOPMENT ASSISTANT 350.1.13.10 ity of REGIONAL 4.2.7.2.686 Dayron as MATERNAL [phone] Med ical & CHILD 107 [facility] 2022-04-21 2022-04-21 Outpatient R ESCOBAR [facility] [id number] Univers 10:30:00 10:30:00 ROSHUNDA ity o [facility] 2022-04-20 2022-04-20 Outpatient R ESCOBAR [facility] [id number] Univers 14:15:00 15:10:07 ROSHUNDA ity o [facility] 2022-04-20 2022-04-20 Routine [facility] 1.2.840.114 [id number] Univers 14:15:00 15:10:07 Roshunda R WORKFORCE DEVELOPMENT ASSISTANT 350.1.13.10 ity of Visit REGIONAL 4.2.7.2.686 Dayron as MATERNAL [id number] Med ical & CHILD [address] [place] [address] 2022-04-14 2022-04-14 Outpatient R AKINGUERRERO, [facility] [id number] Univers 09:45:00 09:45:00 YOVANY ity o f [facility] 2022-03-22 2022-03-22 Outpatient R AKINSIPE, [facility] [id number] Univers 08:30:00 08:54:59 YOVANY ity o f [facility] 2022-03-22 2022-03-22 Routine Akinpe, [facility] 1.2.525.755 [id number] Univers 08:30:00 08:54:59 Yovany C WORKFORCE DEVELOPMENT ASSISTANT 350.1.13.10 ity of Visit REGIONAL 4.2.7.2.686 Dayron as MATERNAL [id number] [facility] [address] [place] [address] 2022-03-09 2022-03-09 Abstract [facility] 1.2.840.114 [id number] Univers 00:00:00 00:00:00 Yovany C WORKFORCE DEVELOPMENT ASSISTANT 350.1.13.10 ity of REGIONAL 4.2.7.2.686 Dayron as MATERNAL [id number] [facility] & CHILD [address] [place] [address] 2022-03-06 2022-03-06 Outpatient P [facility] [id number] Univers 11:00:00 11:00:00 itmere [facility] 2022-03-06 2022-03-06 Outpatient P NAMAN [facility] [id number] Univers 11:00:00 11:00:00 JJ weeks [facility] 2022-03-06 2022-03-06 Target Worker Lab, [facility] 1.2.840. 114 [id number] Univers 11:00:00 11:00:00 Visit Jj Folrence WORKFORCE DEVELOPMENT ASSISTANT 350.1.13.10 ity of REGIONAL 4.2.7.2.686 Dayron as MATERNAL [id number] [facility] ical & CHILD [address] [place] [address] 2022-03-06 2022-03-06 Target Worker 1, [facility] Room [facility] 1.2. 840.114 [id number] Univers 10:00:00 10:45:00 Visit NamanJj Kaleb WORKFORCE DEVELOPMENT ASSISTANT 350.1.13.10 ity [facility] 4.2.7.2.686 Dayron as MATERNAL [id number] [facility] CHILD [address] [place] [address] 2022-03-06 2022-03-06 Outpatient P [facility] [id number] Univers 10:00:00 10:00:00 ity [facility] 2022-02-21 2022-02-21 Outpatient R LASHAUN [facility] [id number] Univers 09:00:00 09:00:00 YOVANY culp [facility] 2022-01-30 2022-01-30 Telemedici Faculty, Marlon [facility] 1.2.840.114 [id number] [facility] 11:30:00 12:00:00 ne Visit Ronal Adrianmere Novoa WORKFORCE DEVELOPMENT ASSISTANT 350.1 .13.10 ity [facility] 4.2.7.2.686 Dayron as MATERNAL [id number] [facility] & [address] 2022-01-30 2022-01-30 Outpatient R RONAL [facility] [id number] Univers 11:30:00 11:30:00 ARIANNA [facility] 2022-01-26 2022-01-26 Target Worker Lab[facility] 1.2.840. 114 [id number] Univers 13:00:00 13:16:28 Visit Yovany Wilks WORKFORCE DEVELOPMENT ASSISTANT 350.1.13. 10 ity [facility] 4.2.7.2.686 Dayron as MATERNAL [id number] [facility] & CHILD [address] [place] [address] 2022-01-26 2022-01-26 Outpatient R LASHAUN [facility] [id number] Univers 13:00:00 13:00:00 YOVANY culp [facility] 2022-01-25 2022-01-25 Telephone Lashaun [facility] 1.2.840.114 [id number] Univers 00:00:00 00:00:00 Yovany Oliveira WORKFORCE DEVELOPMENT ASSISTANT 350.1.13.10 ity of [facility] 4.2.7.2.686 Dayron as MATERNAL [id number] [facility] ical & CHILD [address] [place] [address] 2022-01-24 2022-01-24 [facility] [id number] Univers 08:30:00 10:06:18 YOVANY ity o f [facility] 2022-01-24 2022-01-24 Initial [facility] 1.2.792.026 [id number] Univers 08:30:00 10:06:18 Yovany C WORKFORCE DEVELOPMENT ASSISTANT 350.1.13.10 ity of Visit [facility] 4.2.7.2.686 Dayron as MATERNAL [id number] [facility] & CHILD [address] [place] [address] 2022-01-24 2022-01-24 Orders Doctor ANNE 1.2.840.114 [id number] Univers 00:00:00 00:00:00 Only Unassigned, RICARDO 350.1.13.10 ity of [place] [facility] 4.2.7.2.686 Dayron as [id number] [address] 2021-04-04 2021-04-04 Outpatient R [facility] [id number] Univers 09:00:00 09:00:00 ity of [facility] 2021-01-11 2021-01-11 [facility] 1.2.840.114 [id number] Univers 00:00:00 00:00:00 Yovany C WORKFORCE DEVELOPMENT ASSISTANT 350.1.13.10 ity of [facility] 4.2.7.2.686 Dayron as MATERNAL [id number] [facility] ical & CHILD [address] [place] [address] 2021-01-10 2021-01-10 Office [facility] 1.2.169.453 [id number] Univers 09:58:42 10:41:46 Visit Yovany C WORKFORCE DEVELOPMENT ASSISTANT 350.1.13.10 ity of [facility] 4.2.7.2.686 Dayron as MATERNAL [id number] [facility] CHILD [address] [place] [address] 2021-01-10 2021-01-10 Out[facility] [id number] Univers 09:45:00 09:45:00 YOVANY ity o f [facility] 2021-01-10 2021-01-10 Orders Doctor ANNE 1.2.840.114 [id number] Univers 00:00:00 00:00:00 Only Unassigned, RICARDO 350.1.13.10 ity of [place] [facility] 4.2.7.2.686 Dayron as [id number] [address] 2020-12-20 2020-12-20 Routine Akinpe, [facility] 1.2.341.048 [id number] Univers 10:33:07 11:36:30 Yovany C WORKFORCE DEVELOPMENT ASSISTANT 350.1.13.10 ity of Visit [facility] 4.2.7.2.686 Dayron as MATERNAL [phone] [facility] ical & CHILD [address] [place] [address] 2020-12-20 2020-12-20 Outpatient R [facility] [id number] Univers 10:30:00 10:30:00 YOVANY ity o f [facility] 2020-12-09 2020-12-09 Outpatient R AKINPE, [facility] [id number] Univers 09:30:00 09:30:00 YOVANY ity o f [facility] 2020-12-05 2020-12-05 Orders Doctor ANNE 1.2.840.114 [id number] Univers 00:00:00 00:00:00 Only Unassigned, RICARDO 350.1.13.10 ity of [place] [facility] 4.2.7.2.686 Dayron as [phone] [facility] [address] [place] 2020-11-26 2020-11-29 Hospital ANNE [place] 1.2.840.114 [id number] Univers 20:27:00 15:15:00 Encounter Chasey RICARDO 350.1.13.10 ity of [facility] 4.2.7.2.686 [place] [phone] [facility] [address] 2020-11-26 2020-11-26 Nurse Kitty Meredith 1.2.840.114 [id number] Univers 00:00:00 00:00:00 Triage RICARDO 350.1.13.10 it y of [facility] 4.2.7.2.686 Dayron as [phone] [address] 2020-11-25 2020-11-25 [facility] 1.2.151.856 [id number] Univers 08:16:45 08:31:45 Yovany C WORKFORCE DEVELOPMENT ASSISTANT 350.1.13.10 ity of Visit [facility] 4.2.7.2.686 Dayron as MATERNAL [phone] [facility] & CHILD [address] [place] [address] 2020-11-25 2020-11-25 Outpatient R AKINSIPE, [facility] [id number] Univers 08:15:00 08:15:00 YOVANY ity o [facility] 2020-11-11 2020-11-11 [facility] 1.2.056.923 [id number] [facility] 09:33:26 10:00:23 Yovany C WORKFORCE DEVELOPMENT ASSISTANT 350.1.13.10 ity of Visit [facility] 4.2.7.2.686 Dayron as MATERNAL [phone] [address] 2020-11-11 2020-11-11 Outpatient R AKINSIPE, [facility] [id number] Univers 09:30:00 09:30:00 YOVANY ity o [facility] 2020-10-28 2020-10-28 [facility] 1.2.320.050 [id number] Univers 07:48:19 08:42:53 Yovany C WORKFORCE DEVELOPMENT ASSISTANT 350.1.13.10 ity of Visit [facility] 4.2.7.2.686 Dayron as MATERNAL [phone] [facility] & CHILD [address] [place] [address] 2020-10-28 2020-10-28 Outpatient R AKINSIPE, [facility] [id number] Univers 08:00:00 08:00:00 YOVANY ity o [facility] 2020-10-22 2020-10-22 Outpatient R AKINSIPE, [facility] [id number] Univers 10:30:00 10:30:00 YOVANY ity o [facility] 2020-10-14 2020-10-14 Telephone Akinsipe, [facility] 1.2.840.114 [id number] Univers 00:00:00 00:00:00 Yovany C WORKFORCE DEVELOPMENT ASSISTANT 350.1.13.10 ity of [facility] 4.2.7.2.686 Dayron as MATERNAL [phone] [facility] ical & CHILD [address] [place] [address] 2020-10-11 2020-10-11 Telephone [facility] 1.2.840.114 [id number] Univers 00:00:00 00:00:00 Yovany C WORKFORCE DEVELOPMENT ASSISTANT 350.1.13.10 ity of [facility] 4.2.7.2.686 Dayron as MATERNAL [phone] [facility] ical & CHILD [address] [place] [address] 2020-10-08 2020-10-08 Routine [facility] 1.2.326.306 [id number] Univers 09:26:04 10:09:17 Yovany C WORKFORCE DEVELOPMENT ASSISTANT 350.1.13.10 ity of Visit [facility] 4.2.7.2.686 Dayron as MATERNAL [id number] [facility] & CHILD [address] [place] [address] 2020-10-08 2020-10-08 [facility] [id number] Univers 09:15:00 09:15:00 YOVANY ity o f [facility] 2020-09-10 2020-09-10 Routine [facility] 1.2.086.379 [id number] Univers 09:05:32 09:51:31 Yovany C WORKFORCE DEVELOPMENT ASSISTANT 350.1.13.10 ity of Visit [facility] 4.2.7.2.686 Dayron as MATERNAL [phone] [facility] & CHILD [address] [place] [address] 2020-09-10 2020-09-10 Outpatient R AKINSIPE, [facility] [id number] Univers 09:15:00 09:15:00 YOVANY ity o f [facility] 2020-09-10 2020-09-10 Abstract [facility] 1.2.840.114 [id number] Univers 00:00:00 00:00:00 Yovany C WORKFORCE DEVELOPMENT ASSISTANT 350.1.13.10 ity of [facility] 4.2.7.2.686 Dayron as MATERNAL [phone] Med ical & CHILD [address] [place] [address] 2020-09-08 2020-09-08 Target Worker Ultrasound, Oscar [facility] 1.2 .840.114 [id number] Univers 09:37:17 10:22:17 Visit Ochoa Amara WORKFORCE DEVELOPMENT ASSISTANT 350.1.13.10 ity of [facility] 4.2.7.2.686 Dayron as MATERNAL [phone] [facility] ical & CHILD [address] [facility] 2020-09-08 2020-09-08 Outpatient P [facility] [id number] Univers 09:15:00 09:15:00 ity of [facility] 2020-08-16 2020-08-16 [facility]phone [facility] 1.2.487.674 [id number] Univers 00:00:00 00:00:00 Ward Long WORKFORCE DEVELOPMENT ASSISTANT 350.1.13.10 ity of [facility] 4.2.7.2.686 Dayron as MATERNAL [phone] [facility] ical & CHILD [address] [place] [address] 2020-08-13 2020-08-13 Routine [facility] 1.2.889.360 [id number] Univers 09:08:10 09:23:10 Yovany Oliveira WORKFORCE DEVELOPMENT ASSISTANT 350.1.13.10 ity of Visit [facility] 4.2.7.2.686 Dayron as MATERNAL [id number] [facility] ical & CHILD [address] [place] [address] 2020-08-13 2020-08-13 [facility] [id number] Univers 09:00:00 09:00:00 YOVANY ity o f [facility] 2020-08-04 2020-08-04 [facility] 1.2.840.114 [id number] Univers 00:00:00 00:00:00 Yovany Oliveira WORKFORCE DEVELOPMENT ASSISTANT 350.1.13.10 ity of [facility] 4.2.7.2.686 Dayron as MATERNAL [phone] [facility] ical & CHILD [address] [place] [address] 2020-08-03 2020-08-03 [facility] Work[facility] Ultrasound[facility] 1.2 .840.114 [id number] Univers 09:56:55 10:56:55 Visit Dong Schaefer Nikki WORKFORCE DEVELOPMENT ASSISTANT 350.1.13.10 ity of [facility] 4.2.7.2.686 Dayron as MATERNAL [phone] Med ical & CHILD [address] [facility] 2020-08-03 2020-08-03 Outpatient P [facility] [id number] Univers 09:45:00 09:45:00 ity of [facility] 2020-08-03 2020-08-03 Telephone [facility] 1.2.840.114 [id number] Univers 00:00:00 00:00:00 Yovany C WORKFORCE DEVELOPMENT ASSISTANT 350.1.13.10 ity of [facility] 4.2.7.2.686 Dayron as MATERNAL [phone] Med ical & CHILD [address] [place] [address] 2020-08-03 2020-08-03 Abstract [facility] 1.2.840.114 [id number] Univers 00:00:00 00:00:00 Yovany C WORKFORCE DEVELOPMENT ASSISTANT 350.1.13.10 ity of [facility] 4.2.7.2.686 Dayron as MATERNAL [phone] [facility] ical & CHILD [address] [place] [address] 2020-07-19 2020-07-19 Target Worker Lab, Marlon-Rmchp [facility] 1.2.840. 114 [id number] Univers 10:33:25 10:56:57 Visit Yovany Wilks WORKFORCE DEVELOPMENT ASSISTANT 350.1.13. 10 ity of [facility] 4.2.7.2.686 Dayron as MATERNAL [phone] [facility] ical & CHILD [address] [place] [address] 2020-07-16 2020-07-19 Routine [facility] 1.2.582.908 [id number] Univers 16:04:34 10:50:13 Yovany C WORKFORCE DEVELOPMENT ASSISTANT 350.1.13.10 ity of Visit [facility] 4.2.7.2.686 Dayron as MATERNAL [phone] [facility] ical & CHILD [address] [place] [address] 2020-07-19 2020-07-19 Outpatient R [facility] [id number] Univers 10:30:00 10:30:00 ity of [facility] 2020-07-16 2020-07-16 Outpatient R AKINABDULLAHIPE, [facility] [id number] Univers 16:00:00 16:00:00 YOVANY ity o f [facility] 2020-07-06 2020-07-06 Outpatient R AKINSIPE, [facility] [id number] Univers 13:30:00 13:30:00 YOVANY ity o f [facility] 2020-07-05 2020-07-05 Outpatient R JORGEPE, [facility] [id number] Univers 15:00:00 15:00:00 YOVANY ity o f [facility] 2020-07-02 2020-07-02 Outpatient P [facility] [id number] Univers 15:30:00 15:30:00 ity of [facility] 2020-06-30 2020-06-30 Outpatient P [facility] [id number] Univers 15:15:00 15:15:00 ity [facility] 2020-06-21 2020-06-21 Outpatient R [facility] [id number] Univers 09:00:00 09:00:00 ity [facility] 2020-06-21 2020-06-21 Telemedici Faculty, Marlon [facility] 1.2.840.114 [id number] Univers 08:13:13 08:43:13 ne Visit Arnoldo Rajput WORKFORCE DEVELOPMENT ASSISTANT 350.1 .13.10 ity of [facility] 4.2.7.2.686 Dayron as MATERNAL [phone] Med ical & CHILD [address] [place] [address] 2020-06-14 2020-06-14 Telephone [facility] 1.2.840.114 [id number] Univers 00:00:00 00:00:00 Yovany C WORKFORCE DEVELOPMENT ASSISTANT 350.1.13.10 ity of [facility] 4.2.7.2.686 Dayron as MATERNAL [phone] Med ical & CHILD [address] [place] [address] 2020-06-10 2020-06-10 Telephone [facility] 1.2.840.114 [id number] Univers 00:00:00 00:00:00 Yovany C WORKFORCE DEVELOPMENT ASSISTANT 350.1.13.10 ity of [facility] 4.2.7.2.686 Dayron as MATERNAL [phone] Med ical & CHILD [address] [place] [address] 2020-06-09 2020-06-09 Initial [facility] 1.2.774.685 [id number] Univers 10:11:08 11:24:06 Yovany Oliveira WORKFORCE DEVELOPMENT ASSISTANT 350.1.13.10 ity of Visit [facility] 4.2.7.2.686 Dayron as MATERNAL [phone] [facility] & CHILD [address] [place] [address] 2020-06-09 2020-06-09 Outpatient R LASHAUN [facility] [id number] Univers 10:00:00 10:00:00 YOVANY reddyy o f [facility] 2020-06-09 2020-06-09 Orders Doctor ANNE 1.2.840.114 [id number] Univers 00:00:00 00:00:00 Only Unassigned, RICARDO 350.1.13.10 ity of [place] [address].2.7.2.686 Dayron as [phone] [address] Results Test Description Test Time Test Comments Results Result Comments Source RHO (D) IMMUNE GLOBULIN 2022-08-31 09:23:22 Test Item Value Reference Range Interpretation Comme nts RHIG CANDIDATE? (test code = No- see comment Patient is not a candidate for RhIg- 5055) Patient is Rh P ositive.Performed at [facility] Laboratory Services - [facility] Blood [address] [place] [address]Pusb Free: [phone] A No. [id number] [facility] - SYPHILIS [id number] 16:49:39 Test Item Value Reference Range Interpretation Comments Syphilis IgG/IgM (test Non-reactive Non-reactive code = 00963-3) BLANCO (test code = BLANCO) Non-reactive - No serologic evidence of T. pallidum infection. Cannot exclude incubating or early syphilis. Submit a second specimen in 2-4 weeks if syphilis is clinically suspected. Equivocal - Further testing to follow. Reactive - Further testing to follow. Lab Interpretation (test Normal code = 85379-6) [facility] Center[facility]ORD [id number] 09:48:03 Test Item Value Reference Range Interpretation Comments VENOUS BASE EXCESS, mEq/L CORD (test code = 9768748578) VENOUS PH, CORD (test 7.25-7.45 code = 9826875942) VENOUS PC02, CORD See_Comment [Automate d message] The (test code = system which ge nerated 6307496644) this result tra nsmitted reference range : 27 - 49 mmHg. The refer ence range was not used to interpret this result as normal/abnormal . VENOUS PO2, CORD (test See_Comment [Aut omated message] The code = 1704698708) system wh ich generated this result tra nsmitted reference range : 17 - 41 mmHg. The refer ence range was not used to interpret this result as normal/abnormal . VENOUS BICARBONATE, See_Comment QUES [Au tomated message] CORD (test code = The system which generated 1205483329) this result tra nsmitted reference range : 12 - 29 mEq/L. The refe rence range was not used to interpret this result as normal/abnormal . [facility] CenterARTERIAL CORD [id number] 09:47:43 Test Item Value Reference Range Interpretation Comments BASE EXCESS, CORD mEq/L QUES (test code = 9083633810) AC PH, CORD (BEAKER) 7.18-7.38 (test code = 5029275454) PC02, CORD (test code See_Comment [Auto mated message] The = 2613609120) system which g enerated this result transmit raffi reference range : 32 - 66 mmHg. The refer ence range was not used to interpret this result as normal/abnormal . PO2, CORD (test code See_Comment [Autom ated message] The = 1162431471) system which g enerated this result transmit raffi reference range : 10 - 30 mmHg. The refer ence range was not used to interpret this result as normal/abnormal . BICARBONATE, CORD See_Comment [Automate d message] The (test code = system which ge nerated this 5698570734) result transmit raffi reference range : 17 - 27 mEq/L. The refe rence range was not used to interpret this result as normal/abnormal . [facility] CenterHIV 1/2 AG-AB WITH [id number] 23:38:33 Test Item Value Reference Range Interpretation Comments HIV Negative Negative Semi-quantitative (test code = 98137-1) BLANCO (test code = Non-reactive for HIV-1 BLANCO) antigen and HIV-1/HIV-2 antibodies. ?No laboratory evidence of HIV infection. ?Repeat in 2-4 weeks if acute HIV infection is suspected. [facility] CenterHepatitis B Surface [id number] 20:57:17 Test Item Value Reference Range Interpretation Comments HBsAg Semi-Quantitative (test code = Negative Negative 5195-3) [facility] CenterType and Screen - ONCE [id number] 20:35:19 Test Item Value Reference Range Interpretation Comments ABO & RH (test code O POSITIVE Performe d at [facility] = 20) Laboratory Serv [facility] Blood Bank3 [address] [facility] s [address]Yebl Free: [phone] A No. [id number] IAT (test code = Negative Performed a t [facility] 1185) Laboratory Serv [facility] Blood Bank3 [address] [facility] s [address]Uavz Free: [phone] A No. [id number] [facility] CenterCBC with [id number] 20:28:52 Test Item Value Reference Range Interpretation Comments WBC (test code = See_Comment H [Automated 6690-2) message] The sy stem which generated this result transmitted reference range : 4.30 - 11.10 10*3/?L. The reference range was not used to interpret this result as normal/abnormal . RBC (test code = See_Comment [Automated 789-8) message] The sy stem which generated this [...] RDW-SD (test code = 45.3 fL 39.0-49.9 76909-3) RDW-CV (test code = 19.9 % 12.0-15.5 H 788-0) PLT (test code = See_Comment H [Automated 777-3) message] The sy stem which generated this result transmitted reference range : 166 - 358 10*3/ ?L. The reference r yessi was not used to interpret this result as normal/abnormal . MPV (test code = 10.7 fL 9.5-12.9 74803-2) IPF % (test code = 5.4 % 1.3-7.7 Platelet count 2732521181) measured by fluorescence method. NRBC/100 WBC (test See_Comment [Automat ed code = 3076586384) message] The system which generated this result transmitted reference range : 0.0 - 10.0 /100 WBCs. The refer ence range was not u sed to interpret th is result as normal/abnormal . NRBC x10^3 (test code See_Comment [Auto mated = 1145370810) message] The s ystem which generated this result transmitted reference range : 10*3/?L. The reference range was not used to interpret this result as normal/abnormal . GRAN MAT (NEUT) % 78.6 % (test code = 770-8) IMM GRAN % (test code 1.00 % = 1592610917) LYMPH % (test code = 14.9 % 736-9) MONO % (test code = 4.0 % 5905-5) EOS % (test code = 1.3 % 713-8) BASO % (test code = 0.2 % 706-2) GRAN MAT x10^3(ANC) 9.89 10*3/uL 1.88-7.09 H (test code = 6457860272) IMM GRAN x10^3 (test 0.13 10*3/uL 0.00-0.06 H code = 2151695233) LYMPH x10^3 (test code 1.88 10*3/uL 1.32-3.29 = 731-0) MONO x10^3 (test code 0.50 10*3/uL 0.33-0.92 = 742-7) EOS x10^3 (test code = 0.17 10*3/uL 0.03-0.39 711-2) SHIRA x10^3 (test code 0.03 10*3/uL 0.01-0.07 = 704-7) Lab Interpretation Abnormal (test code = 82617-8) [facility] BranchUric Acid [id number] 20:23:31 Test Item Value Reference Range Interpretation Comments URIC ACID (test code = 8934926314) 5.2 mg/dL 2.9-6.0 Lab Interpretation (test code = Normal 88245-9) [facility] CenterSerum [id number] 20:23:31 Test Item Value Reference Range Interpretation Comments CREATININE (test code 0.56 mg/dL 0.50-1.04 = 7922727917) eGFR (test code = mL/min/1.73m2 3669376692) BLANCO (test code = BLANCO) Association of [...] or urine or abnormalities in imaging tests). [facility] (Asparate Amino Transfer)2022-08-29 20:23:31 Test Item Value Reference Range Interpretation Comments AST(SGOT) (test code = 1138490103) 24 U/L 13-40 Lab Interpretation (test code = Normal 96798-9) [facility] CenterAlanine Amino Transferase (SGPT)2022-08-29 20:23:31 Test Item Value Reference Range Interpretation Comments ALTv (test code = 1742-6) 13 U/L 5-35 Lab Interpretation (test code = Normal 86192-6) [facility] CenterLactate [id number] 20:22:30 Test Item Value Reference Range Interpretation Comments LDH (test code = 6642043768) 184 U/L 120-246 Lab Interpretation (test code = Normal 11425-4) [facility] URINALYSIS W SPECIFIC [id number] 14:56:00 Test Item Value Reference Range Interpretation [...] U APPEAR (test code = 3267) . [facility] URINALYSIS W SPECIFIC [id number] 14:56:00 Test Item Value Reference Range Interpretation [...] U APPEAR (test code = 3267) . [facility] URINALYSIS W SPECIFIC [id number] 16:15:00 Test Item Value Reference Range Interpretation [...] POCT U APPEAR (test code = 3267) [facility] URINALYSIS W SPECIFIC [id number] 16:15:00 Test Item Value Reference Range Interpretation [...] POCT U APPEAR (test code = 3267) [facility] URINALYSIS W SPECIFIC [id number] 16:09:00 Test Item Value Reference Range Interpretation [...] U APPEAR (test code = 3267) . [facility] URINALYSIS W SPECIFIC [id number] 14:10:00 Test Item Value Reference Range Interpretation [...] U APPEAR (test code = 3267) clear [facility] URINALYSIS W SPECIFIC [id number] 14:10:00 Test Item Value Reference Range Interpretation [...] U APPEAR (test code = 3267) clear [facility] URINALYSIS W SPECIFIC [id number] 13:42:00 Test Item Value Reference Range Interpretation [...] (test code = 3267) [facility] CenterPLACENTA2019-08-06 09:07:00 RUN DATE: 05/06/19 [facility] - Lab PAGE 1 RUN TIME: 907 Specimen Inquiry RUN USER: INTERFACE PATIE NT: RAFAEL STAFFORD [facility] #: [id number] LOC: [facility] #: [id number] AGE/SX: ROOM: 2004 RE04/29/19REG DR: Johanna Sanders : 86 BED: A DIS: 05/02/19 STATUS: DIS IN TLOC: SPEC #: [id number] RECD: 04/30/19 STATUS: BRYAN ASHRAF #: [id number] MUNA: 04/29/19- SUBM DR: Johanna Sanders MD ENTERED: 04/30/19 SP TYPE: PLACENTA OTHR DR: ORDERED: GROSS PROCEDURES: GROSS (05/05/19-114) TISSUES: PLACENTA, NOS CLINICAL HISTORY COLLECTION DATE: 04/29/19 FINAL DIAGNOSIS Placenta, vaginal delivery: TERM 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 The placenta measures 15.0 x 13.0 x up to 3.5 cm and has atrimmed weight of 385.6 grams. A segment of [...] through the placenta shows no focal lesions. Practice Managers sections through the tissue shows no focal lesions. Practice Managers portions of tissue are submitted for histologic evaluation (1A-1C). GROSS [facility] AT [facility] CONTINUED ON NEXT PAGE RUN DATE: 05/06/19 [facility] PAGE 2 RUN TIME: 907 Specimen Inquiry RUN USER: INTERFACE SP EC #: [id number]: RAFAEL STAFFORD #[id number] (Continued) MACROSCOPIC (Continued) [facility] [address] [place] [address] (p)[phone] MICROSCOPIC All of the stains, including any controls performed, stain appropriately. MICROSCOPIC PERFORMED AT [facility] [address] [place] [address] (p)[phone] PERFORMING SITE Diagnosis performed at: [facility] [address] [facility] [place] [address] Signed SIGNATURE ON FILE Salvatore Pascal MD 05/06/1907 END OF REPORT COMPREHENSIVE METABOLIC [id number] 10:33:00 Test Item Value Reference Range Interpretation [...] MDRD formula.Chronic kidney disease is defined as [facility] kidney damageor GFR <60 mL/min/1.73 m2 for [...] ALKP) to change in reagent. COMPREHENSIVE METABOLIC [id number] 10:27:00 Test Item Value Reference Range Interpretation [...] IUnit/L 45-117 code = ALKP) CBC W/AUTO [id number] 13:30:00 Test Item Value Reference Range Interpretation [...] code = MDIFF) SPECIMEN COMMENTS: day 1DIFFERENTIAL [id number] 13:30:00 Test Item Value Reference Range Interpretation [...] = PLTMORPH) SPECIMEN COMMENTS: day 1COMPREHENSIVE METABOLIC [id number] 13:08:00 Test Item Value Reference Range Interpretation [...] mg/dL 8.5-10.1 LL Results called to CA) [id number] by YOUSUF 04/30 1308Critical results verifie d and read back b y Nurse? Y BILIRUBIN TOTAL (test 0.30 mg/dL 0.0-1.0 N code = BILT) SGOT/AST (test code = 33 IUnit/L 15-37 N AST) SGPT/ALT (test code = 23 IUnit/L 12-78 N ALT) ALKALINE PHOSPHATASE 220 IUnit/L 45-117 H Note change in TOTAL (test code = reference range due ALKP) to change in reagent. [id number] 13:08:00 Test Item Value Reference Range Interpretation Comments MAGNESIUM (test code = MAG) 6.6 mg/dL 1.8-2.4 H CBC W/AUTO [id number] 12:58:00 Test Item Value Reference Range Interpretation [...] code = MDIFF) SPECIMEN COMMENTS: day 1DIFFERENTIAL [id number] 12:58:00 Test Item Value Reference Range Interpretation Comments STAIN ACCEPTABILITY (test code = STN ACCEPTABLE) CABOT RINGS (test code = CAB) MORPHOLOGY COMMENT (test code = MOC) PLATELET ESTIMATE (test code = PLTEST) PLATELET MORPHOLOGY (test code = PLTMORPH) SPECIMEN COMMENTS: day 1CBC W/AUTO [id number] 12:58:00 Test Item Value Reference Range Interpretation [...] code = MDIFF) SPECIMEN COMMENTS: day 1DIFFERENTIAL [id number] 12:58:00 Test Item Value Reference Range Interpretation Comments STAIN ACCEPTABILITY (test code = STN ACCEPTABLE) MORPHOLOGY COMMENT (test code = MOC) PLATELET ESTIMATE (test code = PLTEST) PLATELET MORPHOLOGY (test code = PLTMORPH) SPECIMEN COMMENTS: day 1CBC W/AUTO [id number] 12:58:00 Test Item Value Reference Range Interpretation [...] code = MDIFF) SPECIMEN COMMENTS: day 1DIFFERENTIAL [id number] 12:58:00 Test Item Value Reference Range Interpretation Comments STAIN ACCEPTABILITY (test code = STN ACCEPTABLE) MORPHOLOGY COMMENT (test code = MOC) PLATELET ESTIMATE (test code = PLTEST) PLATELET MORPHOLOGY (test code = PLTMORPH) SPECIMEN COMMENTS: day 1CBC W/AUTO [id number] 12:58:00 Test Item Value Reference Range Interpretation [...] code = MDIFF) SPECIMEN COMMENTS: day 1DIFFERENTIAL [id number] 12:58:00 Test Item Value Reference Range Interpretation Comments STAIN ACCEPTABILITY (test code = STN ACCEPTABLE) CABOT RINGS (test code = CAB) MORPHOLOGY COMMENT (test code = MOC) PLATELET ESTIMATE (test code = PLTEST) PLATELET MORPHOLOGY (test code = PLTMORPH) SPECIMEN COMMENTS: day 1COMPREHENSIVE METABOLIC [id number] 12:50:00 Test Item Value Reference Range Interpretation [...] TOTAL (test IUnit/L 45-117 code = ALKP) [id number] 12:50:00 Test Item Value Reference Range Interpretation Comments MAGNESIUM (test code = MAG) mg/dL 1.8-2.4 [id number] 22:22:00 Test Item Value Reference Range Interpretation Comments MAGNESIUM (test code = MAG) 5.6 mg/dL 1.8-2.4 H HIV 1 2 COMBO AG/AB [id number] 14:02:00 Test Item Value Reference Range Interpretation Comments HIV 1 2 COMBO AB/AG NON NONREACTIVE NONREACTIVE H IV P24 AG/AB SCREEN REACTIVE ANTIGEN NONREAC TIVE (test code = NONREACTIVE HIV 1&2 [id number]) ANTIBODY NONREA CTIVE THE HIV-1 P24 T EST HELPS DISTINGUI SH ACUTE HIV-1INFECTIONF ROM ESTABLISHED HIV -1 INFECTION WHEN THE SPECIMEN ISPOSI TIVE FOR HIV-1 P24 A NTIGEN. HIV-1 P24 ANTIG EN IS HIGHEST IN THE FIRST FEW WEEKS AFTERINFECTION DRUGS OF ABUSE SCREEN [id number] 13:55:00 Test Item Value Reference Range Interpretation [...] <300 ng/mL code = [place]) CBC W/AUTO [id number] 13:51:00 Test Item Value Reference Range Interpretation [...] SCAN NEEDED (test code = MDIFF) DIFFERENTIAL [id number] 13:51:00 Test Item Value Reference Range Interpretation [...] (test NORMAL code = PLTMORPH) CBC W/AUTO [id number] 13:32:00 Test Item Value Reference Range Interpretation [...] SCAN NEEDED (test code = MDIFF) DIFFERENTIAL [id number] 13:32:00 Test Item Value Reference Range Interpretation [...] (test NORMAL code = PLTMORPH) CBC W/AUTO [id number] 13:31:00 Test Item Value Reference Range Interpretation [...] SCAN NEEDED (test code = MDIFF) DIFFERENTIAL [id number] 13:31:00 Test Item Value Reference Range Interpretation Comments STAIN ACCEPTABILITY (test code = STN ACCEPTABLE) CABOT RINGS (test code = CAB) MORPHOLOGY COMMENT (test code = MOC) PLATELET ESTIMATE (test code = PLTEST) PLATELET MORPHOLOGY (test code = PLTMORPH) CBC W/AUTO [id number] 13:31:00 Test Item Value Reference Range Interpretation [...] SCAN NEEDED (test code = MDIFF) DIFFERENTIAL [id number] 13:31:00 Test Item Value Reference Range Interpretation Comments STAIN ACCEPTABILITY (test code = STN ACCEPTABLE) CABOT RINGS (test code = CAB) MORPHOLOGY COMMENT (test code = MOC) PLATELET ESTIMATE (test code = PLTEST) PLATELET MORPHOLOGY (test code = PLTMORPH) CBC W/AUTO [id number] 13:31:00 Test Item Value Reference Range Interpretation [...] SCAN NEEDED (test code = MDIFF) DIFFERENTIAL [id number] 13:31:00 Test Item Value Reference Range Interpretation Comments STAIN ACCEPTABILITY (test code = STN ACCEPTABLE) MORPHOLOGY COMMENT (test code = MOC) PLATELET ESTIMATE (test code = PLTEST) PLATELET MORPHOLOGY (test code = PLTMORPH) CBC W/AUTO [id number] 13:31:00 Test Item Value Reference Range Interpretation [...] SCAN NEEDED (test code = MDIFF) DIFFERENTIAL [id number] 13:31:00 Test Item Value Reference Range Interpretation Comments STAIN ACCEPTABILITY (test code = STN ACCEPTABLE) CABOT RINGS (test code = CAB) MORPHOLOGY COMMENT (test code = MOC) PLATELET ESTIMATE (test code = PLTEST) PLATELET MORPHOLOGY (test code = PLTMORPH) DRUGS OF ABUSE SCREEN [id number] 13:10:00 Test Item Value Reference Range Interpretation [...] ng/mL code = [place]) AG HEPAT B [id number] 13:05:00 Test Item Value Reference Range Interpretation Comments AG HEPAT B SURF (test code Nonreactive Index Nonreactive = HBSAG) AB RUBELLA [id number] 13:05:00 Test Item Value Reference Range Interpretation Comments AB RUBELLA IGG Positive <5.0=Neg IU/ML INTERP RETATION (test code = IUnit/mL OF SERUM RUBELL A-IGG RUBGAB) AB --------- ------- ---< 5.0 NEGATIVE - NO RUBELLA IGG ANT IBODY DETECTED5.0-9.9 EQUIVOCAL>= 10. 0 POSITIVE - RUBE LLA IGG ANTIBODY DETECT ED AB [id number] 13:05:00 Test Item Value Reference Range Interpretation Comments AB TREPONEMA (test code = Nonreactive Index NonReactive TREPAB) URINALYSIS [id number] 12:57:00 Test Item Value Reference Range Interpretation [...] #/LPF FEW A Urine Source? CatheterCOMPREHENSIVE METABOLIC [id number] 12:27:00 Test Item Value Reference Range Interpretation [...] MDRD formula.Chronic kidney disease is defined as [facility] kidney damageor GFR <60 [...] ALKP) to change in reagent. COMPREHENSIVE METABOLIC [id number] 12:22:00 Test Item Value Reference Range Interpretation [...] IUnit/L 45-117 code = ALKP) CBC W/AUTO [id number] 12:17:00 Test Item Value Reference Range Interpretation [...] 0.0-0.1 N NRBC#) DRUGS OF ABUSE SCREEN [id number] 14:29:00 Test Item Value Reference Range Interpretation [...] NEGATIVE <300 ng/mL code = [place]) URINALYSIS [id number] 14:15:00 Test Item Value Reference Range Interpretation [...] Urine Source? Clean CatchDRUGS OF ABUSE SCREEN [id number] 14:07:00 Test Item Value Reference Range Interpretation [...] (test code = MET[place]URN) <300 ng/mL URINALYSIS [id number] 14:05:00 Test Item Value Reference Range Interpretation [...] Urine Source? Clean Catch- US PREG AFTER [id number] 20:34:00 Name: RAFAEL STAFFORD [facility] : 1990 Age/S: 28 / F [address] [facility] Unit #: [id number] Loc: [place] [address] Phys: Anselmo Barber NP Acct: [id number] Dis Date: Status: REG ERPHONE #: [phone] Exam Date: 12/11/2018 1804 FAX #: [phone] Reason: PELVIC PAIN EXAMS: CPT CODE: [id number] US PREG AFTER 28386 EXAM: ultrasound after first trimester; INFORMA TION: [...] weeks and 1 day. 2. ANNEMARIE by ultrasoundis 05/06/2019. 3. Small left ovarian cyst. 4. Fetus in breech position. at 2033 Reported and signed by: Aldo Mccauley M.D. CC: Anselmo Barber NP Technologist: Beatriz Dowell RDMS [facility] Date/Time: 12/11/2018 (2033)tSYDNEY Orig Print D/T: S: 12/11/2018 (2036) Probe: PAGE 1 Signed ReportURINALYSIS [id number] 19:40:00 Test Item Value Reference Range Interpretation [...] Urine Source? Clean CatchDRUGS OF ABUSE SCREEN [id number] 19:40:00 Test Item Value Reference Range Interpretation [...] code = [place]URN) Urine Source? Clean CatchURINALYSIS [id number] 18:38:00 Test Item Value Reference Range Interpretation [...] Urine Source? Clean CatchDRUGS OF ABUSE SCREEN [id number] 18:38:00 Test Item Value Reference Range Interpretation [...] [place]URN) <300 ng/mL Urine Source? Clean CatchURINALYSIS [id number] 18:35:00 Test Item Value Reference Range Interpretation [...] Urine Source? Clean CatchDRUGS OF ABUSE SCREEN [id number] 18:35:00 Test Item Value Reference Range Interpretation [...]
[2023-07-28 09:08] LABS: Specific Gravity 1.026 (1.005-1.030)
[2023-07-28 09:10] LABS: Specific Gravity 1.026 (1.005-1.030); Urine Bacteria None Seen /HPF (<20); Urine Bilirubin NEGATIVE (Negative); Urine Blood Negative (Negative); Urine Clarity Turbid (Clear); Urine Color Light-Yellow (Yellow); Urine Glucose NEGATIVE (Negative); Urine Mucus Slight /HPF (None Seen); Urine Protein TRACE (Negative); Urine RBC <5 /HPF (None Seen); Urine Urobilinogen Normal (Normal); Urine pH 5.5 (5.0-7.0)
[2023-07-28 09:23] LABS: Absolute Lymphocytes (CBC) 1.8 K/uL (0.7-4.9); Lymphocytes % 18.7 % (15.3-44.8); MCV 66.1 fL (80-100); MPV 8.8 fL (7.6-11.3); Platelets 375 thou/uL (152-406); RBC Red Blood Cell Count 4.69 M/uL (3.86-4.86)
[2023-07-28] MEDS ORDERED: HYDROMORPHONE HCL 1 MG/ML INJ ONE (09:33)
[2023-07-28] MEDS ORDERED: NA CHLORIDE 0.9% 1,000 ML ONE (09:33)
[2023-07-28] MEDS ORDERED: ONDANSETRON 4 MG/2 ML VIAL ONE (09:33)
[2023-07-28 09:38] LABS: Albumin 3.3 g/dL (3.4-5.0); Bilirubin Total 0.3 mg/dL (0.2-1.0); Potassium 3.7 mEq/L (3.5-5.1); Protein, Total 7.7 g/dL (6.4-8.2)
--- NOTE | 2023-07-28 10:09 | RAD REPORT ---
EXAM DESCRIPTION: CTAbdomen Pelvis W Contrast - 07/28/2023 10:01 am CLINICAL HISTORY: ABD PAIN COMPARISON: Abdomen Pelvis W Contrast dated 07/22/2023 TECHNIQUE: CT of the abdomen and pelvis was performed. All CT scans are performed using dose optimization technique as appropriate and may include automated exposure control or mA/KV adjustment according to patient size. FINDINGS: Lower chest: No acute abnormality. Liver: No acute abnormality or suspicious lesions. Biliary: No biliary ductal dilatation. Stomach: No significant focal abnormality. Duodenum: No significant focal abnormality. Pancreas: No significant abnormality. Spleen: No significant abnormality. Adrenal: No suspicious lesions. Kidney/ureter: No hydronephrosis. No renal calculi. Retroperitoneum: No retroperitoneal adenopathy. Vascular: No aneurysm. Bowel: Nonspecific colonic fluid.. Peritoneum: Fat containing periumbilical hernia with stranding again noted. This is similar to 2022. Normal appendix. Bladder: Grossly unremarkable. Reproductive: Corpus luteum in the right ovary. Retroverted uterus. Bones: No acute fracture. Other: n/a IMPRESSION: No acute intra-abdominal or pelvic finding. Colonic fluid could indicate diarrheal disea se. Normal appendix.
--- NOTE | 2023-07-28 10:16 | EDPHYS ---
Physician Documentation [facility] Name: Fifi Grimm Age: 33 yrs Sex: Female : 1990 Arrival Date: 07/28/2023 Time: 08:29 Bed 20 Private MD: ED Physician James Mckeon HPI: 07/28 08:57 This 33 yrs old Female presents to ER via Ambulatory with complaints of sb4 Abdominal Pain, Vomiting. 08:57 The patient presents with abdominal pain in the epigastric area. Onset: The sb4 symptoms/episode began/occurred last week, and became worse today. The symptoms do not radiate. Associated signs and symptoms: Pertinent positives: nausea and vomiting, constipation. Modifying factors: The symptoms are alleviated by nothing, the symptoms are aggravated by pressure, touching the area. Severity of pain: in the emergency department the pain is a 10 / 10. The patient has been recently seen at the [facility] Emergency Department, for similar complaints labs were performed, CT scan was performed. 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 - Social history:: Smoking status: Patient denies any tobacco usage or history of. ROS: 08:57 Constitutional: Negative for fever, chills, and weight loss, sb4 08:57 Abdomen/GI: Positive for abdominal pain, nausea and vomiting, constipation, 08:57 All other systems are negative, Exam: 08:57 Head/Face: Normocephalic, atraumatic. Eyes: Extra-ocular motions intact. Periorbital sb4 areas with no swelling, redness, or edema. ENT: Mucous membranes moist. Cardiovascular: Regular rate and rhythm with a normal S1 and S2. Respiratory: Lungs have equal breath sounds bilaterally, clear to auscultation and percussion. No rales, rhonchi or wheezes noted. No increased work of breathing, no retractions or nasal flaring. Skin: Warm, dry with normal turgor. Normal color with no rashes, no lesions, and no evidence of cellulitis. MS/ Extremity: Pulses equal, no cyanosis. Neurovascular intact. Full, normal range of motion. Neuro: Awake and alert, GCS 15, oriented to person, place, time, and situation. Motor strength 5/5 in all extremities. Sensory grossly intact. 08:57 Constitutional: The patient appears alert, awake, in obvious pain, uncomfortable, 08:57 Abdomen/GI: Inspection: abdomen appears normal, Bowel sounds: diminished, in all quadrants, Palpation: soft, moderate abdominal tenderness, in the umbilical area, Hernia: noted in the umbilical area, tenderness, that is moderate, Vital Signs: 08:42 BP 126 / 105; Pulse 89; Resp 17; Temp 98.6; Pulse Ox 100% ; Weight 54.43 kg; Height 4 jl7 ft. 11 in. ; Pain 10/10; 09:30 BP 121 / 92; Pulse 81; Resp 20; Pulse Ox 99% ; ko1 11:00 BP 123 / 92; Pulse 86; Resp 16; Pulse Ox 98% ; ko1 13:00 BP 119 / 85; Pulse 63; Resp 18; Pulse Ox 98% ; ko1 16:01 BP 126 / 82; Pulse 66; Resp 16; Pulse Ox 98% ; ko1 08:42 Body Mass Index 24.24 (54.43 kg, 149.86 cm) jl7 08:42 Pain Scale: Adult jl7 MDM: 08:47 Patient medically screened. sb4 08:57 Differential diagnosis: gastroenteritis, incarcerated hernia, SBO, colitis. sb4 10:20 Data reviewed: vital signs, nurses notes, lab test result(s), radiologic studies, and sb4 as a result, I will admit patient. Consideration of Admission/Observation Patient was admitted/placed on observation. 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 Fay, agrees to admit. Counseling: I had a detailed discussion with the patient and/or guardian regarding the historical points, exam findings, and any diagnostic results supporting the discharge/admit diagnosis, the presence of at least one elevated blood pressure reading (>120/80) during this emergency department visit, lab results, radiology results, the need for further work-up and treatment in the hospital. 07/28 08:57 Order name: CBC with Diff; Complete Time: 10:30 sb4 07/28 08:57 Order name: CMP; Complete Time: 09:40 sb4 07/28 08:57 Order name: Lipase; Complete Time: 09:40 sb4 07/28 08:57 Order name: UAM; Complete Time: 09:10 sb4 07/28 08:57 Order name: Test, Urine; Complete Time: 09:10 sb4 07/28 08:57 Order name: Lactate w/ 2H reflex if indic.; Complete Time: 09:54 sb4 07/28 10:26 Order name: CBC Smear Scan; Complete Time: 10:30 EDMS 07/28 08:57 Order name: CT Abd/Pelvis - IV Contrast Only; Complete Time: 10:09 sb4 07/28 08:57 Order name: IV Saline Lock; Complete Time: 09:18 sb4 07/28 08:57 Order name: Labs collected and sent; Complete Time: 09:18 sb4 07/28 10:13 Order name: NPO; Complete Time: 10:30 sb4 07/28 15:53 Order name: Misc. Order: abdominal binder sb4 Administered Medications: 09:25 Drug: NS 0.9% IV 1000 ml IV at 1 bolus Per protocol; 1000 mL bolus Route: IV; Rate: 1 ko1 bolus; Site: right antecubital; 09:25 Drug: Ondansetron IVP 4 mg IVP once; over 2 minutes Route: IVP; Site: right antecubital;ko1 09:25 Drug: HYDROmorphone IVP 1 mg IVP once Route: IVP; Site: right antecubital; ko1 10:34 Drug: Promethazine IVP 12.5 mg IVP once Route: IVP; Site: right antecubital; ko1 10:40 Drug: cefOXitin IVPB 1 grams IVPB once over 30 mins; (mix in 50 mL NS) Route: IVPB; ko1 Infused Over: 30 mins; Site: right antecubital; 10:40 Drug: fentaNYL (PF) IVP 50 mcg IVP once Route: IVP; Site: right antecubital; ko1 Disposition Summary: 07/28/23 15:46 Discharge Ordered Notes: Location: Home(07/28/23 15:46) sb4 Problem: an ongoing problem(07/28/23 15:46) sb4 Symptoms: have improved(07/28/23 15:46) sb4 Condition: Stable(07/28/23 15:46) sb4 Diagnosis - Abdominal pain, unspecified sb4 - Umbilical hernia without obstruction or gangrene sb4 Followup: sb4 - With: Delfino Fay MD - When: 2 - 3 days - Reason: Recheck today's complaints, Re-evaluation by your physician Discharge Instructions: - Discharge Summary Sheet sb4 - Umbilical Hernia, Adult sb4 Forms: - Medication Reconciliation Form sb4 - Thank You Letter sb4 - Antibiotic Education sb4 - Prescription Opioid Use sb4 - Patient Portal Instructions sb4 - Leadership Thank You Letter sb4 Prescriptions: - Tramadol 50 mg Oral Tablet - take 1 tablet ORAL route every 8 hours as needed; 12 tablet; Refills: 0, sb4 Product Selection Permitted Addendum: 07/29/2023 16:43 I was immediately available for consultation during this patient's visit. I did not e c2 personally see the patient or guide the patient's care.. Signatures: Dispatcher [employer] Noemi Perdomo RN RN jl7 Katty Posadas Kathy, RN RN ko1 Lindsey Oh, PA-C PA-C sb4 James Mckeon MD MD ec2 Corrections: (The following items were deleted from the chart) 07/28 10:37 10:16 Telemetry/MedSurg (observation) sb4 eb 10:37 10:16 sb4 eb 15:45 10:16 Observation sb4 sb4 15:45 10:16 Delfino Fay sb4 sb4 15:45 10:16 Fair sb4 sb4 15:45 10:16 an ongoing problem sb4 sb4 15:45 10:16 are unchanged sb4 sb4 15:45 10:16 Standard sb4 sb4 15:45 10:16 intractable abdominal pain secondary to periumbilical hernia sb4 sb4 15:45 10:37 [facility] ER HOLD eb sb4 15:45 10:37 ERHOLD- eb sb4 15:57 15:46 Periumbilical pain sb4 sb4
--- NOTE | 2023-07-28 10:16 | ER ---
Nurse's Notes [facility] Name: Fifi Grimm Age: 33 yrs Sex: Female : 1990 Arrival Date: 07/28/2023 Time: 08:29 Bed 20 Private MD: Diagnosis: Abdominal pain, unspecified;Umbilical hernia without obstruction or gangrene Presentation: 07/28 08:42 Chief complaint: Patient states: LLQ to left flank pain, started at 0500, denies jl7 urinary symptoms, reports last BM 3 days ago, reports N/V. Coronavirus screen: At this time, the client does not indicate any symptoms associated with coronavirus-19. Ebola Screen: No symptoms or risks identified at this time. Initial Sepsis Screen: Does the patient meet any 2 criteria? No. Patient's initial sepsis screen is negative. Does the patient have a suspected source of infection? No. Patient's initial sepsis screen is negative. Risk Assessment: Do you want to hurt yourself or someone else? Patient reports no desire to harm self or others. Onset of symptoms was July 28, 2023. 08:42 Method Of Arrival: Amb[facility] 08:42 Acuity: WOO 3 jl7 Triage Assessment: 08:44 General: Appears in no apparent distress. uncomfortable, Behavior is calm, cooperative, jl7 restless. Pain: Complains of pain in posterior aspect of left lateral abdomen, anterior aspect of left lateral abdomen and left lower quadrant Pain currently is 10 out of 10 on a pain scale. GI: Reports nausea, vomiting. 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 - Social history:: Smoking status: Patient denies any tobacco usage or history of. Screenin:00 [facility] ED Fall Risk Assessment (Adult) History of falling in the last 3 months, ko1 including since admission No falls in past 3 months (0 pts) Confusion or Disorientation No (0 pts) Intoxicated or Sedated No (0 pts) Impaired Gait No (0 pts) Mobility Assist Device Used No (0 pt) Altered Elimination No (0 pt) Score/Fall Risk Level 0 - 2 = Low Risk Oriented to surroundings, Maintained a safe environment, Educated pt \T\ family on fall prevention, incl call for assistance when getting out of bed, Assessed \T\ reinforced patient's understanding of fall precautions, Provided non-skid footwear, Hourly rounding (assess needs \T\ fall precautionary measures) done, Used ambulatory aids as needed (educated on \T\ assisted with), Used gait belt as appropriate. Abuse screen: Denies threats or abuse. Denies injuries from another. Nutritional screening: No deficits noted. Tuberculosis screening: No symptoms or risk factors identified. Assessment: 09:00 General: Appears distressed, uncomfortable, Behavior is cooperative, appropriate for ko1 age. Pain: Complains of pain in abdomen. Neuro: No deficits noted. Cardiovascular: No deficits noted. Respiratory: No deficits noted. GI: Bowel sounds present X 4 quads. Abd is soft X 4 quads Reports lower abdominal pain, cramping, nausea. : No deficits noted. EENT: No deficits noted. Derm: No deficits noted. Musculoskeletal: No deficits noted. Vital Signs: 08:42 BP 126 / 105; Pulse 89; Resp 17; Temp 98.6; Pulse Ox 100% ; Weight 54.43 kg; Height 4 jl7 ft. 11 in. ; Pain 10/10; 09:30 BP 121 / 92; Pulse 81; Resp 20; Pulse Ox 99% ; ko1 11:00 BP 123 / 92; Pulse 86; Resp 16; Pulse Ox 98% ; ko1 13:00 BP 119 / 85; Pulse 63; Resp 18; Pulse Ox 98% ; ko1 16:01 BP 126 / 82; Pulse 66; Resp 16; Pulse Ox 98% ; ko1 08:42 Body Mass Index 24.24 (54.43 kg, 149.86 cm) jl7 08:42 Pain Scale: Adult jl7 ED Course: 08:32 Patient arrived in ED. mg5 08:33 Lindsey Oh PA-C is PHCP. sb4 08:33 James Mckeon MD is Attending Physician. sb4 08:44 Triage completed. jl7 08:44 Arm band placed on right wrist. jl7 09:05 Stacy Haung, TELLY is Primary Nurse. ko1 09:15 Inserted saline lock: 20 gauge in right antecubital area, using aseptic technique. ko1 Blood collected. 09:18 Lactate w/ 2H reflex if indic. Sent. ko1 09:18 CBC with Diff Sent. ko1 09:18 CMP Sent. ko1 09:18 Lipase Sent. ko1 10:03 CT Abd/Pelvis - IV Contrast Only In Process Unspecified. EDMS 10:15 Delfino Fay MD is Hospitalizing Provider. sb4 13:00 Patient has correct armband on for positive identification. Placed in gown. Bed in low ko1 position. Call light in reach. Side rails up X2. Provided Education on: na. Client placed on continuous cardiac and pulse oximetry monitoring. NIBP monitoring applied. color television console monitor on. Door closed. Noise minimized. Lights dimmed. Warm blanket given. 13:00 No provider procedures requiring assistance completed. ko1 15:45 Delfino Fay MD is Referral Physician. sb4 16:01 IV discontinued, intact, bleeding controlled, No redness/swelling at site. Pressure ko1 dressing applied. Administered Medications: 09:25 Drug: NS 0.9% IV 1000 ml IV at 1 bolus Per protocol; 1000 mL bolus Route: IV; Rate: 1 ko1 bolus; Site: right antecubital; 09:25 Drug: Ondansetron IVP 4 mg IVP once; over 2 minutes Route: IVP; Site: right antecubital;ko1 09:25 Drug: HYDROmorphone IVP 1 mg IVP once Route: IVP; Site: right antecubital; ko1 10:34 Drug: Promethazine IVP 12.5 mg IVP once Route: IVP; Site: right antecubital; ko1 10:40 Drug: cefOXitin IVPB 1 grams IVPB once over 30 mins; (mix in 50 mL NS) Route: IVPB; ko1 Infused Over: 30 mins; Site: right antecubital; 10:40 Drug: fentaNYL (PF) IVP 50 mcg IVP once Route: IVP; Site: right antecubital; ko1 Medication: 13:00 VIS not applicable for this client. ko1 Outcome: 10:16 Decision to Hospitalize by Provider. sb4 15:46 Discharge ordered by . sb4 16:19 Discharged to home ambulatory, with family, ko1 16:19 Condition: improved 16:19 Discharge instructions given to patient, Instructed on discharge instructions, follow up and referral plans. medication usage, Demonstrated understanding of instructions, follow-up care, medications, Prescriptions given X 1, 16:32 Patient left the ED. ko1 Signatures: Dispatcher [employer] Noemi Perdomo RN RN jl7 Stacy Huang RN RN ko1 Lindsey Oh PA-C PAShivani moody4 Cele Cooley 5
[2023-07-28 10:25] LABS: Blood Morphology Comment NOTED (NOT SEEN); Hypochromasia 1+; Platelet Estimate ADEQ; White Blood Cell Scan OK (OK)
[2023-07-28] MEDS ORDERED: PROMETHAZINE INJ 25 MG/ML AMP ONE (10:46)
[2023-07-28] MEDS ORDERED: FENTANYL CITR 100 MCG/2 ML ONE (10:47)
[2023-07-28] MEDS ORDERED: CEFOXITIN SODIUM 1 GM/VIAL ONE (10:47)
[2023-07-28] MEDS ORDERED: NA CHLORIDE 0.9% 1,000 ML IV SCH (12:01)
[2023-07-28] MEDS ORDERED: ONDANSETRON 4 MG/2 ML VIAL IV PRN (12:01)
[2023-07-28] MEDS ORDERED: HYDROMORPHONE HCL 1 MG/ML INJ IV PRN (12:01)
[2023-07-28 16:37] VITALS: TEMP 98.6
[2023-07-28 16:41] VITALS: O2SAT 98
[2023-07-28 16:44] VITALS: BP 126/82
== END 2023-07-28 16:32 | disposition home health service (06) ==
LOC: ER 08:29 → ERHOLD 10:21
PROVIDERS: ADMIT Surgery; ATTEND Surgery
DX: R10.9 Unspecified abdominal pain (principal); R11.10 Vomiting, unspecified; K42.9 Umbilical hernia without obstruction or gangrene
CPT/HCPCS: 36415; 74177; 80053; 81001; 81025; 83605; 83690; 85025; 96374; 96375; 99285; G0378; J0694; J1170; J2405; J2550; J3010; J7030; Q9967

== ENCOUNTER 2023-08-30 18:52 | Emergency (ER) | payer SELFPAY ==
--- OUTSIDE RECORDS SUMMARY | 2023-08-30 19:35 | XMS REPORT | Continuity of Care Document ---
:1990 Author Organization [facility] t Address [address] [place] [address] Care Team Providers Name Role Phone YOVANY WILKS Primary Care Physician Unavailable JOHN MARQUEZ Attending Clinician Unavailable JOHN MARQUEZ Attending Clinician Unavailable YOVANY WILKS Attending Clinician Unavailable Lashaun Yovany ARRIOLA Attending Clinician [phone] ANNE JOSHUA Attending Clinician Unavailable FRANCHESCA HUERTAS Attending Clinician Unavailable ARNOLDO RAJPUT Attending Clinician Unavailable Nolvia Elkins MD, Arnoldo Attending Clinician [phone] Jani Stoner DO Attending Clinician Justice Wong MD Attending Clinician Provider, [facility] Attending Clinician Unavailable Franchesca Huertas CNM Attending Clinician Ward Weiss Attending Clinician WARD CODY Attending Clinician Unavailable Doctor Unassigned, Benson Attending Clinician Unavailable JJ AU Attending Clinician Unavailable JJ AU Attending Clinician Unavailable Ultrasound, Ang[facility] Attending Clinician Unavailable Arianna Villeda MD Attending Clinician [phone] ARIANNA VILLEDA Attending Clinician Unavailable JJ FLORENCE Attending Clinician Unavailable Lab, [facility] Attending Clinician Unavailable Jj Lima Attending Clinician 1, [facility] Us Room Attending Clinician Unavailable Faculty, Marlon Quinnchpamela Collazo Attending Clinician Unavailable Lab, [facility] Attending Clinician Unavailable Masoud VARNER, Kitty Attending Clinician Unavailable Don JASSO, Amara Attending Clinician Dong Schaefer MD Attending Clinician ARNOLDO RAJPUT Admitting Clinician Unavailable Nolvia Elkins MD, Arnoldo Admitting Clinician [phone] Arianna Villeda MD Admitting Clinician [phone] Payers Payer Name Policy Type Policy Number Effective Date Expiration Date S madelyn [facility] [id number] 2020 00:00:00 [facility] [id number] 2020 CHOICE MEDICAID 00:00:00 [place] [id number] 2020 00:00:00 MEDICAID PENDING PENDING 2020 00:00:00 [...] pressure 00:00: [place] affecting affecting 00 Medi daovn Bran ch in third in third trimester, trimester, antepartum antepartum Vaginal Vaginal Disease Active Univers irritation irritation 9-28 it y of 00:00: [place] 00 Medical Branch BMI BMI Disease Active 2021- Univers 30.0-30.9, 30.0-30.9, 9-16 it y of adult adult 00:00: [place] 00 Medical Branch BMI BMI Disease Active 2021-0 Univers 29.0-29.9, 29.0-29.9, 7-21 it y of adult adult 00:00: [place] Medical Branch BMI BMI Disease Active 2021- Univers 29.0-29.9, 29.0-29.9, 7-21 it y of adult adult 00:00: [place] 00 Medical Branch Anemia of Anemia of [...] nivers - ity of induced induced 00:00: [place] hypertensi hypertensi 00 Me dical on on Branch History of History of Disease Active U nivers pre-eclamp pre-eclamp - it y of domi domi 00:00: [place] 00 Medical Branch History of History of Disease Active Overview : Univers 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 During 1st pregnacy reports was on lovenox Multiparit Multiparit Disease Active U nivers y y 4- ity of 00:00: [place] 00 Medical Branch Obesity in Obesity in Disease Active U nivers 2-26 ity of 00:00: [place] 00 Medical Branch Obesity Obesity Disease Active Univers (BMI (BMI 2-26 ity of 30-39.9) 30-39.9) 00:00: [place] 00 [facility] Tobacco Tobacco Disease Active Overview: Univ ers [...] 1-12 it y of l l 00:00: [place] thrombophl thrombophl 00 Me dical ebitis ebitis Branch Insufficie Insufficie Disease Active U nivers nt nt 9-11 ity of 00:00: [place] care in care in 00 Medical second second Branch trimester trimester Allergies, Adverse Reactions, Alerts Allergy Allergy Status Severity Reaction(s) Onset Inactive Treating Comm ents Source Name Type Date Date Clinician No Known DA Active U [facility] 7-28 [place] 00:[facility]: e 00 [facility] No Known DA Active U [facility] Allergie 3-13 [place] 00:00: e 00 [facility] No Known DA Active U [facility] Allergie 3-06 [place] 00:00: e 00 [facility] NO KNOWN Drug Active Univers ALLERGIE Class ity of S [facility] Social History Social Habit Start Date Stop Date Quantity Comments Source ASSERTION 2021-12-24 University 00:00:00 [facility] Exposure to 2022-09-12 2022-09-22 Not sure [facility] SARS-CoV-2 (event) 00:00:00 09:28:00 [facility] Alcohol intake 2022-08-30 2022-08-30 0 /d University of 00:00:00 00:00:00 [facility] Cigarettes smoked 2022-05-01 2022-05-01 Univers ity of current (pack per 00:00:00 00:00:00 ) - Reported Branch Cigarette 2022-05-01 2022-05-01 University of pack-years 00:00:00 00:00:00 [facility] Tobacco use and 2022-05-01 2022-05-01 Smokeless Universit y of exposure 00:00:00 00:00:00 tobacco non-user [facility] Tobacco Comment 2022-05-01 2022-05-01 1/3 pack per day Uni versity of 00:00:00 00:00:00 [facility] History of tobacco 2020-05-09 Cigarette Smoker University of use 00:00:00 [facility] Sex [birth year] At [birth year] Universit y of 00:00:00 00:00:00 [facility] Smoking Status Start Date Stop Date Source Ex-smoker 2022-05-01 00:00:00 2022-[facility] Medications Ordered Filled Start Stop Current Ordering Indication Dosage Frequency Signature Comments Components Source Medication Medication Date Date Medication? Clinician (SIG) Name Name NIFEdipine 2021-10- No [id number] 30mg Take 1 Univers ER 30 mg 210-03 tablet by ity o f tablet 00:00: 05:59 mouth in [place] 00 :00 [facility] for 30 days. NIFEdipine 2021-10- No [id number] 30mg Take 1 Univers ER 30 mg 11-03 tablet by ity o f tablet 00:00: 05:59 mouth in [place] 00 :00 [facility] for 30 days. benzocaine- 2021-10 Yes 1{lozen 1 Lozenge, Univers menthoL 2-02 ge} Oral, ity of (CEPACOL 14:52: Q4HPRN, [place] SORE THROAT 40 Starting Medi davon (ALEXIA-MEN)) on Fri Branch lozenge 1 09/01/22 at Lozenge 0852, Until Discontinu ed, Routine, Sore throat dextrometho 2021-10 Yes 5mL 5 mL, Unive rs rphan-guaif 2 Oral, ity of enesin 14:52: Q6HPRN, [place] (ROBITUSSIN 23 Starting Medi davon DM) 10-100 on Sun Branch mg/5 mL 09/01/22 at solution 5 0852, mL Until Discontinu ed, Routine, Cough proCHLORper 2021-10- No 10mg 10 mg, Uni vers azine 2-11 12-02 Oral, ONCE ity of (COMPAZINE) 03:53: 04:05 NOW, 1 Dayron as tablet 10 00 :00 dose, On Medica l mg [place] Branch 08/31/22 at 2200, Routine docusate 2021-10 Yes [id number] 200mg Take 2 U nivers 100 mg 2-02 capsules ity of capsule 00:00: by mouth [place] 00 once daily Medical as needed Branch for Constipati on. ibuprofen 2021-10 Yes [id number] 600mg Take 1 Univers 600 mg 2-02 tablet by ity of tablet 00:00: mouth [place] 00 every 6 Medical (six) Branch hours as needed (Pain). Take with food or milk. ferrous 2021-10 Yes [id number] 325mg Take 1 Un erica sulfate 325 2-02 tablet by ity of mg (65 mg 00:00: mouth [place] iron) 00 every Medical tablet other day. Branch docusate 2021-10 Yes [id number] 200mg Take 2 U nivers 100 mg 2-02 capsules ity of capsule 00:00: by mouth [place] 00 once daily Medical as needed Branch for Constipati on. ibuprofen 2021-10 Yes [id number] 600mg Take 1 Univers 600 mg 2-02 tablet by ity of tablet 00:00: mouth [place] 00 every 6 Medical (six) Branch hours as needed (Pain). Take with food or milk. ferrous 2021-10 Yes [id number] 325mg Take 1 Un erica sulfate 325 2-02 tablet by ity of mg (65 mg 00:00: mouth [place] iron) 00 every Medical tablet other day. Branch foLIC acid 2021-10- No [id number] 1mg Take 1 Univers 1 mg tablet 11-02- tablet by it y of 00:00: 05:59 mouth in [place] 00 :00 the Medical morning Branch for 90 days. foLIC acid 2021-10- No [id number] 1mg Take 1 Univers 1 mg tablet 11-02- tablet by it y of 00:00: 05:59 mouth in [place] 00 :00 the Medical morning Branch for 90 days. NIFEdipine 2021-10 Yes 30mg 30 mg, Unive rs ER tablet - Oral, ity of 30 mg 18:45: DAILY, [place] 00 First dose Medical on [facility] 08/31/22 at 1245, Until Discontinu ed, Routine polyethylen 2021-10 Yes 17g 17 g, Unive rs e glycol 2 Oral, ity of 3350 powder 15:00: DAILY, [place] 17 g 00 First dose Medical on [facility] 08/31/22 at 0900, Until Discontinu ed, Routine hydroCHLORO 2021-10 No 50mg 50 mg, Uni vers thiazide 208-31 Oral, ity of (ESIDRIX) 14:00: 18:37 DAILY, [place] tablet 50 00 :50 First dose Medi davon mg on [facility] 08/31/22 at 0800, Until Discontinu ed, Routine [...] 25 15 Starting Medica l mg on [facility] 08/31/22 at 0300, Until Discontinu ed, Routine, Sleep, Itching ondansetron 2021-10 Yes 4mg 4 mg, Slow Univers (ZOFRAN 2 IV Push, ity of (PF)) 09:00: Q8HPRN, [place] injection 4 15 Starting Medi davon mg on [facility] 08/31/22 at 0300, Until Discontinu ed, Routine, Nausea and Vomiting (N/V) simethicone 2021-10 Yes 160mg 160 mg, Un erica (GAS RELIEF 11-01 Oral, ity of (SIMETHICON 09:00: PC+HSPRN, [place] E)) 15 Starting Medical chewable on [facility] tablet 160 08/31/22 at mg 0300, Until Discontinu ed, Routine, Gas docusate 2021-10 Yes 200mg 200 mg, Unive rs (COLACE) 2 Oral, ity of capsule 200 09:00: QDAILYPRN, [place] mg 15 Starting Medical on [facility] 08/31/22 at 0300, Until Discontinu ed, Routine, [...] [place] 20-0.5 % 15 on [place] Medical topical 08/31/22 at Branch spray 0300, [...] No 4mg 4 mg, Slow Univers (ZOFRAN 10-30- IV Push, ity of (PF)) 09:45: 08:52 ONCE, On [place] injection 4 00 :00 [facility] Medical mg 08/30/22 Branch at [...] 200 mg 00 :00 dose, On Medical [facility] Branch 08/29/22 at 1830, Routine ropivacaine 2021-10 Yes Epidural, U nivers 0.2 % 10-29 CONTINUOUS ity of (NAROPIN 23:40: PRN, [place] ()) 00 Starting Medical epidural on Tue Branch infusion 08/29/22 at 1740, Until Discontinu ed, Routine, Intra-op ropivacaine 2021-10- No Epidural, Univers 0.2 % 10-29 CONTINUOUS ity of (NAROPIN 23:40: 13:09 PRN, [place] ()) 00 :39 Starting Medical epidural on [...] dose, On Medica l mg [facility] Branch 08/29/22 at 1530, Routine labetaloL 2021-10- [...] 08/31/22 at 0300, KAREN terconazole 0 Yes [id number] 1{appli Insert 1 Univers 0.8 % -29 cator} Applicator ity of vaginal 00:00: into [place] cream 00 vagina at Medical bedtime. Branch terconazole Yes [id number] 1{appli Insert 1 Univers 0.8 % 9-29 cator} Applicator ity of vaginal 00:00: into [place] cream 00 vagina at Medical bedtime. Branch terconazole Yes [id number] 1{appli Insert 1 Univers 0.8 % 9-29 cator} Applicator ity of vaginal 00:00: into [place] cream 00 vagina at Medical bedtime. Branch terconazole Yes [id number] 1{appli Insert 1 Univers 0.8 % 9-29 cator} Applicator ity of vaginal 00:00: into [place] cream 00 vagina at Medical bedtime. Branch terconazole 2021- No [id number] 1{appli Insert 1 Univers 0.8 % 9-29 10-11 cator} Applicator ity o f vaginal 00:00: 00:00 into [place] cream 00 :00 vagina at Medical bedtime. Branch terconazole 2021- No [id number] 1{appli Insert 1 Univers 0.8 % 9-29 10-11 cator} Applicator ity o f vaginal 00:00: 00:00 into [place] cream 00 :00 vagina at Medical bedtime. Branch aspirin 2-0 Yes [id number] 81mg Take 1 U nivers (ASPIRIN 6-22 9100 tablet by ity of LOW DOSE) 00:00: mouth [place] 81 mg EC 00 daily. Medical tablet Branch calcium 2-0 Yes [id number] 500mg Take 1 Un erica carbonate 6-22 tablet by ity o f 500 mg-2.5 00:00: mouth 2 [place] mcg (100 00 (two) Medical unit) times Branch chewable daily. tablet aspirin 2022-0 Yes [id number] 81mg Take 1 U nivers (ASPIRIN 6-22 9100 tablet by ity of LOW DOSE) 00:00: mouth [place] 81 mg EC 00 daily. Medical tablet Branch calcium 2-0 Yes [id number] 500mg Take 1 Un erica carbonate 6-22 tablet by ity o f 500 mg-2.5 00:00: mouth 2 [place] mcg (100 00 (two) Medical unit) times Branch chewable daily. tablet aspirin 2-0 Yes [id number] 81mg Take 1 U nivers (ASPIRIN 6-22 9100 tablet by ity of LOW DOSE) 00:00: mouth [place] 81 mg EC 00 daily. Medical tablet Branch calcium 2-0 Yes [id number] 500mg Take 1 Un erica carbonate 6-22 tablet by ity o f 500 mg-2.5 00:00: mouth 2 [place] mcg (100 00 (two) Medical unit) times Branch chewable daily. tablet aspirin 2022-0 Yes [id number] 81mg Take 1 U nivers (ASPIRIN 6-22 9100 tablet by ity of LOW DOSE) 00:00: mouth [place] 81 mg EC 00 daily. Medical tablet Branch calcium 2-0 Yes [id number] 500mg Take 1 Un erica carbonate 6-22 tablet by ity o f 500 mg-2.5 00:00: mouth 2 [place] mcg (100 00 (two) Medical unit) times Branch chewable daily. tablet aspirin 2022-0 Yes [id number] 81mg Take 1 U nivers (ASPIRIN 6-22 9100 tablet by ity of LOW DOSE) 00:00: mouth [place] 81 mg EC 00 daily. Medical tablet Branch calcium 2022-0 Yes [id number] 500mg Take 1 Un erica carbonate 6-22 tablet by ity o f 500 mg-2.5 00:00: mouth 2 [place] mcg (100 00 (two) Medical unit) times Branch chewable daily. tablet aspirin 2-0 Yes [id number] 81mg Take 1 U nivers (ASPIRIN 6-22 9100 tablet by ity of LOW DOSE) 00:00: mouth [place] 81 mg EC 00 daily. Medical tablet Branch calcium 2021-0 Yes [id number] 500mg Take 1 Un erica carbonate 6-22 tablet by ity o f 500 mg-2.5 00:00: mouth 2 [place] mcg (100 00 (two) Medical unit) times Branch chewable daily. tablet aspirin 2021-0 Yes [id number] 81mg Take 1 U nivers (ASPIRIN 6-22 9100 tablet by ity of LOW DOSE) 00:00: mouth [place] 81 mg EC 00 daily. Medical tablet Branch calcium 2021-0 Yes [id number] 500mg Take 1 Un erica carbonate 6-22 tablet by ity o f 500 mg-2.5 00:00: mouth 2 [place] mcg (100 00 (two) Medical unit) times Branch chewable daily. tablet aspirin 2021-0 Yes [id number] 81mg Take 1 U nivers (ASPIRIN 6-22 9100 tablet by ity of LOW DOSE) 00:00: mouth [place] 81 mg EC 00 daily. Medical tablet Branch calcium 2021-0 Yes [id number] 500mg Take 1 Un erica carbonate 6-22 tablet by ity o f 500 mg-2.5 00:00: mouth 2 [place] mcg (100 00 (two) Medical unit) times Branch chewable daily. tablet aspirin 2-0 Yes [id number] 81mg Take 1 U nivers (ASPIRIN 6-22 9100 tablet by ity of LOW DOSE) 00:00: mouth [place] 81 mg EC 00 daily. Medical tablet Branch calcium 2021-0 Yes [id number] 500mg Take 1 Un erica carbonate 6-22 tablet by ity o f 500 mg-2.5 00:00: mouth 2 [place] mcg (100 00 (two) Medical unit) times Branch chewable daily. tablet aspirin 2-0 Yes [id number] 81mg Take 1 U nivers (ASPIRIN 6-22 9100 tablet by ity of LOW DOSE) 00:00: mouth [place] 81 mg EC 00 daily. Medical tablet Branch calcium 2021-0 Yes [id number] 500mg Take 1 Un erica carbonate 6-22 tablet by ity o f 500 mg-2.5 00:00: mouth 2 [place] mcg (100 00 (two) Medical unit) times Branch chewable daily. tablet aspirin 2-0 Yes [id number] 81mg Take 1 U nivers (ASPIRIN 6-22 9100 tablet by ity of LOW DOSE) 00:00: mouth [place] 81 mg EC 00 daily. Medical tablet Branch calcium 2021-0 Yes [id number] 500mg Take 1 Un erica carbonate 6-22 tablet by ity o f 500 mg-2.5 00:00: mouth 2 [place] mcg (100 00 (two) Medical unit) times Branch chewable daily. tablet aspirin 2-0 Yes [id number] 81mg Take 1 U nivers (ASPIRIN 6-22 9100 tablet by ity of LOW DOSE) 00:00: mouth [place] 81 mg EC 00 daily. Medical tablet Branch calcium 2021-0 Yes [id number] 500mg Take 1 Un erica carbonate 6-22 tablet by ity o f 500 mg-2.5 00:00: mouth 2 [place] mcg (100 00 (two) Medical unit) times Branch chewable daily. tablet aspirin 2-0 Yes [id number] 81mg Take 1 U nivers (ASPIRIN 6-22 9100 tablet by ity of LOW DOSE) 00:00: mouth [place] 81 mg EC 00 daily. Medical tablet Branch calcium 2021-0 Yes [id number] 500mg Take 1 Un erica carbonate 6-22 tablet by ity o f 500 mg-2.5 00:00: mouth 2 [place] mcg (100 00 (two) Medical unit) times Branch chewable daily. tablet aspirin 2-0 Yes [id number] 81mg Take 1 U nivers (ASPIRIN 6-22 9100 tablet by ity of LOW DOSE) 00:00: mouth [place] 81 mg EC 00 daily. Medical tablet Branch calcium 2-0 Yes [id number] 500mg Take 1 Un erica carbonate 6-22 tablet by ity o f 500 mg-2.5 00:00: mouth 2 [place] mcg (100 00 (two) Medical unit) times Branch chewable daily. tablet aspirin 2-0 Yes [id number] 81mg Take 1 U nivers (ASPIRIN 6-22 9100 tablet by ity of LOW DOSE) 00:00: mouth [place] 81 mg EC 00 daily. Medical tablet Branch calcium 2-0 Yes [id number] 500mg Take 1 Un erica carbonate 6-22 tablet by ity o f 500 mg-2.5 00:00: mouth 2 [place] mcg (100 00 (two) Medical unit) times Branch chewable daily. tablet aspirin 2-0 Yes [id number] 81mg Take 1 U nivers (ASPIRIN 6-22 9100 tablet by ity of LOW DOSE) 00:00: mouth [place] 81 mg EC 00 daily. Medical tablet Branch calcium 2021-0 Yes [id number] 500mg Take 1 Un erica carbonate 6-22 tablet by ity o f 500 mg-2.5 00:00: mouth 2 [place] mcg (100 00 (two) Medical unit) times Branch chewable daily. tablet aspirin 2-0 Yes [id number] 81mg Take 1 U nivers (ASPIRIN 6-22 9100 tablet by ity of LOW DOSE) 00:00: mouth [place] 81 mg EC 00 daily. Medical tablet Branch calcium 2021-0 Yes [id number] 500mg Take 1 Un erica carbonate 6-22 tablet by ity o f 500 mg-2.5 00:00: mouth 2 [place] mcg (100 00 (two) Medical unit) times Branch chewable daily. tablet aspirin 2-0 Yes [id number] 81mg Take 1 U nivers (ASPIRIN 6-22 9100 tablet by ity of LOW DOSE) 00:00: mouth [place] 81 mg EC 00 daily. Medical tablet Branch calcium 2021-0 Yes [id number] 500mg Take 1 Un erica carbonate 6-22 tablet by ity o f 500 mg-2.5 00:00: mouth 2 [place] mcg (100 00 (two) Medical unit) times Branch chewable daily. tablet ferrous 2-0 Yes [id number] 325mg Take 1 Un erica sulfate 325 4-27 tablet by ity of mg (65 mg 00:00: mouth 2 [place] iron) 00 (two) Medical tablet times Branch daily. ascorbic 2022-0 Yes [id number] 500mg Take 1 U nivers acid, 4-27 tablet by ity of vitamin C, 00:00: mouth 3 [place] 500 mg 00 (three) Medical tablet times Branch daily. ferrous Yes [id number] 325mg Take 1 Un erica sulfate 325 4-27 tablet by ity of mg (65 mg 00:00: mouth 2 [place] iron) 00 (two) Medical tablet times Branch daily. ascorbic Yes [id number] 500mg Take 1 U nivers acid, 4-27 tablet by ity of vitamin C, 00:00: mouth 3 [place] 500 mg 00 (three) Medical tablet times Branch daily. ferrous Yes [id number] 325mg Take 1 Un erica sulfate 325 4-27 tablet by ity of mg (65 mg 00:00: mouth 2 [place] iron) 00 (two) Medical tablet times Branch daily. ascorbic Yes [id number] 500mg Take 1 U nivers acid, 4-27 tablet by ity of vitamin C, 00:00: mouth 3 [place] 500 mg 00 (three) Medical tablet times Branch daily. ferrous Yes [id number] 325mg Take 1 Un erica sulfate 325 4-27 tablet by ity of mg (65 mg 00:00: mouth 2 [place] iron) 00 (two) Medical tablet times Branch daily. ascorbic Yes [id number] 500mg Take 1 U nivers acid, 4-27 tablet by ity of vitamin C, 00:00: mouth 3 [place] 500 mg 00 (three) Medical tablet times Branch daily. ferrous Yes [id number] 325mg Take 1 Un erica sulfate 325 4-27 tablet by ity of mg (65 mg 00:00: mouth 2 [place] iron) 00 (two) Medical tablet times Branch daily. ascorbic 0 Yes [id number] 500mg Take 1 U nivers acid, 4-27 tablet by ity of vitamin C, 00:00: mouth 3 [place] 500 mg 00 (three) Medical tablet times Branch daily. ferrous 2021-0 Yes [id number] 325mg Take 1 Un erica sulfate 325 4-27 tablet by ity of mg (65 mg 00:00: mouth 2 [place] iron) 00 (two) Medical tablet times Branch daily. ascorbic Yes [id number] 500mg Take 1 U nivers acid, 4-27 tablet by ity of vitamin C, 00:00: mouth 3 [place] 500 mg 00 (three) Medical tablet times Branch daily. ferrous 0 Yes [id number] 325mg Take 1 Un erica sulfate 325 4-27 tablet by ity of mg (65 mg 00:00: mouth 2 [place] iron) 00 (two) Medical tablet times Branch daily. ascorbic Yes [id number] 500mg Take 1 U nivers acid, 4-27 tablet by ity of vitamin C, 00:00: mouth 3 [place] 500 mg 00 (three) Medical tablet times Branch daily. ferrous Yes [id number] 325mg Take 1 Un erica sulfate 325 4-27 tablet by ity of mg (65 mg 00:00: mouth 2 [place] iron) 00 (two) Medical tablet times Branch daily. ascorbic Yes [id number] 500mg Take 1 U nivers acid, 4-27 tablet by ity of vitamin C, 00:00: mouth 3 [place] 500 mg 00 (three) Medical tablet times Branch daily. ferrous Yes [id number] 325mg Take 1 Un erica sulfate 325 4-27 tablet by ity of mg (65 mg 00:00: mouth 2 [place] iron) 00 (two) Medical tablet times Branch daily. ascorbic Yes [id number] 500mg Take 1 U nivers acid, 4-27 tablet by ity of vitamin C, 00:00: mouth 3 [place] 500 mg 00 (three) Medical tablet times Branch daily. ferrous Yes [id number] 325mg Take 1 Un erica sulfate 325 4-27 tablet by ity of mg (65 mg 00:00: mouth 2 [place] iron) 00 (two) Medical tablet times Branch daily. ascorbic Yes [id number] 500mg Take 1 U nivers acid, 4-27 tablet by ity of vitamin C, 00:00: mouth 3 [place] 500 mg 00 (three) Medical tablet times Branch daily. ferrous 0 Yes [id number] 325mg Take 1 Un erica sulfate 325 4-27 tablet by ity of mg (65 mg 00:00: mouth 2 [place] iron) 00 (two) Medical tablet times Branch daily. ascorbic Yes [id number] 500mg Take 1 U nivers acid, 4-27 tablet by ity of vitamin C, 00:00: mouth 3 [place] 500 mg 00 (three) Medical tablet times Branch daily. ferrous Yes [id number] 325mg Take 1 Un erica sulfate 325 4-27 tablet by ity of mg (65 mg 00:00: mouth 2 [place] iron) 00 (two) Medical tablet times Branch daily. ascorbic Yes [id number] 500mg Take 1 U nivers acid, 4-27 tablet by ity of vitamin C, 00:00: mouth 3 [place] 500 mg 00 (three) Medical tablet times Branch daily. ferrous Yes [id number] 325mg Take 1 Un erica sulfate 325 4-27 tablet by ity of mg (65 mg 00:00: mouth 2 [place] iron) 00 (two) Medical tablet times Branch daily. ascorbic Yes [id number] 500mg Take 1 U nivers acid, 4-27 tablet by ity of vitamin C, 00:00: mouth 3 [place] 500 mg 00 (three) Medical tablet times Branch daily. ferrous Yes [id number] 325mg Take 1 Un erica sulfate 325 4-27 tablet by ity of mg (65 mg 00:00: mouth 2 [place] iron) 00 (two) Medical tablet times Branch daily. ascorbic Yes [id number] 500mg Take 1 U nivers acid, 4-27 tablet by ity of vitamin C, 00:00: mouth 3 [place] 500 mg 00 (three) Medical tablet times Branch daily. ferrous Yes [id number] 325mg Take 1 Un erica sulfate 325 4-27 tablet by ity of mg (65 mg 00:00: mouth 2 [place] iron) 00 (two) Medical tablet times Branch daily. ascorbic Yes [id number] 500mg Take 1 U nivers acid, 4-27 tablet by ity of vitamin C, 00:00: mouth 3 [place] 500 mg 00 (three) Medical tablet times Branch daily. ferrous Yes [id number] 325mg Take 1 Un erica sulfate 325 4-27 tablet by ity of mg (65 mg 00:00: mouth 2 [place] iron) 00 (two) Medical tablet times Branch daily. ascorbic Yes [id number] 500mg Take 1 U nivers acid, 4-27 tablet by ity of vitamin C, 00:00: mouth 3 [place] 500 mg 00 (three) Medical tablet times [place] daily. ferrous 2021- No [id number] 325mg Take 1 U nivers sulfate 325 01-25 tablet by it y of mg (65 mg 00:00: 00:00 mouth 2 [place] iron) 00 :00 (two) Medical tablet times [place] daily. ascorbic 2021- No [id number] 500mg Take 1 Univers acid, 01-25 tablet by ity of vitamin C, 00:00: 00:00 mouth 3 [place] as 500 mg 00 :00 (three) Medical tablet times [place] daily. Vital Signs Vital Name Observation Time Observation Value Comments Source Body temperature 2022-09-22 15:29:00 36.5 January [facility] Respiratory rate 2022-09-22 15:29:00 17 /min [facility] Body height 2022-09-22 15:29:00 149.9 cm [facility] Body weight 2022-09-22 15:29:00 67.541 kg [facility] BMI 2022-09-22 15:29:00 30.07 kg/m2 [facility] Systolic blood 2022-09-01 17:14:00 143 [facility]Hg[facility] 2022-09-01 17:14:00 83 mm[Hg] Unive [facility] Heart rate 2022-09-01 17:14:00 94 /min [facility] Body temperature 2022-09-01 17:14:00 36.94 January [facility] Respiratory rate 2022-09-01 17:14:00 20 /min [facility] Oxygen saturation in 2022-09-01 17:14:00 98 /min [facility] Arterial blood by [facility] Pulse oximetry Branch Systolic blood 2022-08-29 14:57:00 131 mm[Hg] [facility] 2022-08-29 14:57:00 81 mm[Hg] Unive [facility] Heart rate 2022-08-29 14:57:00 66 /min [facility] Body temperature 2022-08-29 14:57:00 36.61 January [facility] Respiratory rate 2022-08-29 14:57:00 17 /min [facility] Body height 2022-08-29 14:57:00 149.9 cm [facility] Body weight 2022-08-29 14:57:00 81.647 kg [facility] BMI 2022-08-29 14:57:00 36.36 kg/m2 [facility] Systolic blood 2022-08-11 16:15:00 119 mm[Hg] Univer [facility] Diastolic blood 2022-08-11 16:15:00 84 mm[Hg] Unive rsity of [facility] Heart rate 2022-08-11 16:15:00 92 /min [facility] Body temperature 2022-08-11 16:15:00 36.44 January [facility] Respiratory rate 2022-08-11 16:15:00 18 /min [facility] Body height 2022-08-11 16:15:00 149.9 cm [facility] Body weight 2022-08-11 16:15:00 73.256 kg [facility] BMI 2022-08-11 16:15:00 32.62 kg/m2 [facility] Systolic blood 2022-07-28 16:08:00 122 mm[Hg] Univer [facility] Diastolic blood 2022-07-28 16:08:00 75 mm[Hg] Unive rsity of [facility] Heart rate 2022-07-28 16:08:00 98 /min [facility] Body temperature 2022-07-28 16:08:00 36.39 January [facility] Respiratory rate 2022-07-28 16:08:00 18 /min [facility] Body height 2022-07-28 16:08:00 149.9 cm [facility] Body weight 2022-07-28 16:08:00 72.802 kg [facility] BMI 2022-07-28 16:08:00 32.42 kg/m2 Universi [facility] Systolic blood 2022-07-11 14:03:00 118 mm[Hg] Univer sity of pressure [facility] Diastolic blood 2022-07-11 14:03:00 81 mm[Hg] Unive rsity of pressure [facility] Heart rate 2022-07-11 14:03:00 93 /min Universi [facility] Body temperature 2022-07-11 14:03:00 36.11 January [facility] Respiratory rate 2022-07-11 14:03:00 16 /min [facility] ersity of [facility] Body height 2022-07-11 14:03:00 149.9 cm Universi [facility] Body weight 2022-07-11 14:03:00 70.625 kg Universi [facility] BMI 2022-07-11 14:03:00 31.45 kg/m2 Universi [facility] Oxygen saturation in 2022-07-11 14:03:00 99 /min [facility] Arterial blood by [facility] Pulse oximetry Branch Systolic blood 2022-06-28 13:29:00 124 mm[Hg] Univer sity of pressure [facility] Diastolic blood 2022-06-28 13:29:00 86 mm[Hg] Unive [facility]ity [facility] Heart rate 2022-06-28 13:29:00 98 /min [facility]i [facility] Body temperature 2022-06-28 13:29:00 35.61 January [facility] rate 2022-06-28 13:29:00 18 /min [facility] Body weight 2022-06-28 13:29:00 68.992 kg Universi [facility] BMI 2022-06-28 13:29:00 30.72 kg/m2 Universi [facility] Procedures Procedure Date / Time Performing Clinician Source Performed CBC WITH DIFF 2022-08-31 09:44:00 Aleisha Barr [facility] MAGNESIUM 2022-08-31 03:24:00 J Carlos Menjivar [facility] VENOUS CORD GAS 2022-08-30 09:33:00 Nava Camilo [place] o [facility] CENTRAL NEURAXIAL BLOCK 2022-08-29 23:40:31 Yoanna Gallardo [facility] US LOWER EXTREMITY VEIN 2022-08-29 23:11:00 Denita Odell [facility] WITH COMPRESSION [facility] BILATERAL (ONLY FOR RULE OUT DVT) URINALYSIS 2022-08-29 23:09:00 [facility] URINE CULTURE 2022-08-29 23:09:00 [facility] GALV ONLY - INFLUENZA A B 2022-08-29 20:58:00 Essence Lariosshua [facility] RSV PCR [facility] SGOT (ASPARTATE AMINO 2022-08-29 19:41:00 [facility] TRANSFER) [facility] CREATININE 2022-08-29 19:41:00 [facility] ALANINE AMINO 2022-08-29 19:41:00 [facility] TRANSFERASE(SGPT Medical Branch LACTATE DEHYDROGENASE 2022-08-29 19:41:00 [facility] URIC ACID 2022-08-29 19:41:00 [facility] CBC WITH DIFF 2022-08-29 19:41:00 [facility] 2022-08-29 19:41:00 [facility] HEPATITIS B SURFACE 2022-08-29 19:41:00 [facility] ANTIGEN [facility] PROTEIN CREAT RATIO URINE 2022-08-29 19:41:00 [facility] HIV 1/2 AG-AB WITH REFLEX 2022-08-29 19:41:00 Nava Camilo [facility] GALV ONLY - SYPHILIS 2022-08-29 19:41:00 CamiloBrooklyn alcocerjenny [facility] IGG/IGM [facility] COVID-19 (ID NOW RAPID 2022-08-29 19:41:00 Kiana Rajput [facility] TESTING) [facility] LAB ONLY COVID 2022-08-29 19:41:00 Nolvia Elkins [facility] INTERPRETATION Mnotemayor [facility] HB ABO GROUPING 2022-08-29 19:29:00 [facility] o f [facility] RHO (D) IMMUNE GLOBULIN 2022-08-29 19:29:00 Aleisha Barr [facility] POCT URINALYSIS 2022-08-29 00:00:00 Yovany Wilks [facility] POCT URINALYSIS 2022-08-11 16:15:00 Yovany Wilks [facility] POCT URINALYSIS 2022-07-28 16:09:00 Yovany Wilks [facility] FLU VACC (), 6 2022-07-11 14:47:18 Ward Cody [facility] MO-62 YRS, .5ML, IM, QUAD Medica l Branch (FLUCELVAX) POCT URINALYSIS 2022-07-11 00:00:00 Yovany Wilks [facility] POCT URINALYSIS 2022-06-28 13:42:00 Yovany Wilks [facility] TDAP VACCINE, >11 YRS, IM 2022-06-28 13:38:54 Ward Cody [facility] STERILIZATION CONSENT 2022-06-28 05:01:00 Doctor Unassigned, [place] [facility] [employer] FORM [facility] Encounters Start End Encounter Admission Attending Care Care Encounter Source Date/Time Date/Time Type Type Clinicians Facility Department ID 2021-07-31 Outpatient P [facility] OPHELIA [id number] Univers 01:47:15 [facility] 2023-01-16 2023-01-16 Outpatient R JOHN MARQUEZ [facility] [id number] Univers 12:15:00 12:15:00 JOHN MARQUEZ [facility] 2022-12-27 2022-12-27 Outpatient R JOHN MARQUEZ [facility] [id number] Univers 07:45:00 07:45:00 JOHN MARQUEZ ity [facility] 2022-10-18 2022-10-18 Outpatient R AKINSIPE, [facility] [id number] Univers 10:00:00 10:00:00 YOVANY ity o f [facility] 2022-09-22 2022-09-22 Outpatient R AKINSIPE, [facility] [id number] Univers 09:00:00 09:57:38 YOVANY ity o f [facility] 2022-09-22 2022-09-22 Routine Akinpe, [facility] 1.2.415.463 [id number] Univers 09:00:00 09:57:38 Yovany Oliveira FINANCIAL REPORT SERVICE SALES AGENT 350.1.13.10 ity of [facility] 4.2.7.2.686 Dayron as MATERNAL [id number] [facility] ical & CHILD [address] [place] [address] 2022-09-06 2022-09-06 Outpatient Ethan HUERTAS [facility] [id number] Univers 09:45:00 09:45:00 FRANCHESCA ity [facility] 2022-08-29 2022-09-01 Inpatient P NOLVIA [facility] OPHELIA [id number] Univers 12:27:00 14:12:00 MAGALIS it y of [place], [facility] 2022-08-29 2022-09-01 Hospital Nolvia ANNE 1.2.840.114 [id number] Univers 12:27:00 14:12:00 Encounter Magalis SILVA 350.1.13.10 ity of [facility] 4.2.7.2.686 Dayron as [phone] [facility] [address] 2022-08-29 2022-08-30 Anesthesia Jani Stoner 1.2.84 0.114 [id number] Univers 16:31:00 07:09:00 Event Justice Wong 350.1.13.10 ity [facility] 4.2.7.2.686 Dayron as [id number] [facility] [address] 2022-08-29 2022-08-29 Outpatient Ethan HUERTAS [facility] [id number] Univers 08:45:00 09:17:42 FRANCHESCA itmere [facility] 2022-08-29 2022-08-29 Routine Provider, Ang-Rmchp Temp [facility] 1 .2.840.114 [id number] Univers 08:45:00 09:17:42 RinkuBlanche prideziggy Zheng FINANCIAL REPORT SERVICE SALES AGENT 350.1.13. 10 ity of Visit REGIONAL 4.2.7.2.686 Dayron as MATERNAL [id number] [facility] & [address] 2022-08-15 2022-08-15 Outpatient R ALEKSANDAR, [facility] [id number] Univers 08:45:00 08:45:00 [facility] 2022-08-11 2022-08-11 Outpatient R LASHAUN, [facility] [id number] Univers 10:00:00 10:33:40 YOVANY weeks o [facility] 2022-08-11 2022-08-11 Routine AkinYovany altman [facility] 1.2.8 40.114 [id number] Univers 10:00:00 10:33:40 Ward Cody FINANCIAL REPORT SERVICE SALES AGENT 350.1.13.1 0 ity of Visit REGIONAL 4.2.7.2.686 Dayron as MATERNAL [id number] [address] 2022-07-28 2022-07-28 Outpatient R LASHAUN, [facility] [id number] Univers 10:45:00 11:18:01 YOVANY weeks o [facility] 2022-07-28 2022-07-28 Routine Akinsiyassine, [facility] 1.2.121.362 [id number] Univers 10:45:00 11:00:00 Yovany C FINANCIAL REPORT SERVICE SALES AGENT 350.1.13.10 ity of Visit REGIONAL 4.2.7.2.686 Dayron as MATERNAL [id number] [facility] & [address] 2022-07-25 2022-07-25 Outpatient Ethan CODY [facility] [id number] Univers 10:45:00 10:45:00 WARD ity o [facility] 2022-07-11 2022-07-11 Routine [facility] 1.2.840.114 [id number] Univers 08:45:00 09:00:00 Roshunda R FINANCIAL REPORT SERVICE SALES AGENT 350.1.13.10 ity of Visit REGIONAL 4.2.7.2.686 Dayron as MATERNAL [id number] [facility] CHILD [address] [place] [address] 2022-07-11 2022-07-11 [facility] [id number] Univers 08:45:00 08:45:00 ROSHUNDA ity o f [facility] 2022-06-29 2022-06-29 Telephone [facility] 1.2.032.981 [id number] Univers 00:00:00 00:00:00 Roshunda R FINANCIAL REPORT SERVICE SALES AGENT 350.1.13.10 ity of REGIONAL 4.2.7.2.686 Dayron as MATERNAL [id number] [address] 2022-06-28 2022-06-28 [facility] [id number] Univers 08:45:00 09:23:26 ROSHUNDA ity o f [facility] 2022-06-28 2022-06-28 Routine [facility] 1.2.840.114 [id number] Univers 08:45:00 09:23:26 Roshunda R FINANCIAL REPORT SERVICE SALES AGENT 350.1.13.10 ity of Visit REGIONAL 4.2.7.2.686 Dayron as MATERNAL [id number] [address] 2022-06-28 2022-06-28 Orders Doctor ANNE 1.2.840.114 [id number] Univers 00:00:00 00:00:00 Only Unassigned, RICARDO 350.1.13.10 ity of [facility] 4.2.7.2.686 Dayron as [id number] [address] 2022-06-19 2022-06-19 [facility] 1.2.040.299 [id number] Univers 00:00:00 00:00:00 Roshunda R FINANCIAL REPORT SERVICE SALES AGENT 350.1.13.10 ity of REGIONAL 4.2.7.2.686 Dayron as MATERNAL [id number] [facility] & CHILD [address] [place] [address] 2022-06-16 2022-06-16 Outpatient R ESCOBAR [facility] [id number] Univers 08:00:00 08:29:29 ROSHUNDA ity o f [facility] 2022-06-16 2022-06-16 Routine [facility] 1.2.840.114 [id number] Univers 08:00:00 08:29:29 Roshunda R FINANCIAL REPORT SERVICE SALES AGENT 350.1.13.10 ity of Visit REGIONAL 4.2.7.2.686 Dayron as MATERNAL [id number] [facility] & [address] 2022-06-08 2022-06-08 Outpatient R ROE JJ [facility] [id number] Univers 10:30:00 10:30:00 JJ AU [facility] 2022-05-29 2022-05-29 Outpatient R AKINSIPE, [facility] [id number] Univers 14:00:00 14:00:00 YOVANY ity o f [facility] 2022-05-29 2022-05-29 Outpatient R AKINSIPE, [facility] [id number] Univers 14:00:00 14:00:00 YOVANY ity o f [facility] 2022-05-29 2022-05-29 Outpatient R AKINSIPE, [facility] [id number] Univers 14:00:00 14:00:00 YOVANY ity o f [facility] 2022-05-18 2022-05-18 Outpatient R AKINSIPE, [facility] [id number] Univers 14:45:00 14:45:00 YOVANY ity o f [facility] 2022-05-01 2022-05-01 Routine [facility] 1.2.867.117 [id number] Univers 15:30:00 15:30:00 Yovany C FINANCIAL REPORT SERVICE SALES AGENT 350.1.13.10 ity of Visit REGIONAL 4.2.7.2.686 Dayron as MATERNAL [id number] [facility] CHILD [address] [place] [address] 2022-05-01 2022-05-01 Outpatient R LASHAUN, [facility] [id number] Univers 15:30:00 14:35:03 YOVANY ity o [facility] 2022-05-01 2022-05-01 Outpatient R LASHAUN, [facility] [id number] Univers 15:30:00 14:35:03 YOVANY reddyy o [facility] 2022-05-01 2022-05-01 Research Instructor Ultrasound, [facility] 1.2 .840.114 [id number] Univers 13:00:00 13:51:32 Visit Arianna Villeda Bright FINANCIAL REPORT SERVICE SALES AGENT 350.1. 13.10 ity of REGIONAL 4.2.7.2.686 Dayron as MATERNAL [id number] Med ical & CHILD [address] [facility] 2022-05-01 2022-05-01 Outpatient P RONAL [facility] [id number] Univers 13:00:00 13:51:32 ARIANNA ity [facility] 2022-05-01 2022-05-01 Abstract [facility] 1.2.840.114 [id number] Univers 00:00:00 00:00:00 Yovany Oliveira FINANCIAL REPORT SERVICE SALES AGENT 350.1.13.10 ity of REGIONAL 4.2.7.2.686 Dayron as MATERNAL [id number] Med ical & CHILD [address] [place] [address] 2022-04-21 2022-04-21 Outpatient R ESCOBAR [facility] [id number] Univers 10:30:00 10:30:00 ROSHUNDA ity o [facility] 2022-04-20 2022-04-20 Outpatient R ESCOBAR [facility] [id number] Univers 14:15:00 15:10:07 ROSHUNDA ity o [facility] 2022-04-20 2022-04-20 Routine [facility] 1.2.840.114 [id number] Univers 14:15:00 15:10:07 Roshunda R FINANCIAL REPORT SERVICE SALES AGENT 350.1.13.10 ity of Visit REGIONAL 4.2.7.2.686 Dayron as MATERNAL [id number] Med ical & CHILD [address] [place] [address] 2022-04-14 2022-04-14 Outpatient R AKINSIPE, [facility] [id number] Univers 09:45:00 09:45:00 YOVANY ity o f [facility] 2022-03-22 2022-03-22 Outpatient R AKINSIPE, [facility] [id number] Univers 08:30:00 08:54:59 YOVANY ity o f [facility] 2022-03-22 2022-03-22 Routine Akinsipe, [facility] 1.2.622.211 [id number] Univers 08:30:00 08:54:59 Yovany C FINANCIAL REPORT SERVICE SALES AGENT 350.1.13.10 ity of Visit REGIONAL 4.2.7.2.686 Dayron as MATERNAL [id number] [facility] ical & CHILD [address] [place] [address] 2022-03-09 2022-03-09 Abstract [facility] 1.2.840.114 [id number] Univers 00:00:00 00:00:00 Yovany C FINANCIAL REPORT SERVICE SALES AGENT 350.1.13.10 ity of REGIONAL 4.2.7.2.686 Dayron as MATERNAL [id number] [facility] CHILD [address] [place] [address] 2022-03-06 2022-03-06 Outpatient P [facility] [id number] Univers 11:00:00 11:00:00 ity [facility] 2022-03-06 2022-03-06 Outpatient P NAMAN [facility] [id number] Univers 11:00:00 11:00:00 JJ weeks [facility] 2022-03-06 2022-03-06 Research Instructor Lab, [facility] 1.2.840. 114 [id number] Univers 11:00:00 11:00:00 Visit Jj Florence FINANCIAL REPORT SERVICE SALES AGENT 350.1.13.10 ity of REGIONAL 4.2.7.2.686 Dayron as MATERNAL [id number] [facility] ical & CHILD [address] [place] [address] 2022-03-06 2022-03-06 Research Instructor 1, [facility] Room [facility] 1.2. 840.114 [id number] Univers 10:00:00 10:45:00 Visit NamanJj Ketnon FINANCIAL REPORT SERVICE SALES AGENT 350.1.13.10 ity [facility] 4.2.7.2.686 Dayron as MATERNAL [id number] [facility] CHILD [address] [facility] 2022-03-06 2022-03-06 Outpatient P [facility] [id number] Univers 10:00:00 10:00:00 ity [facility] 2022-02-21 2022-02-21 Outpatient R LASHAUN [facility] [id number] Univers 09:00:00 09:00:00 YOVANY duron [facility] 2022-01-30 2022-01-30 Telemedici Faculty, [facility] 1.2.840.114 [id number] [facility] 11:30:00 12:00:00 ne Visit IraAdrian sernamere Novoa FINANCIAL REPORT SERVICE SALES AGENT 350.1 .13.10 ity [facility] 4.2.7.2.686 Dayron as MATERNAL [id number] [facility] & CHILD [address] [place] [address] 2022-01-30 2022-01-30 Outpatient R RONAL [facility] [id number] Univers 11:30:00 11:30:00 ARIANNA [facility] 2022-01-26 2022-01-26 Research Instructor Lab, [facility] 1.2.840. 114 [id number] Univers 13:00:00 13:16:28 Visit Yovany Wilks FINANCIAL REPORT SERVICE SALES AGENT 350.1.13. 10 ity [facility] 4.2.7.2.686 Dayron as MATERNAL [id number] [facility] & CHILD [address] [place] [address] 2022-01-26 2022-01-26 Outpatient R LASHAUN [facility] [id number] Univers 13:00:00 13:00:00 YOVANY weeks o f [facility] 2022-01-25 2022-01-25 Telephone [facility] 1.2.840.114 [id number] Univers 00:00:00 00:00:00 Yovany Oliveira FINANCIAL REPORT SERVICE SALES AGENT 350.1.13.10 ity [facility] 4.2.7.2.686 Dayron as MATERNAL [id number] [facility] & CHILD [address] [place] [address] 2022-01-24 2022-01-24 [facility] [id number] Univers 08:30:00 10:06:18 YOVANY ity o f [facility] 2022-01-24 2022-01-24 Initial [facility] 1.2.083.358 [id number] Univers 08:30:00 10:06:18 Yovany C FINANCIAL REPORT SERVICE SALES AGENT 350.1.13.10 ity of Visit [facility] 4.2.7.2.686 Dayron as MATERNAL [id number] [facility] & CHILD [address] [place] [address] 2022-01-24 2022-01-24 Orders Doctor ANNE 1.2.840.114 [id number] Univers 00:00:00 00:00:00 Only Unassigned, RICARDO 350.1.13.10 ity of [facility] 4.2.7.2.686 Dayron as [id number] [address] 2021-04-04 2021-04-04 Outpatient R [facility] [id number] Univers 09:00:00 09:00:00 ity of [facility] 2021-01-11 2021-01-11 Telephone [facility] 1.2.840.114 [id number] Univers 00:00:00 00:00:00 Yovany C FINANCIAL REPORT SERVICE SALES AGENT 350.1.13.10 ity of [facility] 4.2.7.2.686 Dayron as MATERNAL [id number] [facility] CHILD [address] [place] [address] 2021-01-10 2021-01-10 Office [facility]udyassinePRES[facility] 1.2.401.695 [id number] Univers 09:58:42 10:41:46 Visit Yovnay C FINANCIAL REPORT SERVICE SALES AGENT 350.1.13.10 ity of [facility] 4.2.7.2.686 Dayron as MATERNAL [id number] [facility] & CHILD [address] [place] [address] 2021-01-10 2021-01-10 [facility] [id number] Univers 09:45:00 09:45:00 YOVANY ity o f [facility] 2021-01-10 2021-01-10 Orders Doctor ANNE 1.2.840.114 [id number] Univers 00:00:00 00:00:00 Only Unassigned, RICARDO 350.1.13.10 ity of [facility] 4.2.7.2.686 Dayron as [id number] [facility] [address] [place] 2020-12-20 2020-12-20 Routine Akinpe, [facility] 1.2.707.380 [id number] Univers 10:33:07 11:36:30 Yovany C FINANCIAL REPORT SERVICE SALES AGENT 350.1.13.10 ity of Visit [facility] 4.2.7.2.686 Dayron as MATERNAL [id number] [facility] ical & CHILD [address] [place] [address] 2020-12-20 2020-12-20 Outpatient [facility] [id number] Univers 10:30:00 10:30:00 YOVANY ity o f [facility] 2020-12-09 2020-12-09 [facility] [id number] Univers 09:30:00 09:30:00 YOVANY ity o f [facility] 2020-12-05 2020-12-05 Orders Doctor ANNE 1.2.840.114 [id number] Univers 00:00:00 00:00:00 Only Unassigned, RICARDO 350.1.13.10 ity of [facility] 4.2.7.2.686 Dayron as [id number] [facility] [address] 2020-11-26 2020-11-29 Hospital ANNE Villeda 1.2.840.114 [id number] Univers 20:27:00 15:15:00 Encounter Chasey RICARDO 350.1.13.10 ity of [facility] 4.2.7.2.686 [place] [id number] [facility] [address] 2020-11-26 2020-11-26 Nurse Kitty Meredith 1.2.840.114 [id number] Univers 00:00:00 00:00:00 Triage RICARDO 350.1.13.10 it y of HOSPITAL 4.2.7.2.686 Dayron as [id number] [address] 2020-11-25 2020-11-25 Routine [facility] 1.2.530.581 [id number] Univers 08:16:45 08:31:45 Yovany C FINANCIAL REPORT SERVICE SALES AGENT 350.1.13.10 ity of Visit REGIONAL 4.2.7.2.686 Dayron as MATERNAL [id number] [facility] CHILD [address] [place] [address] 2020-11-25 2020-11-25 Outpatient R AKINSIPE, [facility] [id number] Univers 08:15:00 08:15:00 YOVANY ity o [facility] 2020-11-11 2020-11-11 Routine [facility] 1.2.367.385 [id number] Univers 09:33:26 10:00:23 Yovany C FINANCIAL REPORT SERVICE SALES AGENT 350.1.13.10 ity of Visit REGIONAL 4.2.7.2.686 Dayron as MATERNAL [id number] [address] 2020-11-11 2020-11-11 Outpatient R AKINSIPE, [facility] [id number] Univers 09:30:00 09:30:00 YOVANY ity o [facility] 2020-10-28 2020-10-28 [facility] [id number] Univers 07:48:19 08:42:53 Yovany C FINANCIAL REPORT SERVICE SALES AGENT [id number] ity of Visit REGIONAL [id number] Dayron as MATERNAL [phone] [facility] [address] [place] [address] 2020-10-28 2020-10-28 Outpatient R AKINSIPE, [facility] [id number] Univers 08:00:00 08:00:00 YOVANY ity o [facility] 2020-10-22 2020-10-22 Outpatient R AKINSIPE, [facility] [id number] Univers 10:30:00 10:30:00 YOVANY ity o [facility] 2020-10-14 2020-10-14 Telephone Akinsipe, [facility] [id number] Univers 00:00:00 00:00:00 Yovany C FINANCIAL REPORT SERVICE SALES AGENT 350.1.13.10 ity of REGIONAL 4.2.7.2.686 Dayron as MATERNAL [phone] [facility] & CHILD [address] [place] [address] 2020-10-11 2020-10-11 Telephone [facility] 1.2.840.114 [id number] Univers 00:00:00 00:00:00 Yovany C FINANCIAL REPORT SERVICE SALES AGENT 350.1.13.10 ity of REGIONAL 4.2.7.2.686 Dayron as MATERNAL [phone] [facility] & CHILD [address] [place] [address] 2020-10-08 2020-10-08 Routine [facility] [id number] Univers 09:26:04 10:09:17 Yovany C FINANCIAL REPORT SERVICE SALES AGENT 350.1.13.10 ity of Visit REGIONAL 4.2.7.2.686 Dayron as MATERNAL [phone] [facility] & CHILD [address] [place] [address] 2020-10-08 2020-10-08 [facility] [id number] Univers 09:15:00 09:15:00 YOVANY ity o f [facility] 2020-09-10 2020-09-10 Routine [facility] [id number] Univers 09:05:32 09:51:31 Yoavny C FINANCIAL REPORT SERVICE SALES AGENT 350.1.13.10 ity of Visit REGIONAL 4.2.7.2.686 Dayron as MATERNAL [phone] [facility] & CHILD [address] [place] [address] 2020-09-10 2020-09-10 [facility] [id number] Univers 09:15:00 09:15:00 YOVANY ity o f [facility] 2020-09-10 2020-09-10 Abstract [facility] 1.2.840.114 [id number] Univers 00:00:00 00:00:00 Yovany C FINANCIAL REPORT SERVICE SALES AGENT 350.1.13.10 ity of REGIONAL 4.2.7.2.686 Dayron as MATERNAL [phone] Med ical & CHILD [address] [place] [address] 2020-09-08 2020-09-08 Research Instructor Ultrasound, Oscar [facility] 1.2 .840.114 [id number] Univers 09:37:17 10:22:17 Visit Amara Ochoa FINANCIAL REPORT SERVICE SALES AGENT 350.1.13.10 ity of REGIONAL 4.2.7.2.686 Dayron as MATERNAL [phone] [facility] ical & CHILD [address] [facility] 2020-09-08 2020-09-08 Outpatient P [facility] [id number] Univers 09:15:00 09:15:00 ity of [facility] 2020-08-16 2020-08-16 [facility]phone [facility] [id number] Univers 00:00:00 00:00:00 Ward R FINANCIAL REPORT SERVICE SALES AGENT 350.1.13.10 ity of REGIONAL 4.2.7.2.686 Dayron as MATERNAL [phone] [facility] & CHILD [address] [place] [address] 2020-08-13 2020-08-13 Routine [facility] 1.2.399.576 [id number] Univers 09:08:10 09:23:10 Yovany Oliveira FINANCIAL REPORT SERVICE SALES AGENT 350.1.13.10 ity of Visit REGIONAL 4.2.7.2.686 Dayron as MATERNAL [phone] [facility] & CHILD [address] [place] [address] 2020-08-13 2020-08-13 Outpatient R [facility] [id number] Univers 09:00:00 09:00:00 YOVANY ity o f [facility] 2020-08-04 2020-08-04 Telephone [facility] 1.2.840.114 [id number] Univers 00:00:00 00:00:00 Yovany C FINANCIAL REPORT SERVICE SALES AGENT 350.1.13.10 ity of REGIONAL 4.2.7.2.686 Dayron as MATERNAL [phone] [facility] ical & CHILD [address] [place] [address] 2020-08-03 2020-08-03 Research Instructor Ultrasound, [facility] 1.2 .840.114 [id number] Univers 09:56:55 10:56:55 Visit Dong Schaefer FINANCIAL REPORT SERVICE SALES AGENT 350.1.13.10 ity of REGIONAL 4.2.7.2.686 Dayron as MATERNAL [phone] [facility] ical & CHILD [address] [facility] 2020-08-03 2020-08-03 Outpatient P [facility] [id number] Univers 09:45:00 09:45:00 ity of [facility] 2020-08-03 2020-08-03 Telephone [facility] 1.2.840.114 [id number] Univers 00:00:00 00:00:00 Yovany C FINANCIAL REPORT SERVICE SALES AGENT 350.1.13.10 ity of REGIONAL 4.2.7.2.686 Dayron as MATERNAL [phone] [facility] ical & CHILD [address] [place] [address] 2020-08-03 2020-08-03 Abstract [facility] 1.2.840.114 [id number] Univers 00:00:00 00:00:00 Yovany C FINANCIAL REPORT SERVICE SALES AGENT 350.1.13.10 ity of REGIONAL 4.2.7.2.686 Dayron as MATERNAL [phone] [facility] ical & CHILD [address] [place] [address] 2020-07-19 2020-07-19 Research Instructor Lab, [facility] 1.2.840. 114 [id number] Univers 10:33:25 10:56:57 Visit Yovany Wilks FINANCIAL REPORT SERVICE SALES AGENT 350.1.13. 10 ity of REGIONAL 4.2.7.2.686 Dayron as MATERNAL [phone] [facility] ical & CHILD [address] [place] [address] 2020-07-16 2020-07-19 Routine [facility] 1.2.442.349 [id number] Univers 16:04:34 10:50:13 Yovany C FINANCIAL REPORT SERVICE SALES AGENT 350.1.13.10 ity of Visit REGIONAL 4.2.7.2.686 Dayron as MATERNAL [phone] [facility] ical & CHILD [address] [place] [address] 2020-07-19 2020-07-19 Outpatient R [facility] [id number] Univers 10:30:00 10:30:00 ity of [facility] 2020-07-16 2020-07-16 Outpatient R LASHAUN, [facility] [id number] Univers 16:00:00 16:00:00 YOVANY ity o f [facility] 2020-07-06 2020-07-06 Outpatient R LASHAUN, [facility] [id number] Univers 13:30:00 13:30:00 YOVANY ity o f [facility] 2020-07-05 2020-07-05 Outpatient R LASHAUN, [facility] [id number] Univers 15:00:00 15:00:00 YOVANY ity o f [facility] 2020-07-02 2020-07-02 Outpatient P [facility] [id number] Univers 15:30:00 15:30:00 ity of [facility] 2020-06-30 2020-06-30 Outpatient P [facility] [id number] Univers 15:15:00 15:15:00 ity of [facility] 2020-06-21 2020-06-21 Outpatient R [facility] [id number] Univers 09:00:00 09:00:00 ity [facility] 2020-06-21 2020-06-21 Telemedici Faculty, Marlon [facility] 1.2.840.114 [id number] Univers 08:13:13 08:43:13 ne Visit Arnoldo Rajput FINANCIAL REPORT SERVICE SALES AGENT 350.1 .13.10 ity of [facility] 4.2.7.2.686 Dayron as MATERNAL [phone] Med ical & CHILD [address] [place] [address] 2020-06-14 2020-06-14 Telephone [facility] 1.2.840.114 [id number] Univers 00:00:00 00:00:00 Yovany C FINANCIAL REPORT SERVICE SALES AGENT 350.1.13.10 ity of [facility] 4.2.7.2.686 Dayron as MATERNAL [phone] [facility] [address] [place] [address] 2020-06-10 2020-06-10 Telephone [facility] 1.2.840.114 [id number] Univers 00:00:00 00:00:00 Yovany C FINANCIAL REPORT SERVICE SALES AGENT 350.1.13.10 ity of [facility] 4.2.7.2.686 Dayron as MATERNAL [phone] Med ical & CHILD [address] [place] [address] 2020-06-09 2020-06-09 Initial [facility] 1.2.787.220 [id number] Univers 10:11:08 11:24:06 Yovany Oliveira FINANCIAL REPORT SERVICE SALES AGENT 350.1.13.10 ity of Visit [facility] 4.2.7.2.686 Dayron as MATERNAL [phone] [facility] & CHILD [address] [place] [address] 2020-06-09 2020-06-09 [facility] [id number] Univers 10:00:00 10:00:00 YOVANY reddyy o f [facility] 2020-06-09 2020-06-09 Orders Doctor ANNE 1.2.840.114 [id number] Univers 00:00:00 00:00:00 Only Unassigned, RICARDO 350.1.13.10 ity of [place] [address].2.7.2.686 Dayron as [phone] [address] Results Test Description Test Time Test Comments Results Result Comments Source RHO (D) IMMUNE GLOBULIN 2022-08-31 09:23:22 Test Item Value Reference Range Interpretation Comme nts RHIG CANDIDATE? (test code = No- see comment Patient is not a candidate for RhIg- 5055) Patient is Rh P ositive.Performed at [facility] Laboratory Services - [facility] Blood [address] [place] [address]Irir Free: [phone] A No. [id number] [facility] - SYPHILIS [id number] 16:49:39 Test Item Value Reference Range Interpretation Comments Syphilis IgG/IgM (test Non-reactive Non-reactive code = 59932-7) BLANCO (test code = BLANCO) Non-reactive - No serologic evidence of T. pallidum infection. Cannot exclude incubating or early syphilis. Submit a second specimen in 2-4 weeks if syphilis is clinically suspected. Equivocal - Further testing to follow. Reactive - Further testing to follow. Lab Interpretation (test Normal code = 80241-6) [facility]ORD [id number] 09:48:03 Test Item Value Reference Range Interpretation Comments VENOUS BASE EXCESS, mEq/L CORD (test code = 1113396616) VENOUS PH, CORD (test 7.25-7.45 code = 0061742285) VENOUS PC02, CORD See_Comment [Automate d message] The (test code = system which ge nerated 4428250737) this result tra nsmitted reference range : 27 - 49 mmHg. The refer ence range was not used to interpret this result as normal/abnormal . VENOUS PO2, CORD (test See_Comment [Aut omated message] The code = 4686689918) system wh ich generated this result tra nsmitted reference range : 17 - 41 mmHg. The refer ence range was not used to interpret this result as normal/abnormal . VENOUS BICARBONATE, See_Comment QUES [Au tomated message] CORD (test code = The system which generated 5856466087) this result tra nsmitted reference range : 12 - 29 mEq/L. The refe rence range was not used to interpret this result as normal/abnormal . [facility]TER[facility] CORD [id number] 09:47:43 Test Item Value Reference Range Interpretation Comments BASE EXCESS, CORD mEq/L QUES (test code = 2415130872) AC PH, CORD (BEAKER) 7.18-7.38 (test code = 8171953684) PC02, CORD (test code See_Comment [Auto mated message] The = 3729228529) system which g enerated this result transmit raffi reference range : 32 - 66 mmHg. The refer ence range was not used to interpret this result as normal/abnormal . PO2, CORD (test code See_Comment [Autom ated message] The = 4804519702) system which g enerated this result transmit raffi reference range : 10 - 30 mmHg. The refer ence range was not used to interpret this result as normal/abnormal . BICARBONATE, CORD See_Comment [Automate d message] The (test code = system which ge nerated this 5384819219) result transmit raffi reference range : 17 - 27 mEq/L. The refe rence range was not used to interpret this result as normal/abnormal . [facility]/2 AG-AB WITH [id number] 23:38:33 Test Item Value Reference Range Interpretation Comments HIV Negative Negative Semi-quantitative (test code = 75852-4) BLANCO (test code = Non-reactive for HIV-1 BLANCO) antigen and HIV-1/HIV-2 antibodies. ?No laboratory evidence of HIV infection. ?Repeat in 2-4 weeks if acute HIV infection is suspected. [facility] SystemHepatitis B Surface [id number] 20:57:17 Test Item Value Reference Range Interpretation Comments HBsAg Semi-Quantitative (test code = Negative Negative 5195-3) [facility] SystemType and Screen - ONCE [id number] 20:35:19 Test Item Value Reference Range Interpretation Comments ABO & RH (test code O POSITIVE Performe d at [facility] = 20) Laboratory Serv [facility] Blood Bank3 [address] [facility] s [address]Fybq Free: [phone] A No. [id number] IAT (test code = Negative Performed a t [facility] 1185) Laboratory Serv [facility] Blood [facility]3 [address] [facility] [address] [address]Sbyf Free: [phone] A No. [id number] [facility] SystemCBC with [id number] 20:28:52 Test Item Value Reference Range Interpretation Comments WBC (test code = See_Comment H [Automated 6690-2) message] The sy stem which generated this result transmitted reference range : 4.30 - 11.10 10*3/?L. The reference range was not used to interpret this result as normal/abnormal . RBC (test code = See_Comment [Automated 069-8) message] The sy stem which generated this [...] RDW-SD (test code = 45.3 fL 39.0-49.9 72900-4) RDW-CV (test code = 19.9 % 12.0-15.5 H 788-0) PLT (test code = See_Comment H [Automated 777-3) message] The sy stem which generated this result transmitted reference range : 166 - 358 10*3/ ?L. The reference r yessi was not used to interpret this result as normal/abnormal . MPV (test code = 10.7 fL 9.5-12.9 10915-0) IPF % (test code = 5.4 % 1.3-7.7 Platelet count 2124893579) measured by fluorescence method. NRBC/100 WBC (test See_Comment [Automat ed code = 4228244323) message] The system which generated this result transmitted reference range : 0.0 - 10.0 /100 WBCs. The refer ence range was not u sed to interpret th is result as normal/abnormal . NRBC x10^3 (test code See_Comment [Auto mated = 2665529589) message] The s ystem which generated this result transmitted reference range : 10*3/?L. The reference range was not used to interpret this result as normal/abnormal . GRAN MAT (NEUT) % 78.6 % (test code = 770-8) IMM GRAN % (test code 1.00 % = 7609121390) LYMPH % (test code = 14.9 % 736-9) MONO % (test code = 4.0 % 5905-5) EOS % (test code = 1.3 % 713-8) BASO % (test code = 0.2 % 706-2) GRAN MAT x10^3(ANC) 9.89 10*3/uL 1.88-7.09 H (test code = 6308413595) IMM GRAN x10^3 (test 0.13 10*3/uL 0.00-0.06 H code = 6758508519) LYMPH x10^3 (test code 1.88 10*3/uL 1.32-3.29 = 731-0) MONO x10^3 (test code 0.50 10*3/uL 0.33-0.92 = 742-7) EOS x10^3 (test code = 0.17 10*3/uL 0.03-0.39 711-2) BASO x10^3 (test code 0.03 10*3/uL 0.01-0.07 = 704-7) Lab Interpretation Abnormal (test code = 45042-1) [facility] SystemUric Acid [id number] 20:23:31 Test Item Value Reference Range Interpretation Comments URIC ACID (test code = 9733330630) 5.2 mg/dL 2.9-6.0 Lab Interpretation (test code = Normal 93863-6) [facility] SystemSerum [id number] 20:23:31 Test Item Value Reference Range Interpretation Comments CREATININE (test code 0.56 mg/dL 0.50-1.04 = 1002164836) eGFR (test code = mL/min/1.73m2 1287927417) BLANCO (test code = BLANCO) Association of [...] or urine or abnormalities in imaging tests). [facility] (Asparate Amino Transfer)2022-08-29 20:23:31 Test Item Value Reference Range Interpretation Comments AST(SGOT) (test code = 7374925900) 24 U/L 13-40 Lab Interpretation (test code = Normal 41318-8) [facility] SystemAlanine Amino Transferase (SGPT)2022-08-29 20:23:31 Test Item Value Reference Range Interpretation Comments ALTv (test code = 1742-6) 13 U/L 5-35 Lab Interpretation (test code = Normal 45615-4) [facility] SystemLactate [id number] 20:22:30 Test Item Value Reference Range Interpretation Comments LDH (test code = 2336672170) 184 U/L 120-246 Lab Interpretation (test code = Normal 63385-3) [facility] URINALYSIS W SPECIFIC [id number] 14:56:00 Test Item Value Reference Range Interpretation [...] U APPEAR (test code = 3267) . [facility] URINALYSIS W SPECIFIC [id number] 14:56:00 Test Item Value Reference Range Interpretation [...] U APPEAR (test code = 3267) . [facility] URINALYSIS W SPECIFIC [id number] 16:15:00 Test Item Value Reference Range Interpretation [...] POCT U APPEAR (test code = 3267) [facility] URINALYSIS W SPECIFIC [id number] 16:15:00 Test Item Value Reference Range Interpretation [...] POCT U APPEAR (test code = 3267) [facility] URINALYSIS W SPECIFIC [id number] 16:09:00 Test Item Value Reference Range Interpretation [...] U APPEAR (test code = 3267) . [facility] URINALYSIS W SPECIFIC [id number] 14:10:00 Test Item Value Reference Range Interpretation [...] U APPEAR (test code = 3267) clear [facility] URINALYSIS W SPECIFIC [id number] 14:10:00 Test Item Value Reference Range Interpretation [...] U APPEAR (test code = 3267) clear [facility] URINALYSIS W SPECIFIC [id number] 13:42:00 Test Item Value Reference Range Interpretation [...] POCT U APPEAR (test code = 3267) [facility] SystemPLACENTA2019-08-06 09:07:00 RUN DATE: 05/06/19 [facility] Lab PAGE 1 RUN TIME: 907 Specimen Inquiry RUN USER: INTERFACE ANTONIETTA ENT: RIVERARAFAEL Kenton LOC: [facility] U #: [id number] AGE/SX: ROOM: 2004 RE04/29/19REG DR: Johanna Sanders : 86 BED: A DIS: 05/02/19 STATUS: DIS IN TLOC: SPEC #: [id number] RECD: 04/30/19 STATUS: BRYAN RELee Ann #: [id number] MUNA: 04/29/19- [facility] DR: Johanna Sanders MD ENTERED: 04/30/19 SP TYPE: PLACENTA OTHR DR: ORDERED: GROSS PROCEDURES: GROSS (05/05/19-1147) TISSUES: PLACENTA, NOS CLINICAL HISTORY COLLECTION DATE: 04/29/19 FINAL DIAGNOSIS Placenta, vaginal delivery: TERM APPEARING PLACENTA WITH SUBCHORIONIC AND PERIVILLOUS FIBRINOID DEPOSITION NO VILLITIS OR INFARCTION IDENTIFIED TRIVASCULAR UMBILICAL CORD FREE OF INFLAMMATION MEMBRANES FREE OF INFLAMMATION NEGATIVE FOR MALIGNANCY RRB/sm D 77112 MACROSCOPIC The specimen is received without fixative [...] through the placenta shows no focal lesions. Senior Investigator sections through the tissue shows no focal lesions. Senior Investigator portions of tissue are submitted for histologic evaluation (1A- 1C). GROSS PERFORMED AT [facility] CONTINUED ON NEXT PAGE RUN DATE: 05/06/19 [facility] Lab PAGE 2 RUN TIME: 907 Specimen Inquiry RUN USER: INTERFACE SP EC #: [id number]: RAFAEL STAFFORD #[id number] (Continued) MACROSCOPIC (Continued) [facility] [address] [facility] [place] [address] (p)[phone] MICROSCOPIC All of the stains, including any controls performed, stain appropriately. MICROSCOPIC PERFORMED AT [facility] [address] [facility] [place] [address] (p)[phone] PERFORMING SITE Diagnosis performed at: [facility] [address] [place] [address] Signed SIGNATURE ON FILE Salvatore Pascal MD 05/06/19 0907 END OF REPORT COMPREHENSIVE METABOLIC [id number] 10:33:00 Test Item Value Reference Range Interpretation [...] ALKP) to change in reagent. COMPREHENSIVE METABOLIC [id number] 10:27:00 Test Item Value Reference Range Interpretation [...] IUnit/L 45-117 code = ALKP) CBC W/AUTO [id number] 13:30:00 Test Item Value Reference Range Interpretation [...] code = MDIFF) SPECIMEN COMMENTS: day 1DIFFERENTIAL [id number] 13:30:00 Test Item Value Reference Range Interpretation [...] = PLTMORPH) SPECIMEN COMMENTS: day 1COMPREHENSIVE METABOLIC [id number] 13:08:00 Test Item Value Reference Range Interpretation [...] MDRD formula.Chronic kidney disease is defined as [facility] er kidney damageor GFR <60 mL/min/1.73 [...] mg/dL 8.5-10.1 LL Results called to CA) [id number] by YOUSUF 04/30 1308Critical results verifie d and read back b y Nurse? Y BILIRUBIN TOTAL (test 0.30 mg/dL 0.0-1.0 N code = BILT) SGOT/AST (test code = 33 IUnit/L 15-37 N AST) SGPT/ALT (test code = 23 IUnit/L 12-78 N ALT) ALKALINE PHOSPHATASE 220 IUnit/L 45-117 H Note change in TOTAL (test code = reference range due ALKP) to change in reagent. [id number] 13:08:00 Test Item Value Reference Range Interpretation Comments MAGNESIUM (test code = MAG) 6.6 mg/dL 1.8-2.4 H CBC W/AUTO [id number] 12:58:00 Test Item Value Reference Range Interpretation [...] code = MDIFF) SPECIMEN COMMENTS: day 1DIFFERENTIAL [id number] 12:58:00 Test Item Value Reference Range Interpretation Comments STAIN ACCEPTABILITY (test code = STN ACCEPTABLE) CABOT RINGS (test code = CAB) MORPHOLOGY COMMENT (test code = MOC) PLATELET ESTIMATE (test code = PLTEST) PLATELET MORPHOLOGY (test code = PLTMORPH) SPECIMEN COMMENTS: day 1CBC W/AUTO [id number] 12:58:00 Test Item Value Reference Range Interpretation [...] code = MDIFF) SPECIMEN COMMENTS: day 1DIFFERENTIAL [id number] 12:58:00 Test Item Value Reference Range Interpretation Comments STAIN ACCEPTABILITY (test code = STN ACCEPTABLE) MORPHOLOGY COMMENT (test code = MOC) PLATELET ESTIMATE (test code = PLTEST) PLATELET MORPHOLOGY (test code = PLTMORPH) SPECIMEN COMMENTS: day 1CBC W/AUTO [id number] 12:58:00 Test Item Value Reference Range Interpretation [...] code = MDIFF) SPECIMEN COMMENTS: day 1DIFFERENTIAL [id number] 12:58:00 Test Item Value Reference Range Interpretation Comments STAIN ACCEPTABILITY (test code = STN ACCEPTABLE) MORPHOLOGY COMMENT (test code = MOC) PLATELET ESTIMATE (test code = PLTEST) PLATELET MORPHOLOGY (test code = PLTMORPH) SPECIMEN COMMENTS: day 1CBC W/AUTO [id number] 12:58:00 Test Item Value Reference Range Interpretation [...] code = MDIFF) SPECIMEN COMMENTS: day 1DIFFERENTIAL [id number] 12:58:00 Test Item Value Reference Range Interpretation Comments STAIN ACCEPTABILITY (test code = STN ACCEPTABLE) CABOT RINGS (test code = CAB) MORPHOLOGY COMMENT (test code = MOC) PLATELET ESTIMATE (test code = PLTEST) PLATELET MORPHOLOGY (test code = PLTMORPH) SPECIMEN COMMENTS: day 1COMPREHENSIVE METABOLIC [id number] 12:50:00 Test Item Value Reference Range Interpretation [...] TOTAL (test IUnit/L 45-117 code = ALKP) [id number] 12:50:00 Test Item Value Reference Range Interpretation Comments MAGNESIUM (test code = MAG) mg/dL 1.8-2.4 [id number] 22:22:00 Test Item Value Reference Range Interpretation Comments MAGNESIUM (test code = MAG) 5.6 mg/dL 1.8-2.4 H HIV 1 2 COMBO AG/AB [id number] 14:02:00 Test Item Value Reference Range Interpretation Comments HIV 1 2 COMBO AB/AG NON NONREACTIVE NONREACTIVE H IV P24 AG/AB SCREEN REACTIVE ANTIGEN NONREAC TIVE (test code = NONREACTIVE HIV 1&2 [id number]) ANTIBODY NONREA CTIVE THE HIV-1 P24 T EST HELPS DISTINGUI SH ACUTE HIV-1INFECTIONF ROM ESTABLISHED HIV -1 INFECTION WHEN THE SPECIMEN ISPOSI TIVE FOR HIV-1 P24 A NTIGEN. HIV-1 P24 ANTIG EN IS HIGHEST IN THE FIRST FEW WEEKS AFTERINFECTION DRUGS OF ABUSE SCREEN [id number] 13:55:00 Test Item Value Reference Range Interpretation [...] <300 ng/mL code = [place]) CBC W/AUTO [id number] 13:51:00 Test Item Value Reference Range Interpretation [...] SCAN NEEDED (test code = MDIFF) DIFFERENTIAL [id number] 13:51:00 Test Item Value Reference Range Interpretation [...] (test NORMAL code = PLTMORPH) CBC W/AUTO [id number] 13:32:00 Test Item Value Reference Range Interpretation [...] SCAN NEEDED (test code = MDIFF) DIFFERENTIAL [id number] 13:32:00 Test Item Value Reference Range Interpretation [...] (test NORMAL code = PLTMORPH) CBC W/AUTO [id number] 13:31:00 Test Item Value Reference Range Interpretation [...] SCAN NEEDED (test code = MDIFF) DIFFERENTIAL [id number] 13:31:00 Test Item Value Reference Range Interpretation Comments STAIN ACCEPTABILITY (test code = STN ACCEPTABLE) CABOT RINGS (test code = CAB) MORPHOLOGY COMMENT (test code = MOC) PLATELET ESTIMATE (test code = PLTEST) PLATELET MORPHOLOGY (test code = PLTMORPH) CBC W/AUTO [id number] 13:31:00 Test Item Value Reference Range Interpretation [...] SCAN NEEDED (test code = MDIFF) DIFFERENTIAL [id number] 13:31:00 Test Item Value Reference Range Interpretation Comments STAIN ACCEPTABILITY (test code = STN ACCEPTABLE) CABOT RINGS (test code = CAB) MORPHOLOGY COMMENT (test code = MOC) PLATELET ESTIMATE (test code = PLTEST) PLATELET MORPHOLOGY (test code = PLTMORPH) CBC W/AUTO [id number] 13:31:00 Test Item Value Reference Range Interpretation [...] SCAN NEEDED (test code = MDIFF) DIFFERENTIAL [id number] 13:31:00 Test Item Value Reference Range Interpretation Comments STAIN ACCEPTABILITY (test code = STN ACCEPTABLE) MORPHOLOGY COMMENT (test code = MOC) PLATELET ESTIMATE (test code = PLTEST) PLATELET MORPHOLOGY (test code = PLTMORPH) CBC W/AUTO [id number] 13:31:00 Test Item Value Reference Range Interpretation [...] SCAN NEEDED (test code = MDIFF) DIFFERENTIAL [id number] 13:31:00 Test Item Value Reference Range Interpretation Comments STAIN ACCEPTABILITY (test code = STN ACCEPTABLE) CABOT RINGS (test code = CAB) MORPHOLOGY COMMENT (test code = MOC) PLATELET ESTIMATE (test code = PLTEST) PLATELET MORPHOLOGY (test code = PLTMORPH) DRUGS OF ABUSE SCREEN [id number] 13:10:00 Test Item Value Reference Range Interpretation [...] ng/mL code = MET[place]URN) AG HEPAT B [id number] 13:05:00 Test Item Value Reference Range Interpretation Comments AG HEPAT B SURF (test code Nonreactive Index Nonreactive = HBSAG) AB RUBELLA [id number] 13:05:00 Test Item Value Reference Range Interpretation Comments AB RUBELLA IGG Positive <5.0=Neg IU/ML INTERP RETATION (test code = IUnit/mL OF SERUM RUBELL A-IGG RUBGAB) AB --------- ------- ---< 5.0 NEGATIVE - NO RUBELLA IGG ANT IBODY DETECTED5.0-9.9 EQUIVOCAL>= 10. 0 POSITIVE - RUBE LLA IGG ANTIBODY DETECT ED AB [id number] 13:05:00 Test Item Value Reference Range Interpretation Comments AB TREPONEMA (test code = Nonreactive Index NonReactive TREPAB) URINALYSIS [id number] 12:57:00 Test Item Value Reference Range Interpretation [...] #/LPF FEW A Urine Source? CatheterCOMPREHENSIVE METABOLIC [id number] 12:27:00 Test Item Value Reference Range Interpretation [...] MDRD formula.Chronic kidney disease is defined as [facility] er kidney damageor GFR <60 mL/min/1.73 [...] ALKP) to change in reagent. COMPREHENSIVE METABOLIC [id number] 12:22:00 Test Item Value Reference Range Interpretation [...] IUnit/L 45-117 code = ALKP) CBC W/AUTO [id number] 12:17:00 Test Item Value Reference Range Interpretation [...] 0.0-0.1 N NRBC#) DRUGS OF ABUSE SCREEN [id number] 14:29:00 Test Item Value Reference Range Interpretation [...] NEGATIVE <300 ng/mL code = [place]) URINALYSIS [id number] 14:15:00 Test Item Value Reference Range Interpretation [...] Urine Source? Clean CatchDRUGS OF ABUSE SCREEN [id number] 14:07:00 Test Item Value Reference Range Interpretation [...] (test code = METHAURN) <300 ng/mL URINALYSIS [id number] 14:05:00 Test Item Value Reference Range Interpretation [...] Urine Source? Clean Catch- US PREG AFTER [id number] 20:34:00 Name: RAFAEL STAFF[facility] : 1990 Age/S: 28 / F [address] [facility] Unit #: [id number] Loc: [place] [address] Phys: Chasity Barber NP Acct: [id number] Dis Date: Status: REG ER PHONE #: [phone] Exam Date: 12/11/2018 180 FAX #: [phone] Reason: PELVIC PAIN EXAMS: CPT CODE: [id number] US PREG AFTER TRI 13076 EXAM: ultrasound after first trimester; INFORMATION: Pelvic pain; TECHNIQUE AND FINDINGS: Transabdominal grayscale imaging was combined with color Doppler sonography and spectral analysis. There is a single, viable intrauterine with a sonographic gestational age of 19 weeks and 1 day. This is based on a biparietal diameter of 4.3 cm, headcircumference of 16.3 cm, an abdominal circumference of 14.3 cm and a femur length of 2.8 cm. The estimated weight is 279 g. The fetus is in breech position. The heart rate is 159 beats perminutes. Posterior placenta; Adequate amount of amniotic fluid; STEFFEN is 15.9 cm. The ovaries are of normal size and shape and with normal flow pattern on Doppler exam. The right ovary measures 2.5 x 1.4x 1.4 cm. The left ovary measures 2.5 x 1.2 x 1.9 cm. It contains a 1.2 cm cyst. IMPRESSION: 1. Single, viable intrauterine with a gestational age of 19 weeks and 1 day. 2. ANNEMARIE by ultrasound is 05/06/2019. 3. Small left ovarian cyst. 4. Fetus in breech position. at 2033 Reported and signed by: Aldo Mccauley M.D. CC: Chasity Barber NP Technologist: Beatriz Dowell RDMS [facility] Date/Time: 12/11/2018 (2033) t.Armani HOFFMAN Orig Print D/T: S: 12/11/2018 (2036) Probe: PAGE 1 Signed Report URINALYSIS [id number] 19:40:00 Test Item Value Reference Range Interpretation [...] Urine Source? Clean CatchDRUGS OF ABUSE SCREEN [id number] 19:40:00 Test Item Value Reference Range Interpretation [...] code = [place]) Urine Source? Clean CatchURINALYSIS [id number] 18:38:00 Test Item Value Reference Range Interpretation [...] Urine Source? Clean CatchDRUGS OF ABUSE SCREEN [id number] 18:38:00 Test Item Value Reference Range Interpretation [...] METHAURN) <300 ng/mL Urine Source? Clean CatchURINALYSIS [id number] 18:35:00 Test Item Value Reference Range Interpretation [...] Urine Source? Clean CatchDRUGS OF ABUSE SCREEN [id number] 18:35:00 Test Item Value Reference Range Interpretation [...] METHAURN) <300 ng/mL Urine Source? Clean Catch Notes Date/Time Note Provider Source 2019-05-02 07:54:00 [id number]:54:00 [facility] ([facility])OB Disch PostpartumREPORT#:[id number] REPORT STATUS: SignedDATE:05/02/19 TIME: 0754 PATIENT: RAFAEL STAFFORD UNIT #: [id number]#: [id number] ROOM/BED: 2004-ADOB: [birth year] AGE : 28 SEX: F ATTEND: Johanna Sanders [facility] AUTHOR: Bailey Diane MD * ALL edits or amendments must be made on the electronic/computer document * Subjective SubjectiveAdmission EGA (wks/days): 39 weeksEGA at delivery (wks/days): 39 weeksStatus/day: post , day #2Patient reports: Patient reports: Yes: normal lochia, pain management effective, tolerating po well, voiding well, tolerating ambulation. No: nausea, vomiting. Objective GeneralVS:Vital Signs Date Temp Pulse Resp B/P B/P Mean Pulse Ox FiO2 05/01-05/02 98.6-98.8 59-83 18-20 117-129/66-85 84.6-99.6 97-99 Last Documented: Result Date Time Pulse Ox 98 05/02 738 B/P 121/73 05/02 738 B/P Mean 88.9 05/02 738 Temp 98.6 05/02 738 Pulse 67 05/02 738 Resp 18 05/02 738 Patient Weight Weight (lb): 143Weight (oz): Weight (kg): 64.864 Physical ExamBreasts: Breasts: normal, non-tender, softLungs: clear to auscultationNeuro: Exam: alert, normal speech, altered mental state agitatedAbdomen: post gravid, soft, no abnormal tenderness, no guarding, no rebound tenderness, normoactive bowel soundsUterus: involution appropriate, non-tenderFundus: firm, below the umbilicusLochia: normalVulva/Perineum: normal, n o hematomaCVA tenderness: noneLower extremities: Edema: none ResultsFindings/Data:Laboratory Tests: 05/01 04/30 0857 1200 Chemistry Sodium (136 - 145 mmol/L) 142 138 Potassium (3.5 - 5.1 mmol/L) 4.1 3.1 L Chloride (98 - 107 mmol/L) 112.0 H 108.0 H Carbon Dioxide (21 - 32 mmol/L) 27.0 22.0 Anion Gap (10 - 20) 7.1 L 11.1 BUN (7 - 18 mg/dL) 7 6 L Creatinine (0.55 - 1.02 mg/dL) 0.60 0.50 L Glomerular Filtr Rate (>=60 mL/min) > 60 > 60 BUN/Creatinine Ratio (10 - 20) 11.0 11.7 Glucose (74 - 106 mg/dL) 65 L 108 H Calcium (8.5 - 10.1 mg/dL) 7.4 L 6.2 *L Magnesium (1.8 - 2.4 mg/dL) 6.6 H Total Bilirubin (0.0 - 1.0 mg/dL) 0.20 0.30 AST (15 - 37 IUnit/L) 25 33 ALT (12 - 78 IUnit/L) 21 23 Total Alk Phosphatase (45 - 117 IUnit/L) 215 H 220 H Total Protein (6.4 - 8. 2 gram/dL) 5.2 L 5.4 L Albumin (3.4 - 5.0 g/dL) 2.0 L 2.0 L Globulin (2.7 - 4.2 gram/dL) 3.2 3.4 Albumin/Globulin Ratio (0.75 - 1.50) 0.6 L 0.6 L Hematology WBC (4.5 - 12.5 K/mm3) 10.8 RBC (3.7 - 5.2 mill/mm3) 3.87 Hgb (11.5 - 15.5 gram/dL) 7.6 L Hct (36.0 - 46.0 %) 26.1 L MCV (80 - 98 fL) 67.4 L MCH (27.0 - 33.0 picogram) 19.6 L MCHC (33.0 - 36.0 gram/dL) 29.1 L RDW (11.6 - 16.2 %) 18.1 H RDW Std Deviation (37.0 - 51.0 fL) 42.6 Plt Count (150 - 450 K/mm3) 282 MPV (6.7 - 11.0 fL) 11.6 H Neut % (Auto) (39.0 - 69.0 %) 80.5 H Lymph % (Auto) (25.0 - 55.0 %) 14.8 L Iroquois % (Auto) (0.0 - 10.0 %) 3.0 Eos % (Auto) (0.0 - 5. 0 %) 1.2 Baso % (Auto) (0.0 - 1.0 %) 0.1 Neut # (Auto) (1.8 - 7.7 K/mm3) 8.72 H Lymph # (Auto) (1.0 - 5.0 K/mm3) 1.60 [place]quois # (Auto) (0 - 0.8 K/mm3) 0.32 Eos # (Auto) (0.0 - 0.5 K/mm3) 0.13 Baso # (Auto) (0.0 - 0.2 K/mm3) 0.01 Add Manual Diff NO, ONLY SCAN NEEDED Nucleated RBC % (0 - 0 %) 0.0 Nucleated RBCs # (Man) (0.0 - 0.1 K/mm3) 0.00 Platelet Estimate ADEQUATE Plt Morphology Comment NORMAL Poikilocytosis 2+ Anisocytosis 1+ Microcytosis 1+ Darlington Cells (NONE) 1+ Elliptocyte s 1+ Discharge Summary Discharge SummaryProblem List/A P: 1. Pre-eclampsia affecting puerperium Free Text A P:Post day #2 s/p , h/o pre eclampsia, BP stable and wnl.Anemia , post - stable on iron.Date of admission:Date of admission: 04/29/19 Hospital course: spontaneous labor, spontaneous vag deliveryBaby A: Vaginal delivery: spontaneous status: live born Gender: malePlan: discharge todayInstructions: routine instr sheet givenDiet: regularContraception discussed: will discuss at PP visitDischarge meds:Start taking the followin g new medications:FERROUS SULFATE (FEOSOL) 325 MG TAB 325 MILLIGRAM ORAL TWICE DAILY. Qty = 60 No Refills LABETALOL (TRANDATE) 200 MG TAB 200 MILLIGRAM ORAL EVERY 12 HOURS. Qty = 60 No Refills DOCUSATE SODIUM (COLACE) 100 MG CAP 100 MILLIGRAM ORAL TWICE DAILY NEEDED. as needed for CONSTIPATION Qty = 60 No Refills IBUPROFEN (MOTRIN) 600 MG TAB 600 MILLIGRAM ORAL EVERY 6 HOURS NEEDED. as needed for pain Qty = 20 No Refills Prescriptions: e-prescribeConsultation(s): Consultation performed: social servicesDischarge condition: stableDischarge to: homeFollow up in: 2 weeksDischarge diagnosis: full-term uncomp delivery, pre-eclampsiaDischarge management: les s than 30 mins at 2220 RPT #:[id number] OF REPORTOBObstetric [id number]:54:00V.[id number] abdi able for patient [id number]:21:05 2019-05-01 13:29:00 [id number]:29:00 [facility] ([facility])OB Postpart Progr NoteREPORT#:[id number] REPORT STATUS: SignedDATE:05/01/19 TIME: 1329 PATIENT: RAFAEL STAFFORD UNIT #: [id number]#: [id number] ROOM/BED: ADOB: [birth year] AGE : 28 SEX: F ATTEND: Johanna Sanders MDADM AUTHOR: Johanna Sanders MD * ALL edits or amendments must be made on the electronic/computer document * Subjective SubjectiveEGA weeks/days: 39 weeksStatus/Day: post (day 2)Patient reports: Patient reports: Yes normal lochia, Yes pain management effective, Yes tolerating po well, Yesvoiding well, Yes voiding without pain, Yes tolerating ambulation, Yes flatus, No bowel movement, No nausea, No vomiting, No excessive bleeding, No abdominal pain Objective Nursing Documentation ReviewNursing Data:The data set between the lexi d lines has been imported from nursing documentation. Any exceptions have been noted below under Provider comments. _ Feeding preference: _ Provider comment s on imported nursing data: [] GeneralVS:Vital Signs: Date Time Temp Pulse Resp B/P B/P Pulse O2 O2 Flow FiO2 Mean Ox Delivery Rate 05/01 0731 36.9 72 20 116/67 83.4 98 08 0550 36.6 63 18 101/69 79.9 99 08 0024 36.8 7 0 18 101/63 75.9 100 04/30 2032 36.7 78 19 113/67 82.3 99 04/30 1814 62 104/63 76.4 04/30 1813 37. 0 69 18 99 04/30 1629 75 100 04/30 1624 64 99 04/30 1619 64 100 04/30 1613 54 100 04/30 1608 6 4 97 04/30 1603 68 100 04/30 1600 36.5 18 04/30 1558 73 98 04/30 1553 73 97 04/30 1548 54 99 04/30 1543 64 98 04/30 1539 98.0 04/30 1539 53 124/81 04/30 1538 58 100 04/30 1533 62 99 04/30 1528 62 97 04/30 1527 73 92 04/30 1523 63 99 04/30 1518 61 99 04/30 1513 61 99 04/30 1509 88.0 04/30 1509 57 113/71 04/30 1508 55 100 07/ 1 1503 58 99 04/30 1458 58 99 04/30 1453 59 99 04/30 1448 58 99 04/30 1443 57 100 04/30 1439 90.0 04/30 1439 59 112/75 04/30 1438 58 100 Patient Weight Weight (lb): 143Weight (oz): Weight (kg): 64.864 Notes:General: petite postgravid female in [facility] Physical ExamBreasts: Feeding: formulaCardiac: normal sinus rhythm, no clinically sig murmurLungs: clear to auscultation, no ralesNeuro: Exam: alert, oriented x3, normal speechAbdomen: soft, no abnormal tenderness, no guardingIncision site: noneUterus: firm, tender, involution appropriateFundus: firm, at the umbilicus, non-tenderLochia: normalLacerations: Perineal laceration(s): NoneVulva/Perineum: normalCVA tenderness: noneLower extremities: Edema: none Junior's sign: negative Calf tenderness: negative ResultFindings/Data:Laboratory Tests: 05/01 0857 Chemistry Sodium (136 - 145 mmol/L) 142 Potassiu m (3.5 - 5.1 mmol/L) 4.1 Chloride (98 - 107 mmol/L ) 112.0 H Carbon Dioxide (21 - 32 mmol/L) 27.0 Anion Gap (10 - 20) 7.1 L BUN (7 - 18 mg/dL) 7 Creatinine (0.55 - 1.02 mg/dL) 0.60 Glomerular Filtr Rate (>=60 mL/min) > 60 BUN/Creatinine Ratio (10 - 20) 11.0 Glucose (74 - 106 mg/dL) 65 L Calcium (8.5 - 10.1 mg/dL) 7.4 L Total Bilirubin (0.0 - 1.0 mg/dL) 0.20 AST (15 - 37 IUnit/L) 25 ALT (12 - 78 IUnit/L) 21 Total Alk Phosphatase (45 - 117 IUnit/L) 215 H Total Protein (6.4 - 8.2 gram/dL) 5.2 L Albumin (3.4 - 5.0 g/dL) 2.0 L Globulin (2.7 - 4.2 gram/dL) 3.2 Albumin/Globulin Ratio (0.75 - 1.50) 0.6 L Treatment Prophylaxis Treatment ProphylaxisLines : saline lockCVC/PICC documentation:CVC/PICC insertion date/time: Diagnosis, Assessment Plan Diagnosis, Assessment PlanProblem List/A P: 1. Insufficient antepartum care 2. Drug abuse durin g 3. Pre-eclampsia affecting puerperium Free Text A P:PPD # 2 Patient is a 28 y/o gravid female s/p @ 39 weeks 0 days gestation who presented to [facility] per EMS. in activ e labor with eminent delivery.. She was screaming in pain with contractions. She admited using crystal methamphtamines this morning and smoking prior to onset of labor. Patient had received no care. She has a hx of Pre-E with her 1 st and 2nd pregnancies and was induced . She also had a DVT with her 1st and received Lovenox during her 1st and 2nd pregnancies. Patient's immediate course was complicated severely elevated blood pressures, 3 + proteinuria. She was treated for 24 hours with IV magnesium sulfate. Her blood pressures improved initially. This morning her pressures weresinificantly elevated . She was started on Labetalol 200 mg BID. Her blood pressures have normalized. Patient has experienced drug withdrawl sympstoms and has had intervals of agitation. She was treated with Ativan. She slept most of the PPD # 1. She is currently lucid. Nusea has resolved. She is tolerating a regular diet. Hypocalcemia has improved: Continue Tums TID Mild hypokalemia has resolved Iron deficiency anemia: Ferrous sulfate 325 mg BID. Hgb 8.7 -> 7.6 Patient is ambulatory . Patient has a hx of DVT. She declines Lovenox tx of baby ASA. She is currently asymptomatic. She has been wearing SCD's. No calf pain noted Patient desires Depo-Provera for contraception. Eventually, she desires permanenet sterilization . male is stable in NICU. has experienced withdrawl symptoms as well. 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 CPS will plan for placementof the infant. Patient admits that she does not have a home to be discharged t o and she will need medicaid coverage so she can continue on Labetalol to manage her hypertension . Plan: continue current management Social Service to help with placement following discharge. Plan discussed with: patient at 1446 RPT #:[id number] OF REPORTPRProgress [id number]:29:00V.[id number] abdi able for patient [id number]:46:50 2019-04-30 12:59:00 [id number]:59:00 [facility] ([facility])OB Postpart Progr NoteREPORT#:[id number] REPORT STATUS: SignedDATE:04/30/19 TIME: 1259 PATIENT: RAFAEL STAFFORD UNIT #: [id number]#: [id number] [facility] AGE : 28 SEX: F ATTEND: Johanna Sanders MDADM AUTHOR: Johanna Sanders MD * ALL edits or amendments must be made on the electronic/computer document * Subjective SubjectiveEGA weeks/days: 39 weeksStatus/Day: post (day 1)Patient reports: Patient reports: Yes normal lochia, Yes pain management effective, Yes tolerating po well, Yesvoiding well, Yes voiding without pain, Yes flatus, Yes bowel movement, Yes nausea, No tolerating ambulation, No vomiting, No excessive bleeding, No abdominal pain, No perineal pain, No headache , No blurred vision Objective Nursing Documentatio n ReviewNursing Data:The data set between the lexi d lines has been imported from nursing documentation. Any exceptions have been noted below under Provider comments. _ Feeding preference: _ Provider comment s on imported nursing data: [] GeneralVS:Vital Signs: Date Time Temp Pulse Resp B/P B/P Pulse O2 O2 Flow FiO2 Mean Ox Delivery Rate 04/30 1558 73 98 04/30 1553 73 97 04/30 154 8 54 99 04/30 1543 64 98 04/30 1539 98.0 04/30 153 9 53 124/81 04/30 1538 58 100 04/30 1533 62 99 04/30 1528 62 97 04/30 1527 73 92 04/30 1523 63 99 07/ 1518 61 99 07/ 1513 61 99 07/ 1509 88.0 07/ 1509 57 113/71 07/ 1508 55 100 07/3 1 1503 58 99 07/ 1458 58 99 07/ 1453 59 99 07/ 1448 58 99 07/ 1443 57 100 07/ 1439 90.0 07/ 1439 59 112/75 07/ 1438 58 100 07/3 1 1433 54 100 07/ 1428 61 99 07/ 1423 59 100 07/ 1418 62 99 07/ 1413 66 100 07/ 1409 96.0 07/ 1409 67 122/79 07/ 1408 68 99 07/ 1403 61 99 07/ 1400 75 94 07/ 1358 65 100 07/ 1353 63 100 07/ 1351 74 89 07/ 1348 5 8 100 07/ 1343 59 100 07/ 1338 69 100 07/ 1335 53 91 07/ 1333 72 100 07/ 1328 67 100 07/ 1314 76 100 07/ 1309 85.0 07/ 1309 67 109/71 100 07/ 1304 69 100 07/ 1259 73 99 07/ 1254 58 99 07/ 1249 58 98 07/ 1244 59 94 07/ 1239 87.0 07/ 1239 58 108/74 100 07/3 1 1234 61 97 07/ 1230 60 92 07/ 1229 63 100 07/ 1224 58 97 07/ 1219 60 99 07/ 1214 58 98 07/ 1209 86.0 07/ 1209 58 110/69 98 07/3 1 1204 61 93 07/ 1159 65 100 07/ 1154 69 91 07/ 1149 63 98 07/ 1144 62 98 07/ 1139 81. 0 07/ 1139 65 107/67 100 07/ 1134 65 93 07/ 1129 67 98 07/ 1124 63 99 07/ 1119 61 99 07/ 1114 66 95 07/ 1109 91.0 07/ 1109 68 117/77 93 07/ 1104 65 98 07/ 1059 73 100 07/ 1054 69 100 07/ 1049 78 84 07/ 1044 7 7 100 07/ 1039 94.0 07/ 1039 79 116/79 93 07/3 1 1034 69 100 07/ 1029 67 100 07/ 1024 74 100 07/ 1023 76 93 07/ 1019 73 100 07/ 1017 8 4 94 07/ 1014 89 100 07/ 1010 86 92 07/ 100 9 96.0 07/ 1009 74 119/83 100 07/ 1004 72 100 07/ 0959 73 90 07/ 0954 64 100 07/ 0953 6 5 92 07/ 0949 66 97 07/ 0947 80 94 07/ 0944 67 100 07/ 0939 100.0 / 0939 68 129/80 98 07/ 0934 59 100 / 0929 66 100 / 0924 5 9 98 07/ 0919 69 100 / 0914 65 100 04/30 0909 107.0 04/30 0909 57 136/87 100 07/ 0906 5 9 93 07/ 0904 77 99 07/ 0859 76 87 / 0854 65 98 07/ 0849 57 100 / 0844 64 100 / 0839 104.0 04/30 0839 57 138/85 100 07/ 0835 6 2 90 / 0834 65 99 07/ 0829 66 95 / 0824 75 98 / 0822 76 91 04/30 0819 72 99 07 0815 56 85 04/30 0814 61 100 07/ 0809 56 100 07/ 0808 69 93 / 0804 58 98 07/ 0801 74 91 07/ 0759 80 100 07/ 0749 74 94 07/ 0744 73 100 07/ 0743 74 90 07 0739 57 100 07 0738 134.0 07/ 0738 57 178/101 07/ 0734 56 100 07/ 0729 58 100 07/ 0724 58 100 07/ 0719 57 100 07/ 0715 36.4 18 04/30 0714 58 99 07 0713 61 86 / 0711 118.0 04/30 0711 62 163/92 07/31 0710 127.0 07/31 0710 60 163/101 07/31 0709 60 99 07/31 0708 123.0 07/31 0708 57 155/100 07/31 0704 59 100 07/31 0659 59 99 07/31 0654 59 99 07/31 0649 64 100 07/31 0644 64 99 07/31 0639 59 100 07/31 0638 125.0 07/ 0638 61 156/104 07/31 0634 59 100 07/31 0629 58 100 07/3 1 0626 76 90 07/31 0624 58 100 07/31 0619 57 100 07/31 0614 57 100 07/31 0609 56 100 07/31 0608 121.0 07/ 0608 65 154/99 07/ 0604 56 100 07/31 0559 58 96 07/31 0554 66 97 07/31 0551 71 94 07/31 0548 83 100 07/31 0543 59 100 07/ 0538 111.0 07/ 0538 67 139/92 100 07/31 0533 5 7 100 07/31 0528 58 100 07/31 0523 57 100 07/31 0518 53 100 07/31 0516 54 89 07/31 0513 53 100 07/31 0508 111.0 07/31 0508 55 143/89 98 07/31 0503 56 100 07/31 0458 56 100 07/31 0453 60 90 07/31 0447 72 87 07/31 0446 61 87 07/31 0441 64 95 07/31 0438 120.0 07/31 0438 86 150/99 07/31 0437 74 89 07/31 0436 72 97 07/31 0426 86 07/31 0420 67 100 07/31 0418 67 90 07/31 0415 61 100 07/31 0410 57 100 07/31 0408 64 94 07/31 0405 59 97 07/31 0402 83 93 07/31 0400 59 99 07/31 0355 61 99 07/31 0350 60 99 07/31 0345 59 99 07/31 0340 59 98 07/31 0338 115.0 07/31 0338 61 151/9 0 07/31 0335 69 99 07/31 0330 65 100 07/31 0325 7 6 99 07/31 0320 65 94 07/31 0315 66 97 07/31 0312 80 91 07/31 0310 62 99 07/31 0308 110.0 07/31 0308 59 140/89 07/31 0305 62 99 07/31 0300 59 9 9 07/31 0255 59 99 07/31 0250 62 100 07/31 0245 59 100 07/31 0240 62 99 07/31 0238 100.0 07/31 0238 88 138/75 07/31 0235 57 100 07/31 0230 57 100 07/31 0225 56 100 07/31 0220 55 100 07/31 0215 5 5 100 07/31 0210 66 94 07/31 0205 56 100 07/31 020 0 54 100 07/31 0155 53 90 07/31 0149 62 100 07/31 0148 68 84 07/31 0144 69 100 07/31 0139 107.0 07/31 0139 59 145/81 94 07/31 0134 74 98 07/31 0118 63 92 07/31 0116 50 100 07/31 0112 72 93 07/31 0111 57 100 07/31 0108 92.0 07/31 0108 50 133/69 07/31 0106 55 100 07/31 0101 57 99 07/30 2356 57 100 07/30 2356 57 100 07/30 2351 58 100 07/30 2351 58 100 07/30 2346 60 100 07/30 2346 60 100 07/30 2341 57 100 07/30 2341 57 100 07/30 2338 89.0 07/30 2338 89.0 07/30 2338 52 126/64 07/30 2338 52 126/64 07/30 2336 58 100 07/30 233 6 58 100 07/30 2331 52 100 07/30 2331 52 100 07/3 0 2326 60 100 07/30 2326 60 100 07/30 2321 66 100 07/30 2321 66 100 07/30 2316 65 100 07/30 2316 65 100 07/30 2313 63 83 07/30 2313 63 83 07/30 2311 61 51 07/30 2311 61 51 07/30 2308 104.0 07/30 2308 104.0 07/30 2308 54 143/75 78 07/30 2308 54 143/75 78 07/30 2306 58 68 07/30 2306 5 8 68 07/30 2301 90 07/30 2301 90 07/30 2257 58 10 0 07/30 2252 57 100 07/30 2246 62 100 07/30 2241 6 8 100 07/30 2238 104.0 07/30 2238 67 130/87 07/30 2236 57 100 07/30 2232 70 89 07/30 2231 67 99 07/30 2226 85 89 07/30 2224 63 89 07/30 2221 57 100 07/30 2216 67 100 07/30 2211 66 100 07/30 2208 99.0 07/30 2208 65 135/75 07/30 2206 61 100 07/30 2201 63 100 07/30 2156 67 100 07/30 2151 6 6 100 07/30 2148 79 93 07/30 2146 87 95 07/30 214 2 71 93 07/30 2141 70 95 07/30 2139 137.0 07/30 2139 67 195/109 07/30 2133 67 93 07/30 2131 75 100 07/30 2126 66 89 07/30 2121 63 90 07/30 2116 65 100 07/30 2111 67 100 07/30 2109 65 91 07/30 2103 77 99 07/30 2058 71 94 07/30 2055 76 07/30 2053 70 100 07/30 2048 62 100 07/30 2043 75 96 07/30 2041 91 07/30 2036 77 94 07/30 2035 62 91 07/30 2029 68 100 07/30 2024 70 100 07/30 2022 72 88 07/30 2018 66 94 07/30 2015 73 87 07/30 2012 68 100 07/30 2009 75 89 07/30 2008 113.0 07/30 2008 81 147/91 07/30 2007 88 99 07/30 2002 77 100 07/30 1999 77 91 07/30 1957 70 100 07/30 1952 71 100 07/30 1951 78 92 07/30 1947 82 86 07/30 1946 57 90 07/30 1942 72 97 07/30 1939 73 89 07/30 1938 96.0 07/30 1938 74 133/72 07/30 1937 67 100 07/30 1932 76 100 07/30 1927 64 89 07/30 1922 77 100 07/30 1917 82 81 07/30 1912 64 100 07/30 1911 72 07/30 1909 95.0 07/30 1909 68 144/75 07/30 1906 78 100 07/30 1903 92 07/30 190 0 60 100 07/30 1855 62 100 07/30 1850 69 89 07/30 1849 68 100 07/30 1844 67 100 07/30 1839 73 95 07/30 1838 78.0 /30 1838 71 124/54 91 07/30 1834 66 100 07/30 1829 72 94 07/30 1824 67 100 07/30 1819 64 100 07/30 1814 60 100 07/30 1813 7 6 91 07/30 1809 60 100 07/30 1808 114.0 07/30 1808 58 164/86 07/30 1804 65 99 07/30 1802 82 91 07/3 0 1759 64 100 07/30 1754 61 100 07/30 1749 61 100 07/30 1744 63 100 07/30 1739 59 99 07/30 1738 108.0 /30 1738 69 149/81 07/30 1734 65 98 07/3 0 1733 70 93 07/30 1729 102.0 /30 1729 60 157/71 100 07/30 1724 64 100 07/30 1719 75 100 07/30 1714 91 100 07/30 1709 75 100 07/30 1704 64 100 Patient Weight Weight (lb): 143Weight (oz): Weight (kg): 64.864 Notes:General:petite AA female in NAD Physical ExamBreasts: Feeding: formulaCardiac: normal sinus rhythm, no clinically sig murmurLungs: clear to auscultation, no ralesNeuro: Exam: alert, oriented x3, normal speechAbdomen: soft, no abnormal tenderness, no guardingIncision site: noneUterus: firm, tender, involution appropriateFundus: firm, at the umbilicus, non-tenderLochia: normalLacerations: Perineal laceration(s): NoneVulva/Perineum: normalCVA tenderness: noneLower extremities: Edema: none Junior's sign: negative Calf tenderness: negative ResultFindings/Data:Laboratory Tests: 04/30 04/29 1200 2200 Chemistry Sodium (136 - 145 mmol/L) 138 Potassium (3.5 - 5.1 mmol/L) 3.1 L Chloride (98 - 107 mmol/L) 108.0 H Carbon Dioxid e (21 - 32 mmol/L) 22.0 Anion Gap (10 - 20) 11.1 BUN (7 - 18 mg/dL) 6 L Creatinine (0.55 - 1.02 mg/dL) 0.50 L Glomerular Filtr Rate (>=60 mL/min ) > 60 BUN/Creatinine Ratio (10 - 20) 11.7 Glucose (74 - 106 mg/dL) 108 H Calcium (8.5 - 10.1 mg/dL) 6.2 *L Magnesium (1.8 - 2.4 mg/dL) 6.6 H 5.6 H Total Bilirubin (0.0 - 1.0 mg/dL) 0.30 AST (15 - 37 IUnit/L) 33 ALT (12 - 78 IUnit/L) 23 Total Alk Phosphatase (45 - 117 IUnit/L) 220 H Total Protein (6.4 - 8.2 gram/dL) 5.4 L Albumin (3.4 - 5.0 g/dL) 2.0 L Globulin (2.7 - 4.2 gram/dL) 3.4 Albumin/Globulin Ratio (0.75 - 1.50 ) 0.6 L Hematology WBC (4.5 - 12.5 K/mm3) 10.8 RB C (3.7 - 5.2 mill/mm3) 3.87 Hgb (11.5 - 15.5 gram/dL) 7.6 L Hct (36.0 - 46.0 %) 26.1 L MCV (80 - 98 fL) 67.4 L MCH (27.0 - 33.0 picogram) 19.6 L MCHC (33.0 - 36.0 gram/dL) 29.1 L RDW (11.6 - 16.2 %) 18.1 H RDW Std Deviation (37.0 - 51.0 fL) 42.6 Plt Count (150 - 450 K/mm3) 282 MPV (6.7 - 11.0 fL) 11.6 H Neut % (Auto) (39.0 - 69.0 %) 80.5 H Lymph % (Auto) (25.0 - 55.0 %) 14.8 L Iroquois % (Auto) (0.0 - 10.0 %) 3.0 Eos % (Auto) (0.0 - 5.0 %) 1.2 Baso % (Auto) (0.0 - 1. 0 %) 0.1 Neut # (Auto) (1.8 - 7.7 K/mm3) 8.72 H Lymph # (Auto) (1.0 - 5.0 K/mm3) 1.60 Iroquois # (Auto) (0 - 0.8 K/mm3) 0.32 Eos # (Auto) (0.0 - 0.5 K/mm3) 0.13 Baso # (Auto) (0.0 - 0.2 K/mm3) 0.01 Add Manual Diff NO, ONLY SCAN NEEDED Nucleated RBC % (0 - 0 %) 0.0 Nucleated RBCs # (Man) (0.0 - 0.1 K/mm3) 0.00 Platelet Estimate ADEQUATE Plt Morphology Comment NORMAL Poikilocytosis 2+ Anisocytosis 1+ Microcytosis 1+ Dar[place] Cells (NONE) 1+ Elliptocytes 1+ Treatmen t Prophylaxis Treatment ProphylaxisLines: peripheralIV fluids: lactated ringersSedation: lorazepam Diagnosis, Assessment Plan Diagnosis, Assessment PlanFree Text A P:PPD # 1 Patient is a 28 y/o gravid female s/p @ 39 week s 0 days gestation who presents to D per EMS. in active labor with eminent delivery.. She is screaming in pain with contractions. She admits using crystal methamphtamines this morning and smoking prior to onset of labor. Patient has received no care. She has a hx of Pre-E with her 1 st and 2nd pregnancies and was induce d . She also had a DVT with her 1st and received Lovenox during her 1st an d 2nd pregnancies. Patient's course was complicated severely elevated blood pressures, 3 + proteinuria. She was treated for 24 hours with I V magnesium sulfate. Her bloodpressures improved initially. This morning her pressures were sinificantly elevated . She was started on Labetalol 200 mg BID. Her blood pressures have normalized. Patient has experienced drug withdrawl sympstoms and has had intervals of agitation. She was treated with Ativan. She has slept most of the day. She seemsto be lucid for the first time since she was admitted. She has had nuasea since the delivery treated with Zofran. She is tolerating a regular diet. Hypocalcemia: Tums TID Mild hypokalemia Iron deficiency anemia: Ferrous sulfate 325 mg BID. Hgb 8.7 -> 7.6 Patient is ambulatory with assistance. Patient has a hx of DVT. She decline s Lovenox tx of baby ASA. She is currently asymptomatic. She has been wearing SCD's. Patien t desires Depo-Provera for contraception. Eventually, she desires permanenet sterilization . male is stable in NICU. Infant has experienced withdrawl symptoms as well. 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 CPS will plan for placementof the infant. Plan: transfer patient to continue current managemen t Plan: transfer to postpartumPlan discussed with: patient at 1721 RPT #:[id number] OF REPORTPRProgress [id number]:59:00V.[id number] abdi able for patient [id number]:21:56 2019-04-29 11:57:00 [id number]:57:00 [facility] ([facility])OB Delivery NoteREPORT#:[id number] REPORT STATUS: SignedDATE:04/29/19 TIME: 1157 PATIENT: RAFAEL STAFFORD UNIT #: [id number]#: [id number] [facility] AGE : 28 SEX: F ATTEND: Johanna Sanders [facility] AUTHOR: Johanna Sanders MD * ALL edits or amendments must be made on the electronic/computer document * OB Delivery Nursing Documentation ReviewNursing data:The archana a set between the solid lines has been imported from nursing documentation. Any exceptions have been noted below under Provider comments. _ ROM date: 04/29/19 ROM time: 1126Membranes rupture method: AROMAmniotic fluid color: ClearAmniotic fluid amount: EGA (weeks/days): EGA at admit (weeks): EGA at delivery (weeks): Steroids prior to arrival: Antibiotic prophylaxis given: Newbor n evaluation at delivery: Delivery date infant A: 04/29/19 Delivery time infant A: 1128Birthweight (gm) infant A: 2320Weight (lb) A: Weight (oz) infant A: Gender A: MaleApgar 1 minute A: 5 minutes A: 10 minutes infant A: Cord pH obtained A: Vacuum time infant A: Vacuum # pulls A: Vacuum # popoffs A: _ Provider comments on imported nursing data: [] Pre-deliveryGBS status: GBS status: unknownNewborn evaluation at delivery: NRP certified personnelAdmission EGA (wks/days): 39 weeksEGA at delivery (wks/days): 39 weeks GeneralVS:Last Documented: Result Date Time Puls e Ox 100 04/29 1258 Pulse 58 04/29 1258 B/P Mean 136.0 04/29 1252 B/P 159/125 04/29 1252 Vital Signs: Date Time Temp Pulse Resp B/P B/P Pulse O 2 O2 Flow FiO2 Mean Ox Delivery Rate 04/29 1258 58 100 04/29 1253 70 100 04/29 1252 136.0 04/29 125 2 60 159/125 04/29 1248 75 100 04/29 1243 53 100 04/29 1238 51 100 04/29 1237 108.0 04/29 1237 48 154/84 04/29 1233 53 100 04/29 1228 51 100 04/29 1223 69 100 04/29 1221 56 91 04/29 1218 57 100 04/29 1216 59 84 04/29 1212 55 100 04/29 1209 6 4 91 04/29 1207 60 100 04/29 1202 63 100 04/29 115 7 68 100 04/29 1152 126.0 04/29 1152 87 176/96 10 0 04/29 1147 79 98 04/29 1143 101 93 04/29 1142 104 100 04/29 1137 97 100 04/29 1134 112.0 04/29 1134 77 154/82 Membranes: AROMROM date: 04/29/19ROM time: 1126Amniotic fluid: clearLabor onset: Date: 04/29/19 (after using crystal meth)Notes:Patient is a 28y/o gravid female @ 39 weeks 0 days gestation who presented to D in active labor, screaming, very agitated , altered mental statefrom recent drug use. She wa s completely dilated at +2 station with BOWI. Arom revealed clear fluid. Infant delivered spontaneously, SUJATHA presentation, loose nuchal cord x 2, delivered through umbilical cord. Umbilical cord was clamped and cut after 1 minute delay. Infant handed to nusery team. Spontaneousdelivery of placenta intact with fundal massage.No lacerations.EBL: 200 cc Patien t calmed down following her delivery and was cooperative. Baby A InformationBaby A informatio n Delivery date: 04/29/19 Delivery time: 1128 Jaya h status: live born Wt of baby (grams): 2320 Gender: maleABG details Baby A Cord blood gases: not collectedNuchal cord Baby A Nuchal cord: yes (tight,deliv.through) (x 2) Vaginal DeliveryVaginal delivery Labor: spontaneous Vaginal delivery: spontaneous Amniotic fluid: clear Anesthesia type: no anesthesia Episiotomy: none Laceration repair: not required Placenta: spontaneous, intact Post delivery meds used: oxytocin Count: correct Mother's condition: mother stable 's condition: infant stable in roomLacerations: Perineal laceration(s): None Blood Loss/DetailsBlood loss at delivery: <1000 mlEBL (ml's): 200 at 1411 RPT #:[id number] OF REPORTOBObstetric [id number]:57:00V.[id number] l able for patient [id number]:11:21 2019-04-29 11:57:00 [id number]:57:00 [facility] ([facility])OB Delivery NoteREPORT#:[id number] REPORT STATUS: SignedDATE:04/29/19 TIME: 1157 PATIENT: RAFAEL STAFFORD UNIT #: [id number]#: [id number] [id number] AGE : 28 SEX: F ATTEND: Johanna Sanders [facility] DT : 04/29/19 AUTHOR: Johanna Sanders MD * ALL edits or amendments must be made on the electronic/computer document * See AddendumO B Delivery Nursing Documentation ReviewNursing data:The data set between the solid lines has been imported from nursing documentation. Any exceptions have been noted below under Provider comments. _ ROM date: 04/29/19 ROM time: 1126Membranes rupture method: AROMAmniotic fluid color: ClearAmniotic fluid amount: EGA (weeks/days): EGA at admit (weeks): EGA at delivery (weeks): Steroids prior to arrival: Antibiotic prophylaxis given: Newbor n evaluation at delivery: Delivery date A: 04/29/19 Delivery time A: 1128Birthweight (gm) A: 2320Weight (lb) A: Weight (oz) infant A: Gender A: MaleApgar 1 minute A: 5 minutes infant A: 10 minutes infant A: Cord pH obtained infant A: Vacuum time infant A: Vacuum # pulls A: Vacuum # popoffs A: _ Provider comments on imported nursing data: [] Pre-deliveryGBS status: GBS status: unknownNewborn evaluation at delivery: NRP certified personnelAdmission EGA (wks/days): 39 weeksEGA at delivery (wks/days): 39 weeks GeneralVS:Last Documented: Result Date Time Puls e Ox 100 04/29 1258 Pulse 58 04/29 1258 B/P Mean 136.0 04/29 1252 B/P 159/125 04/29 1252 Vital Signs: Date Time Temp Pulse Resp B/P B/P Pulse O 2 O2 Flow FiO2 Mean Ox Delivery Rate 04/29 1258 5 8 100 04/29 1253 70 100 04/29 1252 136.0 04/29 125 2 60 159/125 04/29 1248 75 100 04/29 1243 53 100 04/29 1238 51 100 04/29 1237 108.0 04/29 1237 48 154/84 04/29 1233 53 100 04/29 1228 51 100 04/29 1223 69 100 04/29 1221 56 91 04/29 1218 57 100 04/29 1216 59 84 04/29 1212 55 100 04/29 1209 64 91 04/29 1207 60 100 04/29 1202 63 100 04/29 1157 68 100 04/29 1152 126.0 04/29 1152 87 176/9 6 100 04/29 1147 79 98 04/29 1143 101 93 04/29 114 2 104 100 04/29 1137 97 100 04/29 1134 112.0 04/29 1134 77 154/82 Membranes: AROMROM date: 04/29/19ROM time: 1126Amniotic fluid: clearLabor onset: Date: 04/29/19 (after using crystal meth)Notes:Patient is a 28y/o gravid female @ 39 weeks 0 days gestation who presented to [facility] in active labor, screaming, very agitated , altered mental statefrom recent drug use. She wa s completely dilated at +2 station with BOWI. Arom revealed clear fluid. Infant delivered spontaneously, SUJATHA presentation, loose nuchal cord x 2, delivered through umbilical cord. Umbilical cord was clamped and cut after 1 minute delay. Infant handed to nusery team. Spontaneousdelivery of placenta intact with fundal massage.No lacerations.EBL: 200 cc Patien t calmed down following her delivery and was cooperative. Baby A InformationBaby A informatio n Delivery date: 04/29/19 Delivery time: 1128 Jaya h status: live born Wt of baby (grams): 2320 Gender: maleABG details Baby A Cord blood gases: not collectedNuchal cord Baby A Nuchal cord: yes (tight,deliv.through) (x 2) Vaginal DeliveryVaginal delivery Labor: spontaneous Vaginal delivery: spontaneous Amniotic fluid: clear Anesthesia type: no anesthesia Episiotomy: none Laceration repair: not required Placenta: spontaneous, intact Post delivery meds used: oxytocin Count: correct Mother's condition: mother stable Infant's condition: infant stable in roomLacerations: Perineal laceration(s): None Blood Loss/DetailsBlood loss at delivery: <1000 mlEBL (ml's): 200 at 1411 Addendum 1: 04/29/19 1432 by Johanna Sanders MD Perineum was prepped following delivery. Red rubber cath for urine specimen and UDS. at 1433 RPT #:[id number] OF REPORTOBObstetric [id number]:57:00V.[id number] l able for patient qnxvURWDMJDTTEJRLJ7343-99-59Z91:33:12 2019-04-29 11:46:00 [id number]:46:00 [facility] ([facility])OB Admission / H PREPORT#:[id number] REPORT STATUS: SignedDATE:04/29/19 TIME: 1146 PATIENT: RAFAEL STAFFORD UNIT #: [id number]#: [id number] [facility]LG89-VEAZ: 88 AGE : 28 SEX: F ATTEND: Johanna Sanders [facility] AUTHOR: Johnana Sanders MD * ALL edits or amendments must be made on the electronic/computer document * OB Admission H P HxChief complaint: uterine contractionsHPI:Patient is a 28 y/o gravid femal e @ 39 weeks 0 days gestation who present s to L D per EMS. She is screaming in pain with contractions. She admits using crystal methamphtamines this morning and smoking prior t o onset of labor. She denies vaginal bleeding or LOF. Patient was seen 2 days ago for assessment of pelvic pressure. She was not in labor . She had altered affect. Her drug screen was positive for amphetamines and cannabinoids. She left afte r determining that she was not in labor. Patient has received no care. She has a hx of Pre-E with her 1 st and 2nd pregnancies and was induced . She also had a DVT with her 1st and received Lovenox during her 1st an d 2nd pregnancies. Patient says she was kicked out her home. Her children live with her mother. Sherecently broke up with her boyfriend.Pregnanc y history: : 4 Term: 1 ( 2016) : 2 ( 2011 and 2013) Abortus: 0 Living children: 3 Complications (prev preg): DVT, Pre-E, Drug useCurrent : EDC: 05/06/19 Admission EG A (wks/days): 39 weeksConditions of : substance abuse, no care, HX DVT, HX Pre-EPast medical history: Pre-E, DVT, drug abusePast surgical history: denies PSHSocial history: unemployed, single, homeless, no alcoho l use, drug abuse (cocaine, marijuanna), smoker (x 10 years)Family historyFATHER Family History: UnremarkableMOTHER Family History: Unremarkable Medications:Home Medications:PNV/FE FUM/FA ( MULTIVITAMIN) 1 TAB PO DAILY AllergiesCoded Allergies:No Known Allergies (04/27/19) Review of SystemsGU:Reports: pelvic pain, , previous pregnancies. Denies: dysuria, flank pain, frequency, hematuria, nocturia, urgency, urinary retention, vaginal bleeding, vaginal discharge. All systems rev neg : except as marked Objective GeneralVS:Last Documented: Result Date Time Pulse Ox 100 04/29 1353 Pulse 53 04/29 1353 B/P Mean 114.0 04/29 1352 B/P 156/81 04/29 1352 Vital Signs Date Temp Pulse Resp B/P B/P Mean Pulse Ox FiO2 04/29 48-104 144-176/81-125 104.0-136.0 84-100 Patient Weight Weight (lb): Weight (oz): Weight (kg): Notes:General: petite gravid female screaming in pain Physical ExamHEENT: normocephalic w/o injuryCardiac: regular rate and rhythmLungs: clear to auscultationBreasts: deferredNeuro: Exam: alert, normal speech, altered mental state , agitatedAbdomen: gravid, soft, no abnormal tendernessUterine activity: Monitor: toco Frequency (description): regular Frequency (minutes): 2 Intensity: strongPelvic exam: Pelvi s clinically adequate: yes Vulvar lesions: none Vagina: normal Exam: soft, non-tender, small for datesCervical/ exam: Dilatation (cm): 10 - complete Effacement (%): 100 Est wt (gms): 2800 Suspected macrosomia: No Suspected > 5000 grams: No station: + 2 presentation: cephalic Espinoza Score Espinoza Scor e Response Value Dilation: 5 cm (3) 3 Effacement: 80-100% (3) 3 Station: +1, +2 (3) 3 Position: anterior (2) 2 Consistency: soft (2) 2 Total 13 Membranes: Membranes: Intact (bulging forebag)Lower extremities: Edema: noneBaby A: Baby A baseline: 140 bpm ResultFindings/Data:Laboratory Tests: 04/29 07/3 0 1130 1130 Chemistry Sodium (136 - 145 mmol/L) 13 9 Potassium (3.5 - 5.1 mmol/L) 3.4 L Chloride (98 - 107 mmol/L) 111.0 H Carbon Dioxide (21 - 32 mmol/L) 15.0 L Anion Gap (10 - 20) 16.4 BUN (7 - 18 mg/dL) 12 Creatinine (0.55 - 1.02 mg/dL) 0.9 0 Glomerular Filtr Rate (>=60 mL/min) > 60 BUN/Creatinine Ratio (10 - 20) 13.5 Glucose (74 - 106 mg/dL) 96 Calcium (8.5 - 10.1 mg/dL) 9.1 Total Bilirubin (0.0 - 1.0 mg/dL) 0.50 AST (15 - 37 IUnit/L) 53 H ALT (12 - 78 IUnit/L) 31 Total Alk Phosphatase (45 - 117 IUnit/L) 327 H Total Protein (6.4 - 8.2 gram/dL) 7.3 Albumin (3.4 - 5.0 g/dL) 2.7 L Globulin (2.7 - 4.2 gram/dL) 4.6 H Albumin/Globulin Ratio (0.75 - 1.50) 0.6 L Hematology WBC (4.5 - 12.5 K/mm3) 10.1 RBC (3.7 - 5.2 mill/mm3) 4.30 Hgb (11.5 - 15.5 gram/dL) 8. 7 L Hct (36.0 - 46.0 %) 29.8 L MCV (80 - 98 fL) 69.3 L MCH (27.0 - 33.0 picogram) 20.2 L MCHC (33.0 - 36.0 gram/dL) 29.2 L RDW (11.6 - 16.2 % ) 18.4 H RDW Std Deviation (37.0 - 51.0 fL) 43.3 Plt Count (150 - 450 K/mm3) 331 MPV (6.7 - 11.0 fL) 11.2 H Neut % (Auto) (39.0 - 69.0 %) 60.8 Lymph % (Auto) (25.0 - 55.0 %) 32.5 Iroquois % (Auto ) (0.0 - 10.0 %) 4.0 Eos % (Auto) (0.0 - 5.0 %) 1. 7 Baso % (Auto) (0.0 - 1.0 %) 0.4 Neut # (Auto) (1.8 - 7.7 K/mm3) 6.15 Lymph # (Auto) (1.0 - 5. 0 K/mm3) 3.28 [place]roquois # (Auto) (0 - 0.8 K/mm3) 0.40 Eos # (Auto) (0.0 - 0.5 K/mm3) 0.17 Baso # (Auto ) (0.0 - 0.2 K/mm3) 0.04 Add Manual Diff NO, ONLY SCAN NEEDED Nucleated RBC % (0 - 0 %) 0.0 Nucleated RBCs # (Man) (0.0 - 0.1 K/mm3) 0.00 Platelet Estimate ADEQUATE Plt Morphology Comment NORMAL Poikilocytosis 3+ Anisocytosis 2+ Microcytosis 2+ Tear Drop Cells 1+ Crenated January l 1+ Elliptocytes 1+ Serology T.pallidum Ab (EIA) (NonReactive Index) Nonreactive Hep Bs Antigen (Nonreactive Index) Nonreactive HIV Ag/Ab Combo Qual (NONREACTIVE) AB/AG NON REACTIVE Rubella Ig G Antibody (<5.0=Neg IUnit/mL) Positive Toxicology Urine Opiates Screen (<300 ng/mL) NEGATIVE Urine Methadone Screen (<300 ng/mL) NEGATIVE Urine Barbiturates (<200 ng/mL) NEGATIVE Ur Phencyclidine Scrn (<25 ng/mL) NEGATIVE Ur Amphetamines Screen (<1000 ng/mL) POSITIVE H U Benzodiazepines Scrn (<200 ng/mL) NEGATIVE Urine Cocaine Screen (<300 ng/mL) NEGATIVE Urine Cannabinoids (<50 ng/mL) POSITIVE H Urines Urin e Color (YELLOW) YELLOW Urine Appearance (CLEAR) Cloudy H Urine pH (5.0 - 8.0) 6.0 6.0 Ur Specific [place] (1.001 - 1.035) 1.032 Urine Protein (NEGATIVE mg/dL) 300 (3+) H Urine Glucos e (UA) (NEGATIVE mg/dL) NEGATIVE Urine Ketones (NEGATIVE mg/dL) NEGATIVE Urine Blood (NEGATIVE mg/dL) >1.0 Urine Nitrite (NEGATIVE) NEGATIVE Urine Bilirubin (NEGATIVE mg/dL) NEGATIVE Urine Urobilinogen (NEGATIVE mg/dL) 3.0 (1+) H Ur Leukocyte Esterase (NEGATIVE Apollo/uL) NEGATIVE Urine RBC (0 - 5 #/HPF) >200 Urine WBC (0 - 5 pe r HPF) 0-5 Ur Epithelial Cells (FEW per HPF) FEW Urine Bacteria (NONE #/HPF) FEW H Hyaline Casts (0 - 5 #/LPF) 11-20 H Urine Mucus (FEW #/LPF) MODERATE H Diagnosis, Assessment Plan Diagnosis, Assessment PlanFree Text A P:Patient is a 28 y/o @ 39 weeks gestation who presents with precipitous labor, imminent delivery, no prenata l care, drug use, smoker, HX pre-E, HX DVT, unknow n GBS Admit to L DAnticipate SVDIron deficiency anemiaContact nuseryOB LabsEvaluate following delivery for Pre-ESocial Service/CPS ConsultPlan : admit to inpatient, delivery, transer to L D at 1431 RPT #:[id number] OF REPORTHPHistory and physical [id number]:46:00V.[id number] 2 AVAvailable for patient [id number]:32:12 2019-04-27 13:24:00 [id number]:24:00 [facility] ([facility] Evaluation NoteREPORT#:[id number] REPORT STATUS: SignedDATE:04/27/19 TIME: 1324 PATIENT: RAFAEL STAFFORD UNIT #: [id number]#: [id number] ROOM/BED:: 88 AGE: 28 SEX : F ATTEND: Johanna Sanders [facility] DT: AUTHOR: Johanna Sanders MD * ALL edits or amendment s must be made on the electronic/computer document * [facility] HistoryChief complaint: uterine contractionsHPI:Patient is a 28 y/o AA gravid female @ 38 weeks 5 days gestation who presents to [facility] per EMS for evaluation of pelvi c pressure. She denies vaginal bleeding or LOF. Fetus is active. She denies headache or edema. Patient is receiving no care. history: : 4 ( 2011,2013, 2016) Term: 1 : 2 Abortus: 0 Living children: 3 Complications (prev preg): hypertension (Pre-E)Current : EDC: 05/06/19 EGA (weeks/days): 38 weeks (5 days)Conditions of : pre-eclampsia (HX), No care, drug use, tobaccousePast medical history: hypertension (gestational), HX DVTPast surgical history: denies PSHSocial history: unemployed, single, homeless, drug abuse (crystal meth, marijuana), smoker (x 10 years)Family historyFATHER Family History: UnremarkableMOTHER Family History: Unremarkable Medications:Home Medications: Medication Dose/Rte/Freq Days Qty Entered Last Max Daily Dose Reviewed PNV/FE FUM/FA 1 TAB PO DAILY 04/27/19 04/27/19 (PRENATA L MULTIVITAMIN) 1326 1336 Strength: 1 TAB TAB AllergiesCoded Allergies:No Known Allergies (04/27/19) Review of SystemsGU:Reports: . Denies: dysuria, flank pain, frequency, hematuria, pelvic pain, urgency, urinary retention, vaginal bleeding, vaginal discharge, other. All systems rev neg: except as marked Objective GeneralVS:Last Documented: Result Date Time B/P 134/92 04/27 1329 Temp 36.0 04/27 1329 Pulse 81 04/27 1329 Resp 18 04/27 1329 B/P Mean 109.0 04/27 1328 Patient Weight Weight (lb): 143Weight (oz): Weight (kg): 64.864 BP: 145/88Notes:General: thin gravid female in NAD Physical ExamHEENT: normocephalic w/o injuryCardiac: normal rhythm, no clinically sig murmurLungs: clear to auscultation, no ralesBreasts: deferredNeuro: Exam: alert, oriented x3, normal speechAbdomen: gravid, soft, no abnormal tendernessUterine activity: Monitor: toco Frequency (description): nonePelvic exam: Pelvis clinically adequate: yes Vulvar lesions: none Vagina: normal Exam: soft, non-tender, approp size for gest ageCervical/ exam: Dilatation (cm): 0 - closed (FT) Effacement (%): 50 station: - 3 presentation: cephalic FHR evaluation: Baseline: 140 bpm Variability: moderate 6-25 bpm Accelerations: 15 X 15 Decelerations: none FHR category: category 1Membranes: Membranes: IntactLower extremities: Edema: noneAdditional comments:skin: multiple tatoos ResultFindings/Data:Laboratory Tests Test Result Date Time Toxicology Urine Opiates Screen (<300 ng/mL) NEGATIVE 04/27 134 Urine Methadone Screen (<300 ng/mL) NEGATIVE 04/27 1344 Urine Barbiturates (<200 ng/mL) NEGATIVE 04/27 134 Ur Phencyclidine Scrn (<25 ng/mL) NEGATIVE 04/27 134 Ur Amphetamines Screen (<1000 ng/mL) POSITIVE H 04/27 134 U Benzodiazepines Scrn (<200 ng/mL) NEGATIVE 04/27 1344 Urine Cocaine Screen (<300 ng/mL) NEGATIVE 04/27 134 Urine Cannabinoids (<50 ng/mL) POSITIVE H 04/27 134 Urines Urine Color (YELLOW) YELLOW 04/27 1344 Urine Appearance (CLEAR) CLEAR 04/27 1344 Urine pH (5.0 - 8.0) 5.5 04/27 1344 Ur Specific Gravit y (1.001 - 1.035) 1.005 04/27 134 Urine Protein (NEGATIVE mg/dL) NEGATIVE 04/27 1344 Urine Glucose (UA) (NEGATIVE mg/dL) NEGATIVE 04/27 134 4 Urine Ketones (NEGATIVE mg/dL) NEGATIVE 04/27 1344 Urine Blood (NEGATIVE mg/dL) 0.06 mg/dL (1+ ) H 04/27 1344 Urine Nitrite (NEGATIVE) NEGATIVE 04/27 1344 Urine Bilirubin (NEGATIVE mg/dL) NEGATIVE 04/27 1344 Urine Urobilinogen (NEGATIVE mg/dL) 2.0 (1+) H 04/27 1344 Ur Leukocyte Esterase (NEGATIVE Apollo/uL) 75 Apollo/uL (1+) H 07 8 1344 Urine RBC (0 - 5 #/HPF) 0-2 04/27 1344 Urin e WBC (0 - 5 per HPF) 0-5 04/27 1344 Ur Epithelial Cells (FEW per HPF) FEW 04/27 1344 Urine Bacteri a (NONE #/HPF) FEW H 04/27 1344 Urine Mucus (FEW #/LPF) FEW 04/27 1344 Diagnosis, Assessment Marilyn n Diagnosis, Assessment PlanFree Text A P:Patient is a 28 y/o gravid female @ 38 weeks 5 days gestation who presents per EMS for evaluation of pelvic pressure. She is not in labor. FHT's -CAT-1. Mildly elevated blood pressures. No PIH symptoms. Her risk factors include: no care. HX Pre-E , HX deliveries, HXDVT, positive drug screen for amphetamines and cannabinoids. Patient decided t o leave when she was told that she was not in labor.Patient given labor warningsAssessment: no evidence labor, reassuring statusPlan: discharge homePlan discussed with: patient at 1321 RPT #:[id number] OF REPORTOBObstetric wgih3596-89-62P35:24:00V.[id number] l able for patient qoiqCJGPHMWJGDCRBA0770-36-56H21:22:08 2018-12-11 17:31:00 [id number]:31:00 [facility] ([facility])EMERGENCY PROVIDER REPORTREPORT#:[id number] REPORT STATUS: SignedDATE:12/11/18 TIME: 173 PATIENT: RAFAEL STAFFORD UNIT #: [id number]#: [id number] ROOM/BED:AGE: 28 SEX: F PCP PHYS: N o Primary or Family PhysicianSERVICE AUTHOR: Chasity Barber NP * ALL edits or amendments must be made on the electronic/computer document * Chasity Barber 12/11/18 1731:HPI-Abd Pain F Under 40 GeneralConfirmed Patient YesPatient Type New patientPCPNONE PresentationChief Complaint Abdominal painHx Obtained From PatientSudden in Onset? YesOnset Occurred TodaySymptom Duration Since onsetProgression since Onset UnchangedRadiationDoes not radiate. Migration/Movement NoneSeverity: Onset SevereSeverity: Current Severe ContextImmunization Status General All up to datePregnancy/Sexual Hx Last Menstrual Period 11/08/18 3 Para 3 Free Text HPI NotesFre e Text HPI NotesPT REPORTS SUDDEN ONSET OF LLQ ABDOMINAL PAIN STARTED 1 HR AGO. PT DENIES ANY FEVER, RASH, N/V/D, CP, SOB, DYSURIA, URI S/S, FIERRO, OR SWELLING Risk-Abd Pain F Under 40)( Ectopic Risk factors reviewed Review o f Systems ROS StatementsAll systems rev neg except as marked. Basic Review of SystemsBasic ROS EYES : No redness, ENT: No sore throat, HEM: No bleeding/bruising, SKIN: No rash, NEURO: No change MS, NEURO: No focal deficit, PSYCH: NL thought content Focused Review of SystemsConstitutionalDenies: Chills, Fever, Lethargy. RespiratoryDenies: Cough, non-productive, Cough, productive, Shortness of breath. CardiovascularDenies: Chest pain, Syncope. GIReports: Abdominal pain. Denies: Diarrhea, Nausea, Vomiting. FemaleDenies: Dysuria, Flank pain, Pelvic pain. MusculoskeletalDenies: Back pain, Extremity pain . Past Medical History - AdultStated Complaint ABDOMEN PAINAllergiesCoded Allergies:No Known Allergies (12/11/18) Home MedicationsReported MedicationsACETAMINOPHEN/CODEINE (TYLENOL WITH CODEINE #4 300/60 MG) 1 TAB PO Q4H PRN PRN PAIN ESOMEPRAZOLE MAG DR (NexIUM) 20 MG PO DAILY ONDANSETRON (ZOFRAN) 4 MG PO Q6H PRN PRN NAUSEA AND VOMITING Review of Nursing Notes Unavailable at this timePast Medical History:Reports: Headache disorder. Additional Medical HistoryDVTAlcohol Use Denies EtOH useDrug Use Denies recreational drugsSmoking status for patients 13 years old or older: Current every da y smokerPack years (pk/d)*(yrs): 10Date last smoked: still smokingAmbulatory Status Independent Physical Exam Vital SignsVital SignsFirst Documented: Result Date Time Pulse O x 100 12/11 172 B/P 130/72 12/11 1725 B/P Mean 91 12/11 172 O2 Delivery Room air 12/11 1724 Temp 36.6 12/11 1725 Pulse 64 12/11 1725 Resp 16 03/ 3 1725 Last Documented: Result Date Time Pulse Ox 100 12/11 1725 B/P 130/72 12/11 1725 B/P Mean 9 1 12/11 172 O2 Delivery Room air 12/11 172 Temp 36.6 12/11 1725 Pulse 64 12/11 1725 Resp 16 12/11 1725 Review of Vital Signs Reviewed Basic Physical ExamBasic PE HEAD: Atraumatic/NC, EYES: PERRL, conj clear, ENT: Membranes moist, NECK: Supple, EXT: No gross abnormality, SKIN: No rashes, warm/dry, NEURO: alert oriented, NEURO: gross movement NL, PSYCH: NL thought content Focused PEGeneral/Const General/Const Awake, Alert, Well appearingMS Head Head NormocephalicEyes Eyes PERRLEars/Nose/Throat Ears/Nose/Throat Airway patent, Mucous membranes moist, Pharynx NLResp/Chest Respiratory/Chest Breath sounds NL, Breath sounds = bilat, No respiratory distress, No rales, No rhonchi, No wheezingCardiovascular Cardiovascular Heart rate NL, Regular rhythm, Heart sounds NL, Peripheral circulation NLAbdomen/GI Abdomen/G I Atraumatic, Soft, McBurney's non-tender, No rebound, BS normoactive, No distention, No hernia, No palpable mass, No pulsatile mass Tenderness/Guarding/Rebound Tender LLQ, Guardin g voluntary. MS Back Back Inspection NL, Non-tender, No CVA tendernessSkin Skin Color NL, Warm, Dry, Turgor NLNeurologic Neurologic Oriented X3, Speech NL, No motor deficits, No sensory deficits Interpretation Diagnostics Lab Results InterpretationResultsLaboratory Tests: 12/11 1732 Toxicology Urine Opiates Screen (<30 0 ng/mL) NEGATIVE Urine Methadone Screen (<300 ng/mL) NEGATIVE Urine Barbiturates (<200 ng/mL) NEGATIVE Ur Phencyclidine Scrn (<25 ng/mL) NEGATIVE Ur Amphetamines Screen (<1000 ng/mL) NEGATIVE U Benzodiazepines Scrn (<200 ng/mL) NEGATIVE Urine Cocaine Screen (<300 ng/mL) NEGATIVE Urine Cannabinoids (<50 ng/mL) POSITIVE H Urines Urine Color (YELLOW) YELLOW Urine Appearance (CLEAR) SLIGHTLY CLOUDY H Urine pH (5.0 - 8.0) 5.0 Ur Specific [place] (1.001 - 1.035) 1.024 Urine Protein (NEGATIVE mg/dL) Negative Urine Glucose (UA) (NEGATIVE mg/dL) NEGATIVE Urine Ketones (NEGATIVE mg/dL) Negative Urine Blood (NEGATIVE) Negative Urine Nitrite (NEGATIVE) NEGATIVE Urine Bilirubin (NEGATIVE mg/dL) NEGATIVE Urine Urobilinogen (NEGATIVE mg/dL) NEGATIVE Ur Leukocyte Esterase (NEGATIVE) NEGATIVE Urine RBC (0 - 5 #/HPF) 0-2 Urine WBC (0 - 5 #/HPF) 0-5 Ur Epithelial Cells (FEW per HPF) FEW Urine Bacteria (NONE #/HPF) FEW H Urin e Mucus (FEW #/LPF) FEW Recent Impressions:ULTRASOUND - US PREG AFTER 12/11 1741 Report Impression - Status: SIGNED Entered: 12/11/20182036 IMPRESSION:1. Single, viable intrauterine with a gestational age of 19weeks and 1 day.2. ANNEMARIE by ultrasound is 05/06/2019.3. Small left ovarian cyst.4. Fetus i n breech position.Impression By: Bon Mccauley M.D. Point of Care TestingPulse Oximetry Pulse Ox % 100 On: Room air Interpretation Interpreted by wa, Pulse oximetry normal Time 1725 Re-Evaluation [facility] ED CourseMedication(s) OrderedMedication(s) Ordered:Central Nervous System Agents Sig/Nakul Start time Last Medication Dose Route Stop Time Status Admin Morphine Sulfate 4 MG X1ED STA 11/29 3 1727 DC IV 12/11 1728 Electrolytic, Caloric, And Kandy Sig/Nakul Start time Last Medication Dose Route Stop Time Status Admin Sodium Chloride 1,000 ML X1ED STA 12/11 1727 DC IV 12/11 1826 Gastrointestinal Drugs Sig/Nakul Start time Last Medication Dose Route Stop Time Status Admin Ondansetron HCl 4 MG X1ED PRN PRN 12/11 1730 DCD IV Patient Discharge Departure Vital Signs/ConditionVital SignsFirst Documented: Result Date Time Pulse Ox 100 12/11 1725 B/P 130/72 / 1725 B/P Mean 91 / 1725 O2 Delivery Room air 12/11 1725 Temp 36.6 / 172 5 Pulse 64 / 1725 Resp 16 12/11 1725 Last Documented: Result Date Time Pulse Ox 100 12/11 1725 B/P 130/72 / 1725 B/P Mean 91 / 1725 O2 Delivery Room air 12/11 1725 Temp 36.6 / 1725 Pulse 64 12/11 1725 Resp 16 12/11 172 5 All vital signs available at the time of this entry have been reviewed. Flaco Benitez 12/11/18 2008:HPI-Abd Pain F Under 40 GeneralInitial Gree t Date/Time 12/11/18 1715 Physical Exam Vital SignsVital Signs Interpretation Diagnostics Lab Results InterpretationResults Re-Evaluation MDM Free Text MDM NotesFree Text MDM NotesREPORT ABBY GASPAR NP PT UNABLE TO LOCATED BY MYSELF DEPUTY COURT . PT DID NOT TELL ME/US THAT SHE WAS LEAVINGTHE FACILITY. )( Re-Evaluation/Progress #1Time of Re-Eval 2012)( Re-Eval Status UnchangedRe-Eval Abdomen Soft, Non-tender, No guarding, No rebound, BS normoactive, McBurney's non-tender, No distention, LEFT LOWER PELVIC PAIN PRESENTPai n Re-Evaluation Pain unchangedPlan Post Re-Eval Plan observe, AWAITING PT TO GO BACK [place]. ED CourseMedication(s) Ordered Patient Discharge Departure Vital Signs/ConditionVital Signs Condition Stable Clinical ImpressionClinical ImpressionPrimary Impression: Ovarian cyst, leftSecondary Impressions: Pelvic pain affecting in second trimester, antepartum Disposition DecisionOther )( Time 2210 )( Date 12/11/18 Against Medical Advice I CALLED PT FROM [facility] AND DID NOT GET AN ANSWER. at 2313RPT #:[id number] OF REPORTEDEmergenc y department [id number]:31:00V.[id number] a ilable for patient [id number]:13:25 2018-12-11 17:31:00 [id number]:31:00 NEELIMA vergara [facility] ([facility] PROVIDER REPORTREPORT#:[id number] REPORT STATUS: SignedDATE:12/11/18 TIME: 173 PATIENT: RAFAEL STAFFORD UNIT #: [id number]#: [id number] ROOM/BED:AGE: 28 SEX: F PCP PHYS: N o Primary or Family PhysicianSERVICE AUTHOR: Chasity Barber [employer] MACHINE OPERATOR * ALL edits or amendments must be made on the electronic/computer document * Chasity Barber 12/11/18 1731:HPI-Abd Pain F Under 40 GeneralConfirmed Patient YesPatient Type New patientInitial Greet Date/Time 12/11/18 1715PCPNONE PresentationChief Complaint Abdomina l painHx Obtained From PatientSudden in Onset? YesOnset Occurred TodaySymptom Duration Since onsetProgression since Onset UnchangedRadiationDoes not radiate. Migration/Movement NoneSeverity: Onset SevereSeverity: Current Severe ContextImmunization Status General All up to datePregnancy/Sexual Hx Last Menstrual Period 11/08/18 3 Para 3 Free Text HPI NotesFre e Text HPI NotesPT REPORTS SUDDEN ONSET OF LLQ ABDOMINAL PAIN STARTED 1 HR AGO. PT DENIES ANY FEVER, RASH, N/V/D, CP, SOB, DYSURIA, URI S/S, FIERRO, OR SWELLING Risk-Abd Pain F Under 40)( Ectopic Risk factors reviewed Review o f Systems ROS StatementsAll systems rev neg except as marked. Basic Review of SystemsBasic ROS EYES : No redness, ENT: No sore throat, HEM: No bleeding/bruising, SKIN: No rash, NEURO: No change MS, NEURO: No focal deficit, PSYCH: NL thought content Focused Review of SystemsConstitutionalDenies: Chills, Fever, Lethargy. RespiratoryDenies: Cough, non-productive, Cough, productive, Shortness of breath. CardiovascularDenies: Chest pain, Syncope. GIReports: Abdominal pain. Denies: Diarrhea, Nausea, Vomiting. FemaleDenies: Dysuria, Flank pain, Pelvic pain. MusculoskeletalDenies: Back pain, Extremity pain . Past Medical History - AdultStated Complaint ABDOMEN PAINAllergiesCoded Allergies:No Known Allergies (12/11/18) Home MedicationsReported MedicationsACETAMINOPHEN/CODEINE (TYLENOL WITH CODEINE #4 300/60 MG) 1 TAB PO Q4H PRN PRN PAIN ESOMEPRAZOLE MAG DR (NexIUM) 20 MG PO DAILY ONDANSETRON (ZOFRAN) 4 MG PO Q6H PRN PRN NAUSEA AND VOMITING Review of Nursing Notes Unavailable at this timePast Medical History:Reports: Headache disorder. Additional Medical HistoryDVTAlcohol Use Denies EtOH useDrug Use Denies recreational drugsSmoking status for patients 13 years old or older: Current every da y smokerPack years (pk/d)*(yrs): 10Date last smoked: still smokingAmbulatory Status Independent Physical Exam Vital SignsVital Signs Review of Vital Signs Reviewed Basic Physical ExamBasic PE HEAD: Atraumatic/NC, EYES: PERRL, conj clear, ENT: Membranes moist, NECK: Supple, EXT: No gross abnormality, SKIN: No rashes, warm/dry, NEURO: alert oriented, NEURO: gross movement NL, PSYCH: NL thought content Focused PEGeneral/Const General/Const Awake, Alert, Well appearingMS Head Head NormocephalicEyes Eye s PERRLEars/Nose/Throat Ears/Nose/Throat Airway patent, Mucous membranes moist, Pharynx NLResp/Chest Respiratory/Chest Breath sounds NL, Breath sounds = bilat, No respiratory distress, No rales, No rhonchi, No wheezingCardiovascular Cardiovascular Heart rate NL, Regular rhythm, Heart sounds NL, Peripheral circulation NLAbdomen/GI Abdomen/G I Atraumatic, Soft, McBurney's non-tender, No rebound, BS normoactive, No distention, No hernia, No palpable mass, No pulsatile mass Tenderness/Guarding/Rebound Tender LLQ, Guarding voluntary. MS Back Back Inspection NL, Non-tender, No CVA tendernessSkin Skin Color NL, Warm, Dry, Turgor NLNeurologic Neurologic Oriented X3, Speech NL, No motor deficits, No sensory deficits Interpretation Diagnostics Lab Results InterpretationResults Point of Care TestingPulse Oximetry Pulse Ox % 100 On: Room ai r Interpretation Interpreted by me, Pulse oximetry normal Time 1725 Re-Evaluation MDM ED CourseMedication(s) Ordered Patient Discharge Departure Vital Signs/ConditionVital SignsFirst Documented: Result Date Time Pulse Ox 100 12/11 1725 B/P 130/72 / 1725 B/P Mean 91 / 1725 O2 Delivery Room air 12/11 1725 Temp 36.6 12/11 1725 Pulse 64 12/11 1725 Resp 16 12/11 1724 Last Documented: Result Date Time Pulse Ox 100 12/11 1725 B/P 130/72 12/11 1725 B/P Mean 9 1 12/11 1724 O2 Delivery Room air 12/11 1725 Temp 36.6 12/11 1725 Pulse 64 12/11 1725 Resp 12/11 All vital signs available at the time of this entry have been reviewed. Pt/Provider Handoff Handoff NoteThis patient's care has been transferred to and accepted by [ONI ALANIZ @ 1999] . We discussed: the patient's chief complaint; lab s and imaging that have been completed and those that are still pending; procedures that have bee n completed and those remaining to be done; any treatment provided and the patient's response to treatment; any significant change in condition; input from consultants if any; the treatment marilyn n prior to the transfer of care. The accepting physician will follow up on all pending labs and imaging and make any necessary changes to the current impression and/or treatment plan. The acceptingphysician is now responsible for the patient's care and final disposition. AWAITING LABS AND U/S RESULTS Flaco Benitez 12/11/182007:Physical Exam Vital SignsVital SignsFirst Documented: Result Date Time Pulse Ox 100 12/11 1725 B/P 130/72 12/11 1725 B/P Mean 91 12/11 1725 O2 Delivery Room air 12/11 1725 Temp 36.6 12/11 1725 Pulse 64 12/11 1725 Resp 16 12/11 1724 Last Documented: Result Date Time Pulse Ox 100 12/11 1725 B/P 130/72 12/11 1725 B/P Mean 91 12/11 1725 O2 Delivery Room air 12/11 1725 Temp 36.6 12/11 1725 Pulse 64 12/11 1725 Resp 16 11/29 3 1725 Interpretation Diagnostics Lab Results InterpretationResultsLaboratory Tests: 12/11 1733 Toxicology Urine Opiates Screen (<300 ng/mL ) NEGATIVE Urine Methadone Screen (<300 ng/mL) NEGATIVE Urine Barbiturates (<200 ng/mL) NEGATIV E Ur Phencyclidine Scrn (<25 ng/mL) NEGATIVE Ur Amphetamines Screen (<1000 ng/mL) NEGATIVE U Benzodiazepines Scrn (<200 ng/mL) NEGATIVE Urine Cocaine Screen (<300 ng/mL) NEGATIVE Urine Cannabinoids (<50 ng/mL) POSITIVE H Urines Urine Color (YELLOW) YELLOW Urine Appearance (CLEAR) SLIGHTLY CLOUDY H Urine pH (5.0 - 8.0) 5.0 Ur Specific [place] (1.001 - 1.035) 1.024 Urine Protein (NEGATIVE mg/dL) Negative Urine Glucose (UA) (NEGATIVE mg/dL) NEGATIVE Urine Ketones (NEGATIVE mg/dL) Negative Urine Blood (NEGATIVE) Negative Urine Nitrite (NEGATIVE) NEGATIVE Urine Bilirubin (NEGATIVE mg/dL) NEGATIVE Urine Urobilinogen (NEGATIVE mg/dL) NEGATIVE Ur Leukocyte Esterase (NEGATIVE) NEGATIVE Urine RBC (0 - 5 #/HPF) 0-2 Urine WBC (0 - 5 #/HPF) 0-5 Ur Epithelial Cells (FEW per HPF) FEW Urine Bacteri a (NONE #/HPF) FEW H Urine Mucus (FEW #/LPF) FEW Recent Impressions:ULTRASOUND - US PREG AFTER 1S T TRI 12/11 1741 Report Impression - Status: SIGNED Entered: 12/11/20182036 IMPRESSION:1. Single, viable intrauterine with a gestational age of 19weeks and 1 day.2. ANNEMARIE by ultrasound is 05/06/2019.3. Small left ovarian cyst.4. Fetus in breech position.Impression By: Bon Mccauley M.D. Re-Evaluation MDM Free Text MDM NotesFree Text MDM NotesREPORT FROM CHASITY ALANIZ PT UNABLE TO LOCATED BY MYSELF DEPUTY COURT. PT DID NOT TELL ME/US THAT SHE WAS LEAVINGTHE FACILITY. )( Re-Evaluation/Progress #1Time of Re-Eval 2012)( Re-Eval Status UnchangedRe-Eval Abdomen Soft, Non-tender, No guarding, No rebound, BS normoactive, McBurney's non-tender, No distention, LEFT LOWER PELVIC VINICIUS N PRESENTPain Re-Evaluation Pain unchangedPlan Pos t Re-Eval Plan observe, AWAITING PT TO GO BACK TO [place]. ED CourseMedication(s) OrderedMedication(s) Ordered:Central Nervous System Agents Sig/Nakul Start time Last Medicatio n Dose Route Stop Time Status Admin Morphine Sulfate 4 MG X1ED STA 12/11 1727 DC IV 12/11 1728 Electrolytic, Caloric, And Kandy Sig/Nakul Star t time Last Medication Dose Route Stop Time Statu s Admin Sodium Chloride 1,000 ML X1ED STA 12/11 1727 DC IV 12/11 1826 Gastrointestinal Drugs Sig/Nakul Start time Last Medication Dose Route Stop Time Status Admin Ondansetron HCl 4 MG X1ED PRN PRN 12/11 1730 DCD IV Patient Discharge Departure Vital Signs/ConditionVital Signs Condition Stable Clinical ImpressionClinical ImpressionPrimary Impression: Ovarian cyst, leftSecondary Impressions: Pelvic pain affecting in second trimester, antepartum Disposition DecisionOther )( Time 2210 )( Date 12/11/18 Against Medical Advice I CALLED PT FROM [facility] AND DID NOT GET AN ANSWER. at 2313 at 1012RPT #:[id number] OF REPORTEDEmergency department [id number]:31:00V.[id number] a ilable for patient [id number]:12:25 2018-12-11 17:31:00 [id number]:31:00 [facility] Dandre [facility] ([facility])EMERGENCY PROVIDER REPORTREPORT#:[id number] REPORT STATUS: SignedDATE:12/11/18 TIME: 1730 PATIENT: RAFAEL STAFFORD UNIT #: [id number]#: [id number] ROOM/BED:AGE: 28 SEX: F PCP PHYS: N o Primary or Family PhysicianSERVICE AUTHOR: Chasity Barber NP * ALL edits or amendments must be made on the electronic/computer document * Chasity Barber 12/11/18 1731:HPI-Abd Pain F Under 40 GeneralConfirmed Patient YesPatient Type New patientPCPNONE PresentationChief Complaint Abdominal painHx Obtained From PatientSudden in Onset? YesOnset Occurred TodaySymptom Duration Since onsetProgression since Onset UnchangedRadiationDoes not radiate. Migration/Movement NoneSeverity: Onset SevereSeverity: Current Severe ContextImmunization Status General All up to datePregnancy/Sexual Hx Last Menstrual Period 11/08/18 3 Para 3 Free Text HPI NotesFre e Text HPI NotesPT REPORTS SUDDEN ONSET OF LLQ ABDOMINAL PAIN STARTED 1 HR AGO. PT DENIES ANY FEVER, RASH, N/V/D, CP, SOB, DYSURIA, URI S/S, FIERRO, OR SWELLING Risk-Abd Pain F Under 40)( Ectopic Risk factors reviewed Review o f Systems ROS StatementsAll systems rev neg except as marked. Basic Review of SystemsBasic ROS EYES : No redness, ENT: No sore throat, HEM: No bleeding/bruising, SKIN: No rash, NEURO: No change MS, NEURO: No focal deficit, PSYCH: NL thought content Focused Review of SystemsConstitutionalDenies: Chills, Fever, Lethargy. RespiratoryDenies: Cough, non-productive, Cough, productive, Shortness of breath. CardiovascularDenies: Chest pain, Syncope. GIReports: Abdominal pain. Denies: Diarrhea, Nausea, Vomiting. FemaleDenies: Dysuria, Flank pain, Pelvic pain. MusculoskeletalDenies: Back pain, Extremity pain . Past Medical History - AdultStated Complaint ABDOMEN PAINAllergiesCoded Allergies:No Known Allergies (12/11/18) Home MedicationsReported MedicationsACETAMINOPHEN/CODEINE (TYLENOL WITH CODEINE #4 300/60 MG) 1 TAB PO Q4H PRN PRN PAIN ESOMEPRAZOLE MAG DR (NexIUM) 20 MG PO DAILY ONDANSETRON (ZOFRAN) 4 MG PO Q6H PRN PRN NAUSEA AND VOMITING Review of Nursing Notes Unavailable at this timePast Medical History:Reports: Headache disorder. Additional Medical HistoryDVTAlcohol Use Denies EtOH useDrug Use Denies recreational drugsSmoking status for patients 13 years old or older: Current every da y smokerPack years (pk/d)*(yrs): 10Date last smoked: still smokingAmbulatory Status Independent Physical Exam Vital SignsVital Signs Review of Vital Signs Reviewed Basic Physical ExamBasic PE HEAD: Atraumatic/NC, EYES: PERRL, conj clear, ENT: Membranes moist, NECK: Supple, EXT: No gross abnormality, SKIN: No rashes, warm/dry, NEURO: alert oriented, NEURO: gross movement NL, PSYCH: NL thought content Focused PEGeneral/Const General/Const Awake, Alert, Well appearingMS Head Head NormocephalicEyes Eye s PERRLEars/Nose/Throat Ears/Nose/Throat Airway patent, Mucous membranes moist, Pharynx NLResp/Chest Respiratory/Chest Breath sounds NL, Breath sounds = bilat, No respiratory distress, No rales, No rhonchi, No wheezingCardiovascular Cardiovascular Heart rate NL, Regular rhythm, Heart sounds NL, Peripheral circulation NLAbdomen/GI Abdomen/G I Atraumatic, Soft, McBurney's non-tender, No rebound, BS normoactive, No distention, No hernia, No palpable mass, No pulsatile mass Tenderness/Guarding/Rebound Tender LLQ, Guarding voluntary. MS Back Back Inspection NL, Non-tender, No CVA tendernessSkin Skin Color NL, Warm, Dry, Turgor NLNeurologic Neurologic Oriented X3, Speech NL, No motor deficits, No sensory deficits Interpretation Diagnostics Lab Results InterpretationResults Point of Care TestingPulse Oximetry Pulse Ox % 100 On: Room ai r Interpretation Interpreted by me, Pulse oximetry normal Time 172 Re-Evaluation [facility] ED CourseMedication(s) Ordered Patient Discharge Departure Vital Signs/ConditionVital SignsFirst Documented: Result Date Time Pulse Ox 100 12/11 1725 B/P 130/72 12/11 1725 B/P Mean 91 12/11 172 O2 Delivery Room air 12/11 172 Temp 36.6 12/11 1724 Pulse 64 12/11 172 Resp 16 12/11 172 Last Documented: Result Date Time Pulse Ox 100 12/11 1725 B/P 130/72 12/11 1725 B/P Mean 91 12/11 1725 O2 Delivery Room air 12/11 1725 Temp 36.6 12/11 172 Pulse 64 12/11 1725 Resp 16 11/29 3 1725 All vital signs available at the time of this entry have been reviewed. Pt/Provider Handoff Handoff NoteThis patient's care has been transferred to and accepted by [ONI ALANIZ @ 1999] . We discussed: the patient's chief complaint; lab s and imaging that have been completed and those that are still pending; procedures that have bee n completed and those remaining to be done; any treatment provided and the patient's response to treatment; any significant change in condition; input from consultants if any; the treatment amrilyn n prior to the transfer of care. The accepting physician will follow up on all pending labs and imaging and make any necessary changes to the current impression and/or treatment plan. The acceptingphysician is now responsible for the patient's care and final disposition. AWAITING LABS AND U/S RESULTS Flaco Benitez 12/11/182007:Physical Exam Vital SignsVital SignsFirst Documented: Result Date Time Pulse Ox 100 12/11 1725 B/P 130/72 12/11 1725 B/P Mean 91 12/11 172 5 O2 Delivery Room air 12/11 172 Temp 36.6 12/11 1725 Pulse 64 12/11 1725 Resp 16 12/11 1725 Last Documented: Result Date Time Pulse Ox 100 12/11 1725 B/P 130/72 12/11 1725 B/P Mean 91 12/11 1725 O2 Delivery Room air 12/11 172 Temp 36.6 12/11 1725 Pulse 64 12/11 1725 Resp 16 12/11 1725 Interpretation Diagnostics Lab Results InterpretationResultsLaboratory Tests: 12/11 173 3 Toxicology Urine Opiates Screen (<300 ng/mL) NEGATIVE Urine Methadone Screen (<300 ng/mL) NEGATIVE Urine Barbiturates (<200 ng/mL) NEGATIV E Ur Phencyclidine Scrn (<25 ng/mL) NEGATIVE Ur Amphetamines Screen (<1000 ng/mL) NEGATIVE U Benzodiazepines Scrn (<200 ng/mL) NEGATIVE Urine Cocaine Screen (<300 ng/mL) NEGATIVE Urine Cannabinoids (<50 ng/mL) POSITIVE H Urines Urin e Color (YELLOW) YELLOW Urine Appearance (CLEAR) SLIGHTLY CLOUDY H Urine pH (5.0 - 8.0) 5.0 Ur Specific [place] (1.001 - 1.035) 1.024 Urine Protein (NEGATIVE mg/dL) Negative Urine Glucose (UA) (NEGATIVE mg/dL) NEGATIVE Urine Ketones (NEGATIVE mg/dL) Negative Urine Blood (NEGATIVE) Negative Urine Nitrite (NEGATIVE) NEGATIVE Urin e Bilirubin (NEGATIVE mg/dL) NEGATIVE Urine Urobilinogen (NEGATIVE mg/dL) NEGATIVE Ur Leukocyte Esterase (NEGATIVE) NEGATIVE Urine RBC (0 - 5 #/HPF) 0-2 Urine WBC (0 - 5 #/HPF) 0-5 Ur Epithelial Cells (FEW per HPF) FEW Urine Bacteri a (NONE #/HPF) FEW H Urine Mucus (FEW #/LPF) FEW Recent Impressions:ULTRASOUND - US PREG AFTER 1S T TRI 12/11 1741 Report Impression - Status: SIGNED Entered: 12/11/20182036 IMPRESSION:1. Single, viable intrauterine with a gestational age of 19weeks and 1 day.2. ANNEMARIE by ultrasound is 05/06/2019.3. Small left ovarian cyst.4. Fetus in breech position.Impression By: Bon Mccauley M.D. Re-Evaluation MDM Free Text MDM NotesFree Text MDM NotesREPORT FROM CHASITY ALANIZ PT UNABLE TO LOCATED BY MYSELF DEPUTY COURT. PT DID NOT TELL ME/US THAT SHE WAS LEAVINGTHE FACILITY. )( Re-Evaluation/Progress #1Time of Re-Eval 2012)( Re-Eval Status UnchangedRe-Eval Abdomen Soft, Non-tender, No guarding, No rebound, BS normoactive, McBurney's non-tender, No distention, LEFT LOWER PELVIC VINICIUS N PRESENTPain Re-Evaluation Pain unchangedPlan Pos t Re-Eval Plan observe, AWAITING PT TO GO BACK TO [place]. ED CourseMedication(s) OrderedMedication(s) Ordered:Electrolytic, Caloric, And Kandy Sig/Nakul Start time Last Medication Dose Route Stop Time Status Admin Sodium Chloride 1,000 ML X1ED STA 12/11 1727 DC IV 12/11 1826 Gastrointestinal Drugs Sig/Nakul Start time Last Medication Dose Route Stop Time Status Admin Ondansetron HCl 4 MG X1ED PRN PRN 12/11 1730 DCD IV Patient Discharge Departure Vital Signs/ConditionVital Signs Condition Stabl e Clinical ImpressionClinical ImpressionPrimary Impression: Ovarian cyst, leftSecondary Impressions: Pelvic pain affecting in second trimester, antepartum Disposition DecisionOther )( Time 2210 )( Date 12/11/18 Against Medical Advice I CALLED PT FROM [facility] DID NOT GET AN ANSWER. Sherin Duffy. 12/12/18 1747:HPI-Abd Pain F Under 40 GeneralInitial Greet Date/Time 12/11/18 1715 Physical Exam Vital SignsVital Signs Interpretation Diagnostics Lab Results InterpretationResults Re-Evaluation MDM ED CourseMedication(s) Ordered Patient Discharge Departure Vital Signs/ConditionVital Signs Supervising Physician Note MidLv Saw Pt AloneI have reviewed the PA/TONGUE AND GROOVE MACHINE OPERATOR's note and plan of care. I was available for consultation as needed at al l times during the patient's visit in the emergenc y department. I agree with the clinical impression , plan and disposition. at 2313 at 1012 at 1747RPT #:[id number] OF REPORTEDEmergency department [id number] a ilable for patient [id number]
[2023-08-30] MEDS ORDERED: ONDANSETRON 4 MG/2 ML VIAL ONE (19:52)
[2023-08-30] MEDS ORDERED: NA CHLORIDE 0.9% 1,000 ML ONE ×2 (19:52→21:14)
[2023-08-30] MEDS ORDERED: ACETAMINOPHEN 325 MG TABLET ONE (20:15)
[2023-08-30 20:27] LABS: Absolute Lymphocytes (CBC) 2.3 K/uL (0.7-4.9); Hematocrit 26.6 % (36.0-45.0); Lymphocytes % 18.1 % (15.3-44.8); MCV 65.4 fL (80-100); Platelets 405 thou/uL (152-406); RBC Red Blood Cell Count 4.07 M/uL (3.86-4.86)
[2023-08-30 20:36] LABS: Specific Gravity 1.023 (1.005-1.030); Urine Bilirubin NEGATIVE (Negative); Urine Blood Negative (Negative); Urine Clarity Clear (Clear); Urine Color Light-Yellow (Yellow); Urine Glucose NEGATIVE (Negative); Urine Protein NEGATIVE (Negative); Urine Urobilinogen 2+ (Normal); Urine pH 7.5 (5.0-7.0)
[2023-08-30 20:47] LABS: SARS-CoV-2 Antigen Rapid Res Negative (Negative)
[2023-08-30 21:04] LABS: Albumin 2.9 g/dL (3.4-5.0); Bilirubin Total 0.3 mg/dL (0.2-1.0); Potassium 2.8 mEq/L (3.5-5.1); Protein, Total 7.9 g/dL (6.4-8.2)
[2023-08-30 21:10] LABS: Blood Morphology Comment NOTED (NOT SEEN); Hypochromasia 1+; Platelet Estimate ADEQ; White Blood Cell Scan OK (OK)
[2023-08-30] MEDS ORDERED: AMOX/K CLAV 875 MG TAB ONE (21:13)
[2023-08-30] MEDS ORDERED: LEVALBUTEROL 1.25 MG/3 ML NEB ONE (21:14)
[2023-08-30] MEDS ORDERED: AZITHROMYCIN 250 MG TAB ONE (21:14)
[2023-08-30] MEDS ORDERED: HYDROCODONE/CHLORPHEN 5 ML/OSYR ONE (21:14)
[2023-08-30] MEDS ORDERED: CEFTRIAXONE 1000 MG/VIAL ONE (21:14)
[2023-08-30] MEDS ORDERED: IPRATROPIUM BROM 0.5MG/2.5ML ONE (21:14)
--- NOTE | 2023-08-30 21:15 | ER ---
Nurse's Notes [facility] Name: Fifi Grimm Age: 33 yrs Sex: Female : 1990 Arrival Date: 08/30/2023 Time: 18:52 Bed 6 Private MD: Diagnosis: Fever, unspecified;Acute upper respiratory infection, unspecified;Less than 8 weeks gestation of ;Cough;Elevated white blood cell count;Anemia, unspecified;Hypokalemia-2.8 Presentation: 08/30 19:15 Chief complaint: Patient states: unable to poop for a week, abdominal pain where hernia ko1 is located, cough, body aches, fever, runny nose. Coronavirus screen: congestion, cough unrelated to allergies, fatigue, fever, runny nose, Client presents with at least one sign or symptom that may indicate coronavirus-19. Standard/surgical mask placed on the client. Ebola Screen: No symptoms or risks identified at this time. Initial Sepsis Screen: Does the patient meet any 2 criteria? No. Patient's initial sepsis screen is negative. Does the patient have a suspected source of infection? No. Patient's initial sepsis screen is negative. Risk Assessment: Do you want to hurt yourself or someone else? Patient reports no desire to harm self or others. Onset of symptoms is unknown. 19:15 Method Of Arrival: Ambulatory ko1 19:15 Acuity: WOO 4 ko1 Triage Assessment: 19:17 General: Appears in no apparent distress. Behavior is calm, cooperative, appropriate ko1 for age. Pain: Complains of pain in abdomen. GI: Reports lower abdominal pain, constipation. Historical: - Allergies: 19:17 No Known Allergies; ko1 - Immunization history:: Adult Immunizations unknown. - Social history:: Smoking status: Patient denies any tobacco usage or history of. Screenin:07 [facility] ED Fall Risk Assessment (Adult) History of falling in the last 3 months, kl including since admission No falls in past 3 months (0 pts) Confusion or Disorientation No (0 pts) Intoxicated or Sedated No (0 pts) Impaired Gait No (0 pts) Mobility Assist Device Used No (0 pt) Altered Elimination No (0 pt). Abuse screen: Denies threats or abuse. Nutritional screening: No deficits noted. Tuberculosis screening: No symptoms or risk factors identified. Assessment: 20:06 General: Appears uncomfortable, Behavior is cooperative. Pain: Complains of pain in kl abdomen Pain currently is 7 out of 10 on a pain scale. at worst was 10 out of 10 on a pain scale. Aggravated by coughing. Neuro: No deficits noted. Cardiovascular: No deficits noted. Respiratory: Reports cough that is non-productive, dry, the patient has mild shortness of breath. GI: Abd is soft Abdomen is tender to palpation X 4 quads. Reports constipation. Vital Signs: 19:15 BP 126 / 82; Pulse 95; Resp 18; Temp 99.5; Pulse Ox 100% ; ko1 22:30 BP 123 / 91; Pulse 88; Resp 20; Pulse Ox 100% ; vc1 ED Course: 18:55 Patient arrived in ED. mg5 19:16 Triage completed. ko1 19:17 Arm band placed on right wrist. Patient placed in waiting room, Patient notified of ko1 wait time. 19:27 Miki Bird MD is Attending Physician. [facility] 19:45 Inserted saline lock: 20 gauge in left antecubital area, using aseptic technique. Blood wm collected. 20:02 HCG-Quantitative Sent. wm 20:02 Flu Sent. wm 20:02 SARS RAPID Sent. wm 20:02 CBC with Diff Sent. wm 20:02 CMP Sent. wm 20:02 Test, Urine Sent. wm 20:02 Urinalysis w/ reflexes Sent. wm 20:02 Lipase Sent. wm 20:51 US Transvaginal Ob Sent. vc1 21:14 US Transvaginal Ob In Process Unspecified. EDMS 22:29 Kayley Chavez, RN is Primary Nurse. vc1 22:40 No provider procedures requiring assistance completed. IV discontinued, intact, vc1 bleeding controlled, No redness/swelling at site. Pressure dressing applied. 22:41 Provided Education on: f/u with ob ask what you can take for cough while . vc1 Administered Medications: 20:05 Drug: NS 0.9% IV 1000 ml IV at 1 bolus Per protocol; 1000 mL bolus Route: IV; Rate: 1 kl bolus; Site: left antecubital; 20:05 Drug: Acetaminophen PO 650 mg PO once Route: PO; kl 22:30 Follow up: Response: No adverse reaction; Marked relief of symptoms vc1 20:06 Drug: Ondansetron IVP 4 mg IVP once; over 2 minutes Route: IVP; Site: left antecubital; kl 21:15 Drug: Levalbuterol Inhalation 2.5 mg Inhalation once Route: Inhalation; vc1 21:15 Drug: Ipratropium Inhalation Aerosol 0.5 mg Inhalation once Route: Inhalation; vc1 21:30 Drug: Rocephin IV 1 grams IV at per protocol once; Given slow IV push per pharmacy vc1 instructions Route: IV; Rate: per protocol; Site: left antecubital; 22:29 Follow up: Response: No adverse reaction; IV Status: Completed infusion; IV Intake: [id number] 21:30 Drug: Amoxicillin-Clavulanate PO 875 mg PO once Route: PO; vc1 22:29 Follow up: Response: No adverse reaction; Marked relief of symptoms vc1 21:30 Drug: NS 0.9% IV 1000 ml IV at 1 bolus Per protocol; 1000 mL bolus Route: IV; Rate: 1 vc1 bolus; Site: left antecubital; 22:29 Follow up: IV Status: Completed infusion; IV Intake: 800ml vc1 21:30 Drug: Tussionex Pennkinetic ER PO Suspension 2.5 ml PO once Route: PO; vc1 22:30 Follow up: Response: No adverse reaction vc1 21:30 Drug: AZITHromycin PO 500 mg PO once Route: PO; vc1 22:30 Follow up: Response: No adverse reaction vc1 22:29 Drug: Potassium PO Effervescent Tablet 50 mEq PO once; dissolve in 4 ounces of water or vc1 juice Route: PO; 22:30 Follow up: Response: Marked relief of symptoms vc1 Medication: 22:40 VIS not applicable for this client. vc1 Intake: 22:29 IV: 800ml; Total: 800ml. vc1 22:29 IV: 10ml; Total: 810ml. vc1 Outcome: 21:15 Discharge ordered by MD. middleton 22:40 Discharged to home ambulatory, 1 22:40 Condition: good 22:40 Discharge instructions given to patient, Instructed on discharge instructions, follow up and referral plans. medication usage, Demonstrated understanding of instructions, follow-up care, medications, Prescriptions given X 5 22:42 Patient left the ED. vc1 Signatures: Dispatcher [employer] EDAntonia Lopez RN RN kl Anderson, Corey, MD MD cha Marsh, Wendy Kayley Chavez, RN RN vc1 Stacy Huang, TELLY RN ko1 Cele Cooley mg5
--- NOTE | 2023-08-30 21:15 | EDPHYS ---
Physician Documentation [facility] Name: Fifi Grimm Age: 33 yrs Sex: Female : 1990 Arrival Date: 08/30/2023 Time: 18:52 Bed 6 Private MD: ED Physician Miki Bird HPI: 08/30 20:40 This 33 yrs old Female presents to ER via Ambulatory with complaints of Preg?, kane Abdominal Pain, Flu Symptoms. 20:40 cough, congestion, fever , possibly , , no hx pid. The patient or guardian kane reports cough, difficulty breathing, flu symptoms, arthralgias, low-grade fever, myalgias. Severity of symptoms: At their worst the symptoms were moderate, in the emergency department the symptoms are unchanged. Onset: The symptoms/episode began/occurred 5 day(s) ago. Modifying factors: The symptoms are alleviated by nothing, the symptoms are aggravated by nothing. The patient reports fever, that was measured at 100 degrees Fahrenheit. Modifying factors: there are no obvious modifying factors. Associated signs and symptoms: Pertinent positives: sore throat. Associated signs and symptoms: Pertinent positives: abdominal pain, pt has umbilical hernia, not incarerated , hernia ring felt, no incaration. Severity of symptoms: At their worst the symptoms were mild moderate in the emergency department the symptoms are unchanged. The patient has experienced similar episodes in the past, a few times. Historical: - Allergies: 19:17 No Known Allergies; ko1 - Immunization history:: Adult Immunizations unknown. - Social history:: Smoking status: Patient denies any tobacco usage or history of. ROS: 20:40 Constitutional: Negative for fever, chills, and weight loss, Eyes: Negative for injury, kane pain, redness, and discharge, ENT: Negative for injury, pain, and discharge, Neck: Negative for injury, pain, and swelling, Cardiovascular: Negative for chest pain, palpitations, and edema, Back: Negative for injury and pain, : Negative for injury, bleeding, discharge, and swelling, MS/Extremity: Negative for injury and deformity, Skin: Negative for injury, rash, and discoloration, Neuro: Negative for headache, weakness, numbness, tingling, and seizure, 20:40 Respiratory: Positive for cough, shortness of breath, at rest. 20:40 Respiratory: Positive for wheezing, expiratory, of the right posterior middle lobe and right posterior lower lobe, 20:40 Abdomen/GI: Positive for abdominal pain, of the umbilical area, Exam: 20:40 Head/Face: Normocephalic, atraumatic. Eyes: Pupils equal round and reactive to light, kane extra-ocular motions intact. Lids and lashes normal. Conjunctiva and sclera are non-icteric and not injected. Cornea within normal limits. Periorbital areas with no swelling, redness, or edema. ENT: Nares patent. No nasal discharge, no septal abnormalities noted. Tympanic membranes are normal and external auditory canals are clear. Oropharynx with no redness, swelling, or masses, exudates, or evidence of obstruction, uvula midline. Mucous membranes moist. Neck: Trachea midline, no thyromegaly or masses palpated, and no cervical lymphadenopathy. Supple, full range of motion without nuchal rigidity, or vertebral point tenderness. No Meningismus. Chest/axilla: Normal chest wall appearance and motion. Nontender with no deformity. No lesions are appreciated. Cardiovascular: Regular rate and rhythm with a normal S1 and S2. No gallops, murmurs, or rubs. Normal PMI, no JVD. No pulse deficits. Back: No spinal tenderness. No costovertebral tenderness. Full range of motion. Skin: Warm, dry with normal turgor. Normal color with no rashes, no lesions, and no evidence of cellulitis. MS/ Extremity: Pulses equal, no cyanosis. Neurovascular intact. Full, normal range of motion. Neuro: Awake and alert, GCS 15, oriented to person, place, time, and situation. Cranial nerves II-XII grossly intact. Motor strength 5/5 in all extremities. Sensory grossly intact. Cerebellar exam normal. Normal gait. 20:40 Constitutional: The patient appears febrile, 20:40 Cardiovascular: Rate: normal, actual rate is 95 bpm, Rhythm: regular, Pulses: Pulses are 4+ in bilateral radial, brachial, femoral, popliteal, posterior tibial and and dorsalis pedis arteries.. Heart sounds: normal, Edema: is not appreciated, JVD: is not appreciated, 20:40 Respiratory: the patient does not display signs of respiratory distress, Respirations: normal, Breath sounds: bronchial sounds, that are mild, are scattered, are heard in the right posterior middle lobe and right posterior lower lobe, Vital Signs: 19:15 BP 126 / 82; Pulse 95; Resp 18; Temp 99.5; Pulse Ox 100% ; ko1 22:30 BP 123 / 91; Pulse 88; Resp 20; Pulse Ox 100% ; vc1 MDM: 19:27 Patient medically screened. kane 20:45 Differential diagnosis: viral Infection, bacterial infection, URI, bronchitis, kane pneumonia UTI. Differential Diagnosis sepsis, flu, Obstructed Airway Bronchitis Influenza Upper Respiratory Infection Pharyngitis Asthma Exacerbation Viral Syndrome Pneumonia. Data reviewed: vital signs, nurses notes, lab test result(s), radiologic studies, plain films, ultrasound. Consideration of Admission/Observation Escalation of care including admission/observation considered. I considered the following discharge prescriptions or medication management in the emergency department Medications were administered in the Emergency Department. See MAR. Independent interpretation of the following test(s) in the Emergency Department X-Ray: My interpretation is cxr 2 views. Test considered but Not performed: CT: no ct chest. Care significantly affected by the following chronic conditions: nothing. Counseling: I had a detailed discussion with the patient and/or guardian regarding the historical points, exam findings, and any diagnostic results supporting the discharge/admit diagnosis, lab results, radiology results, the need for outpatient follow up, for definitive care, a family practitioner, an OB/Gyne specialist. 21:18 ED course: pt refused x ray. [facility] 08/30 19:28 Order name: CBC with Diff; Complete Time: 21:19 [facility] 08/30 19:28 Order name: CMP; Complete Time: 21:19 [facility] 08/30 19:28 Order name: Lipase; Complete Time: 21:19 [facility] 08/30 19:28 Order name: Test, Urine; Complete Time: 20:37 [facility] 08/30 19:28 Order name: Urinalysis w/ reflexes; Complete Time: 20:37 [facility] 08/30 19:28 Order name: Flu; Complete Time: 21:19 [facility] 08/30 19:28 Order name: SARS RAPID; Complete Time: 21:19 [facility] 08/30 19:29 Order name: HCG-Quantitative; Complete Time: 21:19 [facility] 08/30 20:39 Order name: Blood Culture Adult (2) [facility] 08/30 21:10 Order name: CBC Smear Scan; Complete Time: 21:19 [facility] 08/30 20:39 Order name: US Transvaginal Ob [facility] 08/30 19:28 Order name: IV Saline Lock; Complete Time: 20:02 [facility] 08/30 19:28 Order name: Labs collected and sent; Complete Time: 20: [facility] 08/30 21:19 Order name: PO challenge: juice; Complete Time: 22:29 [facility] Administered Medications: 20:05 Drug: NS 0.9% IV 1000 ml IV at 1 bolus Per protocol; 1000 mL bolus Route: IV; Rate: 1 kl bolus; Site: left antecubital; 20:05 Drug: Acetaminophen PO 650 mg PO once Route: PO; kl 22:30 Follow up: Response: No adverse reaction; Marked relief of symptoms vc1 20:06 Drug: Ondansetron IVP 4 mg IVP once; over 2 minutes Route: IVP; Site: left antecubital; kl 21:15 Drug: Levalbuterol Inhalation 2.5 mg Inhalation once Route: Inhalation; vc1 21:15 Drug: Ipratropium Inhalation Aerosol 0.5 mg Inhalation once Route: Inhalation; vc1 21:30 Drug: Rocephin IV 1 grams IV at per protocol once; Given slow IV push per pharmacy vc1 instructions Route: IV; Rate: per protocol; Site: left antecubital; 22:29 Follow up: Response: No adverse reaction; IV Status: Completed infusion; IV Intake: [id number] 21:30 Drug: Amoxicillin-Clavulanate PO 875 mg PO once Route: PO; vc1 22:29 Follow up: Response: No adverse reaction; Marked relief of symptoms vc1 21:30 Drug: NS 0.9% IV 1000 ml IV at 1 bolus Per protocol; 1000 mL bolus Route: IV; Rate: 1 vc1 bolus; Site: left antecubital; 22:29 Follow up: IV Status: Completed infusion; IV Intake: 800ml vc1 21:30 Drug: Tussionex Pennkinetic ER PO Suspension 2.5 ml PO once Route: PO; vc1 22:30 Follow up: Response: No adverse reaction vc1 21:30 Drug: AZITHromycin PO 500 mg PO once Route: PO; vc1 22:30 Follow up: Response: No adverse reaction vc1 22:29 Drug: Potassium PO Effervescent Tablet 50 mEq PO once; dissolve in 4 ounces of water or vc1 juice Route: PO; 22:30 Follow up: Response: Marked relief of symptoms vc1 Disposition Summary: 08/30/23 21:15 Discharge Ordered Notes: Location: Home [facility] Problem: new kane Symptoms: have improved kane Condition: Stable kane Diagnosis - Fever, unspecified kane - Acute upper respiratory infection, unspecified kane - Less than 8 weeks gestation of kane - Cough kane - Elevated white blood cell count kane - Anemia, unspecified kane - Hypokalemia - 2.8 kane Followup: kane - With: Private Physician - When: 2 - 3 days - Reason: Recheck today's complaints, Continuance of care, Re-evaluation by your physician Discharge Instructions: - Discharge Summary Sheet kane - Anemia kane - Potassium Content of Foods kane - Fever, Adult kane - Upper Respiratory Infection, Adult kane - Cool Mist Vaporizer kane - First Trimester of , Badi-wz-[id number] kane - Upper Respiratory Infection, Adult, Uilu-fa-[id number] kane - First Trimester of kane - Cough, Adult kane - Hypokalemia [facility] Forms: - Medication Reconciliation Form [facility] - Thank You Letter [facility] - Antibiotic Education [facility] - Prescription Opioid Use [facility] - Patient Portal Instructions [facility] - Leadership Thank You Letter [facility] Prescriptions: - albuterol sulfate 90 mcg/actuation Inhalation HFA Aerosol Inhaler - inhale 2 inhalation INHALATION route every 4-6 hours; 1 unit; Refills: 0, [facility] Product Selection Permitted - Augmentin 875-125 mg Oral tablet - take 1 tablet ORAL route every 12 hours for 7 days; 14 tablet; Refills: 0, [facility] Product Selection Permitted - Benadryl 25 mg Oral Capsule - take 1 capsule ORAL route every 6 hours As needed; 30 tablet; Refills: 0, [facility] Product Selection Permitted - Potassium Chloride 20 meq Oral Packet - take 1 packet ORAL route once daily 1 packet in 6 (six) ounces of water or kane juice; Take after meal; 14 packet; Refills: 0, Product Selection Permitted - Zithromax Z-Maximilian 250 mg Oral tablet - take 1 tablet ORAL route as directed for 5 days Day 1 - take two (2) tablets kane one time. Day 2, 3, 4 , 5 take one (1) tablet once daily.; 6 tablet; Refills: 0, Product Selection Permitted Signatures: Dispatcher [employer] Antonia Suarez RN RN kl Anderson, Corey, MD MD cha Calcote, Vanessa, RN RN vc1 Stacy Huang, TELLY RN ko1 Corrections: (The following items were deleted from the chart) 21:15 20:38 Chest Pa And Lat (2 Views)+[email or web address] ordered. EDMS EDMS
--- NOTE | 2023-08-30 21:33 | RAD REPORT ---
EXAM DESCRIPTION: US - Transvaginal OB - 08/30/2023 9:12 pm CLINICAL HISTORY: ABD CRAMPING, COMPARISON: <Comparisons> FINDINGS: A single gestational sac is seen within the uterus. The shape of the sac is within normal limits for gestational age. Within the sac is a single pole with crown-rump length of 6 mm, cor relating to estimated gestational age of 6 weeks 3 days. Estimated date of delivery is 04/21/2024. Heart rate is . The placenta is not yet developed due to early gestational age. Moderate size subchorionic bleed mindy uring 17 x 13 x 9 mm. The maternal adnexa and right ovary are within normal limits. Normal Doppler blood flow was demonstra raffi to the right ovary. Left ovary obscured by bowel gas. IMPRESSION: Single live early intrauterine gestation with estimated gestational age of 6 weeks 3 day s, ANNEMARIE 04/21/2024. Moderate subchorionic bleed measuring up to 17 mm.
[2023-08-30] MEDS ORDERED: POTASSIUM 25 MEQ EFFERV TAB ONE (21:40)
[2023-08-30 23:47] VITALS: TEMP 99.5; O2SAT 100
[2023-08-30 23:48] VITALS: BP 123/91
== END 2023-08-30 22:42 | disposition home or self-care (01) ==
LOC: ER 18:52
DX: O99.511 Diseases of the respiratory system complicating pregnancy, first trimester (principal); J06.9 Acute upper respiratory infection, unspecified; O99.011 Anemia complicating pregnancy, first trimester; D64.9 Anemia, unspecified; O99.281 Endocrine, nutritional and metabolic diseases complicating pregnancy, first trimester; E87.6 Hypokalemia; Z3A.01 Less than 8 weeks gestation of pregnancy
CPT/HCPCS: 36415; 76817; 80053; 81003; 81025; 83690; 84702; 85025; 87040; 87804; 87811; 96365; 96375; 99285; J0696; J2405; J7030; J7614; J7644